=== PATIENT | female | born 1935 | race Caucasian/White ===

== ENCOUNTER 2021-01-15 23:37 | Inpatient (IN) | payer MEDICARE, MEDICAID, SELFPAY ==
--- NOTE | ~2021-01-15 | MR_ITS ---
EXAMINATION: MR ANKLE WITHOUT AND WITH CONTRAST, LEFT CLINICAL INFORMATION: Calcaneal wound. Rule out osteomyelitis. COMPARISON: None TECHNIQUE: MRI of the ankle was performed before and after the intravenous administration of 6 mL Gadavist on a high-field scanner. FINDINGS: ACHILLES TENDON: Normal. OTHER TENDONS: Mild peroneus brevis tendinosis is noted just distal to the lateral malleolus. No tears or tenosynovitis. Extensor and medial flexor tendons are normal. LIGAMENTS: Chronic complete tear of the anterior talofibular ligament. Intact calcaneofibular ligament. Chronic ossific fragments at the anterior margin of the medial malleolus correlate with chronic changes of prior avulsion fractures at the deltoid attachment. No acute deltoid and spring ligament tears. Syndesmotic ligaments are intact. BONE AND ARTICULAR CARTILAGE: No evidence of osteomyelitis. The calcaneal tuberosity is normal in signal intensity. There is mild talocrural osteoarthritis with focal areas of cartilage loss at the medial and lateral margins of the talar dome as well as small marginal osteophytes. Mild osteoarthritis is also present in the subtalar joint. The degenerated articulation between the lateral process of the talus and the anterior process of the calcaneus is associated with subchondral cystic change and raise the possibility of chronic lateral hindfoot impingement. There is mild to moderate multifocal osteoarthritis in the midfoot, most notably at the tarsometatarsal joints. Marked osteoarthritis is present at the 1st MTP joint. There is an old healed distal fibular fracture. No acute fractures. JOINT FLUID AND SOFT TISSUES: No joint effusions. At the posterolateral aspect of the calcaneus, there is a skin wound measuring approximately 2.2 x 3.2 cm in area with underlying hyperenhancing subcutaneous fat. No fluid collections. No underlying osteomyelitis. The musculature is diffusely atrophic and fatty replaced. PLANTAR FASCIA: Thickened without significant surrounding edema signal, consistent with chronic plantar fasciopathy. No tears. SINUS TARSI AND TARSAL TUNNEL: There is replacement of much of the normal fat signal in the sinus tarsi with soft tissue edema and low T1 signal intensity. MR/MR ankle LT wo/w con IMPRESSION: 1. Skin wound at the lateral aspect of the heel near the calcaneal tuberosity. No underlying abscess or osteomyelitis. 2. 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 The pattern of degeneration at the subtalar joint raising the possibility of chronic lateral hindfoot impingement. 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 3. Chronic plantar fasciopathy. Diffuse fatty atrophy of the foot musculature.
[2021-01-15 23:46] VITALS: BP 140/61; PULSE 60; RESP 16; TEMP 36.7; O2SAT 97; BMI 29.1
--- NOTE | 2021-01-15 23:48 | ED_ITS ---
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 Patient does have nonhealing wound on both calcaneum area left more than the right but lately has more pus discharge from the left calcaneum had the x-ray done which showed possible osteomyelitis. Patient denies any fever or chills no erythema or swelling no significant increase in the pain Related Data Home Medications Medication Instructions Recorded Confirmed amiodarone 200 mg tablet 1 tab PO DAILY 01/16/21 01/16/21 apixaban 2.5 mg tablet (Eliquis) 1 tab PO BID 01/16/21 01/16/21 cholecalciferol (vitamin D3) 25 25 mcg PO DAILY 01/16/21 01/16/21 mcg (1,000 unit) capsule gabapentin 100 mg capsule 100 mg PO TID 01/16/21 01/16/21 insulin lispro 100 unit/mL 1 sliding scale dose SUBCUT 01/16/21 01/16/21 subcutaneous solution USEASDIRECTD lidocaine 4 % topical patch 1 patch TOPICAL DAILY 01/16/21 01/16/21 (Lidocaine Pain Relief) pantoprazole 40 mg tablet,delayed 1 tab PO DAILY 01/16/21 01/16/21 release quetiapine 25 mg tablet 1 tab PO BEDTIME 01/16/21 01/16/21 sertraline 100 mg tablet 1 tab PO DAILY 01/16/21 01/16/21 verapamil 180 mg tablet,extended 1 tab PO DAILY 01/16/21 01/16/21 release Allergies Allergy/AdvReac Type Severity Reaction Status Date / Time No Known Allergies Allergy Verified 01/15/21 23:59 Review of Systems Review of Systems: Yes all other systems are reviewed and are negative PMFSH Past Medical History Medical History A-fib Chronic wound of extremity GERD (gastroesophageal reflux disease) Major depressive disorder Type 2 diabetes mellitus Social History Social History Advance Directives: No Advance Directives Information Provided: No Physical Exam Vital Signs: Vital Signs: Last Vital Signs Temp 98.0 F 01/15/21 23:46 Pulse 60 01/15/21 23:46 Resp 16 01/15/21 23:46 BP 140/61 H 01/15/21 23:46 Pulse Ox 97 01/15/21 23:46 Body Mass Index 29.1 Const: General: no acute distress and well developed Orientation/consciousness: patient oriented x3 HENMT: Head: Yes normocephalic and Yes atraumatic Eyes: General: appearance normal, both eyes and all related structures Neck: Neck: Yes normal visual inspection and Yes full ROM Resp: Effort & Inspection: normal respiratory effort and able to speak in complete sentences Auscultation: clear to auscultation bilaterally Cardio: Palpation: normal PMI Rate: regular rate Rhythm: regular rhythm Heart sounds: S1 normal heart sound present and S2 normal heart sound present Peripheral pulses: Peripheral pulses 2+ throughout GI: Inspection: Yes normal to inspection Palpation (GI): Soft to palpation and nontender Auscultation: normal bowel sounds : General: Yes no CVA tenderness Back/Spine/Pelvis: Back: no CVA tenderness Neuro: General: patient oriented x3 and moves all extremities Extrem: Ankle/foot/toe images: 1. 2 x 2 cm ulcer on the lateral aspect of left calcaneum with purulent discharge no surrounding erythema slight tenderness no crepitus 2. 1 x 1 cm superficial ulcer without any significant discharge on right calcaneum MDM - Extremity (Nontraumatic) MDM Narrative Medical decision making narrative: Patient has possible osteomyelitis of left calcaneum with bony erosion in the x-ray elevated sed rate normal lactic acid and normal WBC count will admit patient for IV antibiotics plan for MRI in the morning. Lab Data Attestation: I reviewed the patient's lab results. Result diagrams: 01/16/21 00:23 01/16/21 00:23 Labs: Lab Results 01/16/21 01/16/21 01/16/21 Range/Units 00:13 00:22 00:23 WBC 6.4 (4.8-10.8) X10*3/uL RBC 3.46 L (4.20-5.50) X10*6/uL Hgb 9.6 L (12.0-16.0) g/dl Hct 30.9 L (37-47) % MCV 89.3 (80-98) fL MCH 27.7 (27.0-33.0) pg MCHC 31.1 (31.0-35.0) g/dl RDW 15.9 (11.0-16.0) % Plt Count 138 L (160-400) X10*3/uL MPV 9.5 (9.4-12.3) fL Immature Gran % (Auto) 0.8 H (0.0-0.4) % Neut % (Auto) 68.9 (45-73) % Lymph % (Auto) 21.2 (20-40) % [place] % (Auto) 7.4 (2-11) % Eos % (Auto) 1.4 (0-4) % Baso % (Auto) 0.3 (0-2) % Lymph # (Auto) 1.4 (1.2-4.9) X10*3/uL [place] # (Auto) 0.5 (0.1-1.2) X10*3/uL Eos # (Auto) 0.1 (0.0-0.4) X10*3/uL Baso # (Auto) 0.0 (0.0-0.2) X10*3/uL Abs Immat Gran (auto) 0.05 H (0.00-0.03) X10*3/uL Absolute Neuts (auto) 4.4 (2.0-8.3) X10*3/uL Absolute Nucleated RBC 0.000 (0.0-0.012) X10*3/uL Nucleated RBC % (auto) 0.0 (0.0-0.2) /100WBC ESR (0-20) MM/HR Sodium (135-145) mmol/L Potassium (3.3-5.1) mmol/L Chloride (96-108) mmol/L Carbon Dioxide (22-29) mmol/L Anion Gap (12-20) BUN (9-16) mg/dL Creatinine (0.5-1.4) mg/dL Estim Creat Clear Calc Estimated GFR Random Glucose (60-115) mg/dL Lactic Acid 0.7 (0.5-2.0) mmol/L Calcium (8.4-10.2) mg/dL Total Bilirubin (0.0-1.0) mg/dL Direct Bilirubin (0.0-0.5) mg/dL AST (5-31) U/L ALT (0-31) U/L Alkaline Phosphatase (39-117) U/L C-Reactive Protein (< or = 0.50) mg/dL Total Protein (6.5-8.0) g/dL Albumin (3.5-5.0) g/dL COVID-19 ([facility]) Negative (Negative) COVID-19 Clin Com See Note 01/16/21 01/16/21 Range/Units 00:23 00:23 WBC (4.8-10.8) X10*3/uL RBC (4.20-5.50) X10*6/uL Hgb (12.0-16.0) g/dl Hct (37-47) % MCV (80-98) fL MCH (27.0-33.0) pg MCHC (31.0-35.0) g/dl RDW (11.0-16.0) % Plt Count (160-400) X10*3/uL MPV (9.4-12.3) fL Immature Gran % (Auto) (0.0-0.4) % Neut % (Auto) (45-73) % Lymph % (Auto) (20-40) % [place] % (Auto) (2-11) % Eos % (Auto) (0-4) % Baso % (Auto) (0-2) % Lymph # (Auto) (1.2-4.9) X10*3/uL [place] # (Auto) (0.1-1.2) X10*3/uL Eos # (Auto) (0.0-0.4) X10*3/uL Baso # (Auto) (0.0-0.2) X10*3/uL Abs Immat Gran (auto) (0.00-0.03) X10*3/uL Absolute Neuts (auto) (2.0-8.3) X10*3/uL Absolute Nucleated RBC (0.0-0.012) X10*3/uL Nucleated RBC % (auto) (0.0-0.2) /100WBC ESR 44 H (0-20) MM/HR Sodium 140 (135-145) mmol/L Potassium 4.5 (3.3-5.1) mmol/L Chloride 104 (96-108) mmol/L Carbon Dioxide 28 (22-29) mmol/L Anion Gap 13 (12-20) BUN 40 H (9-16) mg/dL Creatinine 1.97 H (0.5-1.4) mg/dL Estim Creat Clear Calc 19.0 Estimated GFR 24 Random Glucose 118 H (60-115) mg/dL Lactic Acid (0.5-2.0) mmol/L Calcium 9.3 (8.4-10.2) mg/dL Total Bilirubin 0.2 (0.0-1.0) mg/dL Direct Bilirubin < 0.2 (0.0-0.5) mg/dL AST 17 (5-31) U/L ALT 13 (0-31) U/L Alkaline Phosphatase 114 (39-117) U/L C-Reactive Protein 0.35 (< or = 0.50) mg/dL Total Protein 6.1 L (6.5-8.0) g/dL Albumin 3.8 (3.5-5.0) g/dL COVID-19 ([facility]) (Negative) COVID-19 Clin Com Discharge Plan Discharge Clinical Impression: Osteomyelitis of ankle Qualifiers: Osteomyelitis type: subacute Laterality: left Qualified Code(s): M86.272 - Subacute osteomyelitis, left ankle and foot Patient Disposition: Admitted As Inpatient
[2021-01-16] VITALS (7 sets, daily range): BP systolic 116–147; BP diastolic 60–77; PULSE 73–93; RESP 18; TEMP 35.5–37.2; O2SAT 93–99
[2021-01-16 00:28] LABS: MANUAL DIFF FLAG NO
[2021-01-16 00:31] LABS: Basophils Percent Auto 0.3 % (0-2); Eosinophils Absolute Auto 0.1 X10*3/uL (0.0-0.4); Eosinophils Percent Auto 1.4 % (0-4); Hematocrit 30.9 % (37-47); Hemoglobin 9.6 g/dl (12.0-16.0); Imm Gran Abs Auto 0.05 X10*3/uL (0.00-0.03); Imm Gran Pct Auto 0.8 % (0.0-0.4); Lymphocytes Absolute Auto 1.4 X10*3/uL (1.2-4.9); Lymphocytes Percent Auto 21.2 % (20-40); Mean Corpuscular HGB Conc 31.1 g/dl (31.0-35.0); Mean Corpuscular Hemoglobin 27.7 pg (27.0-33.0); Mean Corpuscular Volume 89.3 fL (80-98); Mean Platelet Volume 9.5 fL (9.4-12.3); Monocytes Absolute Auto 0.5 X10*3/uL (0.1-1.2); Monocytes Percent Auto 7.4 % (2-11); Neutrophils Absolute Auto 4.4 X10*3/uL (2.0-8.3); Neutrophils Percent Auto 68.9 % (45-73); Platelet Count 138 X10*3/uL (160-400); Red Blood Count 3.46 X10*6/uL (4.20-5.50); Red Cell Distribution Width 15.9 % (11.0-16.0); White Blood Count 6.4 X10*3/uL (4.8-10.8)
[2021-01-16 00:34] LABS: COVID-19 Test Negative (Negative)
[2021-01-16] MEDS: Piperacillin Sodium/Tazobactam 3.375 GM in 0.9 % Sodium Chloride 50 ML IV (00:37)
[2021-01-16 00:48] LABS: Lactic Acid 0.7 mmol/L (0.5-2.0)
[2021-01-16 00:52] LABS: Alanine Aminotransferase 13 U/L (0-31); Albumin Level 3.8 g/dL (3.5-5.0); Alkaline Phosphatase 114 U/L (39-117); Anion Gap 13 (12-20); Aspartate Amino Transferase 17 U/L (5-31); Bilirubin Direct < 0.2 mg/dL (0.0-0.5); Bilirubin Total 0.2 mg/dL (0.0-1.0); Blood Urea Nitrogen 40 mg/dL (9-16); Calcium 9.3 mg/dL (8.4-10.2); Carbon Dioxide 28 mmol/L (22-29); Chloride 104 mmol/L (96-108); Estimated Glomerular Filt Rate 24; Glucose Random 118 mg/dL (60-115); Potassium 4.5 mmol/L (3.3-5.1); Sodium 140 mmol/L (135-145); Total Protein 6.1 g/dL (6.5-8.0)
[2021-01-16 00:57] LABS: C Reactive Protein 0.35 mg/dL (< or = 0.50)
[2021-01-16 01:05] LABS: Erythrocyte Sedimentation Rate 44 MM/HR (0-20)
[2021-01-16] MEDS: vancomycin HCL 1,000 MG in 0.9 % Sodium Chloride 250 ML 270 MG IV (01:22)
--- NOTE | 2021-01-16 06:19 | P.HPHOSP_ITS ---
History of Present Illness Date of Service: 01/16/21 Chief Complaint: non-healing ulcer This is an 85-year-old female with past medical history of AFib, chronic wound of lower extremity, GERD, depression, type 2 diabetes who [facility] the [facility] for nonhealing wound. Patient reports that she has chronic wounds of her bilateralal feet that have been there for the past 6 months. Patient reports that her right foot ulcer wound is healing very well but the left has not been healing and therefore an x-ray was done at the halfway which showed possible osteomyelitis and therefore she was sent to the hospital. Patient reports worsening pain for the past 1 week, pain is about a 7/10, radiating up her leg, constant, no alleviating or exacerbating factors, not associated with any fever or chills. Patient denies any chest pain, shortness of breath, no cough, no abdominal pain nausea or vomiting, no diarrhea constipation, no urinary symptoms. Patient denies any numbness tingling. She reports history of diabetes but reports that she has never been on any medications prior to recently. Who vitals reviewed show a temp of 98.0?, heart rate of 60, respiratory rate of 16, satting 97% on room air. Lab significant for WBC count of 6.4, hemoglobin of 9.6, ESR of 44, CRP of 0.35, COVID-19 negative. Patient will be admitted further evaluation Review of Systems Review of Systems: Yes all other systems are reviewed and are negative [facility], [facility] Medical History A-fib Chronic wound of extremity GERD (gastroesophageal reflux disease) Major depressive disorder Type 2 diabetes mellitus Social History (Updated 01/16/21 @ 06:27 by Dylan Gastelum MD) Alcohol intake: never Patient Tobacco Use Status: Never used Tobacco Use of substances other than those prescribed or required for medical reasons: No Advance Directives: No Advance Directives Information Provided: No Meds Allergies Allergy/AdvReac Type Severity Reaction Status Date / Time No Known Allergies Allergy Verified 01/15/21 23:59 Active Medications: Current Medications Generic Name Dose Route Start Last Admin Trade Name Freq PRN Reason Stop Dose Admin Acetaminophen 650 mg 01/16/21 02:32 Acetaminophen 325 Mg Tablet PO Q6H PRN Pain, Mild (Pain Scale 1-3) Docusate Sodium 100 mg 01/16/21 02:32 Docusate Sodium 100 Mg Capsule PO DAILY PRN Constipation Heparin Sodium (Porcine) 5,000 unit 01/16/21 06:00 Heparin Sodium,Porcine 5,000 Unit/Ml Vial SUBCUT Q12H JANA Vancomycin HCl 1,250 mg/ 250 mls @ 166.667 mls/hr 01/16/21 02:32 Sodium Chloride IV Q12H JANA Piperacillin Sod/Tazobactam 50 mls @ 100 mls/hr 01/16/21 08:00 Sod 2.25 gm/ Sodium Chloride IV Q8H JANA Ondansetron HCl 4 mg 01/16/21 02:32 Ondansetron Hcl 4 Mg/2 Ml Vial IVPUSH Q8H PRN Nausea and Vomiting Oxycodone HCl 5 mg 01/16/21 02:32 Oxycodone Hcl Immed Release 5 Mg Tablet PO Q6H PRN Pain, Severe (Pain Scale 7-10) Pharmacy Consult 1 each 01/16/21 00:01 Consult Rx Vancomycin Dosing MISCELLANE DAILY PRN Consult order Sodium Chloride 3 ml 01/16/21 08:00 0.9 % Sodium Chloride Flush 3 Ml Syringe [facility] Home Medications Medication Instructions Recorded Confirmed Last Taken Type amiodarone 200 mg tablet 1 tab PO DAILY 01/16/21 01/16/21 Unknown History apixaban 2.5 mg tablet (Eliquis) 1 tab PO BID 01/16/21 01/16/21 Unknown History cholecalciferol (vitamin D3) 25 25 mcg PO DAILY 01/16/21 01/16/21 Unknown History mcg (1,000 unit) capsule gabapentin 100 mg capsule 100 mg PO TID 01/16/21 01/16/21 Unknown History insulin lispro 100 unit/mL 1 sliding scale dose SUBCUT 01/16/21 01/16/21 Unknown History subcutaneous solution USEASDIRECTD lidocaine 4 % topical patch 1 patch TOPICAL DAILY 01/16/21 01/16/21 Unknown History (Lidocaine Pain Relief) pantoprazole 40 mg tablet,delayed 1 tab PO DAILY 01/16/21 01/16/21 Unknown History release quetiapine 25 mg tablet 1 tab PO BEDTIME 01/16/21 01/16/21 Unknown History sertraline 100 mg tablet 1 tab PO DAILY 01/16/21 01/16/21 Unknown History verapamil 180 mg tablet,extended 1 tab PO DAILY 01/16/21 01/16/21 Unknown H istory release Physical Exam Vital Signs and Narrative: Vital Signs: Last Vital Signs Temp 98.0 F 01/15/21 23:46 Pulse 60 01/15/21 23:46 Resp 16 01/15/21 23:46 BP 140/61 H 01/15/21 23:46 Pulse Ox 97 01/15/21 23:46 Body Mass Index 29.1 Const: General: cooperative and no acute distress Orientation/consciousness: patient oriented x3 Eyes: General: appearance normal, both eyes and all related structures Pupils: Equal, round and reactive pupils present Resp: Effort & Inspection: normal respiratory effort and able to speak in complete sentences Auscultation: clear to auscultation bilaterally Cardio: Rate: regular rate Rhythm: regular rhythm GI: Palpation (GI): Soft to palpation Auscultation: normal bowel sounds Skin: General skin exam: no rashes or lesions noted Neuro: General: patient oriented x3 Cranial nerves: Yes Equal, round and reactive pupils present Cognition (Neuro): normal cognition Extrem: Other: Left calcaneus ulcer, producing purulent discharge, tender, no erythema no warmth. General: Yes no pedal edema Results Labs CBC and Chem 7: 01/16/21 00:23 01/16/21 00:23 Labs: Laboratory Results - last 24 hr 01/16/21 01/16/21 01/16/21 00:13 00:22 00:23 MCV 89.3 MCH 27.7 MCHC 31.1 RDW 15.9 Plt Count 138 L MPV 9.5 Immature Gran % (Auto) 0.8 H Neut % (Auto) 68.9 Lymph % (Auto) 21.2 [place] % (Auto) 7.4 Eos % (Auto) 1.4 Baso % (Auto) 0.3 Lymph # (Auto) 1.4 [place] # (Auto) 0.5 Eos # (Auto) 0.1 Baso # (Auto) 0.0 Abs Immat Gran (auto) 0.05 H Absolute Neuts (auto) 4.4 Absolute Nucleated RBC 0.000 Nucleated RBC % (auto) 0.0 ESR Anion Gap Estim Creat Clear Calc Estimated GFR Random Glucose Lactic Acid 0.7 Calcium Total Bilirubin Direct Bilirubin AST ALT Alkaline Phosphatase C-Reactive Protein Total Protein Albumin COVID-19 ([facility]) Negative COVID-19 Clin Com See Note 01/16/21 01/16/21 00:23 00:23 MCV MCH MCHC RDW Plt Count MPV Immature Gran % (Auto) Neut % (Auto) Lymph % (Auto) [place] % (Auto) Eos % (Auto) Baso % (Auto) Lymph # (Auto) [place] # (Auto) Eos # (Auto) Baso # (Auto) Abs Immat Gran (auto) Absolute Neuts (auto) Absolute Nucleated RBC Nucleated RBC % (auto) ESR 44 H Anion Gap 13 Estim Creat Clear Calc 19.0 Estimated GFR 24 Random Glucose 118 H Lactic Acid Calcium 9.3 Total Bilirubin 0.2 Direct Bilirubin < 0.2 AST 17 ALT 13 Alkaline Phosphatase 114 C-Reactive Protein 0.35 Total Protein 6.1 L Albumin 3.8 COVID-19 ([facility]) COVID-19 Clin Com Assessment and Plan (1) Acute osteomyelitis of left calcaneus: Status: Acute This is an 85-year-old female with past medical history of AFib, depression who presents to the hospital for nonhealing ulcer concerning for osteomyelitis # osteomyelitis of left calcaneus - x-ray done outpatient shows possible osteomyelitis - patient has elevated ESR with CRP normal - afebrile, no leukocytosis - will start prophylactic broad-spectrum antibiotics in the setting of diabetes - MRI of the foot - infectious disease consult # AFib - continue amiodarone and Eliquis # diabetes - low-dose sliding scale insulin - diabetic diet # depression - continue home medications DVT prophylaxis: ELIQUIS Quality Stroke Does the patient have a stroke diagnosis?: No VTE Prior VTE?: No VTE Risk Level:: Medical - moderate - high VTE Device Contraindication: Treatment Not Indicated VTE Drug Contraindication: N/A - Med Ordered
--- NOTE | 2021-01-16 07:23 | P.CDIC_ITS ---
CDI Concurrent Query Service Date: 01/16/21 Documentation Clarification: Please clarify if you are treating a proba ble/suspected/likely or confirmed: Clarify which of the following accurately represents the patient's renal status: - Acute renal failure - see criteria - Acute renal failure with suspected ATN - Acute renal failure with other pathology (medullary, papillary, or cortical necrosis) - Acute renal failure (with type, appropriate) on Chronic Kidney Disease (CKD) - see criteria - Acute kidney injury (non-traumatic) - see criteria - CKD, please provide stage - see criteria - ESRD - CKD V now requiring permanent dialysis and/or transplant - Other (please specify): - Unable to determine Criteria for SARAH* 1)Increase in serum creatinine by > 0.3 mg/dL within 48 hours, or 2)Increase in serum creatinine to > 1.5 times baseline, which is known or presumed to have occurred within 7 days, or 3)Urine volume < 0.5 mL/kg/hour for six hours CKD Staging: - Stage G1 - Normal or High - 90 - Stage G2 - Mildly Decreased - 60-89 - Stage G3a - Mildly to Moderately Decreased - 45-59 - Stage G3b - Mildly to Severely Decreased - 30-44 - Stage G4 - Severely Decreased - 15-29 - Stage G5 - Kidney Failure - < 15 Kidney Disease: Improving Global Outcomes (KDIGO) 2012 Use of terms such as suspected, likely, concern for, or probable (associated with a specific diagnosis that is being evaluated, monitored, or treated as if it exists) are acceptable and can be coded in the inpatient setting, when documented at the time of discharge. PLEASE DO NOT DELETE/MODIFY EXISTING CONTENT Additional information is needed in order to code to the highest accuracy and appropriate Severity of Illness (SOI). Please clarify the information noted below in your progress notes and discharge summary. Risk Factors/Clinical Indicators/Treatments BUN 40 Creatinine 1.97 No baseline in EMR CDS: Mary Carmen Shukla RN Contact Number: [phone] Please Review the information above and exercise your independent professional judgment in responding to the query. If you concur, pleas document in the PROGRESS NOTES and DISCHARGE SUMMARY. If you do not agree with the query, please document in the query above. THIS QUERY IS PART OF THE PERMANENT MEDICAL RECORD
--- NOTE | 2021-01-16 07:27 | P.CDIC_ITS ---
CDI Concurrent Query Service Date: 01/16/21 Documentation Clarification: Please clarify if you are treating a proba ble/suspected/likely or confirmed: -Please specify -Type (etiology) of ulcer/wound: -Diabetic ulcer -Venous stasis ulcer -Arterial (ischemic) ulcer -Pressure (decubitus) ulcer -Traumatic wound -Non-healing surgical wound -Other -Unable to determine -For a non-pressure ulcer, please indicate the depth/severity: -Limited to the breakdown of skin -With fat layer exposed -With necrosis of muscle -With necrosis of bone -Other -Unable to determine -If a pressure ulcer, please also include the stage* of the ulcer: -Stage 1 - Skin intact, non-blanchable redness -Stage 2 - Partial thickness loss of dermis, includes intact or open blister -Stage 3 - Full thickness tissue not including bone, tendon, or muscle -Stage 4 - Full thickness tissue loss, including exposed bones, tendon, or muscle -Unstageable - Full thickness tissue loss in which the base of the ulcer is covered by slough (yellow, mendoza, saunders, green or brown) and/or eschar (mendoza, brown, or black) in the wound bed. -Suspected deep tissue injury - Purple or maroon localized area of discolored intact skin or blood-filled blister due to damage of underlying soft tissues from pressure and/or shear. The area may be preceded by tissue that is painful, firm, mushy, boggy, warmer, or cooler as compare to adjacent tissue. -Unable to determine *Source: National Pressure Ulcer Advisory Panel (NPUAP) Use of terms such as suspected, likely, concern for, or probable (associated with a specific diagnosis that is being evaluated, monitored, or treated as if it exists) are acceptable and can be coded in the inpatient setting, when documented at the time of discharge. PLEASE DO NOT DELETE/MODIFY EXISTING CONTENT Additional information is needed in order to code to the highest accuracy and appropriate Severity of Illness (SOI). Please clarify the information noted below in your progress notes and discharge summary. Risk Factors/Clinical Indicators/Treatments Non-healing ulcer both calcaneous X-ray left foot: possible osteomyeltis Treated with IV antibiotic PMH: Diabetes Mellitus CDS: Mary Carmen Shukla RN Contact Number: [phone] Please Review the information above and exercise your independent professional judgment in responding to the query. If you concur, pleas document in the PROGRESS NOTES and DISCHARGE SUMMARY. If you do not agree with the query, please document in the query above. THIS QUERY IS PART OF THE PERMANENT MEDICAL RECORD
[2021-01-16 07:33] LABS: Glucose, Whole Blood 115 mg/dL (60-115)
[2021-01-16] MEDS: Piperacillin Sodium/Tazobactam 2.25 GM in 0.9 % Sodium Chloride 50 ML IV ×2 (08:07→15:42)
[2021-01-16] MEDS: Cholecalciferol (Vitamin D3) 25 MCG TABLET PO (08:07)
[2021-01-16] MEDS: Amiodarone HCL 200 MG TABLET PO (08:07)
[2021-01-16] MEDS: Gabapentin 100 MG CAPSULE PO (08:08)
[2021-01-16] MEDS: Sertraline HCL 100 MG TABLET PO (08:08)
[2021-01-16] MEDS: 0.9 % Sodium Chloride Flush 3 ML SYRINGE IVFLUSH ×2 (08:08→15:44)
[2021-01-16] MEDS: Omeprazole 20 MG CAPSULE.DR PO (08:08)
[2021-01-16] MEDS: Apixaban 2.5 MG TABLET PO ×2 (08:08→20:39)
[2021-01-16] MEDS: Lidocaine 4 % Patch ADH..PATCH 1 PATCH TRANSDERMA (08:09)
[2021-01-16] MEDS: VerapamiL HCL SR 180 MG TABLET.ER PO (08:25)
[2021-01-16] MEDS: lisinopriL 10 MG TABLET PO (08:25)
[2021-01-16] MEDS: Sennosides/Docusate Sodium TABLET 1 TAB PO (08:38)
[2021-01-16 10:06] LABS: Estimated Average Glucose 123 mg/dL; Hemoglobin A1c % 5.9 %
--- NOTE | 2021-01-16 10:10 | MHC.CM.PN ---
MET WITH PT WHO IS A RESIDENT OF [facility] WHERE SHE PLANS ON RETURNI NG WHEN SHE IS READY FOR DC
[2021-01-16 11:18] LABS: Glucose, Whole Blood 108 mg/dL (60-115)
--- NOTE | 2021-01-16 12:04 | HO.PM.IMPN ---
Subjective Subjective Date of Service: 01/16/21 Interval History: L heel pain no fever no chest pain no dyspnea Review of Systems Review of Systems: Yes all other systems are reviewed and are negative Physical Exam Vital Signs: Vital Signs: Last Vital Signs Temp 96 F L 01/16/21 11:05 Pulse 85 01/16/21 11:05 Resp 18 01/16/21 11:05 BP 116/76 01/16/21 11:05 Pulse Ox 96 01/16/21 11:05 Body Mass Index 29.1 Gen: in no acute distress HEENT: sclera anicteric, moist mucus membranes Neck: supple Lungs: clear to auscultation bilaterally Heart: irregular, no murmurs Abd: soft, non-tender, non-distended Ext: no edema Skin: 2 cm ulcer L calcaneus with purulent discharge Neuro: alert and oriented x3, chronic L-sided weakness Psych: appropriate affect Objective Data Current Medications Generic Name Dose Route Start Last Admin Trade Name Freq PRN Reason Stop Dose Admin Acetaminophen 650 mg 01/16/21 02:32 Acetaminophen 325 Mg Tablet PO Q6H PRN Pain, Mild (Pain Scale 1-3) Amiodarone HCl 200 mg 01/16/21 09:00 01/16/21 08:07 Amiodarone Hcl 200 Mg Tablet PO 200 mg DAILY JANA Administration Apixaban 2.5 mg 01/16/21 09:00 01/16/21 08:08 Apixaban 2.5 Mg Tablet PO 2.5 mg BID JANA Administration Dextrose 25 gm 01/16/21 06:31 Dextrose 50 % 25 Gm/50 Ml Vial IVPUSH Q15M PRN per Hypoglycemia Standing Ord. Protocol Docusate Sodium 100 mg 01/16/21 02:32 Docusate Sodium 100 Mg Capsule PO DAILY PRN Constipation Gabapentin 100 mg 01/17/21 12:00 Gabapentin 100 Mg Capsule PO DAILY@1200 JANA Gabapentin 200 mg 01/16/21 21:00 Gabapentin 100 Mg Capsule PO BEDTIME JANA Glucose 15 gm 01/16/21 06:31 Glucose Gel 15 Gm Gel..Gram. PO Q15M PRN per Hypoglycemia Standing Ord. Protocol Piperacillin Sod/Tazobactam 50 mls @ 100 mls/hr 01/16/21 08:00 01/16/21 08:40 Sod 2.25 gm/ Sodium Chloride IV Infused Q8H JANA Infusion Vancomycin HCl 500 mg/ Sodium 110 mls @ 110 mls/hr 01/16/21 18:00 Chloride IV Q18H JANA Insulin Human Lispro 0 unit 01/16/21 07:30 01/16/21 11:43 Insulin Lispro 100 Unit/Ml 3 Ml Vial SUBCUT Not Given QIDACHS [facility] Protocol Lidocaine 1 patch 01/16/21 09:00 01/16/21 08:09 Lidocaine 4 % Patch Adh..Patch TRANSDERMA 1 patch DAILY JANA Administration Protocol Lisinopril 10 mg 01/16/21 09:00 01/16/21 08:25 Lisinopril 10 Mg Tablet PO 10 mg DAILY JANA Administration Protocol Multivitamins/Minerals 1 tab 01/16/21 09:00 01/16/21 08:25 Multivitamin With Minerals Tablet PO 1 tab DAILY JANA Administration Omeprazole 20 mg 01/16/21 07:00 01/16/21 08:08 Omeprazole 20 Mg Capsule.Dr PO 20 mg DAILY@0630 JANA Administration Ondansetron HCl 4 mg 01/16/21 02:32 Ondansetron Hcl 4 Mg/2 Ml Vial IVPUSH Q8H PRN Nausea and Vomiting Oxycodone HCl 5 mg 01/16/21 02:32 Oxycodone Hcl Immed Release 5 Mg Tablet PO Q6H PRN Pain, Severe (Pain Scale 7-10) Pharmacy Consult 1 each 01/16/21 00:01 Consult Rx Vancomycin Dosing MISCELLANE DAILY PRN Consult order Quetiapine Fumarate 25 mg 01/16/21 21:00 Quetiapine Fumarate 25 Mg Tablet PO BEDTIME JANA Senna/Docusate Sodium 1 tab 01/16/21 09:00 01/16/21 08:38 Sennosides/Docusate Sodium Tablet PO 1 tab DAILY JANA Administration Sertraline HCl 100 mg 01/16/21 09:00 01/16/21 08:08 Sertraline Hcl 100 Mg Tablet PO 100 mg DAILY JANA Administration Sodium Chloride 3 ml 01/16/21 08:00 01/16/21 08:08 0.9 % Sodium Chloride Flush 3 Ml Syringe IVFLUSH 3 ml QSHIFT JANA Administration Tramadol HCl 50 mg 01/16/21 08:12 Tramadol Hcl 50 Mg Tablet PO Q12H PRN Pain Verapamil HCl 180 mg 01/16/21 09:00 01/16/21 08:25 Verapamil Hcl Sr 180 Mg Tablet.Er PO 180 mg DAILY JANA Administration Protocol Vitamin D 25 mcg 01/16/21 09:00 01/16/21 08:07 Cholecalciferol (Vitamin D3) 25 Mcg Tablet PO 25 mcg DAILY JANA Administration Labs CBC & Chem 7: 01/16/21 00:23 01/16/21 00:23 Labs: Laboratory Results - last 24 hr 01/16/21 01/16/21 01/16/21 00:13 00:22 00:23 MCV 89.3 MCH 27.7 MCHC 31.1 RDW 15.9 Plt Count 138 L MPV 9.5 Immature Gran % (Auto) 0.8 H Neut % (Auto) 68.9 Lymph % (Auto) 21.2 Chaves % (Auto) 7.4 Eos % (Auto) 1.4 Baso % (Auto) 0.3 Lymph # (Auto) 1.4 Chaves # (Auto) 0.5 Eos # (Auto) 0.1 Baso # (Auto) 0.0 Abs Immat Gran (auto) 0.05 H Absolute Neuts (auto) 4.4 Absolute Nucleated RBC 0.000 Nucleated RBC % (auto) 0.0 ESR Anion Gap Estim Creat Clear Calc Estimated GFR POC Glucose Random Glucose Estimat Average Glucose Hemoglobin A1c % Lactic Acid 0.7 Calcium Total Bilirubin Direct Bilirubin AST ALT Alkaline Phosphatase C-Reactive Protein Total Protein Albumin COVID-19 ([facility]) Negative COVID-19 Clin Com See Note 01/16/21 01/16/21 01/16/21 00:23 00:23 00:23 MCV MCH MCHC RDW Plt Count MPV Immature Gran % (Auto) Neut % (Auto) Lymph % (Auto) Chaves % (Auto) Eos % (Auto) Baso % (Auto) Lymph # (Auto) Chaves # (Auto) Eos # (Auto) Baso # (Auto) Abs Immat Gran (auto) Absolute Neuts (auto) Absolute Nucleated RBC Nucleated RBC % (auto) ESR 44 H Anion Gap 13 Estim Creat Clear Calc 19.0 Estimated GFR 24 POC Glucose Random Glucose 118 H Estimat Average Glucose 123 Hemoglobin A1c % 5.9 Lactic Acid Calcium 9.3 Total Bilirubin 0.2 Direct Bilirubin < 0.2 AST 17 ALT 13 Alkaline Phosphatase 114 C-Reactive Protein 0.35 Total Protein 6.1 L Albumin 3.8 COVID-19 ([facility]) COVID-19 Clin Com 01/16/21 01/16/21 07:29 10:55 MCV MCH MCHC RDW Plt Count MPV Immature Gran % (Auto) Neut % (Auto) Lymph % (Auto) Chaves % (Auto) Eos % (Auto) Baso % (Auto) Lymph # (Auto) Chaves # (Auto) Eos # (Auto) Baso # (Auto) Abs Immat Gran (auto) Absolute Neuts (auto) Absolute Nucleated RBC Nucleated RBC % (auto) ESR Anion Gap Estim Creat Clear Calc Estimated GFR POC Glucose 115 108 Random Glucose Estimat Average Glucose Hemoglobin A1c % Lactic Acid Calcium Total Bilirubin Direct Bilirubin AST ALT Alkaline Phosphatase C-Reactive Protein Total Protein Albumin COVID-19 ([facility]) COVID-19 Clin Com Assessment and Plan (1) Acute osteomyelitis of left calcaneus: Status: Acute Assessment and Plan: hospital d#1 85-year-old female with AF, chronic heel wounds, DM2, hx CVA with L-sided weakness [facility] nonhealing wound of L heel with concern of osteomyelitis on outpt X-ray # osteomyelitis of L associated with DM foot ulcer - MRI today, ID consult, vanc + pip/fina d#1, follow BCx # renal insufficiency - unknown chronicity- ?baseline Cr- will try to get records # normocytic anemia - also unknown chronicity. check iron studies, B12, FA, LDH, FOBT # AF - continue amiodarone, verapamil, apixaban # HTN - continue lisinopril, verapamil # DM2 - well-controlled, A1c only 5.9. correction-dose lispro # depression - continue quetiapine + sertraline # VTE ppx - apixaban Quality Stroke Does the patient have a stroke diagnosis?: No VTE Prior VTE?: No VTE Risk Level:: Medical - moderate - high VTE Device Contraindication: Treatment Not Indicated VTE Drug Contraindication: N/A - Med Ordered
[2021-01-16 15:31] LABS: Glucose, Whole Blood 129 mg/dL (60-115)
--- NOTE | 2021-01-16 16:17 | W.PM.IDCN ---
History of Present Illness Data of Consult Service Date: 01/16/21 Requesting physician: Denilson Day Primary Care Provider: Unknown Physician HPI Reason for consult: left heel ulcer She presents to hospital after [facility] found evidence of yellow drainage from left chronic heel ulcer (she has on both feet) which was present for six months XRay apparently showed osteomyelitis and she was transferred to hospital Review of Systems Review of Systems: Yes all other systems are reviewed and are negative PMFSH Past Medical History Medical History A-fib Chronic wound of extremity GERD (gastroesophageal reflux disease) Major depressive disorder Type 2 diabetes mellitus Social History Social History Household Members: Other Housing: [facility] Alcohol intake: never Patient Tobacco Use Status: Never used Tobacco service: No Meds Allergies Allergy/AdvReac Type Severity Reaction Status Date / Time No Known Allergies Allergy Verified 01/15/21 23:59 Active Medications: Current Medications Generic Name Dose Route Start Last Admin Trade Name Freq PRN Reason Stop Dose Admin Acetaminophen 650 mg 01/16/21 02:32 Acetaminophen 325 Mg Tablet PO Q6H PRN Pain, Mild (Pain Scale 1-3) Amiodarone HCl 200 mg 01/16/21 09:00 01/16/21 08:07 Amiodarone Hcl 200 Mg Tablet PO 200 mg DAILY JANA Administration Apixaban 2.5 mg 01/16/21 09:00 01/16/21 08:08 Apixaban 2.5 Mg Tablet PO 2.5 mg BID JANA Administration Dextrose 25 gm 01/16/21 06:31 Dextrose 50 % 25 Gm/50 Ml Vial IVPUSH Q15M PRN per Hypoglycemia Standing Ord. Protocol Docusate Sodium 100 mg 01/16/21 02:32 Docusate Sodium 100 Mg Capsule PO DAILY PRN Constipation Gabapentin 100 mg 01/17/21 12:00 Gabapentin 100 Mg Capsule PO DAILY@1200 JANA Gabapentin 200 mg 01/16/21 21:00 Gabapentin 100 Mg Capsule PO BEDTIME JANA Glucose 15 gm 01/16/21 06:31 Glucose Gel 15 Gm Gel..Gram. PO Q15M PRN per Hypoglycemia Standing Ord. Protocol Piperacillin Sod/Tazobactam 50 mls @ 100 mls/hr 01/16/21 08:00 01/16/21 15:42 Sod 2.25 gm/ Sodium Chloride IV 100 mls/hr Q8H JANA Administration Vancomycin HCl 500 mg/ Sodium 110 mls @ 110 mls/hr 01/16/21 18:00 Chloride IV Q18H JANA Insulin Human Lispro 0 unit 01/16/21 07:30 01/16/21 15:44 Insulin Lispro 100 Unit/Ml 3 Ml Vial SUBCUT Not Given QIDACHS [facility] Protocol Lidocaine 1 patch 01/16/21 09:00 01/16/21 08:09 Lidocaine 4 % Patch Adh..Patch TRANSDERMA 1 patch DAILY JANA Administration Protocol Lisinopril 10 mg 01/16/21 09:00 01/16/21 08:25 Lisinopril 10 Mg Tablet PO 10 mg DAILY JANA Administration Protocol Multivitamins/Minerals 1 tab 01/16/21 09:00 01/16/21 08:25 Multivitamin With Minerals Tablet PO 1 tab DAILY JANA Administration Omeprazole 20 mg 01/16/21 07:00 01/16/21 08:08 Omeprazole 20 Mg Capsule.Dr PO 20 mg DAILY@0630 JANA Administration Ondansetron HCl 4 mg 01/16/21 02:32 Ondansetron Hcl 4 Mg/2 Ml Vial IVPUSH Q8H PRN Nausea and Vomiting Oxycodone HCl 5 mg 01/16/21 02:32 Oxycodone Hcl Immed Release 5 Mg Tablet PO Q6H PRN Pain, Severe (Pain Scale 7-10) Pharmacy Consult 1 each 01/16/21 00:01 Consult Rx Vancomycin Dosing MISCELLANE DAILY PRN Consult order Quetiapine Fumarate 25 mg 01/16/21 21:00 Quetiapine Fumarate 25 Mg Tablet PO BEDTIME JANA Senna/Docusate Sodium 1 tab 01/16/21 09:00 01/16/21 08:38 Sennosides/Docusate Sodium Tablet PO 1 tab DAILY JANA Administration Sertraline HCl 100 mg 01/16/21 09:00 01/16/21 08:08 Sertraline Hcl 100 Mg Tablet PO 100 mg DAILY JANA Administration Sodium Chloride 3 ml 01/16/21 08:00 01/16/21 15:44 0.9 % Sodium Chloride Flush 3 Ml Syringe IVFLUSH 3 ml QSHIFT JANA Administration Tramadol HCl 50 mg 01/16/21 08:12 Tramadol Hcl 50 Mg Tablet PO Q12H PRN Pain Verapamil HCl 180 mg 01/16/21 09:00 01/16/21 08:25 Verapamil Hcl Sr 180 Mg Tablet.Er PO 180 mg DAILY [facility] Administration Protocol Vitamin D 25 mcg 01/16/21 09:00 01/16/21 08:07 Cholecalciferol (Vitamin D3) 25 Mcg Tablet PO 25 mcg DAILY JANA Administration Home Medications Medication Instructions Recorded Confirmed Last Taken Type amiodarone 200 mg tablet 1 tab PO DAILY 01/16/21 01/16/21 Unknown History apixaban 2.5 mg tablet (Eliquis) 1 tab PO BID 01/16/21 01/16/21 Unknown History cholecalciferol (vitamin D3) 25 25 mcg PO DAILY 01/16/21 01/16/21 Unknown History mcg (1,000 unit) capsule gabapentin 100 mg capsule 100 cap PO DAILY@1200 01/16/21 01/16/21 Unknown History gabapentin 100 mg capsule 200 cap PO BEDTIME 01/16/21 01/16/21 Unknown History insulin lispro 100 unit/mL 1 sliding scale dose SUBCUT 01/16/21 01/16/21 Unknown History subcutaneous solution USEASDIRECTD lidocaine 4 % topical patch 1 patch TOPICAL DAILY 01/16/21 01/16/21 Unknown History (Lidocaine Pain Relief) lisinopril 10 mg tablet 1 tab PO DAILY 01/16/21 01/16/21 Unknown History multivitamin with minerals 1 tab PO DAILY 01/16/21 01/16/21 Unknown History pantoprazole 40 mg tablet,delayed 1 tab PO DAILY 01/16/21 01/16/21 Unknown History release quetiapine 25 mg tablet 1 tab PO BEDTIME 01/16/21 01/16/21 Unknown History sennosides 8.6 mg-docusate sodium 1 tab-cap PO DAILY 01/16/21 01/16/21 Unknown History 50 mg tablet (Senna-S) sertraline 100 mg tablet 1 tab PO DAILY 01/16/21 01/16/21 Unknown History tramadol 50 mg tablet 50 mg PO Q12H PRN 01/16/21 01/16/21 Unknown History verapamil 180 mg tablet,extended 1 tab PO DAILY 01/16/21 01/16/21 Unknown History release Physical Exam Vital Signs: Vital Signs: Last Vital Signs Temp 98.5 F 01/16/21 15:14 Pulse 91 01/16/21 15:14 Resp 18 01/16/21 15:14 BP 125/74 01/16/21 15:14 Pulse Ox 99 01/16/21 15:14 Body Mass Index 29.1 Const: General: cooperative HENMT: Head: Yes normal to inspection Mouth: Normal oral and palatal mucosa present Resp: Effort & Inspection: normal respiratory effort Cardio: Rate: regular rate Rhythm: regular rhythm GI: Palpation (GI): Soft to palpation and nontender Extrem: Other: less than one cm open area, serous yellow drainage Results Labs CBC & Chem 7: 01/18/21 05:03 01/18/21 05:03 Labs: Short CBC 01/16/21 Range/Units 00:23 WBC 6.4 (4.8-10.8) X10*3/uL Hgb 9.6 L (12.0-16.0) g/dl Hct 30.9 L (37-47) % Plt Count 138 L (160-400) X10*3/uL BMP 01/16/21 00:23 Sodium 140 Potassium 4.5 Chloride 104 Carbon Dioxide 28 BUN 40 H Creatinine 1.97 H Calcium 9.3 Liver Function 01/16/21 Range/Units 00:23 Total Bilirubin 0.2 (0.0-1.0) mg/dL Direct Bilirubin < 0.2 (0.0-0.5) mg/dL AST 17 (5-31) U/L ALT 13 (0-31) U/L Alkaline Phosphatase 114 (39-117) U/L Albumin 3.8 (3.5-5.0) g/dL Assessment and Plan (1) Acute osteomyelitis of left calcaneus: Status: Acute She has possible osteomyelitis left heel Scan is pending Continue Vancomycin and Zosyn pending above scan May need six weeks
[2021-01-16] MEDS: vancomycin HCL 500 MG in 0.9 % Sodium Chloride 100 ML 110 MG IV (17:38)
--- NOTE | 2021-01-16 17:40 | HO.WOUNDCONS ---
History of Present Illness Data of Consult Service Date: 01/16/21 Requesting physician: Denilson Day Primary Care Provider: Unknown Physician HPI Reason for consult: Left heel ulcer This is an 85-year-old female with a history of type 2 diabetes mellitus, atrial fibrillation, and bilateral pressure ulcers of the heels who was brought to the emergency room from her rehab facility for evaluation and treatment of possible osteomyelitis of the left heel. She reports that over the past week or so, she has experienced increasing pain radiating from the left heel area up toward her knee. The record indicates that increased yellowish drainage was noted. An x-ray of the left heel was obtained at the rehab center and demonstrated subtle heterogeneity of the dorsal calcaneus. Findings were suspicious for osteomyelitis and further evaluation with MRI was recommended. She has a history of a fall resulting in a hip fracture. She underwent surgical repair and was ambulating at home with a walker. She had a 2nd fall resulting in an injury to the coccyx and then and admission for sepsis. She developed a sacral ulcer, according to information provided by her , that healed completely with local care. She had been seeing a copy center specialist for treatment of the heel ulcers, but has not been back to see that specialist since her recent hospitalization for sepsis and transfer to the rehab facility. An MRI of the ankle has been obtained. Results are pending. ESR is elevated at 44. CRP is normal at 0.35. Review of Systems Constitutional: Constitutional: Denies chills and Denies fever(s) Cardiovascular: Cardiovascular: Denies chest pain, Reports irregular heart rhythm and Denies dyspnea Respiratory: Respiratory: Denies cough and Denies dyspnea [facility] Medical History A-fib Chronic wound of extremity GERD (gastroesophageal reflux disease) Major depressive disorder Type 2 diabetes mellitus Social History Household Members: Other Housing: [facility] Alcohol intake: never Patient Tobacco Use Status: Never used Tobacco Use of substances other than those prescribed or required for medical reasons: No Currently Displaying Signs/Symptoms of Drug Intoxication Withdrawal: No Have you been hit, kicked, punched, or otherwise hurt by someone within the past year? If so, by whom?: No Do you feel safe in your current relationship?: Yes Is there a partner from a previous relationship who is making you feel unsafe now?: No Are you made to feel afraid or neglected: No Advance Directives: No Advance Directives Information Provided: No Do you have thoughts of harming others: None Do you have a plan to hurt others: No Plan Recently lost weight without trying: No Eating poorly because of decreased appetite: No Nutrition Risks: No Nutritional Risk Patient : No : No Poor oral hygiene: No service: No Meds Allergies Allergy/AdvReac Type Severity Reaction Status Date / Time No Known Allergies Allergy Verified 01/15/21 23:59 Active Medications: Current Medications Generic Name Dose Route Start Last Admin Trade Name Freq PRN Reason Stop Dose Admin Acetaminophen 650 mg 01/16/21 02:32 Acetaminophen 325 Mg Tablet PO Q6H PRN Pain, Mild (Pain Scale 1-3) Amiodarone HCl 200 mg 01/16/21 09:00 01/16/21 08:07 Amiodarone Hcl 200 Mg Tablet PO 200 mg DAILY JANA Administration Apixaban 2.5 mg 01/16/21 09:00 01/16/21 08:08 Apixaban 2.5 Mg Tablet PO 2.5 mg BID JANA Administration Dextrose 25 gm 01/16/21 06:31 Dextrose 50 % 25 Gm/50 Ml Vial IVPUSH Q15M PRN per Hypoglycemia Standing Ord. Protocol Docusate Sodium 100 mg 01/16/21 02:32 Docusate Sodium 100 Mg Capsule PO DAILY PRN Constipation Gabapentin 100 mg 01/17/21 12:00 Gabapentin 100 Mg Capsule PO DAILY@1200 JANA Gabapentin 200 mg 01/16/21 21:00 Gabapentin 100 Mg Capsule PO BEDTIME JANA Glucose 15 gm 01/16/21 06:31 Glucose Gel 15 Gm Gel..Gram. PO Q15M PRN per Hypoglycemia Standing Ord. Protocol Piperacillin Sod/Tazobactam 50 mls @ 100 mls/hr 01/16/21 08:00 01/16/21 16:20 Sod 2.25 gm/ Sodium Chloride IV Infused Q8H JANA Infusion Vancomycin HCl 500 mg/ Sodium 110 mls @ 110 mls/hr 01/16/21 18:00 Chloride IV Q18H JANA Insulin Human Lispro 0 unit 01/16/21 07:30 01/16/21 15:44 Insulin Lispro 100 Unit/Ml 3 Ml Vial SUBCUT Not Given QIDACHS [facility] [place] Protocol Lidocaine 1 patch 01/16/21 09:00 01/16/21 08:09 Lidocaine 4 % Patch Adh..Patch TRANSDERMA 1 patch DAILY [facility] Administration Protocol Lisinopril 10 mg 01/16/21 09:00 01/16/21 08:25 Lisinopril 10 Mg Tablet PO 10 mg DAILY JANA Administration Protocol Multivitamins/Minerals 1 tab 01/16/21 09:00 01/16/21 08:25 Multivitamin With Minerals Tablet PO 1 tab DAILY JANA Administration Omeprazole 20 mg 01/16/21 07:00 01/16/21 08:08 Omeprazole 20 Mg Capsule.Dr PO 20 mg DAILY@0630 [facility] Administration Ondansetron HCl 4 mg 01/16/21 02:32 Ondansetron Hcl 4 Mg/2 Ml Vial IVPUSH Q8H PRN Nausea and Vomiting Oxycodone HCl 5 mg 01/16/21 02:32 Oxycodone Hcl Immed Release 5 Mg Tablet PO Q6H PRN Pain, Severe (Pain Scale 7-10) Pharmacy Consult 1 each 01/16/21 00:01 Consult Rx Vancomycin Dosing MISCELLANE DAILY PRN Consult order Quetiapine Fumarate 25 mg 01/16/21 21:00 Quetiapine Fumarate 25 Mg Tablet PO BEDTIME JANA Senna/Docusate Sodium 1 tab 01/16/21 09:00 01/16/21 08:38 Sennosides/Docusate Sodium Tablet PO 1 tab DAILY JANA Administration Sertraline HCl 100 mg 01/16/21 09:00 01/16/21 08:08 Sertraline Hcl 100 Mg Tablet PO 100 mg DAILY JANA Administration Sodium Chloride 3 ml 01/16/21 08:00 01/16/21 15:44 0.9 % Sodium Chloride Flush 3 Ml Syringe IVFLUSH 3 ml QSHIFT [facility] Administration Tramadol HCl 50 mg 01/16/21 08:12 Tramadol Hcl 50 Mg Tablet PO Q12H PRN Pain Verapamil HCl 180 mg 01/16/21 09:00 01/16/21 08:25 Verapamil Hcl Sr 180 Mg Tablet.Er PO 180 mg DAILY [facility] Administration Protocol Vitamin D 25 mcg 01/16/21 09:00 01/16/21 08:07 Cholecalciferol (Vitamin D3) 25 Mcg Tablet PO 25 mcg DAILY [facility] Administration Home Medications Medication Instructions Recorded Confirmed Last Taken Type amiodarone 200 mg tablet 1 tab PO DAILY 01/16/21 01/16/21 Unknown History apixaban 2.5 mg tablet (Eliquis) 1 tab PO BID 01/16/21 01/16/21 Unknown History cholecalciferol (vitamin D3) 25 25 mcg PO DAILY 01/16/21 01/16/21 Unknown History mcg (1,000 unit) capsule gabapentin 100 mg capsule 100 cap PO DAILY@1200 01/16/21 01/16/21 Unknown History gabapentin 100 mg capsule 200 cap PO BEDTIME 01/16/21 01/16/21 Unknown History insulin lispro 100 unit/mL 1 sliding scale dose SUBCUT 01/16/21 01/16/21 Unknown History subcutaneous solution USEASDIRECTD lidocaine 4 % topical patch 1 patch TOPICAL DAILY 01/16/21 01/16/21 Unknown History (Lidocaine Pain Relief) lisinopril 10 mg tablet 1 tab PO DAILY 01/16/21 01/16/21 Unknown History multivitamin with minerals 1 tab PO DAILY 01/16/21 01/16/21 Unknown History pantoprazole 40 mg tablet,delayed 1 tab PO DAILY 01/16/21 01/16/21 Unknown History release quetiapine 25 mg tablet 1 tab PO BEDTIME 01/16/21 01/16/21 Unknown History sennosides 8.6 mg-docusate sodium 1 tab-cap PO DAILY 01/16/21 01/16/21 Unknown History 50 mg tablet (Senna-S) sertraline 100 mg tablet 1 tab PO DAILY 01/16/21 01/16/21 Unknown History tramadol 50 mg tablet 50 mg PO Q12H PRN 01/16/21 01/16/21 Unknown History verapamil 180 mg tablet,extended 1 tab PO DAILY 01/16/21 01/16/21 Unknown History release Physical Exam Vital Signs and Narrative: Vital Signs: Last Vital Signs Temp 98.5 F 01/16/21 15:14 Pulse 91 01/16/21 15:14 Resp 18 01/16/21 15:14 BP 125/74 01/16/21 15:14 Pulse Ox 99 01/16/21 15:14 Body Mass Index 29.1 Const: General: cooperative, no acute distress and alert Cardio: Peripheral pulses: posterior tibial pulses not present and dorsalis pedis present bilateral 2+ Skin: Other: There is an approximately 2 x 2.5 cm ulcer present left posterior calcaneal area with surface slough and some thickening and overhanging of skin edges. No surrounding erythema, no significant drainage or discharge noted though dressing recently changed by RN. No open wounds present right heel Results Labs CBC and Chem 7: 01/16/21 00:23 01/16/21 00:23 Labs: Laboratory Results - last 24 hr 01/16/21 01/16/21 01/16/21 00:13 00:22 00:23 MCV 89.3 MCH 27.7 MCHC 31.1 RDW 15.9 Plt Count 138 L MPV 9.5 Immature Gran % (Auto) 0.8 H Neut % (Auto) 68.9 Lymph % (Auto) 21.2 Eagle % (Auto) 7.4 Eos % (Auto) 1.4 Baso % (Auto) 0.3 Lymph # (Auto) 1.4 Eagle # (Auto) 0.5 Eos # (Auto) 0.1 Baso # (Auto) 0.0 Abs Immat Gran (auto) 0.05 H Absolute Neuts (auto) 4.4 Absolute Nucleated RBC 0.000 Nucleated RBC % (auto) 0.0 ESR Anion Gap Estim Creat Clear Calc Estimated GFR POC Glucose Random Glucose Estimat Average Glucose Hemoglobin A1c % Lactic Acid 0.7 Calcium Total Bilirubin Direct Bilirubin AST ALT Alkaline Phosphatase C-Reactive Protein Total Protein Albumin COVID-19 ([facility]ANCE) Negative COVID-19 Clin Com See Note 01/16/21 01/16/21 01/16/21 00:23 00:23 00:23 MCV MCH MCHC RDW Plt Count MPV Immature Gran % (Auto) Neut % (Auto) Lymph % (Auto) Eagle % (Auto) Eos % (Auto) Baso % (Auto) Lymph # (Auto) Eagle # (Auto) Eos # (Auto) Baso # (Auto) Abs Immat Gran (auto) Absolute Neuts (auto) Absolute Nucleated RBC Nucleated RBC % (auto) ESR 44 H Anion Gap 13 Estim Creat Clear Calc 19.0 Estimated GFR 24 POC Glucose Random Glucose 118 H Estimat Average Glucose 123 Hemoglobin A1c % 5.9 Lactic Acid Calcium 9.3 Total Bilirubin 0.2 Direct Bilirubin < 0.2 AST 17 ALT 13 Alkaline Phosphatase 114 C-Reactive Protein 0.35 Total Protein 6.1 L Albumin 3.8 COVID-19 ([facility]) COVID-19 Clin Com 01/16/21 01/16/21 01/16/21 00:23 07:29 10:55 MCV MCH MCHC RDW Plt Count MPV Immature Gran % (Auto) Neut % (Auto) Lymph % (Auto) Eagle % (Auto) Eos % (Auto) Baso % (Auto) Lymph # (Auto) Eagle # (Auto) Eos # (Auto) Baso # (Auto) Abs Immat Gran (auto) Absolute Neuts (auto) Absolute Nucleated RBC Nucleated RBC % (auto) ESR Anion Gap Estim Creat Clear Calc Estimated GFR POC Glucose 115 108 Random Glucose Estimat Average Glucose Hemoglobin A1c % Lactic Acid Calcium Total Bilirubin Direct Bilirubin AST ALT Alkaline Phosphatase C-Reactive Protein Cancelled Total Protein Albumin COVID-19 ([facility]ANCE) COVID-19 Clin Com 01/16/21 15:27 MCV MCH MCHC RDW Plt Count MPV Immature Gran % (Auto) Neut % (Auto) Lymph % (Auto) Eagle % (Auto) Eos % (Auto) Baso % (Auto) Lymph # (Auto) Eagle # (Auto) Eos # (Auto) Baso # (Auto) Abs Immat Gran (auto) Absolute Neuts (auto) Absolute Nucleated RBC Nucleated RBC % (auto) ESR Anion Gap Estim Creat Clear Calc Estimated GFR POC Glucose 129 H Random Glucose Estimat Average Glucose Hemoglobin A1c % Lactic Acid Calcium Total Bilirubin Direct Bilirubin AST ALT Alkaline Phosphatase C-Reactive Protein Total Protein Albumin COVID-19 ([facility]ANCE) COVID-19 Clin Com Assessment and Plan (1) Pressure ulcer of left heel, stage 3: Status: Acute (2) Acute osteomyelitis of left calcaneus: Status: Acute 85-year-old female with a known pressure ulcer, stage III, left heel, and possible osteomyelitis of left calcaneus based upon left heel x-rays. MRI has been done. Results are pending. Recommend silver alginate dressings to left heel wound every other day. Would benefit from routine debridement, but not needed acutely. If discharge is anticipated within the next few days, follow-up with her established wound care provider would be appropriate. If desired, outpatient follow-up can be arranged through the [facility].
[2021-01-16 20:27] LABS: Glucose, Whole Blood 117 mg/dL (60-115)
[2021-01-16] MEDS: Gabapentin 100 MG CAPSULE 200 MG PO (20:39)
[2021-01-16] MEDS: QUEtiapine Fumarate 25 MG TABLET PO (20:39)
[2021-01-16] MEDS: traMADoL HCL 50 MG TABLET PO (20:46)
[2021-01-17] VITALS (7 sets, daily range): BP systolic 101–126; BP diastolic 56–67; PULSE 68–96; RESP 14–20; TEMP 36.1–36.8; O2SAT 95–98
[2021-01-17] MEDS: Piperacillin Sodium/Tazobactam 2.25 GM in 0.9 % Sodium Chloride 50 ML IV ×4 (00:10→23:46)
[2021-01-17] MEDS: 0.9 % Sodium Chloride Flush 3 ML SYRINGE IVFLUSH ×2 (00:11→09:01)
[2021-01-17] MEDS: Omeprazole 20 MG CAPSULE.DR PO (05:44)
[2021-01-17 06:23] LABS: Immature Retic Fraction 8.1 % (3.0-15.9); Retic HGB Equivalent 33.6 pg (30.0-35.0); Reticulocyte Percent 1.4 % (0.5-1.8)
[2021-01-17 06:50] LABS: Iron 40 mcg/dL (30-160); Lactate Dehydrogenase 140 U/L (122-220); Percent Iron Saturation 16 % (15-50); Total Iron Binding Capacity 247 mcg/dL (228-428); Unsaturated Iron Binding 207 ug/dL
[2021-01-17 06:59] LABS: Erythrocyte Sedimentation Rate 37 MM/HR (0-20)
[2021-01-17 07:39] LABS: Glucose, Whole Blood 119 mg/dL (60-115)
[2021-01-17 08:19] LABS: Folate 14.9 ng/mL (> or = 4.0); Vitamin B12 295 pg/mL (200-900)
[2021-01-17] MEDS: Sertraline HCL 100 MG TABLET PO (09:02)
[2021-01-17] MEDS: Sennosides/Docusate Sodium TABLET 1 TAB PO (09:02)
[2021-01-17] MEDS: Lidocaine 4 % Patch ADH..PATCH 1 PATCH TRANSDERMA (09:02)
[2021-01-17] MEDS: Amiodarone HCL 200 MG TABLET PO (09:02)
[2021-01-17] MEDS: Apixaban 2.5 MG TABLET PO ×2 (09:02→21:48)
[2021-01-17] MEDS: VerapamiL HCL SR 180 MG TABLET.ER PO (09:02)
[2021-01-17] MEDS: Cholecalciferol (Vitamin D3) 25 MCG TABLET PO (09:02)
[2021-01-17] MEDS: lisinopriL 10 MG TABLET PO (09:02)
--- NOTE | 2021-01-17 11:34 | P.PNIM_ITS ---
Subjective Subjective Date of Service: 01/17/21 Interval History: No new complaints No fever 1/2 BCx + for GPCs Review of Systems Review of Systems: Yes all other systems are reviewed and are negative Physical Exam Vital Signs: Vital Signs: Last Vital Signs Temp 97.2 F 01/17/21 11:04 Pulse 75 01/17/21 11:04 Resp 18 01/17/21 11:04 BP 104/56 L 01/17/21 11:04 Pulse Ox 96 01/17/21 11:04 Body Mass Index 29.1 Gen: in no acute distress HEENT: sclera anicteric, moist mucus membranes Neck: supple Lungs: clear to auscultation bilaterally Heart: irregular, no murmurs Abd: soft, non-tender, non-distended Ext: no edema Skin: 2 cm ulcer L calcaneus with purulent discharge Neuro: alert and oriented x3, chronic L-sided weakness Psych: appropriate affect Objective Data Current Medications Generic Name Dose Route Start Last Admin Trade Name Freq PRN Reason Stop Dose Admin Acetaminophen 650 mg 01/16/21 02:32 Acetaminophen 325 Mg Tablet PO Q6H PRN Pain, Mild (Pain Scale 1-3) Amiodarone HCl 200 mg 01/16/21 09:00 01/17/21 09:02 Amiodarone Hcl 200 Mg Tablet PO 200 mg DAILY JANA Administration Apixaban 2.5 mg 01/16/21 09:00 01/17/21 09:02 Apixaban 2.5 Mg Tablet PO 2.5 mg BID JANA Administration Dextrose 25 gm 01/16/21 06:31 Dextrose 50 % 25 Gm/50 Ml Vial IVPUSH Q15M PRN per Hypoglycemia Standing Ord. Protocol Docusate Sodium 100 mg 01/16/21 02:32 Docusate Sodium 100 Mg Capsule PO DAILY PRN Constipation Gabapentin 100 mg 01/17/21 12:00 Gabapentin 100 Mg Capsule PO DAILY@1200 JANA Gabapentin 200 mg 01/16/21 21:00 01/16/21 20:39 Gabapentin 100 Mg Capsule PO 200 mg BEDTIME JANA Administration Glucose 15 gm 01/16/21 06:31 Glucose Gel 15 Gm Gel..Gram. PO Q15M PRN per Hypoglycemia Standing Ord. Protocol Piperacillin Sod/Tazobactam 50 mls @ 100 mls/hr 01/16/21 08:00 01/17/21 10:18 Sod 2.25 gm/ Sodium Chloride IV Infused Q8H JANA Infusion Vancomycin HCl 500 mg/ Sodium 110 mls @ 110 mls/hr 01/16/21 18:00 01/16/21 19:12 Chloride IV Infused Q18H JANA Infusion Insulin Human Lispro 0 unit 01/16/21 07:30 01/17/21 11:22 Insulin Lispro 100 Unit/Ml 3 Ml Vial SUBCUT Not Given QIDACHS [facility] Protocol Lidocaine 1 patch 01/16/21 09:00 01/17/21 09:02 Lidocaine 4 % Patch Adh..Patch TRANSDERMA 1 patch DAILY JANA Administration Protocol Lisinopril 10 mg 01/16/21 09:00 01/17/21 09:02 Lisinopril 10 Mg Tablet PO 10 mg DAILY JANA Administration Protocol Multivitamins/Minerals 1 tab 01/16/21 09:00 01/17/21 09:02 Multivitamin With Minerals Tablet PO 1 tab DAILY JANA Administration Omeprazole 20 mg 01/16/21 07:00 01/17/21 05:44 Omeprazole 20 Mg Capsule.Dr PO 20 mg DAILY@0630 JANA Administration Ondansetron HCl 4 mg 01/16/21 02:32 Ondansetron Hcl 4 Mg/2 Ml Vial IVPUSH Q8H PRN Nausea and Vomiting Oxycodone HCl 5 mg 01/16/21 02:32 Oxycodone Hcl Immed Release 5 Mg Tablet PO Q6H PRN Pain, Severe (Pain Scale 7-10) Pharmacy Consult 1 each 01/16/21 00:01 Consult Rx Vancomycin Dosing MISCELLANE DAILY PRN Consult order Quetiapine Fumarate 25 mg 01/16/21 21:00 01/16/21 20:39 Quetiapine Fumarate 25 Mg Tablet PO 25 mg BEDTIME JANA Administration Senna/Docusate Sodium 1 tab 01/16/21 09:00 01/17/21 09:02 Sennosides/Docusate Sodium Tablet PO 1 tab DAILY JANA Administration Sertraline HCl 100 mg 01/16/21 09:00 01/17/21 09:02 Sertraline Hcl 100 Mg Tablet PO 100 mg DAILY JANA Administration Sodium Chloride 3 ml 01/16/21 08:00 01/17/21 09:01 0.9 % Sodium Chloride Flush 3 Ml Syringe IVFLUSH 3 ml QSHIFT JANA Administration Tramadol HCl 50 mg 01/16/21 08:12 01/16/21 20:46 Tramadol Hcl 50 Mg Tablet PO 50 mg Q12H PRN Administration Pain Verapamil HCl 180 mg 01/16/21 09:00 01/17/21 09:02 Verapamil Hcl Sr 180 Mg Tablet.Er PO 180 mg DAILY JANA Administration Protocol Vitamin D 25 mcg 01/16/21 09:00 01/17/21 09:02 Cholecalciferol (Vitamin D3) 25 Mcg Tablet PO 25 mcg DAILY JANA Administration Labs CBC & Chem 7: 01/16/21 00:23 01/16/21 00:23 Labs: Laboratory Results - last 24 hr 01/16/21 01/16/21 01/16/21 00:23 15:27 20:12 ESR Absolute Retic Percent Retic Immature Retic Fraction Retic Hgb Equivalent POC Glucose 129 H 117 H Iron TIBC % Saturation Unsat Iron Binding Lactate Dehydrogenase C-Reactive Protein Cancelled Vitamin B12 Folate 01/17/21 01/17/21 01/17/21 05:19 05:19 05:19 ESR 37 H Absolute Retic 0.050 Percent Retic 1.4 Immature Retic Fraction 8.1 Retic Hgb Equivalent 33.6 POC Glucose Iron 40 TIBC 247 % Saturation 16 Unsat Iron Binding 207 Lactate Dehydrogenase 140 C-Reactive Protein Vitamin B12 Folate 01/17/21 01/17/21 05:19 07:26 ESR Absolute Retic Percent Retic Immature Retic Fraction Retic Hgb Equivalent POC Glucose 119 H Iron TIBC % Saturation Unsat Iron Binding Lactate Dehydrogenase C-Reactive Protein Vitamin B12 295 Folate 14.9 Microbiology Microbiology Results: Microbiology 01/16/21 00:22 Blood Culture - Preliminary Blood - Venous Prelim: GPC Gram Stain only 01/16/21 00:28 Blood Culture - Preliminary Blood - Venous No growth after 24 hours. Assessment and Plan (1) Acute osteomyelitis of left calcaneus: Status: Acute Assessment and Plan: hospital d#2 85-year-old female with AF, CKD3 (SCr 1.43 01/10/21), chronic heel wounds, DM2, hx CVA with L-sided weakness, hx colon CA s/p resection, recent hospitalization at [facility] for ESBL bacteremia in November sent in from [facility] for nonhealing wound of L heel with concern of osteomyelitis on outpt X-ray # osteomyelitis of L associated with DM foot ulcer, possible bacteremia - MRI reading pending, ID consulted, vanc + pip/fina d#2, follow BCx; if truly bacteremic, will need surveillance Cx, PICC, TTE # SARAH/CKD3 - give IV fluids, recheck SCr, avoid nephrotoxins # anemia of chronic disease - monitor Hb # AF - continue amiodarone, verapamil, apixaban # HTN - continue lisinopril, verapamil # DM2 - well-controlled, A1c only 5.9. correction-dose lispro # depression - continue quetiapine + sertraline # VTE ppx - apixaban Quality Stroke Does the patient have a stroke diagnosis?: No VTE Prior VTE?: No VTE Risk Level:: Medical - moderate - high VTE Device Contraindication: Treatment Not Indicated VTE Drug Contraindication: N/A - Med Ordered
[2021-01-17 11:40] LABS: Glucose, Whole Blood 161 mg/dL (60-115)
[2021-01-17 12:10] LABS: Hematocrit 33.5 % (37-47); Hemoglobin 10.5 g/dl (12.0-16.0); Mean Corpuscular HGB Conc 31.3 g/dl (31.0-35.0); Mean Corpuscular Hemoglobin 27.9 pg (27.0-33.0); Mean Corpuscular Volume 88.9 fL (80-98); Mean Platelet Volume 9.7 fL (9.4-12.3); Platelet Count 165 X10*3/uL (160-400); Red Blood Count 3.77 X10*6/uL (4.20-5.50); Red Cell Distribution Width 15.8 % (11.0-16.0); White Blood Count 6.8 X10*3/uL (4.8-10.8)
[2021-01-17] MEDS: Gabapentin 100 MG CAPSULE PO (12:22)
[2021-01-17] MEDS: vancomycin HCL 500 MG in 0.9 % Sodium Chloride 100 ML 110 MG IV (12:22)
[2021-01-17] MEDS: 0.9 % Sodium Chloride 1,000 ML 50 ML IVCONT (12:22)
[2021-01-17 12:36] LABS: Anion Gap 13 (12-20); Blood Urea Nitrogen 29 mg/dL (9-16); Calcium 9.3 mg/dL (8.4-10.2); Carbon Dioxide 29 mmol/L (22-29); Chloride 103 mmol/L (96-108); Creatinine Clr Calc Pharmacy 19.8; Estimated Glomerular Filt Rate 25; Glucose Random 178 mg/dL (60-115); Potassium 4.6 mmol/L (3.3-5.1); Sodium 140 mmol/L (135-145)
[2021-01-17 16:28] LABS: Glucose, Whole Blood 124 mg/dL (60-115)
[2021-01-17 20:24] LABS: Glucose, Whole Blood 127 mg/dL (60-115)
[2021-01-17] MEDS: QUEtiapine Fumarate 25 MG TABLET PO (21:48)
[2021-01-17] MEDS: Gabapentin 100 MG CAPSULE 200 MG PO (21:48)
[2021-01-18 03:18] VITALS: BP 115/57; PULSE 63; RESP 14; TEMP 36.6; O2SAT 95
[2021-01-18 05:13] LABS: Hematocrit 29.2 % (37-47); Hemoglobin 9.1 g/dl (12.0-16.0); Mean Corpuscular HGB Conc 31.2 g/dl (31.0-35.0); Mean Corpuscular Hemoglobin 27.8 pg (27.0-33.0); Mean Corpuscular Volume 89.3 fL (80-98); Mean Platelet Volume 9.3 fL (9.4-12.3); Platelet Count 132 X10*3/uL (160-400); Red Blood Count 3.27 X10*6/uL (4.20-5.50); Red Cell Distribution Width 15.7 % (11.0-16.0); White Blood Count 5.8 X10*3/uL (4.8-10.8)
[2021-01-18 05:30] LABS: Anion Gap 12 (12-20); Blood Urea Nitrogen 30 mg/dL (9-16); Calcium 8.9 mg/dL (8.4-10.2); Carbon Dioxide 27 mmol/L (22-29); Chloride 107 mmol/L (96-108); Creatinine Clr Calc Pharmacy 20.3; Estimated Glomerular Filt Rate 26; Glucose Random 126 mg/dL (60-115); Potassium 4.3 mmol/L (3.3-5.1); Sodium 142 mmol/L (135-145)
[2021-01-18 05:37] LABS: Vancomycin Trough 13.1 mcg/mL (10.0-20.0)
[2021-01-18] MEDS: vancomycin HCL 500 MG in 0.9 % Sodium Chloride 100 ML 110 MG IV ×2 (06:19→09:10)
[2021-01-18] MEDS: Omeprazole 20 MG CAPSULE.DR PO (06:19)
[2021-01-18 07:48] LABS: Glucose, Whole Blood 111 mg/dL (60-115)
[2021-01-18 08:00] VITALS: BP 129/62; PULSE 60; RESP 19; TEMP 36.4; O2SAT 97
[2021-01-18] MEDS: Piperacillin Sodium/Tazobactam 2.25 GM in 0.9 % Sodium Chloride 50 ML IV (08:15)
[2021-01-18] MEDS: Lidocaine 4 % Patch ADH..PATCH 1 PATCH TRANSDERMA (08:16)
[2021-01-18 08:20] VITALS: BP 129/62; PULSE 63
[2021-01-18] MEDS: lisinopriL 10 MG TABLET PO (08:20)
[2021-01-18] MEDS: Apixaban 2.5 MG TABLET PO (08:21)
[2021-01-18] MEDS: Sennosides/Docusate Sodium TABLET 1 TAB PO (08:21)
[2021-01-18 08:22] VITALS: BP 126/62; BP 129/62; PULSE 63
[2021-01-18] MEDS: Sertraline HCL 100 MG TABLET PO (08:22)
[2021-01-18] MEDS: Amiodarone HCL 200 MG TABLET PO (08:22)
[2021-01-18] MEDS: Cholecalciferol (Vitamin D3) 25 MCG TABLET PO (08:22)
[2021-01-18] MEDS: VerapamiL HCL SR 180 MG TABLET.ER PO (08:22)
[2021-01-18 11:27] VITALS: BP 111/54; PULSE 51; RESP 20; TEMP 36.2; O2SAT 94
[2021-01-18 11:32] LABS: Glucose, Whole Blood 171 mg/dL (60-115)
[2021-01-18] MEDS: Insulin Lispro 100 UNIT/ML 3 ML VIAL SUBCUT (11:42)
[2021-01-18] MEDS: Gabapentin 100 MG CAPSULE PO (11:42)
--- NOTE | 2021-01-18 12:45 | MHC.CM.PN ---
IMM 01/16/21 Female 85 DX Osteomyelitis. She will discharge today to [facility]. She was living @ the facility prior to this admission. Information has been sent to the facility. She will transport via BLS. Transportation is booked, 4pm pickup from [facility] [place].
--- NOTE | 2021-01-18 14:16 | P.DS_ITS ---
DS: Providers Provider Date of Service: 01/18/21 Date of admission: 01/16/21 00:58 Date of discharge: 01/18/21 Consults: 01/16/21 06:30 Consult to Infectious Diseases Routine Consulting Provider: Britni Humphreys Reason for consultation: Nonhealing foot ulcer concerning for osteomyelitis Has provider been notified: No 01/16/21 08:17 Consult to Wound Care Routine Consulting Provider: [facility] Wound Care Management Reason for consultation: calcaneus ulcer Attending physician on discharge: Denilson Day Discharging clinician: Denilson Day DS: Diagnosis Discharge Diagnosis (1) Pressure ulcer of left heel, stage 3: Status: Acute (2) Diabetic foot ulcer: Status: Acute (3) Infected ulcer of skin: Status: Acute (4) Acute on chronic kidney failure: Status: Acute DS: Medications Discharge Medications Home Medications: Home Medications Medication Instructions Recorded Confirmed amiodarone 200 mg tablet 1 tab PO DAILY 01/16/21 01/16/21 apixaban 2.5 mg tablet (Eliquis) 1 tab PO BID 01/16/21 01/16/21 cholecalciferol (vitamin D3) 25 25 mcg PO DAILY 01/16/21 01/16/21 mcg (1,000 unit) capsule gabapentin 100 mg capsule 100 cap PO DAILY@1200 01/16/21 01/16/21 gabapentin 100 mg capsule 200 cap PO BEDTIME 01/16/21 01/16/21 insulin lispro 100 unit/mL 1 sliding scale dose SUBCUT 01/16/21 01/16/21 subcutaneous solution USEASDIRECTD lidocaine 4 % topical patch 1 patch TOPICAL DAILY 01/16/21 01/16/21 (Lidocaine Pain Relief) lisinopril 10 mg tablet 1 tab PO DAILY 01/16/21 01/16/21 multivitamin with minerals 1 tab PO DAILY 01/16/21 01/16/21 pantoprazole 40 mg tablet,delayed 1 tab PO DAILY 01/16/21 01/16/21 release quetiapine 25 mg tablet 1 tab PO BEDTIME 01/16/21 01/16/21 sennosides 8.6 mg-docusate sodium 1 tab-cap PO DAILY 01/16/21 01/16/21 50 mg tablet (Senna-S) sertraline 100 mg tablet 1 tab PO DAILY 01/16/21 01/16/21 tramadol 50 mg tablet 50 mg PO Q12H PRN 01/16/21 01/16/21 verapamil 180 mg tablet,extended 1 tab PO DAILY 01/16/21 01/16/21 release Previous Rx's Medication Instructions Recorded acetaminophen 325 mg tablet 650 mg PO Q6H PRN #30 tab 01/18/21 amoxicillin 250 mg-potassium 1 tab PO BID #10 tab 01/18/21 clavulanate 125 mg tablet doxycycline monohydrate 100 mg 100 mg PO BID #10 tab 01/18/21 tablet DS: Summary Hospital Course Hospital Course: from H+P by admitting hospitalist Dylan Gastelum, 01/16/21: This is an 85-year-old female with past medical history of AFib, chronic wound of lower extremity, GERD, depression, type 2 diabetes who [facility] for nonhealing wound.? Patient reports that she has chronic wounds of her bilateralal feet that have been there for the past 6 months.? Patient reports that her right foot ulcer wound is healing very well but the left has not been healing and therefore an x-ray was done at the prison which showed possible osteomyelitis and therefore she was sent to the hospital.? Patient reports worsening pain for the past 1 week, pain is about a 7/10, radiating up her leg, constant, no alleviating or exacerbating factors, not associated with any fever or chills.? Patient denies any chest pain, shortness of breath, no cough, no abdominal pain nausea or vomiting, no diarrhea constipation, no urinary symptoms. Patient denies any numbness tingling.? She reports history of diabetes but reports that she has never been on any medications prior to recently. Who vitals reviewed show a temp of 98.0?, heart rate of 60, respiratory rate of 16, satting 97% on room air. Lab significant for WBC count of 6.4, hemoglobin of 9.6, ESR of 44, CRP of 0.35, COVID-19 negative. Patient will be admitted further evaluation This 85-year-old female with AF, CKD3 (SCr 1.43 01/10/21), chronic heel wounds, DM2, hx CVA with L-sided weakness, hx colon CA s/p resection, and recent hospitalization at [facility] for ESBL bacteremia in November was sent in from prison for nonhealing stage 3 wound of L heel with concern of osteomyelitis on outpatient X-ray. She was started on broad-spectrum IV antibiotics with vancomycin and piperacillin/tazobactam. Blood cultures were negative [1 grew coagulase-negative Stapylococcus, a contaminant]. MRI was negative for osteomyelitis. She was seen by wound care and silver alginate dressings every other day were recomeended. Creatinine improved from 1.97 to 1.84 with fluid repletion. She was discharged back to [facility] on 5 days of amoxicillin/clavulanate [renally dosed] and doxycycline. Repeat BMP in 1 week should be drawn. She should be seen in the [facility] Wound Care Center in 1 week. Time Spent with Patient Time attestation: Total time spent providing and/or coordinating discharge services: Discharge coordination time: Greater than 30 minutes Quality: Stroke Does the patient have a stroke diagnosis?: No Physical Exam Vital Signs: Vital Signs: Last Vital Signs Temp 97.1 F 01/18/21 11:27 Pulse 51 01/18/21 11:27 Resp 20 01/18/21 11:27 BP 111/54 L 01/18/21 11:27 Pulse Ox 94 01/18/21 11:27 Body Mass Index 29.1 Gen: in no acute distress HEENT: sclera anicteric, moist mucus membranes Neck: supple Lungs: clear to auscultation bilaterally Heart: irregular, no murmurs Abd: soft, non-tender, non-distended Ext: no edema Skin: 2 cm ulcer L calcaneus Neuro: alert and oriented x3, chronic L-sided weakness Psych: appropriate affect DS: Data Data Completed and Pending Completed studies during hospitalization [Text1]: Laboratory Results WBC 5.8 X10*3/uL (4.8-10.8) 01/18/21 05:03 RBC 3.27 X10*6/uL (4.20-5.50) L 01/18/21 05:03 Hgb 9.1 g/dl (12.0-16.0) L 01/18/21 05:03 Hct 29.2 % (37-47) L 01/18/21 05:03 MCV 89.3 fL (80-98) 01/18/21 05:03 MCH 27.8 pg (27.0-33.0) 01/18/21 05:03 MCHC 31.2 g/dl (31.0-35.0) 01/18/21 05:03 RDW 15.7 % (11.0-16.0) 01/18/21 05:03 Plt Count 132 X10*3/uL (160-400) L 01/18/21 05:03 MPV 9.3 fL (9.4-12.3) L 01/18/21 05:03 Immature Gran % (Auto) Cancelled 01/17/21 05:19 Neut % (Auto) Cancelled 01/17/21 05:19 Lymph % (Auto) Cancelled 01/17/21 05:19 Todd % (Auto) Cancelled 01/17/21 05:19 Eos % (Auto) Cancelled 01/17/21 05:19 Baso % (Auto) Cancelled 01/17/21 05:19 Lymph # (Auto) Cancelled 01/17/21 05:19 Todd # (Auto) Cancelled 01/17/21 05:19 Eos # (Auto) Cancelled 01/17/21 05:19 Baso # (Auto) Cancelled 01/17/21 05:19 Abs Immat Gran (auto) Cancelled 01/17/21 05:19 Absolute Neuts (auto) Cancelled 01/17/21 05:19 Absolute Nucleated RBC 0.000 X10*3/uL (0.0-0.012) 01/18/21 05:03 Nucleated RBC % (auto) 0.0 /100WBC (0.0-0.2) 01/18/21 05:03 ESR 37 MM/HR (0-20) H 01/17/21 05:19 Absolute Retic 0.050 X10*6/uL (0.026-0.095) 01/17/21 05:19 Percent Retic 1.4 % (0.5-1.8) 01/17/21 05:19 Immature Retic Fraction 8.1 % (3.0-15.9) 01/17/21 05:19 Retic Hgb Equivalent 33.6 pg (30.0-35.0) 01/17/21 05:19 Sodium 142 mmol/L (135-145) 01/18/21 05:03 Potassium 4.3 mmol/L (3.3-5.1) 01/18/21 05:03 Chloride 107 mmol/L (96-108) 01/18/21 05:03 Carbon Dioxide 27 mmol/L (22-29) 01/18/21 05:03 Anion Gap 12 (12-20) 01/18/21 05:03 BUN 30 mg/dL (9-16) H 01/18/21 05:03 Creatinine 1.84 mg/dL (0.5-1.4) H 01/18/21 05:03 Estim Creat Clear Calc 20.3 01/18/21 05:03 Estimated GFR 01/18/21 05:03 POC Glucose 171 mg/dL (60-115) H 01/18/21 11:29 Random Glucose 126 mg/dL (60-115) H 01/18/21 05:03 Estimat Average Glucose 123 mg/dL 01/16/21 00:23 Hemoglobin A1c % 5.9 % 01/16/21 00:23 Lactic Acid 0.7 mmol/L (0.5-2.0) 01/16/21 00:22 Calcium 8.9 mg/dL (8.4-10.2) 01/18/21 05:03 Iron 40 mcg/dL (30-160) 01/17/21 05:19 TIBC 247 mcg/dL (228-428) 01/17/21 05:19 % Saturation 16 % (15-50) 01/17/21 05:19 Unsat Iron Binding 207 ug/dL 01/17/21 05:19 Total Bilirubin 0.2 mg/dL (0.0-1.0) 01/16/21 00:23 Direct Bilirubin < 0.2 mg/dL (0.0-0.5) 01/16/21 00:23 AST 17 U/L (5-31) 01/16/21 00:23 ALT 13 U/L (0-31) 01/16/21 00:23 Alkaline Phosphatase 114 U/L (39-117) 01/16/21 00:23 Lactate Dehydrogenase 140 U/L (122-220) 01/17/21 05:19 C-Reactive Protein 0.35 mg/dL (< or = 0.50) 01/16/21 00:23 C-Reactive Protein Cancelled 01/16/21 00:23 Total Protein 6.1 g/dL (6.5-8.0) L 01/16/21 00:23 Albumin 3.8 g/dL (3.5-5.0) 01/16/21 00:23 Vitamin B12 295 pg/mL (200-900) 01/17/21 05:19 Folate 14.9 ng/mL (> or = 4.0) 01/17/21 05:19 Vancomycin Trough 13.1 mcg/mL (10.0-20.0) 01/18/21 05:03 COVID-19 (LANCE) Negative (Negative) 01/16/21 00:13 COVID-19 Clin Com See Note 01/16/21 00:13 Impressions Ankle MRI 01/16/21 12:53 IMPRESSION: 1. Skin wound at the lateral aspect of the heel near the calcaneal tuberosity. No underlying abscess or osteomyelitis. 2. 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 The pattern of degeneration at the subtalar joint raising the possibility of chronic lateral hindfoot impingement. 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 3. Chronic plantar fasciopathy. Diffuse fatty atrophy of the foot musculature. Labs on day of discharge: Laboratory Results - last 24 hr 01/17/21 01/17/21 01/18/21 16:22 20:20 05:03 WBC RBC Hgb Hct MCV MCH MCHC RDW Plt Count MPV Absolute Nucleated RBC Nucleated RBC % (auto) Sodium Potassium Chloride Carbon Dioxide Anion Gap BUN Creatinine Estim Creat Clear Calc Estimated GFR POC Glucose 124 H 127 H Random Glucose Calcium Vancomycin Trough 13.1 01/18/21 01/18/21 01/18/21 05:03 05:03 07:07 WBC 5.8 RBC 3.27 L Hgb 9.1 L Hct 29.2 L MCV 89.3 MCH 27.8 MCHC 31.2 RDW 15.7 Plt Count 132 L MPV 9.3 L Absolute Nucleated RBC 0.000 Nucleated RBC % (auto) 0.0 Sodium 142 Potassium 4.3 Chloride 107 Carbon Dioxide 27 Anion Gap 12 BUN 30 H Creatinine 1.84 H Estim Creat Clear Calc 20.3 Estimated GFR 26 POC Glucose 111 Random Glucose 126 H Calcium 8.9 Vancomycin Trough 01/18/21 11:29 WBC RBC Hgb Hct MCV MCH MCHC RDW Plt Count MPV Absolute Nucleated RBC Nucleated RBC % (auto) Sodium Potassium Chloride Carbon Dioxide Anion Gap BUN Creatinine Estim Creat Clear Calc Estimated GFR POC Glucose 171 H Random Glucose Calcium Vancomycin Trough Preliminary micro results at discharge 01/16/21 00:28 Blood Culture - Preliminary Blood - Venous No growth after 48 hours. Discharge Plan Discharge Patient Disposition: [facility] Discharge Diagnosis: stage 3 pressure ulcer of left heel with infection Referrals: [facility] [Other] - 1 Week [facility] Wound Care Management [Provider Group] - 1 Week Donaldo Mandujano MD [Physician] - 1 Week Physician,Unknown [Primary Care Provider] - 1 Week Discharge Medications: New acetaminophen 325 mg Tablet 650 mg PO Q6H PRN (Reason: Pain, Mild (Pain Scale 1-3)) Qty: 30 RF: 0 doxycycline monohydrate 100 mg tablet 100 mg PO BID Qty: 10 RF: 0 amoxicillin-pot clavulanate 250-125 mg tablet 1 tab PO BID Qty: 10 RF: 0 Continued quetiapine 25 mg tablet 1 tab PO BEDTIME RF: 0 lidocaine [Lidocaine Pain Relief] 4 % adhesive patch,medicated 1 patch topical DAILY RF: 0 amiodarone 200 mg tablet 1 tab PO DAILY RF: 0 sertraline 100 mg tablet 1 tab PO DAILY RF: 0 verapamil 180 mg tablet extended release 1 tab PO DAILY RF: 0 pantoprazole 40 mg tablet,delayed release (DR/EC) 1 tab PO DAILY RF: 0 Eliquis 2.5 mg tablet 1 tab PO BID RF: 0 insulin lispro 100 unit/mL Solution 1 sliding scale dose SUBCUT USEASDIRECTD RF: 0 cholecalciferol (vitamin D3) 25 mcg (1,000 unit) Capsule 25 mcg PO DAILY RF: 0 sennosides-docusate sodium [Senna-S] 8.6-50 mg Tablet 1 tab-cap PO DAILY RF: 0 tramadol 50 mg Tablet 50 mg PO Q12H PRN (Reason: Pain) RF: 0 lisinopril 10 mg tablet 1 tab PO DAILY RF: 0 gabapentin 100 mg capsule 100 cap PO DAILY@1200 RF: 0 gabapentin 100 mg capsule 200 cap PO BEDTIME RF: 0 multivitamin with minerals Tablet 1 tab PO DAILY RF: 0 Discharge Orders: Discharge Order (Routine); Ordered 01/18/21 Ordered By: Denilson Day Diet: advance to usual diet and diabetic diet Activity on Discharge: As tolerated Stand Alone Forms: Patient Portal Discharge page Other Ambulatory Orders: Basic Metabolic Panel (Routine) Timeframe: 1 Week Facility: [facility] - Location: Laboratory Ordered By: Denilson Day Care Plan Goals: healing of ulcer recovery of renal function Health Concerns: infected pressure/diabetic heel ulcer, stage 3 acute/chronic kidney injury, stage 3 Plan of Treatment: silver alginate dressings to left heel wound every other day antibiotics for 5 days: doxycycline 100 mg twice daily amoxicillin/clavulanate 250 mg twice daily follow up with [facility] Wound Care center in 1 week check basic metabolic panel [non-fasting] in 1 week Assessment: as above Patient Instructions: How to Turn a Person in Bed (DC), How to Prevent Pressure Injuries (DC), Pressure Injury (DC)
[2021-01-18 15:06] VITALS: BP 110/56; PULSE 50; RESP 18; TEMP 37.2; O2SAT 98
== END 2021-01-18 16:42 | disposition skilled nursing facility (03) | DRG 593 ==
LOC: HO.ED 01-16 00:42 → HO.EDOVER 01-16 01:06 → HO.IMC 01-16 05:57
PROVIDERS: Admitting Provider Internal Medicine; Emergency Provider Internal Medicine; Visit Provider Family Medicine
DX: L89.623 Pressure ulcer of left heel, stage 3 (principal); N17.9 Acute kidney failure, unspecified; E11.628 Type 2 diabetes mellitus with other skin complications; K21.9 Gastro-esophageal reflux disease without esophagitis; N18.32 Chronic kidney disease, stage 3b; E11.22 Type 2 diabetes mellitus with diabetic chronic kidney disease; F32.9 Major depressive disorder, single episode, unspecified; E11.621 Type 2 diabetes mellitus with foot ulcer; I48.0 Paroxysmal atrial fibrillation; D63.1 Anemia in chronic kidney disease; L89.619 Pressure ulcer of right heel, unspecified stage; I69.944 Monoplegia of lower limb following unspecified cerebrovascular disease affecting left non-dominant side; I48.91 Unspecified atrial fibrillation; Z20.822 Contact with and (suspected) exposure to COVID-19; Z79.4 Long term (current) use of insulin; Z79.01 Long term (current) use of anticoagulants; Z79.899 Other long term (current) drug therapy
CPT/HCPCS: 36415; 73720; 73723; 80048; 80076; 80202; 82607; 82746; 82947; 83036; 83540; 83605; 83615; 85025; 85027; 85045; 85652; 86140; 87040; 87147; 87205; 87635; 96365; 96367; 99285; A9585; J2543; J3370

== ENCOUNTER 2021-09-27 11:13 | Inpatient (IN) | payer MEDICARE, MEDICAID, SELFPAY ==
--- NOTE | ~2021-09-27 | CT_ITS ---
EXAMINATION: CT HEAD WITHOUT CONTRAST CLINICAL INFORMATION: Acute mental status change COMPARISON: Previous head CT scan June 2017 TECHNIQUE: Contiguous axial imaging was performed from the skull base to vertex without intravenous administration of contrast. This CT examination was performed using dose optimization techniques as appropriate, variously including the following: *Automated exposure control *Adjustment of mA and/or kV according to patient size (this includes techniques or standardized protocols for targeted exams where dose is matched to indication/reason for exam; i.e. extremities or head) *Use of iterative reconstruction technique Exam is limited due to motion. DLP: 552 mGy-cm FINDINGS: There is no evidence of an extra-axial collection. There is no evidence of intra-axial or extra-axial hemorrhage. The ventricles and extra-axial CSF spaces are prominent suggestive of generalized atrophy. There is an old infarct or encephalomalacia the right basal ganglia. No mass, mass effect or acute infarct is seen. Review of bone windows is normal. No skull fracture is seen. Visualized paranasal sinuses, mastoid air cells and middle ears are clear. CT/CT head/brain wo con IMPRESSION: Limited exam. No acute findings. Old right basal ganglia infarct. Generalized atrophy and nonspecific periventricular white matter disease.
--- NOTE | ~2021-09-27 | XR_ITS ---
EXAMINATION: XR CHEST CLINICAL INFORMATION: Chest pain. COMPARISON: None TECHNIQUE: Frontal view of the chest was obtained. FINDINGS: Low lung volumes limit evaluation. Mild linear markings are seen at the left lung base. The right lung is clear. The heart and mediastinal structures are unremarkable. XR/XR chest 1V IMPRESSION: Mild left basilar linear atelectasis versus scarring without overt acute cardiopulmonary process.
[2021-09-27 11:27] VITALS: BP 124/76; BP 132/50; PULSE 58; PULSE 71; RESP 18; TEMP 37; O2SAT 90; O2SAT 93; BMI 26.6
--- NOTE | 2021-09-27 12:41 | ED_ITS ---
HPI - General Adult General Chief complaint: General Medical Stated complaint: abnormal labs Time Seen by Provider: 09/27/21 12:25 History of Present Illness HPI narrative: Patient is an 86-year-old female with a history of acute on chronic kidney disease history of diabetes presents today with having generalized malaise change in mental status. Patient from alf. Unable to give detailed history. Related Data Home Medications Medication Instructions Recorded Confirmed amiodarone 200 mg tablet 1 tab PO DAILY 01/16/21 09/27/21 apixaban 2.5 mg tablet (Eliquis) 1 tab PO BID 01/16/21 09/27/21 cholecalciferol (vitamin D3) 25 25 mcg PO DAILY 01/16/21 09/27/21 mcg (1,000 unit) capsule gabapentin 100 mg capsule 100 cap PO DAILY@1200 01/16/21 09/27/21 gabapentin 100 mg capsule 200 cap PO BEDTIME 01/16/21 09/27/21 lidocaine 4 % topical patch 1 patch TOPICAL DAILY 01/16/21 09/27/21 (Lidocaine Pain Relief) multivitamin with minerals 1 tab PO DAILY 01/16/21 09/27/21 pantoprazole 40 mg tablet,delayed 1 tab PO DAILY 01/16/21 09/27/21 release quetiapine 25 mg tablet 12.5 mg PO BID 01/16/21 09/27/21 sennosides 8.6 mg-docusate sodium 1 tab-cap PO DAILY 01/16/21 09/27/21 50 mg tablet (Senna-S) sertraline 100 mg tablet 1 tab PO DAILY 01/16/21 09/27/21 tramadol 50 mg tablet 50 mg PO Q12H PRN 01/16/21 09/27/21 acetaminophen 325 mg tablet 650 mg PO DAILY@2100 09/27/21 09/27/21 (Tylenol) verapamil 120 mg tablet,extended 1 tab PO DAILY 09/27/21 09/27/21 release Previous Rx's Medication Instructions Recorded acetaminophen 325 mg tablet 650 mg PO Q6H PRN #30 tab 01/18/21 Allergies Allergy/AdvReac Type Severity Reaction Status Date / Time No Known Allergies Allergy Verified 01/15/21 23:59 Review of Systems Review of Systems: Unable to obtain review systems secondary patient's mental status PMFSH Past Medical History Attestation statement: The following information was validated with the patient. Medical History A-fib Chronic wound of extremity GERD (gastroesophageal reflux disease) Major depressive disorder Type 2 diabetes mellitus Social History Social History Household Members: Other Housing: [facility] Alcohol intake: never Patient Tobacco Use Status: Never used Tobacco Advance Directives: Yes Advance Directives on File: No service: No Physical Exam ED Vital Signs: Vital Signs - 24 hr 09/27/21 11:27 09/27/21 13:12 09/27/21 14:27 Temperature 98.6 F 98.9 F Pulse Rate 58 52 50 Respiratory Rate 18 14 12 Blood Pressure 132/50 L 134/66 124/44 L Pulse Oximetry 90 L 98 100 BMI result Body Mass Index 26.6 Appearance: Arousable Oriented x0. No acute distress. Eyes: Pupils equal, round and reactive to light. ENT: Pharynx normal. Neck: Normal inspection. Neck supple. No lymph nodes noted. No crepitus CVS: Normal heart rate and rhythm. Pulses normal. Normal S1 and S2 Respiratory: No respiratory distress. Breath sounds normal. No Wheezing. No rales Abdomen: Soft and nontender. No rigidity. No distention. good BS x4 Skin: Skin warm and dry. Normal skin color. Normal skin turgor. Extremities: No lower extremity edema. Neurovascular intact to all extremities. No Lacerations. No Rash Neuro: Oriented X 0. No motor deficit. No sensory deficit. Moving all extermities. Lethargic Medical Decision Making MDM Narrative Medical decision making narrative: Patient has change in mental status. Urine grossly infected. Will start patient on antibiotics. BUN creatinine elevated consistent with dehydration. No evidence for sepsis. Patient's lactate was less than 2. Blood pressure was okay. Did not meet SIRS criteria. Cultures obtain any way. Case discussed with hospitalist team. Patient is to be admitted. Lab Data Result diagrams: 09/27/21 14:01 09/27/21 14:01 Labs: Lab Results 09/27/21 09/27/21 09/27/21 Range/Units 14:01 14:01 14:01 WBC 10.8 (4.8-10.8) X10*3/uL RBC 3.27 L (4.20-5.50) X10*6/uL Hgb 9.5 L (12.0-16.0) g/dl Hct 31.1 L (37.0-47.0) % MCV 95.1 (80.0-98.0) fL MCH 29.1 (27.0-33.0) pg MCHC 30.5 L (31.0-35.0) g/dl RDW 14.9 (11.0-16.0) % Plt Count 132 L (160-400) X10*3/uL MPV 10.2 (9.4-12.3) fL Immature Gran % (Auto) 0.4 (0.0-0.4) % Neut % (Auto) 90.0 H (45-73) % Lymph % (Auto) 5.3 L (20-40) % [place] % (Auto) 3.9 (2-11) % Eos % (Auto) 0.2 (0-4) % Baso % (Auto) 0.2 (0-2) % Lymph # (Auto) 0.6 L (1.2-4.9) X10*3/uL [place] # (Auto) 0.4 (0.1-1.2) X10*3/uL Eos # (Auto) 0.0 (0.0-0.4) X10*3/uL Baso # (Auto) 0.0 (0.0-0.2) X10*3/uL Abs Immat Gran (auto) 0.04 H (0.00-0.03) X10*3/uL Absolute Neuts (auto) 9.7 H (2.0-8.3) x10*3/uL Absolute Nucleated RBC 0.000 (0.0-0.012) X10*3/uL Nucleated RBC % (auto) 0.0 (0.0-0.2) /100WBC Sodium 138 (135-145) mmol/L Potassium 5.4 H D (3.3-5.1) mmol/L Chloride 106 (96-108) mmol/L Carbon Dioxide 22 (22-29) mmol/L Anion Gap 15 (12-20) BUN 55 H (9-16) mg/dL Creatinine 3.27 H (0.5-1.4) mg/dL Estim Creat Clear Calc 13.4 Estimated GFR 13 POC Glucose (60-115) mg/dL Random Glucose 153 H (60-115) mg/dL Lactic Acid 1.7 (0.5-2.0) mmol/L Calcium 8.9 (8.4-10.2) mg/dL Total Bilirubin 0.5 (0.0-1.0) mg/dL Direct Bilirubin 0.2 (0.0-0.5) mg/dL AST 15 (5-31) U/L ALT 10 (0-31) U/L Alkaline Phosphatase 89 D (39-117) U/L Troponin I High Sens (<3.5-17.0) ng/L Total Protein 6.3 L (6.5-8.0) g/dL Albumin 3.7 (3.5-5.0) g/dL Urine Color Urine Appearance Urine pH (5.0-8.0) Ur Specific [place] (1.005-1.025) Urine Protein (NEG-TRACE) MG/DL Urine Glucose (UA) (NEG) MG/DL Urine Ketones (NEG) MG/DL Urine Blood (NEG) Urine Nitrite (NEG) Ur Leukocyte Esterase (NEG) Urine RBC (0) /HPF Urine WBC (0-4) /HPF Urine WBC Clumps Ur Squamous Epith Cells /LPF Urine Bacteria /LPF Urine Opiates Screen (Not Detect) Urine Fentanyl Screen (Not Detect) Ur Barbiturates Screen (Not Detect) Ur Phencyclidine Scrn (Not Detect) Ur Amphetamines Screen (Not Detect) U Benzodiazepines Scrn (Not Detect) Urine Cocaine Screen (Not Detect) U Marijuana (THC) Screen (Not Detect) Influenza Type A (PCR) (Negative) Influenza Type B (PCR) (Negative) RSV RNA Qual (PCR) (Negative) SARS-CoV-2 RNA (RT-PCR) (Negative) 09/27/21 09/27/21 09/27/21 Range/Units 14:01 14:02 14:22 WBC (4.8-10.8) X10*3/uL RBC (4.20-5.50) X10*6/uL Hgb (12.0-16.0) g/dl Hct (37.0-47.0) % MCV (80.0-98.0) fL MCH (27.0-33.0) pg MCHC (31.0-35.0) g/dl RDW (11.0-16.0) % Plt Count (160-400) X10*3/uL MPV (9.4-12.3) fL Immature Gran % (Auto) (0.0-0.4) % Neut % (Auto) (45-73) % Lymph % (Auto) (20-40) % [place] % (Auto) (2-11) % Eos % (Auto) (0-4) % Baso % (Auto) (0-2) % Lymph # (Auto) (1.2-4.9) X10*3/uL [place] # (Auto) (0.1-1.2) X10*3/uL Eos # (Auto) (0.0-0.4) X10*3/uL Baso # (Auto) (0.0-0.2) X10*3/uL Abs Immat Gran (auto) (0.00-0.03) X10*3/uL Absolute Neuts (auto) (2.0-8.3) x10*3/uL Absolute Nucleated RBC (0.0-0.012) X10*3/uL Nucleated RBC % (auto) (0.0-0.2) /100WBC Sodium (135-145) mmol/L Potassium (3.3-5.1) mmol/L Chloride (96-108) mmol/L Carbon Dioxide (22-29) mmol/L Anion Gap (12-20) BUN (9-16) mg/dL Creatinine (0.5-1.4) mg/dL Estim Creat Clear Calc Estimated GFR POC Glucose (60-115) mg/dL Random Glucose (60-115) mg/dL Lactic Acid (0.5-2.0) mmol/L Calcium (8.4-10.2) mg/dL Total Bilirubin (0.0-1.0) mg/dL Direct Bilirubin (0.0-0.5) mg/dL AST (5-31) U/L ALT (0-31) U/L Alkaline Phosphatase (39-117) U/L Troponin I High Sens 16.6 (<3.5-17.0) ng/L Total Protein (6.5-8.0) g/dL Albumin (3.5-5.0) g/dL Urine Color Urine Appearance Urine pH (5.0-8.0) Ur Specific [place] (1.005-1.025) Urine Protein (NEG-TRACE) MG/DL Urine Glucose (UA) (NEG) MG/DL Urine Ketones (NEG) MG/DL Urine Blood (NEG) Urine Nitrite (NEG) Ur Leukocyte Esterase (NEG) Urine RBC (0) /HPF Urine WBC (0-4) /HPF Urine WBC Clumps Ur Squamous Epith Cells /LPF Urine Bacteria /LPF Urine Opiates Screen Not Detected (Not Detect) Urine Fentanyl Screen Not Detected (Not Detect) Ur Barbiturates Screen Not Detected (Not Detect) Ur Phencyclidine Scrn Not Detected (Not Detect) Ur Amphetamines Screen Not Detected (Not Detect) U Benzodiazepines Scrn Not Detected (Not Detect) Urine Cocaine Screen Not Detected (Not Detect) U Marijuana (THC) Screen Not Detected (Not Detect) Influenza Type A (PCR) NEGATIVE (Negative) Influenza Type B (PCR) NEGATIVE (Negative) RSV RNA Qual (PCR) NEGATIVE (Negative) SARS-CoV-2 RNA (RT-PCR) NEGATIVE (Negative) 09/27/21 09/27/21 Range/Units 14:22 14:31 WBC (4.8-10.8) X10*3/uL RBC (4.20-5.50) X10*6/uL Hgb (12.0-16.0) g/dl Hct (37.0-47.0) % MCV (80.0-98.0) fL MCH (27.0-33.0) pg MCHC (31.0-35.0) g/dl RDW (11.0-16.0) % Plt Count (160-400) X10*3/uL MPV (9.4-12.3) fL Immature Gran % (Auto) (0.0-0.4) % Neut % (Auto) (45-73) % Lymph % (Auto) (20-40) % [place] % (Auto) (2-11) % Eos % (Auto) (0-4) % Baso % (Auto) (0-2) % Lymph # (Auto) (1.2-4.9) X10*3/uL [place] # (Auto) (0.1-1.2) X10*3/uL Eos # (Auto) (0.0-0.4) X10*3/uL Baso # (Auto) (0.0-0.2) X10*3/uL Abs Immat Gran (auto) (0.00-0.03) X10*3/uL Absolute Neuts (auto) (2.0-8.3) x10*3/uL Absolute Nucleated RBC (0.0-0.012) X10*3/uL Nucleated RBC % (auto) (0.0-0.2) /100WBC Sodium (135-145) mmol/L Potassium (3.3-5.1) mmol/L Chloride (96-108) mmol/L Carbon Dioxide (22-29) mmol/L Anion Gap (12-20) BUN (9-16) mg/dL Creatinine (0.5-1.4) mg/dL Estim Creat Clear Calc Estimated GFR POC Glucose 128 H (60-115) mg/dL Random Glucose (60-115) mg/dL Lactic Acid (0.5-2.0) mmol/L Calcium (8.4-10.2) mg/dL Total Bilirubin (0.0-1.0) mg/dL Direct Bilirubin (0.0-0.5) mg/dL AST (5-31) U/L ALT (0-31) U/L Alkaline Phosphatase (39-117) U/L Troponin I High Sens (<3.5-17.0) ng/L Total Protein (6.5-8.0) g/dL Albumin (3.5-5.0) g/dL Urine Color YELLOW Urine Appearance CLOUDY Urine pH 5.5 (5.0-8.0) Ur Specific [place] 1.020 (1.005-1.025) Urine Protein TRACE (NEG-TRACE) MG/DL Urine Glucose (UA) NEG (NEG) MG/DL Urine Ketones NEG (NEG) MG/DL Urine Blood 2+ H (NEG) Urine Nitrite POS H (NEG) Ur Leukocyte Esterase 3+ H (NEG) Urine RBC 1-4 (0) /HPF Urine WBC TNTC H (0-4) /HPF Urine WBC Clumps NOTED Ur Squamous Epith Cells 1+ /LPF Urine Bacteria 2+ /LPF Urine Opiates Screen (Not Detect) Urine Fentanyl Screen (Not Detect) Ur Barbiturates Screen (Not Detect) Ur Phencyclidine Scrn (Not Detect) Ur Amphetamines Screen (Not Detect) U Benzodiazepines Scrn (Not Detect) Urine Cocaine Screen (Not Detect) U Marijuana (THC) Screen (Not Detect) Influenza Type A (PCR) (Negative) Influenza Type B (PCR) (Negative) RSV RNA Qual (PCR) (Negative) SARS-CoV-2 RNA (RT-PCR) (Negative) Discharge Plan Discharge Clinical Impression: Acute UTI, Acute dehydration Patient Disposition: Admitted As Inpatient Prescriptions: No Action quetiapine 25 mg tablet 12.5 mg PO BID 0RF lidocaine [Lidocaine Pain Relief] 4 % adhesive patch,medicated 1 patch topical DAILY 0RF amiodarone 200 mg tablet 1 tab PO DAILY 0RF sertraline 100 mg tablet 1 tab PO DAILY 0RF pantoprazole 40 mg tablet,delayed release (DR/EC) 1 tab PO DAILY 0RF Eliquis 2.5 mg tablet 1 tab PO BID 0RF cholecalciferol (vitamin D3) 25 mcg (1,000 unit) Capsule 25 mcg PO DAILY 0RF sennosides-docusate sodium [Senna-S] 8.6-50 mg Tablet 1 tab-cap PO DAILY 0RF tramadol 50 mg Tablet 50 mg PO Q12H PRN (Reason: Pain (Scale Score 1-3)) 0RF gabapentin 100 mg capsule 100 cap PO DAILY@1200 0RF gabapentin 100 mg capsule 200 cap PO BEDTIME 0RF multivitamin with minerals Tablet 1 tab PO DAILY 0RF acetaminophen 325 mg Tablet 650 mg PO Q6H PRN (Reason: Pain, Mild (Pain Scale 1-3)) Qty: 30 0RF verapamil 120 mg tablet extended release 1 tab PO DAILY 0RF acetaminophen [Tylenol] 325 mg Tablet 650 mg PO DAILY@2100 0RF
[2021-09-27 13:12] VITALS: BP 134/66; PULSE 52; RESP 14; O2SAT 98
[2021-09-27] MEDS: 0.9 % Sodium Chloride 1,000 ML 999 ML IV (13:17)
--- NOTE | 2021-09-27 13:25 | PHA.MEDREC ---
Pharmacy Consult ? Medication Reconciliation Pharmacy has completed the medication reconciliation.
[2021-09-27 14:08] LABS: MANUAL DIFF FLAG NO
[2021-09-27 14:19] LABS: Basophils Percent Auto 0.2 % (0-2); Eosinophils Percent Auto 0.2 % (0-4); Hematocrit 31.1 % (37.0-47.0); Hemoglobin 9.5 g/dl (12.0-16.0); Imm Gran Abs Auto 0.04 X10*3/uL (0.00-0.03); Imm Gran Pct Auto 0.4 % (0.0-0.4); Lymphocytes Absolute Auto 0.6 X10*3/uL (1.2-4.9); Lymphocytes Percent Auto 5.3 % (20-40); Mean Corpuscular HGB Conc 30.5 g/dl (31.0-35.0); Mean Corpuscular Hemoglobin 29.1 pg (27.0-33.0); Mean Corpuscular Volume 95.1 fL (80.0-98.0); Mean Platelet Volume 10.2 fL (9.4-12.3); Monocytes Absolute Auto 0.4 X10*3/uL (0.1-1.2); Monocytes Percent Auto 3.9 % (2-11); Neutrophils Absolute Auto 9.7 x10*3/uL (2.0-8.3); Platelet Count 132 X10*3/uL (160-400); Red Blood Count 3.27 X10*6/uL (4.20-5.50); Red Cell Distribution Width 14.9 % (11.0-16.0); White Blood Count 10.8 X10*3/uL (4.8-10.8)
[2021-09-27 14:24] LABS: Lactic Acid 1.7 mmol/L (0.5-2.0)
[2021-09-27 14:27] VITALS: BP 124/44; PULSE 50; RESP 12; TEMP 37.2; O2SAT 100
[2021-09-27 14:31] LABS: Alanine Aminotransferase 10 U/L (0-31); Albumin Level 3.7 g/dL (3.5-5.0); Alkaline Phosphatase 89 U/L (39-117); Anion Gap 15 (12-20); Aspartate Amino Transferase 15 U/L (5-31); Bilirubin Direct 0.2 mg/dL (0.0-0.5); Bilirubin Total 0.5 mg/dL (0.0-1.0); Blood Urea Nitrogen 55 mg/dL (9-16); Calcium 8.9 mg/dL (8.4-10.2); Carbon Dioxide 22 mmol/L (22-29); Chloride 106 mmol/L (96-108); Creatinine Clr Calc Pharmacy 13.4; Estimated Glomerular Filt Rate 13; Glucose Random 153 mg/dL (60-115); Potassium 5.4 mmol/L (3.3-5.1); Sodium 138 mmol/L (135-145); Total Protein 6.3 g/dL (6.5-8.0)
[2021-09-27 14:35] LABS: Glucose, Whole Blood 128 mg/dL (60-115)
[2021-09-27 14:36] LABS: Troponin-I High Sensitivity 16.6 ng/L (<3.5-17.0)
[2021-09-27 14:36] LABS: Appearance Urine CLOUDY; Color Urine YELLOW; Glucose Urine UA NEG (NEG); Leukocyte Esterase Urine 3+ (NEG); Nitrite Urine POS (NEG); PH 5.5 (5.0-8.0); UACC Culture Trigger YES; Urine Blood 2+ (NEG); Urine Ketones NEG (NEG); Urine Protein TRACE MG/DL (NEG-TRACE)
[2021-09-27 14:49] LABS: Amphetamine Screen Urine Not Detected (Not Detect); Barbiturates, Urine Not Detected (Not Detect); Benzodiazepines Screen Urine Not Detected (Not Detect); Cannabinoid Screen Urine Not Detected (Not Detect); Cocaine Screen Urine Not Detected (Not Detect); Fentanyl, urine Not Detected (Not Detect); Opiate Screen Urine Not Detected (Not Detect); Phencyclidine Screen Urine Not Detected (Not Detect)
[2021-09-27 14:53] LABS: Influenza A PCR NEGATIVE (Negative); Influenza B PCR NEGATIVE (Negative); Resp Syncy Virus RNA Qual PCR NEGATIVE (Negative); SARS COV2 PCR INHOUSE NEGATIVE (Negative)
[2021-09-27 14:59] LABS: Bacteria Urine 2+ /LPF; Squamous Epithelial Cell Urine 1+ /LPF
[2021-09-27 15:00] LABS: UACC CULT YES; WBC Clumps Urine NOTED; WBC Urine TNTC /HPF (0-4)
[2021-09-27] MEDS: Sodium Zirconium Cyclosilicate 5 GM POWD.PACK PO (15:42)
[2021-09-27] MEDS: cefTRIAXone sodium 1 GM in 0.9 % Sodium Chloride 50 ML IV (15:44)
[2021-09-27 15:45] VITALS: BP 118/45; PULSE 49; RESP 18; O2SAT 100
--- NOTE | 2021-09-27 16:27 | P.HPHOSP_ITS ---
History of Present Illness Date of Service: 09/27/21 Attending physician on admission: Jay Orantes Chief Complaint: ams , uti 85-year-old female with past medical history of AFib, chronic wound of lower extremity, GERD, depression, type 2 diabetes,ckd,anemia of chronic disease: Patient came to the hospital because of increasing lethargy and mental status changes from for at least started Thursday or Thursday. Spoke to patient's daughter-who told that patient was having increasing lethargy and poor oral intake for few days and also question of hallucination earlier. Currently patient knows her name and in-hospital but could not remember which hospital she is. Also says some suprapubic pain. Unable to tell more than that. Daughter also says-patient had subjective fever. As per daughter chest x-ray was done in the rehab but unclear what happened afterwards. Started denies any history of nausea vomiting or diarrhea or cough or phlegm or any weakness numbness except generalized lethargy. Patient's most form says DNR DNI and do not transfer to hospital but patient daughter sent her to the hospital and want her to be treated. But patient is still DNR DNI. Review of Systems Review of Systems: as above. Patient is unable to give further history. [facility] Medical History A-fib Chronic wound of extremity GERD (gastroesophageal reflux disease) Major depressive disorder Type 2 diabetes mellitus Pertinent family history: Patient unable to give any history. Social History Household Members: Other Housing: [facility] Alcohol intake: never Patient Tobacco Use Status: Never used Tobacco Advance Directives: Yes Advance Directives on File: No service: No Meds Allergies Allergy/AdvReac Type Severity Reaction Status Date / Time No Known Allergies Allergy Verified 01/15/21 23:59 Active Medications: Current Medications Acetaminophen (Acetaminophen Supp 650 Mg Supp.Rect) 650 mg MA Q6H PRN PRN Reason: Fever Amiodarone HCl (Amiodarone Hcl 200 Mg Tablet) 200 mg PO DAILY JANA Apixaban (Apixaban 2.5 Mg Tablet) 2.5 mg PO BID JANA Gabapentin (Gabapentin 400 Mg Capsule) 10,000 mg PO DAILY@1200 JANA Gabapentin (Gabapentin 400 Mg Capsule) 20,000 mg PO BEDTIME [facility] Lactated Ringer's (Lr) 1,000 mls @ 100 mls/hr IVCONT .Q10H [facility] Lidocaine (Lidocaine 4 % Patch Adh..Patch) 1 patch TRANSDERMA DAILY [facility]; Protocol Multivitamins/Vitamin C (Multivitamin Tablet) 1 tab PO DAILY [facility] Non-Formulary Medication (Pantoprazole) 1 tab PO DAILY [facility] Pharmacy Consult (Consult Rx Perform Med Rec) 1 each MISCELLANE ONCE PRN PRN Reason: Consult order Pharmacy Consult (Consult Rx Perform Med Rec) 1 each MISCELLANE ONCE PRN PRN Reason: Consult order Senna/Docusate Sodium (Sennosides/Docusate Sodium Tablet) 1 tab PO DAILY [facility] Sertraline HCl (Sertraline Hcl 100 Mg Tablet) 100 mg PO DAILY [facility] Sodium Chloride (0.9 % Sodium Chloride Flush 3 Ml Syringe) 3 ml IVFLUSH QSHIFT [facility] Verapamil HCl (Verapamil Hcl Sr 120 Mg Tablet.Er) 120 mg PO DAILY [facility]; Protocol Vitamin D (Cholecalciferol (Vitamin D3) 25 Mcg Tablet) 25 mcg PO DAILY [facility] Home Medications Medication Instructions Recorded Confirmed Last Taken Type amiodarone 200 mg tablet 1 tab PO DAILY 01/16/21 09/27/21 09/27/21 History apixaban 2.5 mg tablet (Eliquis) 1 tab PO BID 01/16/21 09/27/21 09/27/21 History cholecalciferol (vitamin D3) 25 25 mcg PO DAILY 01/16/21 09/27/21 09/27/21 History mcg (1,000 unit) capsule gabapentin 100 mg capsule 100 mg PO DAILY@1200 01/16/21 09/27/21 09/26/21 History gabapentin 100 mg capsule 200 mg PO BEDTIME 01/16/21 09/27/21 09/26/21 History lidocaine 4 % topical patch 1 patch TOPICAL DAILY 01/16/21 09/27/21 09/27/21 H istory (Lidocaine Pain Relief) multivitamin with minerals 1 tab PO DAILY 01/16/21 09/27/21 09/27/21 History pantoprazole 40 mg tablet,delayed 1 tab PO DAILY 01/16/21 09/27/21 09/27/21 History release quetiapine 25 mg tablet 12.5 mg PO BID 01/16/21 09/27/21 09/27/21 History sennosides 8.6 mg-docusate sodium 1 tab-cap PO DAILY 01/16/21 09/27/21 09/27/21 History 50 mg tablet (Senna-S) sertraline 100 mg tablet 1 tab PO DAILY 01/16/21 09/27/21 09/27/21 History tramadol 50 mg tablet 50 mg PO Q12H PRN 01/16/21 09/27/21 Unknown History acetaminophen 325 mg tablet 650 mg PO DAILY@2100 09/27/21 09/27/21 09/26/21 History (Tylenol) verapamil 120 mg tablet,extended 1 tab PO DAILY 09/27/21 09/27/21 09/27/21 History release Physical Exam Vital Signs and Narrative: Vital Signs: Last Vital Signs Temp 98.9 F 09/27/21 14:27 Pulse 49 L 09/27/21 15:45 Resp 18 09/27/21 15:45 BP 118/45 L 09/27/21 15:45 Pulse Ox 100 09/27/21 15:45 BMI result Body Mass Index 26.6 Appearance: awake.? Oriented X1-2.? Eyes: Pupils equal, round and reactive to light.? Sclera nonicteric.? ENT: Pharynx normal.? Moist mucous membranes. cvs: rrr, [id number] , no murmur res: clear to auscultation ,no rhonchii or wheezing abd: no rebound or guarding ,nt, bs present. ext pulses present , no cyanosis. neuro:moves ext Results Labs CBC and Chem 7: 09/27/21 14:01 09/27/21 14:01 Labs: Laboratory Results - last 24 hr 09/27/21 09/27/21 09/27/21 14:01 14:01 14:01 MCV 95.1 MCH 29.1 MCHC 30.5 L RDW 14.9 Plt Count 132 L MPV 10.2 Immature Gran % (Auto) 0.4 Neut % (Auto) 90.0 H Lymph % (Auto) 5.3 L [place] % (Auto) 3.9 Eos % (Auto) 0.2 Baso % (Auto) 0.2 Lymph # (Auto) 0.6 L [place] # (Auto) 0.4 Eos # (Auto) 0.0 Baso # (Auto) 0.0 Abs Immat Gran (auto) 0.04 H Absolute Neuts (auto) 9.7 H Absolute Nucleated RBC 0.000 Nucleated RBC % (auto) 0.0 Anion Gap 15 Estim Creat Clear Calc 13.4 Estimated GFR 13 POC Glucose Random Glucose 153 H Lactic Acid 1.7 Calcium 8.9 Total Bilirubin 0.5 Direct Bilirubin 0.2 AST 15 ALT 10 Alkaline Phosphatase 89 D Troponin I High Sens Total Protein 6.3 L Albumin 3.7 Urine Color Urine Appearance Urine pH Ur Specific [place] Urine Protein Urine Glucose (UA) Urine Ketones Urine Blood Urine Nitrite Ur Leukocyte Esterase Urine RBC Urine WBC Urine WBC Clumps Ur Squamous Epith Cells Urine Bacteria Urine Opiates Screen Urine Fentanyl Screen Ur Barbiturates Screen Ur Phencyclidine Scrn Ur Amphetamines Screen U Benzodiazepines Scrn Urine Cocaine Screen U Marijuana (THC) Screen Influenza Type A (PCR) Influenza Type B (PCR) RSV RNA Qual (PCR) SARS-CoV-2 RNA (RT-PCR) 09/27/21 09/27/21 09/27/21 14:01 14:02 14:22 MCV MCH MCHC RDW Plt Count MPV Immature Gran % (Auto) Neut % (Auto) Lymph % (Auto) [place] % (Auto) Eos % (Auto) Baso % (Auto) Lymph # (Auto) [place] # (Auto) Eos # (Auto) Baso # (Auto) Abs Immat Gran (auto) Absolute Neuts (auto) Absolute Nucleated RBC Nucleated RBC % (auto) Anion Gap Estim Creat Clear Calc Estimated GFR POC Glucose Random Glucose Lactic Acid Calcium Total Bilirubin Direct Bilirubin AST ALT Alkaline Phosphatase Troponin I High Sens 16.6 Total Protein Albumin Urine Color Urine Appearance Urine pH Ur Specific [place] Urine Protein Urine Glucose (UA) Urine Ketones Urine Blood Urine Nitrite Ur Leukocyte Esterase Urine RBC Urine WBC Urine WBC Clumps Ur Squamous Epith Cells Urine Bacteria Urine Opiates Screen Not Detected Urine Fentanyl Screen Not Detected Ur Barbiturates Screen Not Detected Ur Phencyclidine Scrn Not Detected Ur Amphetamines Screen Not Detected U Benzodiazepines Scrn Not Detected Urine Cocaine Screen Not Detected U Marijuana (THC) Screen Not Detected Influenza Type A (PCR) NEGATIVE Influenza Type B (PCR) NEGATIVE RSV RNA Qual (PCR) NEGATIVE SARS-CoV-2 RNA (RT-PCR) NEGATIVE 09/27/21 09/27/21 14:22 14:31 MCV MCH MCHC RDW Plt Count MPV Immature Gran % (Auto) Neut % (Auto) Lymph % (Auto) [place] % (Auto) Eos % (Auto) Baso % (Auto) Lymph # (Auto) [place] # (Auto) Eos # (Auto) Baso # (Auto) Abs Immat Gran (auto) Absolute Neuts (auto) Absolute Nucleated RBC Nucleated RBC % (auto) Anion Gap Estim Creat Clear Calc Estimated GFR POC Glucose 128 H Random Glucose Lactic Acid Calcium Total Bilirubin Direct Bilirubin AST ALT Alkaline Phosphatase Troponin I High Sens Total Protein Albumin Urine Color YELLOW Urine Appearance CLOUDY Urine pH 5.5 Ur Specific [place] 1.020 Urine Protein TRACE Urine Glucose (UA) NEG Urine Ketones NEG Urine Blood 2+ H Urine Nitrite POS H Ur Leukocyte Esterase 3+ H Urine RBC 1-4 Urine WBC TNTC H Urine WBC Clumps NOTED Ur Squamous Epith Cells 1+ Urine Bacteria 2+ Urine Opiates Screen Urine Fentanyl Screen Ur Barbiturates Screen Ur Phencyclidine Scrn Ur Amphetamines Screen U Benzodiazepines Scrn Urine Cocaine Screen U Marijuana (THC) Screen Influenza Type A (PCR) Influenza Type B (PCR) RSV RNA Qual (PCR) SARS-CoV-2 RNA (RT-PCR) Imaging Radiologist's Impressions: Impressions Chest X-Ray 09/27/21 12:54 IMPRESSION: Mild left basilar linear atelectasis versus scarring without overt acute cardiopulmonary process. Head CT 09/27/21 12:58 IMPRESSION: Limited exam. No acute findings. Old right basal ganglia infarct. Generalized atrophy and nonspecific periventricular white matter disease. Assessment and Plan (1) Acute UTI: Status: Acute (2) Toxic metabolic encephalopathy: Status: Acute Plan 85-year-old female with AF, CKD3 (SCr 1.43 01/10/21), chronic heel wounds, DM2, hx CVA with L-sided weakness, hx colon CA s/p resection, recent [place] [facility] [place] bacte[place] [facility] of L heel with concern of osteomyelitis on outpt X-ray Toxic metabolic encephalopathy-multifactorial SARAH/CKD3, UTI - give IV fluids, recheck SCr, avoid nephrotoxins Added IV antibiotic, blood culture, urine culture Lactic acid normal. ?richie anemia of chronic disease - monitor Hb AF - continue amiodarone, verapamil, apixaban HTN: bp stable hold lisinopril DM2 - well-controlled, last A1c only 5.9.? diabetic diet , moniter fs depression No hallucination currently -holdcontinue quetiapine VTE ppx - apixaban Above management discussed with discussed with patient family miss Miller in detail length-she understand and in agreement with the above plan, including the use of IV fluid, antibiotic, time spent 70 minute, patient DNR DNI, considering toxic metabolic encephalopathy and poor oral intake as well as SARAH patient may benefit from to midnight stays. Quality Stroke Does the patient have a stroke diagnosis?: No VTE Prior VTE?: No VTE Risk Level:: Medical - moderate - high VTE Device Contraindication: N/A - Device Ordered VTE Drug Contraindication: N/A - Med Ordered
[2021-09-27] MEDS: Lactated Ringers 1,000 ML 100 ML IVCONT (16:36)
[2021-09-27 20:00] VITALS: PULSE 51; RESP 18; TEMP 36.6; O2SAT 97
[2021-09-27 20:21] LABS: Glucose, Whole Blood 130 mg/dL (60-115)
[2021-09-27] MEDS: Gabapentin 100 MG CAPSULE 200 MG PO (20:30)
[2021-09-27] MEDS: Apixaban 2.5 MG TABLET PO (20:30)
[2021-09-27] MEDS: Piperacillin Sodium/Tazobactam 2.25 GM in 0.9 % Sodium Chloride 50 ML IV (20:30)
[2021-09-27] MEDS: 0.9 % Sodium Chloride Flush 3 ML SYRINGE IVFLUSH (20:31)
[2021-09-27 23:45] VITALS: BP 121/57; PULSE 50; RESP 18; TEMP 36.8; O2SAT 97
[2021-09-28] MEDS: Piperacillin Sodium/Tazobactam 2.25 GM in 0.9 % Sodium Chloride 50 ML IV ×4 (03:08→19:37)
[2021-09-28] MEDS: Lactated Ringers 1,000 ML 100 ML IVCONT ×2 (03:09→23:23)
[2021-09-28 03:50] VITALS: BP 141/68; PULSE 64; RESP 19; TEMP 36.6; O2SAT 96
[2021-09-28 06:06] LABS: MANUAL DIFF FLAG NO
[2021-09-28 06:09] LABS: Basophils Percent Auto 0.2 % (0-2); Eosinophils Absolute Auto 0.1 X10*3/uL (0.0-0.4); Eosinophils Percent Auto 1.1 % (0-4); Hematocrit 28.9 % (37.0-47.0); Hemoglobin 8.7 g/dl (12.0-16.0); Imm Gran Abs Auto 0.03 X10*3/uL (0.00-0.03); Imm Gran Pct Auto 0.4 % (0.0-0.4); Lymphocytes Absolute Auto 0.8 X10*3/uL (1.2-4.9); Lymphocytes Percent Auto 9.6 % (20-40); Mean Corpuscular HGB Conc 30.1 g/dl (31.0-35.0); Mean Corpuscular Hemoglobin 28.7 pg (27.0-33.0); Mean Corpuscular Volume 95.4 fL (80.0-98.0); Monocytes Absolute Auto 0.4 X10*3/uL (0.1-1.2); Neutrophils Absolute Auto 7.1 x10*3/uL (2.0-8.3); Neutrophils Percent Auto 83.7 % (45-73); Platelet Count 130 X10*3/uL (160-400); Red Blood Count 3.03 X10*6/uL (4.20-5.50); White Blood Count 8.5 X10*3/uL (4.8-10.8)
[2021-09-28] MEDS: Omeprazole 20 MG CAPSULE.DR PO (06:10)
[2021-09-28 06:24] LABS: Anion Gap 16 (12-20); Blood Urea Nitrogen 50 mg/dL (9-16); Carbon Dioxide 22 mmol/L (22-29); Chloride 107 mmol/L (96-108); Creatinine Clr Calc Pharmacy 15.4; Estimated Glomerular Filt Rate 16; Glucose Random 121 mg/dL (60-115); Potassium 4.7 mmol/L (3.3-5.1); Sodium 140 mmol/L (135-145)
[2021-09-28 07:37] VITALS: BP 171/76; PULSE 66; RESP 20; TEMP 36.6; O2SAT 99
[2021-09-28] MEDS: 0.9 % Sodium Chloride Flush 3 ML SYRINGE IVFLUSH ×2 (08:29→19:38)
[2021-09-28] MEDS: Lidocaine 4 % Patch ADH..PATCH 1 PATCH TRANSDERMA (08:32)
[2021-09-28] MEDS: Cholecalciferol (Vitamin D3) 25 MCG TABLET PO (08:33)
[2021-09-28] MEDS: Sertraline HCL 100 MG TABLET PO (08:33)
[2021-09-28] MEDS: Sennosides/Docusate Sodium TABLET 1 TAB PO (08:33)
[2021-09-28] MEDS: VerapamiL HCL SR 120 MG TABLET.ER PO (08:33)
[2021-09-28] MEDS: Amiodarone HCL 200 MG TABLET PO (08:33)
[2021-09-28] MEDS: Multivitamin TABLET 1 TAB PO (08:33)
[2021-09-28] MEDS: Apixaban 2.5 MG TABLET PO ×2 (08:33→19:37)
--- NOTE | 2021-09-28 08:50 | P.PNIM_ITS ---
Subjective Subjective Date of Service: 09/28/21 Interval History: Toxic metabolic encephalopathy 2nd possibly secondary to UTI. Review of Systems Patient is in the confused, no overnight fever Denies any chest pain or abdominal pain or nausea or vomiting. Physical Exam Vital Signs: Vital Signs: Last Vital Signs Temp 97.8 F 09/28/21 07:37 Pulse 66 09/28/21 07:37 Resp 20 09/28/21 07:37 BP 171/76 H 09/28/21 07:37 Pulse Ox 99 09/28/21 07:37 BMI result Body Mass Index 26.6 Appearance: awake.? Oriented X2.? Eyes: Pupils equal, round and reactive to light.? Sclera nonicteric.? ENT: Pharynx normal.? Moist mucous membranes. cvs: rrr, [id number] . res: clear to auscultation ,no rhonchii or wheezing abd: no rebound or guarding ,nt, bs present. ext pulses present , no cyanosis. neuro:aox2,moves ext Objective Data Active Medications Acetaminophen (Acetaminophen Supp 650 Mg Supp.Rect) [address] Q6H PRN PRN Reason: Fever Amiodarone HCl (Amiodarone Hcl 200 Mg Tablet) 200 mg PO DAILY [facility] Last Admin: 09/28/21 08:33 Dose: 200 mg Documented by: SHAZIA Apixaban (Apixaban 2.5 Mg Tablet) 2.5 mg PO BID [facility] Last Admin: 09/28/21 08:33 Dose: 2.5 mg Documented by: SHAZIA Gabapentin (Gabapentin 100 Mg Capsule) 100 mg PO DAILY@1200 JANA Gabapentin (Gabapentin 100 Mg Capsule) 200 mg PO BEDTIME [facility] Last Admin: 09/27/21 20:30 Dose: 200 mg Documented by: JOSE EDUARDO Lactated Ringer's (Lr) 1,000 mls @ 100 mls/hr IVCONT .Q10H [facility] Last Admin: 09/28/21 03:09 Dose: 100 mls/hr Documented by: JOSE EDUARDO Piperacillin Sod/Tazobactam (Sod 2.25 gm/ Sodium Chloride) 50 mls @ 100 mls/hr IV Q6H [facility] Last Admin: 09/28/21 08:27 Dose: 100 mls/hr Documented by: SHAZIA Lidocaine (Lidocaine 4 % Patch Adh..Patch) 1 patch TRANSDERMA DAILY [facility]; Protocol Last Admin: 09/28/21 08:32 Dose: 1 patch Documented by: SHAZIA Multivitamins/Vitamin C (Multivitamin Tablet) 1 tab PO DAILY [facility] Last Admin: 09/28/21 08:33 Dose: 1 tab Documented by: SHAZIA Omeprazole (Omeprazole 20 Mg Capsule.Dr) 20 mg PO DAILY@0630 [facility] Last Admin: 09/28/21 06:10 Dose: 20 mg Documented by: ANTOIC Pharmacy Consult (Consult Rx Perform Med Rec) 1 each MISCELLANE ONCE PRN PRN Reason: Consult order Pharmacy Consult (Consult Rx Perform Med Rec) 1 each MISCELLANE ONCE PRN PRN Reason: Consult order Senna/Docusate Sodium (Sennosides/Docusate Sodium Tablet) 1 tab PO DAILY [facility] Last Admin: 09/28/21 08:33 Dose: 1 tab Documented by: SHAZIA Sertraline HCl (Sertraline Hcl 100 Mg Tablet) 100 mg PO DAILY [facility] Last Admin: 09/28/21 08:33 Dose: 100 mg Documented by: SHAZIA Sodium Chloride (0.9 % Sodium Chloride Flush 3 Ml Syringe) [facility] Last Admin: 09/28/21 08:29 Dose: 3 ml Documented by: SHAZIA Verapamil HCl (Verapamil Hcl Sr 120 Mg Tablet.Er) 120 mg PO DAILY [facility]; Protocol Last Admin: 09/28/21 08:33 Dose: 120 mg Documented by: SHAZIA Vitamin D (Cholecalciferol (Vitamin D3) 25 Mcg Tablet) 25 mcg PO DAILY [facility] Last Admin: 09/28/21 08:33 Dose: 25 mcg Documented by: SHAZIA Labs CBC & Chem 7: 09/28/21 05:49 09/28/21 05:49 Labs: Laboratory Results - last 24 hr 09/27/21 09/27/21 09/27/21 14:01 14:01 14:01 MCV 95.1 MCH 29.1 MCHC 30.5 L RDW 14.9 Plt Count 132 L MPV 10.2 Immature Gran % (Auto) 0.4 Neut % (Auto) 90.0 H Lymph % (Auto) 5.3 L Arthur % (Auto) 3.9 Eos % (Auto) 0.2 Baso % (Auto) 0.2 Lymph # (Auto) 0.6 L Arthur # (Auto) 0.4 Eos # (Auto) 0.0 Baso # (Auto) 0.0 Abs Immat Gran (auto) 0.04 H Absolute Neuts (auto) 9.7 H Absolute Nucleated RBC 0.000 Nucleated RBC % (auto) 0.0 Anion Gap 15 Estim Creat Clear Calc 13.4 Estimated GFR 13 POC Glucose Random Glucose 153 H Lactic Acid 1.7 Calcium 8.9 Total Bilirubin 0.5 Direct Bilirubin 0.2 AST 15 ALT 10 Alkaline Phosphatase 89 D Troponin I High Sens Total Protein 6.3 L Albumin 3.7 Urine Color Urine Appearance Urine pH Ur Specific [place] Urine Protein Urine Glucose (UA) Urine Ketones Urine Blood Urine Nitrite Ur Leukocyte Esterase Urine RBC Urine WBC Urine WBC Clumps Ur Squamous Epith Cells Urine Bacteria Urine Opiates Screen Urine Fentanyl Screen Ur Barbiturates Screen Ur Phencyclidine Scrn Ur Amphetamines Screen U Benzodiazepines Scrn Urine Cocaine Screen U Marijuana (THC) Screen Influenza Type A (PCR) Influenza Type B (PCR) RSV RNA Qual (PCR) SARS-CoV-2 RNA (RT-PCR) 09/27/21 09/27/21 09/27/21 14:01 14:02 14:22 MCV MCH MCHC RDW Plt Count MPV Immature Gran % (Auto) Neut % (Auto) Lymph % (Auto) Arthur % (Auto) Eos % (Auto) Baso % (Auto) Lymph # (Auto) Arthur # (Auto) Eos # (Auto) Baso # (Auto) Abs Immat Gran (auto) Absolute Neuts (auto) Absolute Nucleated RBC Nucleated RBC % (auto) Anion Gap Estim Creat Clear Calc Estimated GFR POC Glucose Random Glucose Lactic Acid Calcium Total Bilirubin Direct Bilirubin AST ALT Alkaline Phosphatase Troponin I High Sens 16.6 Total Protein Albumin Urine Color Urine Appearance Urine pH Ur Specific [place] Urine Protein Urine Glucose (UA) Urine Ketones Urine Blood Urine Nitrite Ur Leukocyte Esterase Urine RBC Urine WBC Urine WBC Clumps Ur Squamous Epith Cells Urine Bacteria Urine Opiates Screen Not Detected Urine Fentanyl Screen Not Detected Ur Barbiturates Screen Not Detected Ur Phencyclidine Scrn Not Detected Ur Amphetamines Screen Not Detected U Benzodiazepines Scrn Not Detected Urine Cocaine Screen Not Detected U Marijuana (THC) Screen Not Detected Influenza Type A (PCR) NEGATIVE Influenza Type B (PCR) NEGATIVE RSV RNA Qual (PCR) NEGATIVE SARS-CoV-2 RNA (RT-PCR) NEGATIVE 09/27/21 09/27/21 09/27/21 14:22 14:31 20:17 MCV MCH MCHC RDW Plt Count MPV Immature Gran % (Auto) Neut % (Auto) Lymph % (Auto) Arthur % (Auto) Eos % (Auto) Baso % (Auto) Lymph # (Auto) Arthur # (Auto) Eos # (Auto) Baso # (Auto) Abs Immat Gran (auto) Absolute Neuts (auto) Absolute Nucleated RBC Nucleated RBC % (auto) Anion Gap Estim Creat Clear Calc Estimated GFR POC Glucose 128 H 130 H Random Glucose Lactic Acid Calcium Total Bilirubin Direct Bilirubin AST ALT Alkaline Phosphatase Troponin I High Sens Total Protein Albumin Urine Color YELLOW Urine Appearance CLOUDY Urine pH 5.5 Ur Specific [place] 1.020 Urine Protein TRACE Urine Glucose (UA) NEG Urine Ketones NEG Urine Blood 2+ H Urine Nitrite POS H Ur Leukocyte Esterase 3+ H Urine RBC 1-4 Urine WBC TNTC H Urine WBC Clumps NOTED Ur Squamous Epith Cells 1+ Urine Bacteria 2+ Urine Opiates Screen Urine Fentanyl Screen Ur Barbiturates Screen Ur Phencyclidine Scrn Ur Amphetamines Screen U Benzodiazepines Scrn Urine Cocaine Screen U Marijuana (THC) Screen Influenza Type A (PCR) Influenza Type B (PCR) RSV RNA Qual (PCR) SARS-CoV-2 RNA (RT-PCR) 09/28/21 09/28/21 05:49 05:49 MCV 95.4 MCH 28.7 MCHC 30.1 L RDW 15.0 Plt Count 130 L MPV 10.0 Immature Gran % (Auto) 0.4 Neut % (Auto) 83.7 H Lymph % (Auto) 9.6 L Arthur % (Auto) 5.0 Eos % (Auto) 1.1 Baso % (Auto) 0.2 Lymph # (Auto) 0.8 L Arthur # (Auto) 0.4 Eos # (Auto) 0.1 Baso # (Auto) 0.0 Abs Immat Gran (auto) 0.03 Absolute Neuts (auto) 7.1 Absolute Nucleated RBC 0.000 Nucleated RBC % (auto) 0.0 Anion Gap 16 Estim Creat Clear Calc 15.4 Estimated GFR 16 POC Glucose Random Glucose 121 H Lactic Acid Calcium 9.0 Total Bilirubin Direct Bilirubin AST ALT Alkaline Phosphatase Troponin I High Sens Total Protein Albumin Urine Color Urine Appearance Urine pH Ur Specific [place] Urine Protein Urine Glucose (UA) Urine Ketones Urine Blood Urine Nitrite Ur Leukocyte Esterase Urine RBC Urine WBC Urine WBC Clumps Ur Squamous Epith Cells Urine Bacteria Urine Opiates Screen Urine Fentanyl Screen Ur Barbiturates Screen Ur Phencyclidine Scrn Ur Amphetamines Screen U Benzodiazepines Scrn Urine Cocaine Screen U Marijuana (THC) Screen Influenza Type A (PCR) Influenza Type B (PCR) RSV RNA Qual (PCR) SARS-CoV-2 RNA (RT-PCR) Assessment and Plan (1) Toxic metabolic encephalopathy: Status: Acute (2) Acute UTI: Status: Acute (3) SARAH (acute kidney injury): Status: Acute Plan 85-year-old female with AF, CKD3 (SCr 1.43 01/10/21), chronic heel wounds, DM2, hx CVA with L-sided weakness, hx colon CA s/p resection, recent hospitalization at [facility] for ESBL bacteremia in November sent in from correction for nonhealing wound of L heel with concern of osteomyelitis on outpt X-ray Toxic metabolic encephalopathy-multifactorial SARAH/CKD3, UTI - give IV fluids, recheck SCr, avoid nephrotoxins Added IV antibiotic, blood culture, urine culture Lactic acid normal. ?quiroz ?anemia of chronic disease - monitor Hb chronic ?AF: hr in 50's - continue amiodarone, verapamil, apixaban ?HTN: bp stable hold? lisinopril ?DM2 - well-controlled, last A1c only 5.9.? diabetic diet , moniter fs ?depression No hallucination currently -holdcontinue quetiapine ?VTE ppx - apixaban inpatient need:?toxic metabolic encephalopathy and poor oral intake as well as SARAH,uti Quality Stroke Does the patient have a stroke diagnosis?: No VTE Prior VTE?: No VTE Risk Level:: Medical - moderate - high VTE Device Contraindication: N/A - Device Ordered VTE Drug Contraindication: N/A - Med Ordered
[2021-09-28 10:54] VITALS: BP 131/63; PULSE 49; RESP 20; TEMP 35.7; O2SAT 97
[2021-09-28] MEDS: Gabapentin 100 MG CAPSULE PO (13:08)
--- NOTE | 2021-09-28 13:46 | PM.PNNEP ---
Subjective Subjective Date of Service: 09/28/21 Interval history: seen and examined Physical Exam Vital Signs: Vital Signs: Last Vital Signs Temp 96.2 F L 09/28/21 10:54 Pulse 49 L 09/28/21 10:54 Resp 20 09/28/21 10:54 BP 131/63 09/28/21 10:54 Pulse Ox 97 09/28/21 10:54 BMI result Body Mass Index 26.6 Objective Data Labs CBC & Chem 7: 09/28/21 05:49 09/28/21 05:49 Labs: Laboratory Results - last 24 hr 09/27/21 09/27/21 09/27/21 14:01 14:01 14:01 WBC 10.8 RBC 3.27 L Hgb 9.5 L Hct 31.1 L MCV 95.1 MCH 29.1 MCHC 30.5 L RDW 14.9 Plt Count 132 L MPV 10.2 Immature Gran % (Auto) 0.4 Neut % (Auto) 90.0 H Lymph % (Auto) 5.3 L Cook % (Auto) 3.9 Eos % (Auto) 0.2 Baso % (Auto) 0.2 Lymph # (Auto) 0.6 L Cook # (Auto) 0.4 Eos # (Auto) 0.0 Baso # (Auto) 0.0 Abs Immat Gran (auto) 0.04 H Absolute Neuts (auto) 9.7 H Absolute Nucleated RBC 0.000 Nucleated RBC % (auto) 0.0 Sodium 138 Potassium 5.4 H D Chloride 106 Carbon Dioxide 22 Anion Gap 15 BUN 55 H Creatinine 3.27 H Estim Creat Clear Calc 13.4 Estimated GFR 13 POC Glucose Random Glucose 153 H Lactic Acid 1.7 Calcium 8.9 Total Bilirubin 0.5 Direct Bilirubin 0.2 AST 15 ALT 10 Alkaline Phosphatase 89 D Troponin I High Sens Total Protein 6.3 L Albumin 3.7 Urine Color Urine Appearance Urine pH Ur Specific [place] Urine Protein Urine Glucose (UA) Urine Ketones Urine Blood Urine Nitrite Ur Leukocyte Esterase Urine RBC Urine WBC Urine WBC Clumps Ur Squamous Epith Cells Urine Bacteria Urine Opiates Screen Urine Fentanyl Screen Ur Barbiturates Screen Ur Phencyclidine Scrn Ur Amphetamines Screen U Benzodiazepines Scrn Urine Cocaine Screen U Marijuana (THC) Screen Influenza Type A (PCR) Influenza Type B (PCR) RSV RNA Qual (PCR) SARS-CoV-2 RNA (RT-PCR) 09/27/21 09/27/21 09/27/21 14:01 14:02 14:22 WBC RBC Hgb Hct MCV MCH MCHC RDW Plt Count MPV Immature Gran % (Auto) Neut % (Auto) Lymph % (Auto) Cook % (Auto) Eos % (Auto) Baso % (Auto) Lymph # (Auto) Cook # (Auto) Eos # (Auto) Baso # (Auto) Abs Immat Gran (auto) Absolute Neuts (auto) Absolute Nucleated RBC Nucleated RBC % (auto) Sodium Potassium Chloride Carbon Dioxide Anion Gap BUN Creatinine Estim Creat Clear Calc Estimated GFR POC Glucose Random Glucose Lactic Acid Calcium Total Bilirubin Direct Bilirubin AST ALT Alkaline Phosphatase Troponin I High Sens 16.6 Total Protein Albumin Urine Color Urine Appearance Urine pH Ur Specific [place] Urine Protein Urine Glucose (UA) Urine Ketones Urine Blood Urine Nitrite Ur Leukocyte Esterase Urine RBC Urine WBC Urine WBC Clumps Ur Squamous Epith Cells Urine Bacteria Urine Opiates Screen Not Detected Urine Fentanyl Screen Not Detected Ur Barbiturates Screen Not Detected Ur Phencyclidine Scrn Not Detected Ur Amphetamines Screen Not Detected U Benzodiazepines Scrn Not Detected Urine Cocaine Screen Not Detected U Marijuana (THC) Screen Not Detected Influenza Type A (PCR) NEGATIVE Influenza Type B (PCR) NEGATIVE RSV RNA Qual (PCR) NEGATIVE SARS-CoV-2 RNA (RT-PCR) NEGATIVE 09/27/21 09/27/21 09/27/21 14:22 14:31 20:17 WBC RBC Hgb Hct MCV MCH MCHC RDW Plt Count MPV Immature Gran % (Auto) Neut % (Auto) Lymph % (Auto) Cook % (Auto) Eos % (Auto) Baso % (Auto) Lymph # (Auto) Cook # (Auto) Eos # (Auto) Baso # (Auto) Abs Immat Gran (auto) Absolute Neuts (auto) Absolute Nucleated RBC Nucleated RBC % (auto) Sodium Potassium Chloride Carbon Dioxide Anion Gap BUN Creatinine Estim Creat Clear Calc Estimated GFR POC Glucose 128 H 130 H Random Glucose Lactic Acid Calcium Total Bilirubin Direct Bilirubin AST ALT Alkaline Phosphatase Troponin I High Sens Total Protein Albumin Urine Color YELLOW Urine Appearance CLOUDY Urine pH 5.5 Ur Specific [place] 1.020 Urine Protein TRACE Urine Glucose (UA) NEG Urine Ketones NEG Urine Blood 2+ H Urine Nitrite POS H Ur Leukocyte Esterase 3+ H Urine RBC 1-4 Urine WBC TNTC H Urine WBC Clumps NOTED Ur Squamous Epith Cells 1+ Urine Bacteria 2+ Urine Opiates Screen Urine Fentanyl Screen Ur Barbiturates Screen Ur Phencyclidine Scrn Ur Amphetamines Screen U Benzodiazepines Scrn Urine Cocaine Screen U Marijuana (THC) Screen Influenza Type A (PCR) Influenza Type B (PCR) RSV RNA Qual (PCR) SARS-CoV-2 RNA (RT-PCR) 09/28/21 09/28/21 05:49 05:49 WBC 8.5 RBC 3.03 L Hgb 8.7 L Hct 28.9 L MCV 95.4 MCH 28.7 MCHC 30.1 L RDW 15.0 Plt Count 130 L MPV 10.0 Immature Gran % (Auto) 0.4 Neut % (Auto) 83.7 H Lymph % (Auto) 9.6 L Cook % (Auto) 5.0 Eos % (Auto) 1.1 Baso % (Auto) 0.2 Lymph # (Auto) 0.8 L Cook # (Auto) 0.4 Eos # (Auto) 0.1 Baso # (Auto) 0.0 Abs Immat Gran (auto) 0.03 Absolute Neuts (auto) 7.1 Absolute Nucleated RBC 0.000 Nucleated RBC % (auto) 0.0 Sodium 140 Potassium 4.7 Chloride 107 Carbon Dioxide 22 Anion Gap 16 BUN 50 H Creatinine 2.85 H Estim Creat Clear Calc 15.4 Estimated GFR 16 POC Glucose Random Glucose 121 H Lactic Acid Calcium 9.0 Total Bilirubin Direct Bilirubin AST ALT Alkaline Phosphatase Troponin I High Sens Total Protein Albumin Urine Color Urine Appearance Urine pH Ur Specific [place] Urine Protein Urine Glucose (UA) Urine Ketones Urine Blood Urine Nitrite Ur Leukocyte Esterase Urine RBC Urine WBC Urine WBC Clumps Ur Squamous Epith Cells Urine Bacteria Urine Opiates Screen Urine Fentanyl Screen Ur Barbiturates Screen Ur Phencyclidine Scrn Ur Amphetamines Screen U Benzodiazepines Scrn Urine Cocaine Screen U Marijuana (THC) Screen Influenza Type A (PCR) Influenza Type B (PCR) RSV RNA Qual (PCR) SARS-CoV-2 RNA (RT-PCR) Microbiology Microbiology Results: Microbiology 09/27/21 Unknown Urine Catheterized - Henry Catheter Urine Culture - Preliminary Gram negative carrie Procedures Date of Service Date of Service: 09/28/21 Assessment & Plan Assessment and plan (1) SARAH (acute kidney injury): Status: Acute (2) CKD (chronic kidney disease) stage 3, GFR 30-59 ml/min: Status: Acute Plan SARAH due to compromised kidney perfusion and tubular stress doubt jeanne infectious nephritis known CKD baseline Scr ~ 1.8 mg/dl REC urine sodium IVF bladder scan follow kidney function and electrolytes Time Spent With Patient Time: Total time spent is greater than 50% in coordination of care (as documented) at patient's floor/unit and/or counseling patient: Progress Note: Quality Stroke Does the patient have a stroke diagnosis?: No
[2021-09-28 16:00] VITALS: BP 133/63; PULSE 62; RESP 18; TEMP 36.3; O2SAT 98
[2021-09-28] MEDS: Gabapentin 100 MG CAPSULE 200 MG PO (19:38)
[2021-09-28] MEDS: Acetaminophen Supp 650 MG SUPP.RECT PR (19:48)
[2021-09-28 20:00] VITALS: BP 127/71; PULSE 65; RESP 18; TEMP 36.6; O2SAT 98
[2021-09-29] VITALS (7 sets, daily range): BP systolic 115–158; BP diastolic 64–79; PULSE 54–73; RESP 18–23; TEMP 36.3–37; O2SAT 96–100
[2021-09-29] MEDS: Piperacillin Sodium/Tazobactam 2.25 GM in 0.9 % Sodium Chloride 50 ML IV ×4 (01:24→19:36)
[2021-09-29] MEDS: Omeprazole 20 MG CAPSULE.DR PO (05:37)
[2021-09-29 07:12] LABS: Anion Gap 18 (12-20); Blood Urea Nitrogen 42 mg/dL (9-16); Calcium 9.1 mg/dL (8.4-10.2); Carbon Dioxide 19 mmol/L (22-29); Chloride 108 mmol/L (96-108); Creatinine Clr Calc Pharmacy 18.1; Estimated Glomerular Filt Rate 19; Glucose Random 129 mg/dL (60-115); Potassium 4.5 mmol/L (3.3-5.1); Sodium 140 mmol/L (135-145)
[2021-09-29] MEDS: VerapamiL HCL SR 120 MG TABLET.ER PO (08:47)
[2021-09-29] MEDS: Lidocaine 4 % Patch ADH..PATCH 1 PATCH TRANSDERMA (08:47)
[2021-09-29] MEDS: Multivitamin TABLET 1 TAB PO (08:48)
[2021-09-29] MEDS: Amiodarone HCL 200 MG TABLET PO (08:48)
[2021-09-29] MEDS: Cholecalciferol (Vitamin D3) 25 MCG TABLET PO (08:48)
[2021-09-29] MEDS: Sertraline HCL 100 MG TABLET PO (08:48)
[2021-09-29] MEDS: Sennosides/Docusate Sodium TABLET 1 TAB PO (08:48)
[2021-09-29] MEDS: Apixaban 2.5 MG TABLET PO ×2 (08:48→20:18)
[2021-09-29 08:53] LABS: Adenovirus PCR Not Detected (Not Detect.); Bordetella parapertussis PCR Not Detected (Not Detect.); Bordetella pertussis PCR Not Detected (Not Detect.); Chlamydia pneumoniae PCR Not Detected (Not Detect.); Coronavirus 229E PCR Not Detected (Not Detect.); Coronavirus HKU1 PCR Not Detected (Not Detect.); Coronavirus NL63 PCR Not Detected (Not Detect.); Coronavirus OC43 PCR Not Detected (Not Detect.); Human metapneumovirus PCR Not Detected (Not Detect.); Influenza A PCR Not Detected (Not Detect.); Influenza B PCR Not Detected (Not Detect.); Mycoplasma pneumoniae PCR Not Detected (Not Detect.); Parainfluenza 1 PCR Not Detected (Not Detect.); Parainfluenza 2 PCR Not Detected (Not Detect.); Parainfluenza 3 PCR Not Detected (Not Detect.); Parainfluenza 4 PCR Not Detected (Not Detect.); RSV PCR Not Detected (Not Detect.); Rhino/Enterovirus PCR Not Detected (Not Detect.); SARS-CoV-2 PCR Not Detected (Not Detect.)
[2021-09-29] MEDS: Gabapentin 100 MG CAPSULE PO (11:30)
--- NOTE | 2021-09-29 12:05 | HO.PM.IMPN ---
Subjective Subjective Date of Service: 09/29/21 Interval History: , diarrahe Physical Exam Vital Signs: Vital Signs: Last Vital Signs Temp 97.9 F 09/29/21 11:47 Pulse 69 09/29/21 11:47 Resp 23 H 09/29/21 07:19 BP 131/64 09/29/21 11:47 Pulse Ox 98 09/29/21 11:47 BMI result Body Mass Index 26.6 Objective Data Active Medications Acetaminophen (Acetaminophen Supp 650 Mg Supp.Rect) 650 mg [place] Q6H PRN PRN Reason: Fever Last Admin: 09/28/21 19:48 Dose: 650 mg Documented by: HIMA Amiodarone HCl (Amiodarone Hcl 200 Mg Tablet) 200 mg PO DAILY [facility] Last Admin: 09/29/21 08:48 Dose: 200 mg Documented by: JINNY Apixaban (Apixaban 2.5 Mg Tablet) 2.5 mg PO BID [facility] Last Admin: 09/29/21 08:48 Dose: 2.5 mg Documented by: JINNY Gabapentin (Gabapentin 100 Mg Capsule) 100 mg PO DAILY@1200 [facility] Last Admin: 09/29/21 11:30 Dose: 100 mg Documented by: JINNY Gabapentin (Gabapentin 100 Mg Capsule) 200 mg PO BEDTIME [facility] Last Admin: 09/28/21 19:38 Dose: 200 mg Documented by: HIMA Piperacillin Sod/Tazobactam (Sod 2.25 gm/ Sodium Chloride) 50 mls @ 100 mls/hr IV Q6H [facility] Last Infusion: 09/29/21 09:35 Dose: 0 mls/hr Documented by: JINNY Lidocaine (Lidocaine 4 % Patch Adh..Patch) 1 patch TRANSDERMA DAILY [facility]; Protocol Last Admin: 09/29/21 08:47 Dose: 1 patch Documented by: JINNY Multivitamins/Vitamin C (Multivitamin Tablet) 1 tab PO DAILY [facility] Last Admin: 09/29/21 08:48 Dose: 1 tab Documented by: JINNY Omeprazole (Omeprazole 20 Mg Capsule.) 20 mg PO DAILY@0630 [facility] Last Admin: 09/29/21 05:37 Dose: 20 mg Documented by: HIMA Pharmacy Consult (Consult Rx Perform Med Rec) 1 each MISCELLANE ONCE PRN PRN Reason: Consult order Pharmacy Consult (Consult Rx Perform Med Rec) 1 each MISCELLANE ONCE PRN PRN Reason: Consult order Senna/Docusate Sodium (Sennosides/Docusate Sodium Tablet) 1 tab PO DAILY [facility] Last Admin: 09/29/21 08:48 Dose: 1 tab Documented by: JINNY Sertraline HCl (Sertraline Hcl 100 Mg Tablet) 100 mg PO DAILY [facility] Last Admin: 09/29/21 08:48 Dose: 100 mg Documented by: JINNY Sodium Chloride (0.9 % Sodium Chloride Flush 3 Ml Syringe) 3 ml IVFLUSH QSHIFT [facility] Last Admin: 09/29/21 07:18 Dose: Not Given Documented by: JINNY Non-Admin Reason: IV Running Verapamil HCl (Verapamil Hcl Sr 120 Mg Tablet.Er) 120 mg PO DAILY [facility]; Protocol Last Admin: 09/29/21 08:47 Dose: 120 mg Documented by: JINNY Vitamin D (Cholecalciferol (Vitamin D3) 25 Mcg Tablet) 25 mcg PO DAILY [facility] Last Admin: 09/29/21 08:48 Dose: 25 mcg Documented by: JINNY Labs CBC & Chem 7: 09/28/21 05:49 09/29/21 05:49 Labs: Laboratory Results - last 24 hr 09/28/21 09/28/21 09/29/21 21:51 22:00 05:49 Anion Gap 18 Estim Creat Clear Calc 18.1 Estimated GFR 19 Random Glucose 129 H Calcium 9.1 Ur Random Sodium 50.0 Respiratory Panel Alan See Note Adenovirus (Rapid PCR) Not Detected B.pert (TEM-PCR) Not Detected B.parapertussis DNA PCR Not Detected C. pneumoniae DNA (PCR) Not Detected Coronavirus OC43 (PCR) Not Detected Coronavirus HKU1 (PCR) Not Detected Coronavirus 229E (PCR) Not Detected Coronavirus NL63 (PCR) Not Detected Human Metapneumovir PCR Not Detected Influenza A (RT-PCR) Not Detected Influenza B (RT-PCR) Not Detected M. pneumoniae (PCR) Not Detected Parainfluenza 1 (PCR) Not Detected Parainfluenza 2 (PCR) Not Detected Parainfluenza 3 (PCR) Not Detected Parainfluenza 4 (PCR) Not Detected RSV (PCR) Not Detected Entero/Rhino (PCR) Not Detected SARS-CoV-2 RNA (RT-PCR) Not Detected Microbiology Microbiology Results: Microbiology 09/27/21 Unknown Urine Culture - Final Urine Catheterized - Quiroz Catheter Escherichia coli 09/27/21 14:22 Blood Culture - Preliminary Blood - Venous No growth after 24 hours. 09/27/21 14:01 Blood Culture - Preliminary Blood - Venous No growth after 24 hours. Assessment and Plan (1) CKD (chronic kidney disease) stage 3, GFR 30-59 ml/min: Status: Acute (2) SARAH (acute kidney injury): Status: Acute (3) Acute UTI: Status: Acute (4) Toxic metabolic encephalopathy: Status: Acute Plan 85-year-old female with AF, CKD3 (SCr 1.43 01/10/21), chronic heel wounds, DM2, hx CVA with L-sided weakness, hx colon CA s/p resection, recent hospitalization at [facility] for ESBL bacteremia in November sent in from intermediate-this time came to the hospital secondary to toxic metabolic encephalopathy/UTI. ? Toxic metabolic encephalopathy-multifactorial SARAH/CKD3, UTI - give IV fluids, recheck SCr, avoid nephrotoxins Added IV antibiotic day3, blood culture neg at 24 hrs, urine culture ecoli-sensitive to ceftriaxone, antibiotics switched to ceftriaxone. Lactic acid normal. ?quiroz ?anemia of chronic disease - monitor Hb chronic ?AF - continue amiodarone, verapamil, apixaban ?HTN: bp stable hold? lisinopril ?DM2 - well-controlled, last A1c only 5.9.? diabetic diet , moniter fs ?depression -holdcontinue quetiapine dirrhae: probable antibiotics related check cdiff,stoolfor wbc ,stool culture. if cdiff neg ,willl addloperamide sarah: improving with hydration continue gentle hydration ?VTE ppx - apixaban Need for inpatient: Toxic metabolic encephalopathy, UTI,sarah Quality Stroke Does the patient have a stroke diagnosis?: No VTE Prior VTE?: No VTE Risk Level:: Medical - moderate - high VTE Device Contraindication: N/A - Device Ordered VTE Drug Contraindication: N/A - Med Ordered
--- NOTE | 2021-09-29 12:44 | PM.PNNEP ---
Subjective Subjective Date of Service: 09/29/21 Interval history: seen and examined complains of diarrhea Physical Exam Vital Signs: Vital Signs: Last Vital Signs Temp 97.9 F 09/29/21 11:47 Pulse 69 09/29/21 11:47 Resp 23 H 09/29/21 07:19 BP 131/64 09/29/21 11:47 Pulse Ox 98 09/29/21 11:47 BMI result Body Mass Index 26.6 Const: General: no acute distress HEENT: Head: Yes normocephalic and Yes atraumatic Neck: Neck: Yes supple Resp: Auscultation: diminished lung sounds Cardio: Heart sounds: S1 normal heart sound present and S2 normal heart sound present GI: Palpation (GI): Soft to palpation and nontender Extrem: General: Yes no pedal edema Objective Data Labs CBC & Chem 7: 09/28/21 05:49 09/29/21 05:49 Labs: Laboratory Results - last 24 hr 09/28/21 09/28/21 09/29/21 21:51 22:00 05:49 Sodium 140 Potassium 4.5 Chloride 108 Carbon Dioxide 19 L Anion Gap 18 BUN 42 H Creatinine 2.43 H Estim Creat Clear Calc 18.1 Estimated GFR 19 Random Glucose 129 H Calcium 9.1 Ur Random Sodium 50.0 Respiratory Panel Alan See Note Adenovirus (Rapid PCR) Not Detected B.pert (TEM-PCR) Not Detected B.parapertussis DNA PCR Not Detected C. pneumoniae DNA (PCR) Not Detected Coronavirus OC43 (PCR) Not Detected Coronavirus HKU1 (PCR) Not Detected Coronavirus 229E (PCR) Not Detected Coronavirus NL63 (PCR) Not Detected Human Metapneumovir PCR Not Detected Influenza A (RT-PCR) Not Detected Influenza B (RT-PCR) Not Detected M. pneumoniae (PCR) Not Detected Parainfluenza 1 (PCR) Not Detected Parainfluenza 2 (PCR) Not Detected Parainfluenza 3 (PCR) Not Detected Parainfluenza 4 (PCR) Not Detected RSV (PCR) Not Detected Entero/Rhino (PCR) Not Detected SARS-CoV-2 RNA (RT-PCR) Not Detected Microbiology Microbiology Results: Microbiology 09/27/21 Unknown Urine Catheterized - Henry Catheter Urine Culture - Final Escherichia coli 09/27/21 14:22 Blood - Venous Blood Culture - Preliminary No growth after 24 hours. 09/27/21 14:01 Blood - Venous Blood Culture - Preliminary No growth after 24 hours. Procedures Date of Service Date of Service: 09/29/21 Assessment & Plan Assessment and plan (1) SARAH (acute kidney injury): Status: Acute (2) CKD (chronic kidney disease) stage 3, GFR 30-59 ml/min: Status: Acute Plan Scr better SARAH due to compromised kidney perfusion and tubular stress known CKD baseline Scr ~ 1.8 mg/dl REC IVF follow kidney function and electrolytes Time Spent With Patient Time: Total time spent is greater than 50% in coordination of care (as documented) at patient's floor/unit and/or counseling patient: Progress Note: Quality Stroke Does the patient have a stroke diagnosis?: No
[2021-09-29] MEDS: Loperamide HCl 2 MG CAPSULE PO (13:43)
[2021-09-29] MEDS: 0.9 % Sodium Chloride Flush 3 ML SYRINGE IVFLUSH ×2 (16:15→20:18)
[2021-09-29] MEDS: Gabapentin 100 MG CAPSULE 200 MG PO (20:18)
[2021-09-29] MEDS: Tamsulosin HCL 0.4 MG CAPSULE PO (20:18)
[2021-09-30] MEDS: Piperacillin Sodium/Tazobactam 2.25 GM in 0.9 % Sodium Chloride 50 ML IV (01:26)
[2021-09-30] MEDS: Acetaminophen Supp 650 MG SUPP.RECT PR (02:04)
[2021-09-30 03:09] VITALS: BP 153/65; PULSE 69; RESP 19; TEMP 36.5; O2SAT 99
[2021-09-30] MEDS: Omeprazole 20 MG CAPSULE.DR PO (05:34)
[2021-09-30 06:31] LABS: Anion Gap 12 (12-20); Blood Urea Nitrogen 32 mg/dL (9-16); Calcium 8.8 mg/dL (8.4-10.2); Carbon Dioxide 23 mmol/L (22-29); Chloride 109 mmol/L (96-108); Creatinine Clr Calc Pharmacy 22.4; Estimated Glomerular Filt Rate 24; Glucose Random 134 mg/dL (60-115); Potassium 4.1 mmol/L (3.3-5.1); Sodium 140 mmol/L (135-145)
[2021-09-30 07:20] VITALS: BP 130/61; PULSE 67; RESP 20; TEMP 36.8; O2SAT 97
[2021-09-30] MEDS: Cholecalciferol (Vitamin D3) 25 MCG TABLET PO (09:38)
[2021-09-30] MEDS: VerapamiL HCL SR 120 MG TABLET.ER PO (09:38)
[2021-09-30] MEDS: Multivitamin TABLET 1 TAB PO (09:38)
[2021-09-30] MEDS: Sertraline HCL 100 MG TABLET PO (09:38)
[2021-09-30] MEDS: Sennosides/Docusate Sodium TABLET 1 TAB PO (09:38)
[2021-09-30] MEDS: Amiodarone HCL 200 MG TABLET PO (09:38)
[2021-09-30] MEDS: Apixaban 2.5 MG TABLET PO ×2 (09:38→20:32)
[2021-09-30] MEDS: Lidocaine 4 % Patch ADH..PATCH 1 PATCH TRANSDERMA (09:39)
[2021-09-30] MEDS: 0.9 % Sodium Chloride Flush 3 ML SYRINGE IVFLUSH ×3 (09:39→20:33)
[2021-09-30 11:57] VITALS: BP 125/60; PULSE 64; RESP 19; TEMP 36.4; O2SAT 99
--- NOTE | 2021-09-30 12:01 | MHC.CM.PN ---
LATE ENTRY NOTE FOR 09/28/21 1430, IMM 09/28/21, PT ADMITTED W/UTI/AMS, PT IS A LTC RESIDENT AT [facility], CM ATTEMPTED TO CONTACT PT'S DTR DEVAN [phone], NO ANSWER MESSAGE LEFT AND IMM TO BE MAILED. PCP MAGDALENA SORIANO, HCP ON FILE FROM PREVIOUS VISIT. D/C PLAN: RETURN TO [facility] W/BLS TRANSPORT
--- NOTE | 2021-09-30 12:07 | MHC.CM.PN ---
Addendum entered by Cristin Torres RN 09/30/21 14:17: PER HOSPITALIST PT WILL REMAIN INPT FOR 1-2 DAYS FOR DIARHEA AND PAIN, DBV NOTIFIED AND DTR DEVAN AWARE. Original Note: PER HOSPITALIST ANTIC PT WILL RETURN TO [facility] LATER TODAY VIA [facility] FOR BLS TRANSPORT, CM CONTACTED PT'S DTR DEVAN AT 11:55AM [phone], DEVAN IS AGREEABLE TO PLAN AND WILL BRING MAYI IN FOR PT SHE DOESN'T WANT TO RETURN IN A KHUSHI. PER DISCUSSION CM WILL CONTACT DTR IF FOR ANY REASON D/C IS POSTPONED.
--- NOTE | 2021-09-30 12:49 | CONS_ITS ---
DATE OF SERVICE: 09/28/2021 HISTORY OF PRESENT ILLNESS: This is an -[id number]-akc patient with history of chronic kidney disease with baseline serum creatinine ratio 1.8 mg/dL who presented to the hospital with altered mental status and was noted to have worsening kidney function. In summary, the patient was sent from her facility due to increasing lethargy and mental status change. Her family at the bedside tells me that she has had increasing lethargy with decreased oral intake, but there is no report of nausea, vomiting, or diarrhea. There is no report of chest pain. No shortness of breath. PAST MEDICAL HISTORY: Remarkable for chronic kidney disease, history of diabetes mellitus, hypertension, depression, GERD, chronic wound of the extremity, atrial fibrillation. MEDICATIONS: Inpatient included verapamil, tramadol, sertraline, pantoprazole, gabapentin, apixaban, amiodarone. ALLERGIES: SHE IS NOT ALLERGIC TO MEDICATIONS. SOCIAL HISTORY: Does not smoke. FAMILY HISTORY: Negative for kidney disease. REVIEW OF SYSTEMS: 10-point review of systems negative except for pertinent in History of Present Illness. PHYSICAL EXAMINATION: VITAL SIGNS: Blood pressure is 131/63, heart rate 49, respiratory rate is 20, temperature 96.2. CONSTITUTIONAL: Looks stated age. No acute distress. NEUROLOGIC: Alert, awake. Atraumatic and normocephalic. NECK: Supple. LUNGS: Good air entry bilaterally. CARDIOVASCULAR: S1, S2. No rub. ABDOMEN: Soft, nontender. EXTREMITIES: No peripheral edema. LABORATORY DATA: Showed a white count 8.5, hemoglobin 8.7, platelet count is 130. Sodium 140, potassium 4.7, chloride 107, CO2 22, BUN 50, creatinine 2.85. Labs yesterday showed a potassium 5.4, BUN 55, creatinine 3.7. Urinalysis 3+ leukocyte esterase, too numerous to count white blood cells. IMPRESSION: 1. Acute kidney injury. 2. Hyperkalemia. 3. Chronic kidney disease stage 3. The patient's acute kidney injury is due to compromised kidney perfusion and due to stress. I doubt that this is due to infectious nephritis. There is elevated serum potassium due to reduced distal flow. She is known to have chronic kidney disease with baseline serum creatinine ratio 1.8 mg/dL. I will check her urine sodium and continue with IV fluids. Check her bladder scan and follow closely the kidney function . Thank you for allowing me to participate in the care of the patient. MD FALGUNI Ramirez/KP / [id number]
[2021-09-30] MEDS: Gabapentin 100 MG CAPSULE PO (13:12)
[2021-09-30 14:36] VITALS: BMI 26.6
--- NOTE | 2021-09-30 14:45 | MHC.CLN ---
NUTRITION CONSULT FOR SKIN ISSUES. PATIENT WITH STAGE II TO LEFT HEEL. DIET=CARDIAC. ADDING ENSURE BID TO PROVIDE ADDITIONAL 700 KCALS, 40 G PROTEIN. PATIENT REPORTS THAT SHE DOES NOT EAT MUCH. HAS SOUP AND CRACKERS AT LUNCH. FOLLOW FOR INTAKE AND WOUND HEALING.
--- NOTE | 2021-09-30 14:47 | HO.PM.IMPN ---
Subjective Subjective Date of Service: 09/30/21 Interval History: Diarrhea, generally weak Review of Systems Patient and few bouts of liquidy diarrhea last night. Afterwards feeling weak Denies any chest pain or shortness or cough or phlegm. Physical Exam Vital Signs: Vital Signs: Last Vital Signs Temp 97.5 F 09/30/21 11:57 Pulse 64 09/30/21 11:57 Resp 19 09/30/21 11:57 BP 125/60 09/30/21 11:57 Pulse Ox 99 09/30/21 11:57 BMI result Body Mass Index 26.6 Appearance: awake.? Oriented X2.? Eyes: Pupils equal, round and reactive to light.? Sclera nonicteric.? ENT: Pharynx normal.? Moist mucous membranes. cvs: rrr, [id number] . res: clear to auscultation ,no rhonchii or wheezing abd: no rebound or guarding ,nt, bs present. ext pulses present , no cyanosis. neuro:aox2,moves ext Objective Data Active Medications Acetaminophen (Acetaminophen Supp 650 Mg Supp.Rect) 650 mg MN Q6H PRN PRN Reason: Fever Last Admin: 09/30/21 02:04 Dose: 650 mg Documented by: RONNIE Amiodarone HCl (Amiodarone Hcl 200 Mg Tablet) 200 mg PO DAILY [facility] Last Admin: 09/30/21 09:38 Dose: 200 mg Documented by: NANI Apixaban (Apixaban 2.5 Mg Tablet) 2.5 mg PO BID [facility] Last Admin: 09/30/21 09:38 Dose: 2.5 mg Documented by: NANI Cefuroxime Axetil (Cefuroxime Axetil 250 Mg Tablet) 250 mg PO Q12H [facility] Last Admin: 09/30/21 09:38 Dose: 250 mg Documented by: NANI Gabapentin (Gabapentin 100 Mg Capsule) 100 mg PO DAILY@1200 [facility] Last Admin: 09/30/21 13:12 Dose: 100 mg Documented by: NANI Gabapentin (Gabapentin 100 Mg Capsule) 200 mg PO BEDTIME [facility] Last Admin: 09/29/21 20:18 Dose: 200 mg Documented by: RONNIE Lidocaine (Lidocaine 4 % Patch Adh..Patch) 1 patch TRANSDERMA DAILY [facility]; Protocol Last Admin: 09/30/21 09:39 Dose: 1 patch Documented by: NANI Multivitamins/Vitamin C (Multivitamin Tablet) 1 tab PO DAILY [facility] Last Admin: 09/30/21 09:38 Dose: 1 tab Documented by: NANI Omeprazole (Omeprazole 20 Mg Capsule.Dr) 20 mg PO DAILY@0630 [facility] Last Admin: 09/30/21 05:34 Dose: 20 mg Documented by: RONNIE Pharmacy Consult (Consult Rx Perform Med Rec) 1 each MISCELLANE ONCE PRN PRN Reason: Consult order Pharmacy Consult (Consult Rx Perform Med Rec) 1 each MISCELLANE ONCE PRN PRN Reason: Consult order Senna/Docusate Sodium (Sennosides/Docusate Sodium Tablet) 1 tab PO DAILY [facility] Last Admin: 09/30/21 09:38 Dose: 1 tab Documented by: NANI Sertraline HCl (Sertraline Hcl 100 Mg Tablet) 100 mg PO DAILY [facility] Last Admin: 09/30/21 09:38 Dose: 100 mg Documented by: NANI Sodium Chloride (0.9 % Sodium Chloride Flush 3 Ml Syringe) 3 ml IVFLUSH QSHIFT [facility] Last Admin: 09/30/21 14:23 Dose: 3 ml Documented by: NANI Tamsulosin HCl (Tamsulosin Hcl 0.4 Mg Capsule) 0.4 mg PO BEDTIME [facility] Last Admin: 09/29/21 20:18 Dose: 0.4 mg Documented by: RONNIE Verapamil HCl (Verapamil Hcl Sr 120 Mg Tablet.Er) 120 mg PO DAILY [facility]; Protocol Last Admin: 09/30/21 09:38 Dose: 120 mg Documented by: NANI Vitamin D (Cholecalciferol (Vitamin D3) 25 Mcg Tablet) 25 mcg PO DAILY [facility] Last Admin: 09/30/21 09:38 Dose: 25 mcg Documented by: NANI Labs CBC & Chem 7: 09/28/21 05:49 09/30/21 05:31 Labs: Laboratory Results - last 24 hr 09/30/21 05:31 Anion Gap 12 Estim Creat Clear Calc 22.4 Estimated GFR 24 Random Glucose 134 H Calcium 8.8 Microbiology Microbiology Results: Microbiology 09/27/21 14:22 Blood Culture - Preliminary Blood - Venous No growth after 48 hours. 09/27/21 14:01 Blood Culture - Preliminary Blood - Venous No growth after 48 hours. Assessment and Plan (1) Acute UTI: Status: Acute (2) Diarrhea: Status: Acute Plan 85-year-old female with AF, CKD3 (SCr 1.43 01/10/21), chronic heel wounds, DM2, hx CVA with L-sided weakness, hx colon CA s/p resection, recent hospitalization at [facility] for ESBL bacteremia in November sent in from [facility] for nonhealing wound of L heel with concern of osteomyelitis on outpt X-ray Toxic metabolic encephalopathy-multifactorial MICHAEL/CKD3, UTI seems improved -near her baseline as per her daughter bedside. Off IV fluids, avoid nephrotoxins UTI: Blood culture negative at 48 hour, urine culture E coli sensitive to ceftriaxone. ?anemia of chronic disease - monitor Hb chronic ?AF: - continue amiodarone, verapamil, apixaban ?HTN: bp stable hold? lisinopril ?DM2 - well-controlled, last A1c only 5.9.? diabetic diet , moniter fs ?depression No hallucination currently -holdcontinue quetiapine michael: improved with hydration , renal function at baseline diarrahae: c diff , stool studies added ?VTE ppx - apixaban inpatient need:?diarrahe. Quality Stroke Does the patient have a stroke diagnosis?: No VTE Prior VTE?: No VTE Risk Level:: Medical - moderate - high VTE Device Contraindication: N/A - Device Ordered VTE Drug Contraindication: N/A - Med Ordered
[2021-09-30 14:53] LABS: COVID-19 Test Negative (Negative)
[2021-09-30 15:10] VITALS: BP 106/56; PULSE 51; RESP 15; TEMP 36.6; O2SAT 97
[2021-09-30 19:00] VITALS: BP 132/60; PULSE 79; RESP 14; TEMP 36.6; O2SAT 94
[2021-09-30] MEDS: Tamsulosin HCL 0.4 MG CAPSULE PO (20:32)
[2021-09-30] MEDS: Gabapentin 100 MG CAPSULE 200 MG PO (20:33)
[2021-09-30 20:46] LABS: Leukocytes Stool Qualitative NEGATIVE (NEGATIVE)
[2021-09-30 21:12] LABS: CDiff Gene PCR NEGATIVE (Negative)
--- NOTE | 2021-09-30 21:19 | PM.PNNEP ---
Subjective Subjective Date of Service: 09/30/21 Interval history: Diarrhea, generally weak Physical Exam Vital Signs: Vital Signs: Last Vital Signs Temp 97.8 F 09/30/21 19:00 Pulse 79 09/30/21 19:00 Resp 14 09/30/21 19:00 BP 132/60 09/30/21 19:00 Pulse Ox 94 09/30/21 19:00 BMI result Body Mass Index 26.6 Const: General: cooperative and no acute distress HEENT: Head: Yes normocephalic and Yes atraumatic Neck: Neck: Yes no JVD Resp: Effort & Inspection: able to speak in complete sentences Auscultation: clear to auscultation bilaterally Cardio: Jugular venous distension: no JVD Rate: regular rate Rhythm: regular rhythm Heart sounds: S1 normal heart sound present and S2 normal heart sound present GI: Auscultation: normal bowel sounds Neuro: General: no focal motor deficits Extrem: General: Yes no clubbing, cyanosis or edema Objective Data Labs CBC & Chem 7: 09/28/21 05:49 09/30/21 05:31 Labs: Laboratory Results - last 24 hr 09/30/21 09/30/21 09/30/21 05:31 14:24 20:10 Sodium 140 Potassium 4.1 Chloride 109 H Carbon Dioxide 23 Anion Gap 12 BUN 32 H Creatinine 1.96 H Estim Creat Clear Calc 22.4 Estimated GFR 24 Random Glucose 134 H Calcium 8.8 Stool Leukocytes, Qual NEGATIVE C. difficile Tox B Gene COVID-19 ([facility]) Negative COVID-19 Clin Com See Note 09/30/21 20:10 Sodium Potassium Chloride Carbon Dioxide Anion Gap BUN Creatinine Estim Creat Clear Calc Estimated GFR Random Glucose Calcium Stool Leukocytes, Qual C. difficile Tox B Gene NEGATIVE COVID-19 ([facility]) COVID-19 Clin Com Microbiology Microbiology Results: Microbiology 09/27/21 14:22 Blood - Venous Blood Culture - Preliminary No growth after 48 hours. 09/27/21 14:01 Blood - Venous Blood Culture - Preliminary No growth after 48 hours. 09/27/21 Unknown Urine Catheterized - Henry Catheter Urine Culture - Final Escherichia coli Procedures Date of Service Date of Service: 09/30/21 Assessment & Plan Assessment and plan (1) SARAH (acute kidney injury): Status: Acute (2) CKD (chronic kidney disease) stage 3, GFR 30-59 ml/min: Status: Acute (3) Diarrhea: Status: Acute Plan Scr better SARAH due to compromised kidney perfusion and tubular stress known CKD baseline Scr ~ 1.8 mg/dl REC S-Cr improved. hold on additional IVF's hold acei for now. monitor stool output volume losses. uTI tx per primary team. follow kidney function and electrolytes Time Spent With Patient Time: Total time spent is greater than 50% in coordination of care (as documented) at patient's floor/unit and/or counseling patient: Progress Note: Quality Stroke Does the patient have a stroke diagnosis?: No
[2021-10-01] VITALS (7 sets, daily range): BP systolic 108–149; BP diastolic 60–72; PULSE 55–73; RESP 14–18; TEMP 36.3–37.1; O2SAT 93–98
[2021-10-01] MEDS: Omeprazole 20 MG CAPSULE.DR PO (05:33)
[2021-10-01 06:37] LABS: Hemoglobin 7.6 g/dl (12.0-16.0); Mean Corpuscular HGB Conc 30.4 g/dl (31.0-35.0); Mean Corpuscular Hemoglobin 28.7 pg (27.0-33.0); Mean Corpuscular Volume 94.3 fL (80.0-98.0); Mean Platelet Volume 10.1 fL (9.4-12.3); Platelet Count 124 X10*3/uL (160-400); Red Blood Count 2.65 X10*6/uL (4.20-5.50); Red Cell Distribution Width 14.6 % (11.0-16.0); White Blood Count 6.2 X10*3/uL (4.8-10.8)
[2021-10-01 06:57] LABS: Anion Gap 14 (12-20); Blood Urea Nitrogen 29 mg/dL (9-16); Calcium 8.9 mg/dL (8.4-10.2); Carbon Dioxide 22 mmol/L (22-29); Chloride 109 mmol/L (96-108); Creatinine Clr Calc Pharmacy 25.4; Estimated Glomerular Filt Rate 28; Glucose Random 155 mg/dL (60-115); Potassium 4.1 mmol/L (3.3-5.1); Sodium 141 mmol/L (135-145)
[2021-10-01] MEDS: VerapamiL HCL SR 120 MG TABLET.ER PO (09:24)
[2021-10-01] MEDS: Apixaban 2.5 MG TABLET PO ×2 (09:24→20:55)
[2021-10-01] MEDS: Amiodarone HCL 200 MG TABLET PO (09:24)
[2021-10-01] MEDS: Cholecalciferol (Vitamin D3) 25 MCG TABLET PO (09:24)
[2021-10-01] MEDS: Sertraline HCL 100 MG TABLET PO (09:24)
[2021-10-01] MEDS: Multivitamin TABLET 1 TAB PO (09:24)
[2021-10-01] MEDS: 0.9 % Sodium Chloride Flush 3 ML SYRINGE IVFLUSH (09:25)
--- NOTE | 2021-10-01 09:33 | P.PNIM_ITS ---
Subjective Subjective Date of Service: 10/01/21 Interval History: f/u on SARAH, diarrhea, encephalpathy interval history: no specific complaint, diarrhea is getting better, renal function is improving Review of Systems no confusion, +diarrhea Physical Exam Vital Signs: Vital Signs: Last Vital Signs Temp 97.9 F 10/01/21 07:58 Pulse 72 10/01/21 07:58 Resp 18 10/01/21 07:58 BP 125/62 10/01/21 07:58 Pulse Ox 93 10/01/21 07:58 BMI result Body Mass Index 26.6 Const: Other: General: AO X 2, no acute distress Resp: CTA bilateral CVS: S1,S2,RRR GI: +BS, NT, no distention Skin: No rash Neuro: motor grossly intact Psych: appropriate affect Objective Data Active Medications Acetaminophen (Acetaminophen Supp 650 Mg Supp.Rect) 650 mg VA Q6H PRN PRN Reason: Fever Last Admin: 09/30/21 02:04 Dose: 650 mg Documented by: RONNIE Amiodarone HCl (Amiodarone Hcl 200 Mg Tablet) 200 mg PO DAILY [facility] Last Admin: 10/01/21 09:24 Dose: 200 mg Documented by: NANI Apixaban (Apixaban 2.5 Mg Tablet) 2.5 mg PO BID [facility] Last Admin: 10/01/21 09:24 Dose: 2.5 mg Documented by: NANI Cefuroxime Axetil (Cefuroxime Axetil 250 Mg Tablet) 250 mg PO Q12H [facility] Last Admin: 10/01/21 09:24 Dose: 250 mg Documented by: NANI Gabapentin (Gabapentin 100 Mg Capsule) 100 mg PO DAILY@1200 [facility] Last Admin: 09/30/21 13:12 Dose: 100 mg Documented by: NANI Gabapentin (Gabapentin 100 Mg Capsule) 200 mg PO BEDTIME [facility] Last Admin: 09/30/21 20:33 Dose: 200 mg Documented by: RONNIE Lidocaine (Lidocaine 4 % Patch Adh..Patch) 1 patch TRANSDERMA DAILY [facility]; Protocol Last Admin: 10/01/21 09:25 Dose: Not Given Documented by: NANI Non-Admin Reason: Patient Refused Multivitamins/Vitamin C (Multivitamin Tablet) 1 tab PO DAILY [facility] Last Admin: 10/01/21 09:24 Dose: 1 tab Documented by: NANI Omeprazole (Omeprazole 20 Mg Capsule.Dr) 20 mg PO DAILY@0630 [facility] Last Admin: 10/01/21 05:33 Dose: 20 mg Documented by: RONNIE Pharmacy Consult (Consult Rx Perform Med Rec) 1 each MISCELLANE ONCE PRN PRN Reason: Consult order Pharmacy Consult (Consult Rx Perform Med Rec) 1 each MISCELLANE ONCE PRN PRN Reason: Consult order Senna/Docusate Sodium (Sennosides/Docusate Sodium Tablet) 1 tab PO DAILY [facility] Last Admin: 10/01/21 09:25 Dose: Not Given Documented by: NANI Non-Admin Reason: loose stool Sertraline HCl (Sertraline Hcl 100 Mg Tablet) 100 mg PO DAILY [facility] Last Admin: 10/01/21 09:24 Dose: 100 mg Documented by: NANI Sodium Chloride (0.9 % Sodium Chloride Flush 3 Ml Syringe) 3 ml IVFLUSH QSHIFT [facility] Last Admin: 10/01/21 09:25 Dose: 3 ml Documented by: NANI Tamsulosin HCl (Tamsulosin Hcl 0.4 Mg Capsule) 0.4 mg PO BEDTIME [facility] Last Admin: 09/30/21 20:32 Dose: 0.4 mg Documented by: RONNIE Verapamil HCl (Verapamil Hcl Sr 120 Mg Tablet.Er) 120 mg PO DAILY [facility]; Protocol Last Admin: 10/01/21 09:24 Dose: 120 mg Documented by: NANI Vitamin D (Cholecalciferol (Vitamin D3) 25 Mcg Tablet) 25 mcg PO DAILY [facility] Last Admin: 10/01/21 09:24 Dose: 25 mcg Documented by: NANI Labs CBC & Chem 7: 10/01/21 06:01 10/01/21 06:01 Labs: Laboratory Results - last 24 hr 09/30/21 09/30/21 09/30/21 14:24 20:10 20:10 MCV MCH MCHC RDW Plt Count MPV Absolute Nucleated RBC Nucleated RBC % (auto) Anion Gap Estim Creat Clear Calc Estimated GFR Random Glucose Calcium Stool Leukocytes, Qual NEGATIVE C. difficile Tox B Gene NEGATIVE COVID-19 ([facility]) Negative COVID-19 Clin Com See Note 10/01/21 10/01/21 06:01 06:01 MCV 94.3 MCH 28.7 MCHC 30.4 L RDW 14.6 Plt Count 124 L MPV 10.1 Absolute Nucleated RBC 0.000 Nucleated RBC % (auto) 0.0 Anion Gap 14 Estim Creat Clear Calc 25.4 Estimated GFR 28 Random Glucose 155 H Calcium 8.9 Stool Leukocytes, Qual C. difficile Tox B Gene COVID-19 ([facility]) COVID-19 Clin Com Assessment and Plan (1) Acute UTI: Status: Acute (2) Diarrhea: Status: Acute Plan 85-year-old female with AF, CKD3 (SCr 1.43 01/10/21), chronic heel wounds, DM2, hx CVA with L-sided weakness, hx colon CA s/p resection, recent hospitalization at [facility] for ESBL bacteremia in November sent in from shelter for nonhealing wound of L heel with concern of osteomyelitis on outpt X-ray #Toxic metabolic encephalopathy-multifactorial SARAH/CKD3, UTI, improved and at baseline Off IV fluids, avoid nephrotoxins #E.coli UTI: Ceftriaxone to oral Ceftin at discharge for total of 5 days #?Anemia of chronic disease--with mild acute drop in H/H, continue monitoring, hold tranfusion unless hgb < 7 #SARAH on CKD3, Creatine is within baselinea about 2 #Chronic ?AF: reate controlled. - continue amiodarone, verapamil, apixaban #?HTN: BP normal this morning, hold Lisinopril d/t SARAH #?DM2 - well-controlled, last A1c only 5.9.? diabetic diet , moniter fs ?#pression- Stable, continue seroquel #Diarrahae: Negative C dif, immodium PRN ?VTE ppx - apixaban Inpatient need: for management for SARAH in setting of diarrhea not yet controlled and need close monitoring of fluid status, electromytes Quality Stroke Does the patient have a stroke diagnosis?: No VTE Prior VTE?: No VTE Risk Level:: Medical - moderate - high VTE Device Contraindication: N/A - Device Ordered VTE Drug Contraindication: N/A - Med Ordered
--- NOTE | 2021-10-01 11:16 | P.CDIC_ITS ---
CDI Concurrent Query Documentation Clarification: PHYSICIAN'S DOCUMENTATION REQUEST Date of Query: 10/01/21 1116 Patient Name: Angela Nagy Admit Date: 09/27/21 Dear Doctor, A review of the medical record indicates additional documentation may be indicated. Please review below and update the documentation accordingly. Clinical Indicators: Risk Factors/Clinical Indicators/Treatments Wound care notes 10/01 - Pressure injury Stage II left heel. Foam dressing. Based on the above, could you please provide, in the Progress Notes, further information regarding the ulcer/wound: * If a pressure ulcer/injury, please also include the stage* of the ulcer: * Stage 1 - Skin intact, non-blanchable redness * Stage 2 - Partial thickness loss of dermis, includes intact or open blister * Stage 3 - Full thickness tissue not including bone, tendon, or muscle Other etiology of nonhealing heel * Unable to determine *Source: National Pressure Ulcer Advisory Panel (NPUAP) Use of terms such as suspected, likely, concern for, or probable (associated with a specific diagnosis that is being evaluated, monitored, or treated as if it exists) are acceptable and can be coded in the inpatient setting, when documented at the time of discharge. Thank you, Cate Salguero [facility], CDIS Extension: [phone] Please use your independent medical judgment in providing your response. THIS QUERY IS PART OF THE PERMANENT MEDICAL RECORD Provider Response: Other Other Diagnosis: See collin osullivan
[2021-10-01] MEDS: Loperamide HCl 2 MG CAPSULE PO (11:56)
[2021-10-01] MEDS: Gabapentin 100 MG CAPSULE PO (11:56)
--- NOTE | 2021-10-01 13:14 | P.DS_ITS ---
DS: Providers Provider Date of Service: 10/01/21 Date of admission: 09/27/21 16:19 Primary care physician: Donaldo Mandujano MD Consults: 09/28/21 08:45 Consult to Nephrology Routine Consulting Provider: Gian Mullen Reason for consultation: sarah on ckd Has provider been notified: No DS: Diagnosis Discharge Diagnosis (1) Acute UTI: Status: Acute (2) Diarrhea: Status: Acute DS: Summary Hospital Course Hospital Course: Chief Complaint: ams , uti 85-year-old female with past medical history of AFib, chronic wound of lower extremity, GERD, depression, type 2 diabetes,ckd,anemia of chronic disease: Patient came to the hospital because of increasing lethargy and mental status changes from for at least started Thursday or Thursday. Spoke to patient's daughter-who told that patient was having increasing lethargy and poor oral intake for few days and also question of hallucination earlier. Currently patient knows her name and in-hospital but could not remember which hospital she is. Also says some suprapubic pain.? Unable to tell more than that. Daughter also says-patient had subjective fever. As per daughter chest x-ray was done in the rehab but unclear what happened afterwards. Started denies any history of nausea vomiting or diarrhea or cough or phlegm or any weakness numbness except generalized lethargy. Patient's most form says DNR DNI and do not transfer to hospital but patient daughter sent her to the hospital and want her to be treated.? But patient is still DNR DNI. Hospital course: #Toxic metabolic encephalopathy-multifactorial SARAH/CKD3, UTI. This has resolved following treatment for the underlying issues mentioned. #E.coli UTI: Treated in hospital with Ceftriaxone? which is been changed to oral Ceftin at discharge #?Anemia of chronic disease--with mild acute drop in H/H, continue monitoring, hold tranfusion unless hgb < 7, hemoglobin can be met monitored on outpatient basis. #SARAH on CKD3, Creatine is within baseline about 2, Presently creatinine is 1.73 #Chronic ?AFIB: reate controlled. - continue amiodarone, verapamil, apixaban #?HTN: BP normal this morning, hold Lisinopril d/t SARAH #?DM2 - well-controlled, last A1c only 5.9.? diabetic diet , moniter fs ?#pression- Stable, continue seroquel #Diarrahae: Negative C dif, immodium PRN for diarrhea # Pressure injury Stage II left heel, Offload to minimize pressure Time Spent with Patient Time attestation: Total time spent providing and/or coordinating discharge services: Discharge coordination time: Greater than 30 minutes Quality: Safe Use of Opioids Does Pt have an Active Cancer Diagnosis on the Problem List?: No Quality: Stroke Does the patient have a stroke diagnosis?: No Physical Exam Vital Signs: Vital Signs: Last Vital Signs Temp 98.8 F 10/01/21 11:33 Pulse 73 10/01/21 11:33 Resp 18 10/01/21 11:33 BP 149/72 H 10/01/21 11:33 Pulse Ox 98 10/01/21 11:33 BMI result Body Mass Index 26.6 DS: Data Data Completed and Pending Labs on day of discharge: Laboratory Results - last 24 hr 09/30/21 09/30/21 09/30/21 14:24 20:10 20:10 WBC RBC Hgb Hct MCV MCH MCHC RDW Plt Count MPV Absolute Nucleated RBC Nucleated RBC % (auto) Sodium Potassium Chloride Carbon Dioxide Anion Gap BUN Creatinine Estim Creat Clear Calc Estimated GFR Random Glucose Calcium Stool Leukocytes, Qual NEGATIVE C. difficile Tox B Gene NEGATIVE COVID-19 ([facility]) Negative COVID-19 Clin Com See Note 10/01/21 10/01/21 06:01 06:01 WBC 6.2 RBC 2.65 L Hgb 7.6 L Hct 25.0 L MCV 94.3 MCH 28.7 MCHC 30.4 L RDW 14.6 Plt Count 124 L MPV 10.1 Absolute Nucleated RBC 0.000 Nucleated RBC % (auto) 0.0 Sodium 141 Potassium 4.1 Chloride 109 H Carbon Dioxide 22 Anion Gap 14 BUN 29 H Creatinine 1.73 H Estim Creat Clear Calc 25.4 Estimated GFR 28 Random Glucose 155 H Calcium 8.9 Stool Leukocytes, Qual C. difficile Tox B Gene COVID-19 ([facility]) COVID-19 Clin Com Preliminary micro results at discharge 09/30/21 20:10 Stool Culture - Preliminary Stool Culture in progress. 09/27/21 14:22 Blood Culture - Preliminary Blood - Venous No growth after 48 hours. 09/27/21 14:01 Blood Culture - Preliminary Blood - Venous No growth after 48 hours. Discharge Plan Discharge Anticipated Discharge Date/Time: 10/01/21 13:12 Patient Disposition: Xfer SNF Discharge Diagnosis: UTI, SARAH. Referrals: [facility] [Outside] - 1 Week Donaldo Mandujano MD [Primary Care Provider] - 1 Week Discharge Medications: New cefuroxime axetil 250 mg Tablet 250 mg PO Q12H Qty: 10 0RF Continued quetiapine 25 mg tablet 12.5 mg PO BID 0RF lidocaine [Lidocaine Pain Relief] 4 % adhesive patch,medicated 1 patch topical DAILY 0RF amiodarone 200 mg tablet 1 tab PO DAILY 0RF sertraline 100 mg tablet 1 tab PO DAILY 0RF pantoprazole 40 mg tablet,delayed release (DR/EC) 1 tab PO DAILY 0RF Eliquis 2.5 mg tablet 1 tab PO BID 0RF cholecalciferol (vitamin D3) 25 mcg (1,000 unit) Capsule 25 mcg PO DAILY 0RF sennosides-docusate sodium [Senna-S] 8.6-50 mg Tablet 1 tab-cap PO DAILY 0RF tramadol 50 mg Tablet 50 mg PO Q12H PRN (Reason: Pain (Scale Score 1-3)) 0RF gabapentin 100 mg capsule 100 mg PO DAILY@1200 0RF gabapentin 100 mg capsule 200 mg PO BEDTIME 0RF multivitamin with minerals Tablet 1 tab PO DAILY 0RF acetaminophen 325 mg Tablet 650 mg PO Q6H PRN (Reason: Pain, Mild (Pain Scale 1-3)) Qty: 30 0RF verapamil 120 mg tablet extended release 1 tab PO DAILY 0RF acetaminophen [Tylenol] 325 mg Tablet 650 mg PO DAILY@2100 0RF Discharge Orders: Discharge Order (Routine); Ordered 10/01/21 Ordered By: Ilan Norton Diet: advance to usual diet Activity on Discharge: As tolerated Stand Alone Forms: Patient Portal Discharge page Care Plan Goals: full recovery from UTI and renal failure and encephalopathy. Health Concerns: UTI, renal failure encephalopathy which has resolved. Anemia of chronic disease Plan of Treatment: to complete treatment with UTI with Ceftin, monitor hemoglobin and hematocrit CBC should be check within a week--on this coming Thursday Assessment: as above.
--- NOTE | 2021-10-01 14:16 | MHC.CM.PN ---
Per MD, Patient will be medically cleared for dc to SNF today. Patient will return to [facility] today at 4 PM, via [facility].HOLLY spoke with Daughter/HCP/Kelli @ [phone] and she is aware of and in agreement with the dc plan. Kelli requests that another IMM NOT be sent to her.
[2021-10-01] MEDS: Tamsulosin HCL 0.4 MG CAPSULE PO (20:55)
[2021-10-01] MEDS: Gabapentin 100 MG CAPSULE 200 MG PO (20:56)
--- NOTE | 2021-10-01 21:27 | PM.PNNEP ---
Subjective Subjective Date of Service: 10/01/21 Interval history: f/u on SARAH, diarrhea, encephalpathy interval history: no specific complaint, diarrhea is getting better, renal function is improving Physical Exam Vital Signs: Vital Signs: Last Vital Signs Temp 98.6 F 10/01/21 19:38 Pulse 67 10/01/21 19:38 Resp 14 10/01/21 19:38 BP 142/72 H 10/01/21 19:38 Pulse Ox 98 10/01/21 19:38 BMI result Body Mass Index 26.6 Const: General: cooperative and no acute distress HEENT: Head: Yes normocephalic Neck: Neck: Yes no JVD Resp: Auscultation: clear to auscultation bilaterally Cardio: Jugular venous distension: no JVD Rate: regular rate Rhythm: regular rhythm Heart sounds: S1 normal heart sound present and S2 normal heart sound present GI: Auscultation: normal bowel sounds Neuro: General: no focal motor deficits Extrem: General: Yes no clubbing, cyanosis or edema Objective Data Labs CBC & Chem 7: 10/01/21 06:01 10/01/21 06:01 Labs: Laboratory Results - last 24 hr 10/01/21 10/01/21 06:01 06:01 WBC 6.2 RBC 2.65 L Hgb 7.6 L Hct 25.0 L MCV 94.3 MCH 28.7 MCHC 30.4 L RDW 14.6 Plt Count 124 L MPV 10.1 Absolute Nucleated RBC 0.000 Nucleated RBC % (auto) 0.0 Sodium 141 Potassium 4.1 Chloride 109 H Carbon Dioxide 22 Anion Gap 14 BUN 29 H Creatinine 1.73 H Estim Creat Clear Calc 25.4 Estimated GFR 28 Random Glucose 155 H Calcium 8.9 Microbiology Microbiology Results: Microbiology 09/30/21 20:10 Stool Stool Culture - Preliminary Culture in progress. 09/27/21 14:22 Blood - Venous Blood Culture - Preliminary No growth after 48 hours. 09/27/21 14:01 Blood - Venous Blood Culture - Preliminary No growth after 48 hours. 09/27/21 Unknown Urine Catheterized - Henry Catheter Urine Culture - Final Escherichia coli Procedures Date of Service Date of Service: 10/01/21 Assessment & Plan Assessment and plan (1) SARAH (acute kidney injury): Status: Acute (2) CKD (chronic kidney disease) stage 3, GFR 30-59 ml/min: Status: Acute Plan Scr better SARAH due to compromised kidney perfusion and tubular stress known CKD baseline Scr ~ 1.8 mg/dl REC S-Cr improved. NOw at prior BL hold on additional IVF's hold acei for now. monitor stool output volume losses. uTI tx per primary team. follow kidney function and electrolytes iron panel added for worsening anemia. BC's neg may benefit from IV iron Time Spent With Patient Time: Total time spent is greater than 50% in coordination of care (as documented) at patient's floor/unit and/or counseling patient: Progress Note: Quality Stroke Does the patient have a stroke diagnosis?: No
== END 2021-10-02 01:23 | disposition skilled nursing facility (03) | DRG 689 ==
LOC: HO.ED 15:31 → HO.EDOVER 16:25 → HO.S3 17:57
PROVIDERS: Internal Medicine Nephrology; Admitting Provider Internal Medicine; Emergency Provider Emergency Medicine Emergency Medical Services; PCP Family Medicine; Visit Provider Internal Medicine
DX: N39.0 Urinary tract infection, site not specified (principal); G92.8 Other toxic encephalopathy; N17.9 Acute kidney failure, unspecified; I69.854 Hemiplegia and hemiparesis following other cerebrovascular disease affecting left non-dominant side; I48.20 Chronic atrial fibrillation, unspecified; I12.9 Hypertensive chronic kidney disease with stage 1 through stage 4 chronic kidney disease, or unspecified chronic kidney disease; F32.9 Major depressive disorder, single episode, unspecified; E87.5 Hyperkalemia; Z66 Do not resuscitate; E86.0 Dehydration; B96.20 Unspecified Escherichia coli [E. coli] as the cause of diseases classified elsewhere; R19.7 Diarrhea, unspecified; L89.622 Pressure ulcer of left heel, stage 2; N18.30 Chronic kidney disease, stage 3 unspecified; E11.22 Type 2 diabetes mellitus with diabetic chronic kidney disease; K21.9 Gastro-esophageal reflux disease without esophagitis; D63.1 Anemia in chronic kidney disease; Z20.822 Contact with and (suspected) exposure to COVID-19; Z79.01 Long term (current) use of anticoagulants; Z79.899 Other long term (current) drug therapy
CPT/HCPCS: 0241U; 36415; 70450; 71045; 80048; 80076; 80307; 81001; 82947; 83605; 84300; 84484; 85025; 85027; 87040; 87045; 87046; 87086; 87088; 87186; 87493; 87633; 87635; 89055; 96361; 96365; 96367; 97162; 99285; J0696; J2543

== ENCOUNTER 2022-04-30 12:11 | Emergency (ER) | payer MEDICARE, OTHER, MEDICAID, SELFPAY ==
--- NOTE | ~2022-04-30 | CT_ITS ---
EXAMINATION: CT HEAD WITHOUT CONTRAST CLINICAL INFORMATION: Head pain status post fall. COMPARISON: Head CT scan dated 09/27/2021. TECHNIQUE: Contiguous axial imaging was performed from the skull base to vertex without intravenous administration of contrast. Coronal and sagittal reformatted images were obtained. This CT examination was performed using dose optimization techniques as appropriate, variously including the following: *Automated exposure control *Adjustment of mA and/or kV according to patient size (this includes techniques or standardized protocols for targeted exams where dose is matched to indication/reason for exam; i.e. extremities or head) *Use of iterative reconstruction technique DLP: 872 mGy-cm FINDINGS: There is mild to moderate widening of the cortical sulci and associated ventriculomegaly. Mild asymmetric dilatation of the right lateral ventricle most pronounced in the right frontal horn is again seen without significant change. Adjacent encephalomalacia laterally in the frontal lobe is unchanged. The third and fourth ventricles are in their normal midline position. The basilar and prepontine cisterns are unremarkable. There is no acute intra or extracerebral abnormality. There is no mass effect or midline shift. Sections through the bony calvarium are unremarkable. The orbits are intact. The paranasal sinuses are clear. The mastoid air cells are clear. Anterior nasal septal deviation, apex to the right. CT/CT head/brain wo IV con IMPRESSION: No acute intracranial pathology.
--- NOTE | ~2022-04-30 | CT_ITS ---
EXAMINATION: CT CERVICAL SPINE WITHOUT CONTRAST CLINICAL INFORMATION: Fall. Head strike. COMPARISON: CT head 09/27/2021. TECHNIQUE: Division Superintendent images were obtained. CT imaging of the cervical spine was performed without contrast. Data was reformatted into multiplanar images at the acquisition workstation. This CT examination was performed using dose optimization techniques as appropriate, variously including the following: *Automated exposure control *Adjustment of mA and/or kV according to patient size (this includes techniques or standardized protocols for targeted exams where dose is matched to indication/reason for exam; i.e. extremities or head) *Use of iterative reconstruction technique DLP: 872 mGy-cm FINDINGS: There is 3 mm anterolisthesis of C2 on C3 and 3 mm anterolisthesis of C7 on T1 that appears to be related to facet degenerative changes at these levels. Alignment is otherwise normal. Vertebral heights are preserved. No acute fracture. No abnormal prevertebral soft tissue swelling. There is loss of intervertebral disc height with associated sclerotic degenerative endplate changes and hypertrophic disc osteophyte spurring at multiple levels. Canal patency is not well assessed on this examination due to inherent limitations of CT without intrathecal contrast. Grossly no evidence of canal compromise. Uncovertebral joint spurring and conjunction with facet degenerative change causes mild to moderate neuroforaminal encroachment at multiple levels. Visualized soft tissues of the neck are normal. Grossly no pathologically enlarged cervical lymph nodes. Minimal pleural-parenchymal scarring is visualized at the apices of both lungs. Heavily calcified atheromatous plaque involves both carotid bifurcations. CT/CT cervical spine wo IV con IMPRESSION: Multilevel degenerative spondylosis of the cervical spine. No acute fracture and no posttraumatic spinal subluxation. There is advanced multilevel degenerative spondylosis of the cervical spine with 3 mm anterolisthesis of C2 on C3 and C7 on T1 that appears to be related to advanced facet degenerative changes at these levels. Fleischner guidelines were followed.
--- NOTE | ~2022-04-30 | XR_ITS ---
EXAMINATION: XR HIP, LEFT CLINICAL INFORMATION: Hip pain status post fall. COMPARISON: None TECHNIQUE: Two views of the left hip. FINDINGS: There is generalized osteopenia. Minimal bilateral hip degenerative joint changes are seen. The patient is status post left hip ORIF with [address] Old healed left inferior pubic ramus fracture. No overt acute fracture. The soft tissues are unremarkable. XR/XR hip LT w PEL1V IMPRESSION: 1. Generalized osteopenia. No overt acute fracture. No hardware abnormality. 2. Minimal bilateral hip osteoarthritis. 3. Old healed left inferior pubic ramus fracture.
[2022-04-30 12:28] VITALS: BP 133/63; PULSE 57; O2SAT 95
[2022-04-30 12:31] VITALS: BP 141/61; PULSE 54; RESP 18; TEMP 36.7; O2SAT 95; BMI 27.1
--- NOTE | 2022-04-30 12:55 | ED_ITS ---
HPI - General Adult General Chief complaint: Fall Stated complaint: Lower back/hip pain per EMS Time Seen by Provider: 04/30/22 12:55 Source: patient and EMS Mode of arrival: EMS Limitations: no limitations History of Present Illness HPI narrative: Patient is a 86 year old assigned female at with a history of diabetes presenting to the emergency department today with left sided back and hip pain. Patient states that she slid out of bed and now her left back and hip hurts. Patient denies hitting her head with the incident. Patient denies any loss of consciousness from the incident. Patient denies any dizziness, lightheadedness, abdominal pain, nausea, vomiting, fever, chills, blurry vision, double vision, loss of vision, chest pain, difficulty breathing, shortness of breath, back pain, night sweats, pain with urination, increased urinary frequency, increased urinary urgency, blood in his urine or stool, syncope or a near syncopal episode, bowel incontinence, bladder incontinence, bowel retention, bladder retention, or any other complaints at this time. Patient states that she does take anti-coagulation medication. Onset (ago): hour(s) Location: left (low back and hip) Radiation: non-radiation Severity: mild Severity scale (1-10): 3 Quality: dull Pain Consistency: constant Relieving factors: none Exacerbating factors: none Associated symptoms: denies other symptoms Treatments prior to arrival: none Related Data Home Medications Medication Instructions Recorded Confirmed amiodarone 200 mg tablet 1 tab PO DAILY 01/16/21 09/27/21 apixaban 2.5 mg tablet (Eliquis) 1 tab PO BID 01/16/21 09/27/21 cholecalciferol (vitamin D3) 25 25 mcg PO DAILY 01/16/21 09/27/21 mcg (1,000 unit) capsule gabapentin 100 mg capsule 100 mg PO DAILY@1200 01/16/21 09/27/21 gabapentin 100 mg capsule 200 mg PO BEDTIME 01/16/21 09/27/21 lidocaine 4 % topical patch 1 patch topical DAILY 01/16/21 09/27/21 (Lidocaine Pain Relief) multivitamin with minerals 1 tab PO DAILY 01/16/21 09/27/21 pantoprazole 40 mg tablet,delayed 1 tab PO DAILY 01/16/21 09/27/21 release quetiapine 25 mg tablet 12.5 mg PO BID 01/16/21 09/27/21 sennosides 8.6 mg-docusate sodium 1 tab-cap PO DAILY 01/16/21 09/27/21 50 mg tablet (Senna-S) sertraline 100 mg tablet 1 tab PO DAILY 01/16/21 09/27/21 tramadol 50 mg tablet 50 mg PO Q12H PRN Pain (Scale 01/16/21 09/27/21 Score 1-3) acetaminophen 325 mg tablet 650 mg PO DAILY@2100 09/27/21 09/27/21 (Tylenol) verapamil 120 mg tablet,extended 1 tab PO DAILY 09/27/21 09/27/21 release Previous Rx's Medication Instructions Recorded acetaminophen 325 mg tablet 650 mg PO Q6H PRN Pain, Mild (Pain 01/18/21 Scale 1-3) #30 tabs cefuroxime axetil 250 mg tablet 250 mg PO Q12H #10 tabs 09/30/21 Allergies Allergy/AdvReac Type Severity Reaction Status Date / Time No Known Allergies Allergy Verified 04/30/22 12:28 Review of Systems Constitutional: Constitutional: Reports no additional constitutional complaints, Denies chills, Denies fever(s) and Denies night sweats Eyes: Eyes: Reports no additional eye complaints, Denies blurry vision, Denies change in vision, Denies diplopia, Denies eye discharge, Denies loss of vision and Denies eye pain ENT: Denies dizziness Cardiovascular: Cardiovascular: Reports no additional cardiovascular complaints, Denies chest pain, Denies lightheadedness, Denies Loss of Consciousness and Denies dyspnea Respiratory: Respiratory: Reports no additional respiratory complaints and Denies dyspnea Gastrointestinal: Gastrointestinal: Reports no additional gastrointestinal complaints, Denies abdominal pain, Denies melena, Denies hematochezia, Denies change in bowel habits and Denies change in stool character Genitourinary: Genitourinary: Denies hematuria, Denies urinary frequency, Denies dysuria, Denies urinary incontinence, Denies urinary hesitancy and Denies urinary urgency Musculoskeletal: Musculoskeletal: Reports no additional musculoskeletal complaints, Denies numbness and Denies tingling Comments: left hip pain and left low back pain Neurologic: Denies dizziness, Denies loss of vision, Denies numbness and Denies tingling Psychiatric: Psychiatric: Reports no additional psychiatric complaints Endocrine: Endocrine: Reports no additional endocrine complaints Hematologic/Lymphatic: Hematologic/Lymphatic: Reports no additional hematologic/lymphatic complaints Allergic/Immunologic: Allergic/Immunologic: Reports no additional a llergic/immunologic complaints PMFSH Past Medical History Attestation statement: The following information was validated with the patient. Source: old records reviewed, nursing notes reviewed and other (reviewed paper work from [facility]) Medical History A-fib Chronic wound of extremity CKD (chronic kidney disease) stage 3, GFR 30-59 ml/min GERD (gastroesophageal reflux disease) Major depressive disorder Type 2 diabetes mellitus Social History Social History Household Members: Other Housing: Assisted Living Facility Housing Other:: [facility] Do you presently have visiting nurse or other home services: No Alcohol intake: never Patient Tobacco Use Status: Never used Tobacco Advance Directives: Yes Advance Directives on File: Yes Advance Directives Date on File: 09/27/21 service: No Current occupational status: retired Physical Exam ED Vital Signs: Vital Signs - 24 hr 04/30/22 12:31 04/30/22 13:34 04/30/22 17:07 Temperature 98.0 F 97.7 F Pulse Rate 54 50 52 Respiratory Rate 18 16 18 Blood Pressure 141/61 H 153/55 H 157/67 H Pulse Oximetry 95 97 96 Oxygen Delivery Method Room Air Room Air Room Air BMI result Body Mass Index 27.1 Const General: cooperative, no acute distress, alert and awake Nutritional Appearance: well nourished Orientation/consciousness: patient oriented x3 Limitations: no limitations [facility] Head: Yes normal to inspection and Yes atraumatic Ears: hearing grossly normal bilaterally and external ears normal General nose exam: Normal external nose present, no nasal discharge noted and no epistaxis Face and sinus: Yes normal facial exam, No abrasion and No laceration Mouth: Normal oral and palatal mucosa present, no drooling and no muffled voice Eyes General: appearance normal, both eyes and all related structures Periorbital: periorbital findings normal Eyelids: Yes eyelids normal Conjunctivae: conjunctivae normal Pupils: Equal, round and reactive pupils present EOM: EOMs intact bilaterally Neck Neck: Yes normal visual inspection, Yes full ROM and Yes no lymphadenopathy Chest Chest palpation & inspection: normal inspection of the chest Resp Effort & Inspection: normal respiratory effort and able to speak in complete sentences Auscultation: clear to auscultation bilaterally Cardio Rate: regular rate Rhythm: regular rhythm GI Inspection: Yes normal to inspection Palpation (GI): Soft to palpation, not firm, nontender, no guarding and not rigid General: Yes no CVA tenderness Back/Spine/Pelvis Back: no CVA tenderness Cervical Spine: normal cervical lordosis and cervical ROM normal Thoracic/Lumbar Spine: thoracic and lumbar spine normal to inspection and thoraco-lumbar ROM normal Pelvis: no pain with anterior-posterior compression Neuro General: patient oriented x3 and moves all extremities Cranial nerves: Yes Equal, round and reactive pupils present Cognition (Neuro): normal cognition Motor exam (neuro): 5/5 motor strength present throughout Sensory Exam: Normal double simultaneous stimulation for sensation Coordination: [id number] test normal Extrem General: Yes normal to inspection, Yes full ROM and Yes capillary refill normal Psych Appearance: grossly normal Mental Status: mental status grossly normal Affect: normal affect Attitude: cooperative Thought process: Normal thought process present Thought content: Normal thought content present Insight: Good insight present (Psych) Medical Decision Making Medical Decision Making MDM Narrative: Patient is an 86 year old assigned female at with a history of diabetes presenting to the emergency department today with left sided back pain and hip p ain. Patient's physical exam was unremarkable. Patient's left hip and pelvis x- ray showed no acute process. Patient's head and c-spine CT showed no acute process. I explained my physical exam findings as well as all test results to the patient. I answered all questions asked by the patient. I stressed the importance of the patient taking her medication as prescribed. I stressed the importance of the patient following up with her primary care provider. I stressed the importance of the patient returning to the emergency department immediately if her symptoms were to worsen or if she were to develop any dizziness, shortness of breath, difficulty breathing, chest pain, blurry vision, loss of vision, nausea, vomiting, abdominal pain, fever, chills, back pain, or any other complaints. Patient verbalized agreement and understanding with this treatment plan and discharge. Differential Diagnoses: Differential diagnosis (low back pain, left hip pain, fall) Independent interpretation of EKG, rhythm strip, radiology study: Independent interp EKG,rhythm strip, radiology study I performed an independent interpretation of the: Plain X-Ray (left hip and pelvis) and CT Scan (head and c-spine) These studies were interpreted by a radiologist and this is the radiologists interpretation per their written report. EXAMINATION: XR HIP, LEFT CLINICAL INFORMATION: Hip pain status post fall. COMPARISON: None TECHNIQUE: Two views of the left hip. FINDINGS: There is generalized osteopenia. Minimal bilateral hip degenerative joint changes are seen. The patient is status post left hip ORIF with [address] Old healed left inferior pubic ramus fracture. No overt acute fracture. The soft tissues are unremarkable. XR/XR hip LT w PEL1V IMPRESSION: 1.? Generalized osteopenia. No overt acute fracture. No hardware abnormality. 2.? Minimal bilateral hip osteoarthritis. 3.? Old healed left inferior pubic ramus fracture. Dictated By: Nicholas Guardado MD Signed By: Electronically signed by Nicholas Guardado MD 04/30/22 [id number] EXAMINATION: CT HEAD WITHOUT CONTRAST CLINICAL INFORMATION: Head pain status post fall.? COMPARISON: Head CT scan dated 09/27/2021. TECHNIQUE: Contiguous axial imaging was performed from the skull base to vertex without intravenous administration of contrast. Coronal and sagittal reformatted images were obtained. This CT examination was performed using dose optimization techniques as appropriate, variously including the following: *Automated exposure control *Adjustment of mA and/or kV according to patient size (this includes techniques or standardized protocols for targeted exams where dose is matched to indication/reason for exam; i.e. extremities or head) *Use of iterative reconstruction technique DLP: 872 mGy-cm FINDINGS: There is mild to moderate widening of the cortical sulci and associated ventriculomegaly. Mild asymmetric dilatation of the right lateral ventricle most pronounced in the right frontal horn is again seen without significant change. Adjacent encephalomalacia laterally in the frontal lobe is unchanged. The third and fourth ventricles are in their normal midline position. The basilar and prepontine cisterns are unremarkable. There is no acute intra or extracerebral abnormality. There is no mass effect or midline shift. Sections through the bony calvarium are unremarkable. The orbits are intact. The paranasal sinuses are clear. The mastoid air cells are clear. Anterior nasal septal deviation, apex to the right. ? CT/CT head/brain wo IV con IMPRESSION: No acute intracranial pathology. Dictated By: Nicholas Guardado MD Signed By: Electronically signed by Nicholas Guardado MD 04/30/22 1505 EXAMINATION: CT CERVICAL SPINE WITHOUT CONTRAST CLINICAL INFORMATION: Fall. Head strike.? COMPARISON: CT head 09/27/2021.? TECHNIQUE: Aircraft Maintenance Engineer images were obtained. CT imaging of the cervical spine was performed without contrast. Data was reformatted into multiplanar images at the acquisition workstation.? This CT examination was performed using dose optimization techniques as appropriate, variously including the following: *Automated exposure control *Adjustment of mA and/or kV according to patient size (this includes techniques or standardized protocols for targeted exams where dose is matched to indication/reason for exam; i.e. extremities or head) *Use of iterative reconstruction technique DLP: 872 mGy-cm FINDINGS: There is 3 mm anterolisthesis of C2 on C3 and 3 mm anterolisthesis of C7 on T1 that appears to be related to facet degenerative changes at these levels. Alignment is otherwise normal. Vertebral heights are preserved. No acute fracture. No abnormal prevertebral soft tissue swelling. There is loss of intervertebral disc height with associated sclerotic degenerative endplate changes and hypertrophic disc osteophyte spurring at multiple levels. Canal patency is not well assessed on this examination due to inherent limitations of CT without intrathecal contrast. Grossly no evidence of canal compromise. Uncovertebral joint spurring and conjunction with facet degenerative change causes mild to moderate neuroforaminal encroachment at multiple levels. Visualized soft tissues of the neck are normal. Grossly no pathologically enlarged cervical lymph nodes. Minimal pleural-parenchymal scarring is visualized at the apices of both lungs. Heavily calcified atheromatous plaque involves both carotid bifurcations.? CT/CT cervical spine wo IV con IMPRESSION: Multilevel degenerative spondylosis of the cervical spine. No acute fracture and no posttraumatic spinal subluxation. There is advanced multilevel degenerative spondylosis of the cervical spine with 3 mm anterolisthesis of C2 on C3 and C7 on T1 that appears to be related to advanced facet degenerative changes at these levels.? ? Fleischner guidelines were followed. Dictated By: Garry Hale MD Signed By: Electronically signed by Garry Hale MD 04/30/22 [id number] Independent historian (e.g., spouse, EMS, friend): Independent historian (e.g., spouse, EMS, friend) Clinical information obtained from an independent historian. History obtained from or confirmed by: EMS Non-ED record review: Review of External (Non-ED) Record External record reviewed:: Other ([facility] documentation reviewed) Discharge Plan Discharge Clinical Impression: Fall Patient Disposition: Xfer SNF Transfer Details: back to [facility] Instructions: Fall Prevention (ED) Additional Instructions: Follow up with your primary care provider. Return to the emergency department immediately if your symptoms worsen or if you develop any dizziness, shortness of breath, difficulty breathing, chest pain, blurry vision, loss of vision, nausea, vomiting, abdominal pain, fever, chills, back pain, or any other complaints. Prescriptions: No Action quetiapine 25 mg tablet 12.5 mg PO BID lidocaine [Lidocaine Pain Relief] 4 % adhesive patch,medicated 1 patch topical DAILY amiodarone 200 mg tablet 1 tab PO DAILY sertraline 100 mg tablet 1 tab PO DAILY pantoprazole 40 mg tablet,delayed release (DR/EC) 1 tab PO DAILY Eliquis 2.5 mg tablet 1 tab PO BID cholecalciferol (vitamin D3) 25 mcg (1,000 unit) Capsule 25 mcg PO DAILY sennosides-docusate sodium [Senna-S] 8.6-50 mg Tablet 1 tab-cap PO DAILY tramadol 50 mg Tablet 50 mg PO Q12H PRN (Reason: Pain (Scale Score 1-3)) gabapentin 100 mg capsule 100 mg PO DAILY@1200 gabapentin 100 mg capsule 200 mg PO BEDTIME multivitamin with minerals Tablet 1 tab PO DAILY acetaminophen 325 mg Tablet 650 mg PO Q6H PRN (Reason: Pain, Mild (Pain Scale 1-3)) Qty: 30 0RF verapamil 120 mg tablet extended release 1 tab PO DAILY acetaminophen [Tylenol] 325 mg Tablet 650 mg PO DAILY@2100 cefuroxime axetil 250 mg Tablet 250 mg PO Q12H Qty: 10 0RF Referrals: GAURI MIRANDA [Primary Care Provider] - Print Language: Malay
[2022-04-30 13:34] VITALS: BP 153/55; PULSE 50; RESP 16; O2SAT 97
[2022-04-30 17:07] VITALS: BP 157/67; PULSE 52; RESP 18; TEMP 36.5; O2SAT 96
== END 2022-04-30 17:52 | disposition skilled nursing facility (03) ==
PROVIDERS: Emergency Provider Emergency Medicine Emergency Medical Services; PCP Emergency Medicine
DX: M54.50 Low back pain, unspecified (principal); R51.9 Headache, unspecified; M54.2 Cervicalgia; Z79.899 Other long term (current) drug therapy
CPT/HCPCS: 70450; 72125; 73502; 99283; 99284

== ENCOUNTER 2023-07-26 07:54 | Emergency (ER) | payer MEDICARE, OTHER, SELFPAY ==
--- NOTE | ~2023-07-26 | CT_ITS ---
EXAMINATION: CT HEAD WITHOUT CONTRAST CT CERVICAL SPINE WITHOUT CONTRAST CLINICAL INFORMATION: Fall, on anticoagulation. Pain. COMPARISON: Most recent CT head and cervical spine dated 04/30/2022. TECHNIQUE: Contiguous axial imaging was performed from the skull base to vertex without intravenous administration of contrast. Contiguous axial CT images of the cervical spine were obtained without contrast. Sagittal and coronal reformats were provided and reviewed. This CT examination was performed using dose optimization techniques as appropriate, variously including the following: *Automated exposure control *Adjustment of mA and/or kV according to patient size (this includes techniques or standardized protocols for targeted exams where dose is matched to indication/reason for exam; i.e. extremities or head) *Use of iterative reconstruction technique DLP: 910 mGy-cm FINDINGS: HEAD: There is no evidence of acute intracranial hemorrhage or territorial infarction. No abnormal mass effect or midline shift is seen. Knutson to white matter differentiation is well preserved. No extra-axial fluid collections are identified. Mild prominence of the ventricles and sulci, consistent with diffuse atrophy. Hypoattenuation of the periventricular white matter consistent with mild chronic microvascular ischemic disease. The osseous structures and soft tissues are normal. The mastoid air cells and visualized portions of the paranasal sinuses are well aerated. CERVICAL SPINE: Chronic anterolisthesis of C2 on C3 measuring 0.3 cm in AP dimension, unchanged when compared to the prior examination. No change in vertebral body alignment. The cervical lordosis is maintained. No acute fracture or subluxation. No loss of vertebral body height. Prominent multilevel loss of intervertebral disc height with degenerative endplate osteophytes, similar when compared to the prior examination. Prominent bilateral facet arthropathy is unchanged. No lytic or blastic osseous lesion. Unremarkable prevertebral soft tissues. No abnormal soft tissue mass or fluid collection. Thyroid within normal limits. Visualized lung apices are clear. Multilevel bilateral neural foraminal stenosis, unchanged. CT/CT cervical spine wo IV con IMPRESSION: HEAD: No acute intracranial hemorrhage or mass effect. Mild diffuse atrophy and chronic microvascular ischemic disease. CERVICAL SPINE: No acute fracture or subluxation. Multilevel degenerative disc disease and bilateral facet arthropathy with multilevel bilateral neural foraminal stenosis, unchanged.
--- NOTE | ~2023-07-26 | XR_ITS ---
EXAMINATION: XR HIP, LEFT CLINICAL INFORMATION: Pain after fall COMPARISON: None available. TECHNIQUE: A frontal radiograph of the pelvis and frontal and crosstable lateral radiographs of the left hip. FINDINGS: 3 cannulated screws transfix a subcapital fracture of the left femoral neck. No acute fracture is detected. The left femoral head is located in the acetabulum intact. The remainder of the bony pelvis is also intact, noting generalized demineralization. The sacrum and sacroiliac joints are unremarkable. Extensive iliac and femoral arterial calcifications are noted. XR/XR hip LT w PEL1V IMPRESSION: 1. Prior surgical transfixation of the left proximal femur with 3 cannulated screws. 2. No acute fracture is detected.
[2023-07-26 08:07] VITALS: BP 138/92; BP 146/84; PULSE 89; PULSE 93; RESP 18; TEMP 36.9; O2SAT 95; BMI 25.9
--- NOTE | 2023-07-26 08:13 | ECG_ITS ---
Test Reason : CVA HX Blood Pressure : / mmHG Vent. Rate : 088 BPM Atrial Rate : 000 BPM P-R Int : 000 ms QRS Dur : 074 ms QT Int : 396 ms P-R-T Axes : 000 018 019 degrees QTc Int : 479 ms possible Accelerated Junctional rhythm vs sinus. Low voltage QRS Nonspecific T wave abnormality Abnormal ECG No previous ECGs available Referred By: Randee Mckinnon Electronically Signed By:CARLY FLANAGAN
[2023-07-26 08:58] LABS: MANUAL DIFF FLAG NO
[2023-07-26 09:02] LABS: Basophils Percent Auto 0.4 % (0-2); Eosinophils Absolute Auto 0.1 X10*3/uL (0.0-0.4); Eosinophils Percent Auto 3.1 % (0-4); Hematocrit 34.9 % (37.0-47.0); Imm Gran Abs Auto 0.02 X10*3/uL (0.00-0.03); Imm Gran Pct Auto 0.4 % (0.0-0.4); Lymphocytes Absolute Auto 0.8 X10*3/uL (1.2-4.9); Lymphocytes Percent Auto 17.1 % (20-40); Mean Corpuscular HGB Conc 31.5 g/dl (31.0-35.0); Mean Corpuscular Hemoglobin 29.7 pg (27.0-33.0); Mean Corpuscular Volume 94.3 fL (80.0-98.0); Mean Platelet Volume 9.4 fL (9.4-12.3); Monocytes Absolute Auto 0.3 X10*3/uL (0.1-1.2); Monocytes Percent Auto 7.2 % (2-11); Neutrophils Absolute Auto 3.3 x10*3/uL (2.0-8.3); Neutrophils Percent Auto 71.8 % (45-73); Platelet Count 120 X10*3/uL (160-400); Red Cell Distribution Width 13.7 % (11.0-16.0); White Blood Count 4.6 X10*3/uL (4.8-10.8)
[2023-07-26 09:11] LABS: Alanine Aminotransferase 7 U/L (0-31); Albumin Level 3.8 g/dL (3.5-5.0); Alkaline Phosphatase 83 U/L (39-117); Anion Gap 12 (12-20); Aspartate Amino Transferase 18 U/L (5-31); Bilirubin Total 0.3 mg/dL (0.0-1.0); Blood Urea Nitrogen 29 mg/dL (9-16); Calcium 9.3 mg/dL (8.4-10.2); Carbon Dioxide 28 mmol/L (22-29); Chloride 108 mmol/L (96-108); Creatinine Clr Calc Pharmacy 24.1; Estimated Glomerular Filt Rate 31; Glucose Random 107 mg/dL (60-115); Sodium 143 mmol/L (135-145); Total Protein 6.5 g/dL (6.5-8.0)
--- NOTE | 2023-07-26 09:19 | ED_ITS ---
HPI - Fall General Chief Complaint: Fall Stated Complaint: FALL FROM WHEELCHAIR NECK AND HIP PAIN Time Seen by Provider: 07/26/23 08:14 Source: patient Mode of arrival: EMS History of Present Illness HPI Narrative: 87-year-old female who arrives via EMS after she was found on the floor, unwitnessed fall, on chronic anticoagulation but patient states that she slid out of the wheelchair and has complaints of left hip pain as well as head pain. Unknown loss of consciousness. 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 Related Data Home Medications Medication Instructions Recorded Confirmed amiodarone 200 mg tablet 1 tab PO DAILY 01/16/21 09/27/21 apixaban 2.5 mg tablet (Eliquis) 1 tab PO BID 01/16/21 09/27/21 cholecalciferol (vitamin D3) 25 25 mcg PO DAILY 01/16/21 09/27/21 mcg (1,000 unit) capsule gabapentin 100 mg capsule 100 mg PO DAILY@1200 01/16/21 09/27/21 gabapentin 100 mg capsule 200 mg PO BEDTIME 01/16/21 09/27/21 lidocaine 4 % topical patch 1 patch topical DAILY 01/16/21 09/27/21 (Lidocaine Pain Relief) multivitamin with minerals 1 tab PO DAILY 01/16/21 09/27/21 pantoprazole 40 mg tablet,delayed 1 tab PO DAILY 01/16/21 09/27/21 release quetiapine 25 mg tablet 12.5 mg PO BID 01/16/21 09/27/21 sennosides 8.6 mg-docusate sodium 1 tab-cap PO DAILY 01/16/21 09/27/21 50 mg tablet (Senna-S) sertraline 100 mg tablet 1 tab PO DAILY 01/16/21 09/27/21 tramadol 50 mg tablet 50 mg PO Q12H PRN Pain (Scale 01/16/21 09/27/21 Score 1-3) acetaminophen 325 mg tablet 650 mg PO DAILY@2100 09/27/21 09/27/21 (Tylenol) verapamil 120 mg tablet,extended 1 tab PO DAILY 09/27/21 09/27/21 release Previous Rx's Medication Instructions Recorded acetaminophen 325 mg tablet 650 mg (2 x 325 mg) PO Q6H PRN 01/18/21 Pain, Mild (Pain Scale 1-3) #30 tabs cefuroxime axetil 250 mg tablet 250 mg PO Q12H #10 tabs 09/30/21 cefdinir 300 mg capsule 300 mg PO BID 5 days #10 caps 07/26/23 Allergies Allergy/AdvReac Type Severity Reaction Status Date / Time No Known Allergies Allergy Verified 04/30/22 12:28 Review of Systems 2 Review of Systems: Pertinent positives and negatives as stated in [facility] Past Medical History Source: nursing notes reviewed Medical History CKD (chronic kidney disease) stage 3, GFR 30-59 ml/min Chronic wound of extremity GERD (gastroesophageal reflux disease) Major depressive disorder Type 2 diabetes mellitus A-fib Social History Social History Household Members: Other Housing: Assisted Living Facility Housing Other:: [facility] Do you presently have visiting nurse or other home services: No Alcohol intake: never Patient Tobacco Use Status: Never used Tobacco Smoked in Last 30 Days: No Use of substances other than those prescribed or required for medical reasons: No Advance Directives: Yes Advance Directives on File: Yes Advance Directives Date on File: 09/27/21 service: No Current occupational status: retired Physical Exam 2 Vital Signs: Vital Signs: Last Vital Signs Temp 98.5 F 07/26/23 08:07 Pulse 89 07/26/23 08:07 Resp 18 07/26/23 08:07 BP 146/84 H 07/26/23 08:07 Pulse Ox 95 07/26/23 08:07 O2 Del Method Room Air 07/26/23 08:07 BMI result Body Mass Index 25.9 VITAL SIGNS: Reviewed. GENERAL: Well developed, well nourished, in no acute distress. HEAD: Normocephalic/atraumatic EYES: PERRLA, EOMI EARS: Ext canals without abnormality NOSE: Nares patent bilateral OROPHARYNX: no oral lesions noted, posterior pharynx clear NECK: Supple, no adenopathy LUNGS: Normal breath sounds. No adventitious sounds or accessory muscle use. SpO2<95> CARDIOVASCULAR: Regular rate and rhythm without noted murmurs ABDOMEN: Soft, non-tender, non-distended with bowel sounds. PELVIS: stable, ttp at left hip but no deformity noted MUSCULOSKELETAL: No tenderness, deformities, or effusions noted on gross inspection. EXTREMITIES: No cyanosis, clubbing or edema. SKIN: Inspection of the skin reveals no rashes NEUROLOGIC: Alert and oriented x 3. Strength and sensation to light touch were grossly intact x 4. Medical Decision Making Medical Decision Making [facility] Narrative: 87-year-old female with history and clinical presentation, DDX: Unsteady fall, will evaluate for evidence of infection/electrolyte/anemia/arrhythmia. I reviewed all investigations and hematologic indices are negative for leukocytosis/left shift and patient has chronic normocytic anemia as well as thrombocytopenia. Chemistry indices demonstrate chronically stable CKD and otherwise no electrolyte or liver enzyme derangements. Head CT negative for intracranial hemorrhage or mass effect and cervical spine imaging negative for fracture or subluxation. X-ray of left hip and pelvis negative for evidence to suggest acute fracture or dislocation. Patient has a noted urinary tract infection, received initial antibiotics here in the emergency room is otherwise discharged back to the facility with remaining course of antibiotics. Patient states that when she gets assistance in using the bathroom that the staff is not wiping her correctly. Differential Diagnosis Differential Diagnoses: The differential diagnosis associated with the presentation includes Please see the discussion above Admission/Observation Consideration of admission/observation: Escalation of care including admission/observation considered Please see the discussion above Lab Data [facility] Lab Attestation statement: I reviewed the patient's lab results. Please see the discussion above 07/26/23 08:54 07/26/23 08:54 Labs: Lab Results 07/26/23 07/26/23 Range/Units 08:54 09:48 WBC 4.6 L (4.8-10.8) X10*3/uL RBC 3.70 L D (4.20-5.50) X10*6/uL Hgb 11.0 L D (12.0-16.0) g/dl Hct 34.9 L D (37.0-47.0) % MCV 94.3 (80.0-98.0) fL MCH 29.7 (27.0-33.0) pg MCHC 31.5 (31.0-35.0) g/dl RDW 13.7 (11.0-16.0) % Plt Count 120 L (160-400) X10*3/uL MPV 9.4 (9.4-12.3) fL Immature Gran % (Auto) 0.4 (0.0-0.4) % Neut % (Auto) 71.8 (45-73) % Lymph % (Auto) 17.1 L (20-40) % Mayes % (Auto) 7.2 (2-11) % Eos % (Auto) 3.1 (0-4) % Baso % (Auto) 0.4 (0-2) % Lymph # (Auto) 0.8 L (1.2-4.9) X10*3/uL Mayes # (Auto) 0.3 (0.1-1.2) X10*3/uL Eos # (Auto) 0.1 (0.0-0.4) X10*3/uL Baso # (Auto) 0.0 (0.0-0.2) X10*3/uL Abs Immat Gran (auto) 0.02 (0.00-0.03) X10*3/uL Absolute Neuts (auto) 3.3 (2.0-8.3) x10*3/uL Absolute Nucleated RBC 0.000 (0.0-0.012) X10*3/uL Nucleated RBC % (auto) 0.0 (0.0-0.2) /100WBC Sodium 143 (135-145) mmol/L Potassium 5.0 (3.3-5.1) mmol/L Chloride 108 (96-108) mmol/L Carbon Dioxide 28 (22-29) mmol/L Anion Gap 12 (12-20) BUN 29 H (9-16) mg/dL Creatinine 1.59 H (0.5-1.4) mg/dL Estim Creat Clear Calc 24.1 Estimated GFR 31 Random Glucose 107 (60-115) mg/dL Calcium 9.3 (8.4-10.2) mg/dL Total Bilirubin 0.3 (0.0-1.0) mg/dL AST 18 (5-31) U/L ALT 7 (0-31) U/L Alkaline Phosphatase 83 (39-117) U/L Total Protein 6.5 (6.5-8.0) g/dL Albumin 3.8 (3.5-5.0) g/dL Urine Color Yellow Urine Appearance Clear Urine pH 5.5 (5.0-9.0) Ur Specific [place] 1.015 (1.005-1.025) Urine Protein Negative (Neg-Trace) mg/dL Urine Glucose (UA) Negative (Negative) mg/dL Urine Ketones Negative (Negative) mg/dL Urine Blood Negative (Negative) Urine Nitrite Positive H (Negative) Ur Leukocyte Esterase Small (1+) H (Negative) Independent Interpretation I performed an independent interpretation of an: EKG Interpretation: Atrial fibrillation, HR-88, no STEMI, QRS/QTC within normal limits. There are no EKGs for comparison. Radiology Impression Discussion of test interpretation with radiology: I have reviewed the radiologist's reading. Radiologist Impression: Please see the discussion above External Record Review External record reviewed: Outpatient record and Prior outpatient labs Chronic Conditions Patient?s care impacted by: Diabetes History CVA, chronic anticoagulation Critical Care Time Critical Care Time Critical Care Time: Yes Total Critical Care Time: 45 Attestation: I personally attest to this time spent taking care of the patient. Discharge Plan Discharge Clinical Impression: Fall, Urinary tract infection Patient Disposition: Home, Self-Care Instructions: Urinary Tract Infection in Women (ED), Fall Prevention for Older Adults (ED), Urinary Tract Infection in Older Adults (ED) Additional Instructions: 1. Resume all home medications as prescribed. 2. Complete the entire course of antibiotics as prescribed. It is exceedingly important that when assisting this patient with bathroom activities that she is wiped correctly so that she stops getting recurrent urinary tract infections. Please follow-up with the facility supervising primary care doctor. Prescriptions: New cefdinir 300 mg capsule 300 mg PO BID 5 Days Qty: 10 0RF No Action quetiapine 25 mg tablet 12.5 mg PO BID lidocaine [Lidocaine Pain Relief] 4 % adhesive patch,medicated 1 patch topical DAILY amiodarone 200 mg tablet 1 tab PO DAILY sertraline 100 mg tablet 1 tab PO DAILY pantoprazole 40 mg tablet,delayed release (DR/EC) 1 tab PO DAILY Eliquis 2.5 mg tablet 1 tab PO BID cholecalciferol (vitamin D3) 25 mcg (1,000 unit) Capsule 25 mcg PO DAILY sennosides-docusate sodium [Senna-S] 8.6-50 mg Tablet 1 tab-cap PO DAILY tramadol 50 mg Tablet 50 mg PO Q12H PRN (Reason: Pain (Scale Score 1-3)) gabapentin 100 mg capsule 100 mg PO DAILY@1200 gabapentin 100 mg capsule 200 mg PO BEDTIME multivitamin with minerals Tablet 1 tab PO DAILY acetaminophen 325 mg Tablet 650 mg PO Q6H PRN (Reason: Pain, Mild (Pain Scale 1-3)) Qty: 30 0RF verapamil 120 mg tablet extended release 1 tab PO DAILY acetaminophen [Tylenol] 325 mg Tablet 650 mg PO DAILY@2100 cefuroxime axetil 250 mg Tablet 250 mg PO Q12H Qty: 10 0RF Referrals: GAURI MIRANDA [Primary Care Provider] -
--- NOTE | 2023-07-26 09:28 | PC.NURSE ---
ok to remove c-collar per MD Mckinnon
[2023-07-26 09:58] LABS: Appearance Urine Clear; Color Urine Yellow; Glucose Urine UA Negative (Negative); Leukocyte Esterase Urine Small (1+) (Negative); Nitrite Urine Positive (Negative); PH 5.5 (5.0-9.0); Specific Gravity - Urine 1.015 (1.005-1.025); UMIC TRIGGER UACC YES; Urine Blood Negative (Negative); Urine Ketones Negative (Negative); Urine Protein Negative (Neg-Trace)
--- NOTE | 2023-07-26 10:01 | MHC.EDTECH ---
Pt undressed from the waist down and assisted on and off bedpan. Pt cleaned up and repositioned. Urine sample sent to lab. Call maher within reach.
[2023-07-26 10:03] LABS: Bacteria Urine 4+ (None Seen); Hyaline Casts Urine 0-2 /LPF (0-2); RBC Urine 0-2 /HPF (0-2); UACC Culture Trigger YES
[2023-07-26] MEDS: cefuroxime axetiL 500 MG TABLET PO (10:34)
[2023-07-26 11:24] VITALS: PULSE 88; RESP 16; O2SAT 97
== END 2023-07-26 11:27 | disposition home or self-care (01) ==
PROVIDERS: Emergency Provider Student in an Organized Health Care Education/Training Program; PCP Emergency Medicine
DX: S39.92XA Unspecified injury of lower back, initial encounter (principal); S19.9XXA Unspecified injury of neck, initial encounter; R51.9 Headache, unspecified; M54.2 Cervicalgia; R94.31 Abnormal electrocardiogram [ECG] [EKG]; M25.552 Pain in left hip; W05.0XXA Fall from non-moving wheelchair, initial encounter; Y93.9 Activity, unspecified; Y92.9 Unspecified place or not applicable; Y99.8 Other external cause status; Z79.899 Other long term (current) drug therapy
CPT/HCPCS: 36415; 70450; 72125; 73502; 80053; 81001; 85025; 87086; 87088; 87186; 93005; 99284

== ENCOUNTER → 2023-07-26 08:13 | Outpatient (BNV) | payer MEDICARE, OTHER, SELFPAY | PROVIDERS: Emergency Provider Student in an Organized Health Care Education/Training Program; PCP Emergency Medicine; Visit Provider Internal Medicine | DX: R94.31 Abnormal electrocardiogram [ECG] [EKG] (principal) | CPT/HCPCS: 93010 ==

== ENCOUNTER 2024-03-30 13:16 | Outpatient (AMB) | payer MEDICARE, OTHER, SELFPAY ==
[2024-03-30 13:23] VITALS: BP 119/71; PULSE 69; BMI 25.1
--- NOTE | 2024-03-30 13:23 | MHC.OFFVIS ---
Vital Signs 03/30/24 13:23 Height 5 ft 4 in Weight 146 lb BMI 25.1 BP 119/71 Blood Pressure Location Lt brachial Position Sitting Pulse 69 Comment Wt from last week stated per patient Intake Visit Reasons: Dysphagia Intake Note: New patient in office today for evaluation and management of dysphagia. CC: Patients c/o trouble swallowing and having food get stuck in her throat. Onset 7 years ago. She also reports indigestion, constipation, and diarrhea when she takes her stool softeners, and puking sometimes. She also reports that sometimes she can only eat so much and her stomach gets big, she hears noises from her stomach and she knows that she has to go to the bathrooms with diarrhea. Mortgage Coordinator Required: No Accompanied by: nurse Allergies morphine Allergy (Unknown, Verified 03/30/24 13:43) Unknown HPI HPI Dysphagia: Details: 88-year-old female here for initial evaluation of dysphagia. She is referred by a day [facility] PMX AFib Diabetes Diabetic foot ulcer High cholesterol History of CVA History of colon cancer GERD History of acute pancreatitis Chronic kidney disease Repeated falls Dementia with depression and delusional disorder * SURGICAL HISTORY Partial bowel resection Colonoscopy * ALLERGIES Morphine * [facility] LABS: Laboratory Tests 07/26/23 08:54 WBC 4.6 L Hgb 11.0 L D Hct 34.9 L D MCV 94.3 MCH 29.7 Plt Count 120 L Estimated GFR 31 Total Bilirubin 0.3 AST 18 ALT 7 Alkaline Phosphatase 83 TODAY'S VISIT She is here today with a staff member who is also not sure about the presenting complaint. She also can not contribute to the history. The patient is not terribly helpful given her dementia and delusional disorder although she is pleasant. We have conflicting information about whether her CC is dysphagia or wt loss and need or ? colonoscopy r/t phx CRC. I ask the staff member with the patient to call the facility. The staff called back and the patient says she has been having abd pain and discomfort. ONset 6-8 mos ago and is intermittent. Not relieved with BM. It would be difficult to localized but mid to low abdomen. TO TRY TO FIND A SOURCE OF THE PAIN since the patient can not give a good report order a CT enterography and this would also be our best shot at detecting any possible colon cancer. I think given her comorbidities and her age a colonoscopy would be unwise. An upper endoscopy could be attempted as it would involve less preparation. Return office visit after the CT enterography [facility] Medical History CKD (chronic kidney disease) stage 3, GFR 30-59 ml/min Chronic wound of extremity GERD (gastroesophageal reflux disease) Major depressive disorder Type 2 diabetes mellitus A-fib Surgical History History of esophagogastroduodenoscopy (EGD) H/O colonoscopy H/O partial resection of colon Social History Household Members: Other Housing: Assisted Living Facility Housing Other:: [facility] Do you presently have visiting nurse or other home services: No Alcohol intake: never Patient Tobacco Use Status: Never used Tobacco Advance Directives Date on File: 09/27/21 service: No Current occupational status: retired Review of Systems Const Denies fatigue, Denies fever(s), Reports frequent falls, Denies night sweats, Reports poor appetite and Denies weight loss ENT Reports Normal hearing present, Denies dental pain, Denies dysphagia, Denies hearing loss, Denies mouth pain, Denies odynophagia, Denies throat swelling, Denies tongue swelling and Reports other (Dentition adequate) Card Reports no additional complaints Resp Reports no additional complaints GI Details: Reports abdominal pain, Denies melena, Denies bloating, Denies hematochezia, Denies constipation, Denies GI cramping, Denies dysphagia, Denies excessive flatus, Denies early satiety, Denies heartburn, Denies diarrhea, Denies nausea, Denies odynophagia, Denies vomiting and Denies hematemesis Musc Reports abnormal gait Skin/Breast Denies pruritus, Denies lesions, Denies rash and Denies jaundice Neuro Reports Normal hearing present, Denies Abnormal speech present, Reports abnormal gait, Reports confusion, Reports frequent falls and Reports memory loss Psych Reports confusion, Reports memory loss and Reports hallucinations Endo Denies fatigue Aller/Immun Denies throat swelling and Denies tongue swelling Physical Exam Vital Signs: Last Vital Signs Pulse 69 03/30/24 13:23 BP 119/71 03/30/24 13:23 BMI result Body Mass Index 25.1 Const General: cooperative, no acute distress, well developed, confusion and well groomed Nutritional Appearance: well nourished and overweight Orientation/consciousness: oriented to person, oriented to place, oriented to time and confusion Limitations: altered mental status, No language barrier, wheelchair and other limitations HEENT Head: Yes normocephalic and Yes atraumatic Eyes General: appearance normal, both eyes and all related structures Pupils: Equal, round and reactive pupils present Neck Neck: Yes normal visual inspection and Yes no lymphadenopathy Thyroid: Thyroid normal Resp Effort & Inspection: normal respiratory effort and able to speak in complete sentences Auscultation: clear to auscultation bilaterally Cardio Rate: regular rate Rhythm: abnormal rhythm irregularly irregular Heart sounds: Normal, physiologic split S2 sound present Peripheral pulses: radial pulses present and posterior tibial pulses present GI Inspection: No distended, No Abdominal panniculus present, Yes obesity, Yes scar (? RLQ difficult to assess r/t pt posture and in w/c) and Yes striae Palpation (GI): Soft to palpation, nontender, no guarding, not rigid and No hepatosplenomegaly present Percussion: Yes normal to percussion Auscultation: normal bowel sounds Rectal Exam - Female: deferred Skin General skin exam: no rashes or lesions noted, turgor normal, skin not dry, no jaundice, No spider nevi and no striae Rashes: no rashes Nails: normal Neuro General: oriented to person, oriented to place, oriented to time and confusion Cranial nerves: Yes Equal, round and reactive pupils present and Yes Normal hearing present Speech: No Abnormal speech present Extrem General: Yes normal to inspection, No clubbing, No cyanosis and No edema Psych Appearance: grossly normal and well kempt Mental Status: other Speech and movement: Mute speech present Affect: normal affect Attitude: cooperative Thought process: not confabulating, Impoverished thought process present and Other thought process findings present Thought content: other Insight: Poor insight present (Psych) Judgement: Poor judgement present (Psych) Results Reviewed Results Reviewed: Laboratory Tests 07/26/23 08:54 WBC 4.6 L Hgb 11.0 L D Hct 34.9 L D MCV 94.3 MCH 29.7 Plt Count 120 L Estimated GFR 31 Total Bilirubin 0.3 AST 18 ALT 7 Alkaline Phosphatase 83 Assessment & Plan Assessment & Plan (1) Periumbilical abdominal pain: Code(s): R10.33 - Periumbilical pain Category: Medical (2) Dementia, presenile with delusions: Code(s): F03.92 - Unspecified dementia, unspecified severity, with psychotic disturbance Category: Medical (3) History of acute pancreatitis: Code(s): Z87.19 - Personal history of other diseases of the digestive system Category: Medical Plan She is here today with a staff member who is also not sure about the presenting complaint. She also can not contribute to the history. The patient is not terribly helpful given her dementia and delusional disorder although she is pleasant. We have conflicting information about whether her CC is dysphagia or wt loss and need or ? colonoscopy r/t phx CRC. I ask the staff member with the patient to call the facility. The staff called back and the patient says she has been having abd pain and discomfort. ONset 6-8 mos ago and is intermittent. Not relieved with BM. It would be difficult to localized but mid to low abdomen. TO TRY TO FIND A SOURCE OF THE PAIN since the patient can not give a good report order a CT enterography and this would also be our best shot at detecting any possible colon cancer. I think given her comorbidities and her age a colonoscopy would be unwise. An upper endoscopy could be attempted as it would involve less preparation. For an amylase lipase since she has a history of acute pancreatitis but given the fact that there are no known triggers this seems less likely. She also isn't presenting with upper abdominal pain. Return office visit after the CT enterography Orders: Orders CT enterography 03/30/24 R10.9 - Unspecified abdominal pain Coding Level of Care Code New Pt Level 3 (37454) Diagnoses Periumbilical abdominal pain R10.33 Dementia, presenile with delusions F03.92 History of acute pancreatitis Z87.19
== END 2024-03-30 14:14 | disposition home or self-care (01) ==
LOC: HO.HGI 13:17
PROVIDERS: PCP Emergency Medicine; Visit Provider Nurse Practitioner
DX: R10.33 Periumbilical pain (principal); F03.92 Unspecified dementia, unspecified severity, with psychotic disturbance; Z87.19 Personal history of other diseases of the digestive system
CPT/HCPCS: 99203

== ENCOUNTER → 2024-03-30 13:16 | Outpatient (BNVA) | payer MEDICARE, OTHER, SELFPAY | PROVIDERS: PCP Emergency Medicine; Visit Provider Nurse Practitioner | DX: K59.00 Constipation, unspecified (principal); R19.7 Diarrhea, unspecified; R13.10 Dysphagia, unspecified; R10.33 Periumbilical pain; F03.92 Unspecified dementia, unspecified severity, with psychotic disturbance; Z87.19 Personal history of other diseases of the digestive system | CPT/HCPCS: 99202 ==

== ENCOUNTER 2024-05-04 09:26 | Outpatient (REF) | payer MEDICARE, OTHER, SELFPAY | END 2024-05-04 09:27 | disposition home or self-care (01) | LOC: HO.XRAY 09:26 | PROVIDERS: PCP Emergency Medicine; Visit Provider Internal Medicine | DX: Z13.89 Encounter for screening for other disorder (principal) ==

== ENCOUNTER 2024-05-31 09:08 | Outpatient (REF) | payer MEDICARE, OTHER, SELFPAY ==
--- NOTE | ~2024-05-31 | CT_ITS ---
CLINICAL HISTORY: R10.9 - Unspecified abdominal pain CT abdomen pelvis with IV contrast-CT enterography- Comparison: None Findings: Adequate distention of the stomach. Hyperdensity in the posterior gastric cardia appears to be ingested material. Wall thickening of the antro pyloric region with submucosal edema concerning for potential peptic ulcer disease. Correlation for upper abdominal pain. No appreciable penetrating ulcer. Mild wall thickening of the proximal duodenal may relate to incomplete distention. Adequate distention of the small bowel. Right inguinal hernia containing omentum and loop of small bowel without apparent obstruction. Luminal narrowing and accentuated mucosa within mid small bowel loops central abdomen reference axial images 468 through 495 series 8. May reflect peristalsis. No infiltration of the adjacent fat or apparent wall thickening to further support active inflammation. Equivocal mild mucosal hyperenhancement of small bowel loop right lower quadrant reference image 456 series 8. Prior right hemicolectomy with ileotransverse anastomosis. Luminal narrowing of the distal ileal segment without appreciable wall thickening or mucosal hyperenhancement. Colon nondilated. No appreciable regions of abnormal mucosal enhancement. Extensive diverticulosis without features of acute diverticulitis. Low-lying rectum suggesting prolapse. Diffuse ground-glass attenuation changes throughout both lower lungs which may reflect edema or pneumonia. Nonspecific wall thickening distal esophagus. Mild cardiomegaly. No pleural or pericardial effusion. Small cyst lateral segment left hepatic lobe. Distended gallbladder without opaque stones, wall thickening or edema. No biliary dilatation. 9 mm indeterminate hypodensity in the anterior inferior spleen possibly small splenic hemangioma. Mildly atrophic although otherwise intact pancreas. Physiologic appearing fullness of the adrenal glands [id number]. Minimal bilateral renal cysts. No stones or hydronephrosis. Moderately calcified tortuous nonaneurysmal aorta. Patent hepatic veins, IVC and portal vein allowing for timing. No pathologic adenopathy. Moderately decompressed urinary bladder with wall thickening. Hysterectomy. Open reduction internal fixation changes left femur. Severe L1 compression fracture with vertebral plana and moderate thoracolumbar kyphosis.. Large hemangioma of L3 greater than L2. Impression: Wall thickening and submucosal edema of the antro pyloric region including duodenal bulb concerning for potential peptic ulcer disease. If indicated follow-up endoscopy suggested. No definite features of active Crohn's enteritis. Luminal narrowing within a small bowel loop in the central low abdomen and equivocal mucosal hyperenhancement within a small bowel loop in the right lower quadrant as detailed. Right inguinal hernia containing small bowel loop without apparent obstruction. Prior right hemicolectomy with ileo colonic anastomosis. Nonspecific luminal narrowing of the distal ileal segment. Diverticulosis without diverticulitis. Low-lying rectum suggesting prolapse. Other findings as noted. This document has been electronically signed by: Antoine Grigsby MD on 06/01/2024 14:33:51
[2024-05-31] MEDS: iohexoL 350 MG/ML 100 ML INFUS..BTL IV (11:26)
[2024-05-31] MEDS: Sorbitol/Mannit/Xanth Imaging 500 ML LIQUID 1500 ML PO (11:27)
[2024-05-31 16:18] LABS: Creatinine POC 1.1 mg/dL (0.5-1.4); GFR POC > 60
== END 2024-05-31 09:09 | disposition home or self-care (01) ==
LOC: HO.CT 09:08
PROVIDERS: PCP Emergency Medicine; Visit Provider Nurse Practitioner
DX: R10.9 Unspecified abdominal pain (principal)
CPT/HCPCS: 74177; 82565; Q9967

== ENCOUNTER → 2024-05-31 09:13 | Outpatient (BNV) | payer MEDICARE, OTHER, SELFPAY | PROVIDERS: PCP Emergency Medicine; Visit Provider Radiology Diagnostic Radiology | DX: R10.9 Unspecified abdominal pain (principal) | CPT/HCPCS: 74177 ==

== ENCOUNTER 2024-06-09 08:01 | Outpatient (REF) | payer MEDICARE, OTHER, SELFPAY ==
--- NOTE | ~2024-06-09 | FL_ITS ---
EXAMINATION: XR FLUOROSCOPY UPPER GI WITH AIR CLINICAL INFORMATION: Dysphagia. COMPARISON: None TECHNIQUE: Fluoroscopic air contrast upper GI examination was performed utilizing standard techniques with thin and thick barium and effervescent granules. Numerous spot images were obtained. FINDINGS: Lateral cine images of the oropharynx and hypopharynx demonstrate normal swallow mechanism with normal epiglottic inversion and soft palate elevation. Trace laryngeal penetration was initially seen on the initial lateral swallows. On the third swallow there was subglottic/tracheal aspiration. No nasopharyngeal reflux present. Hypopharyngeal structures appear normal without evidence of mass or diverticulum. 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 Limited dual contrast images of the esophagus demonstrate normal caliber and contour. There is felinization of the mid and distal esophageal mucosa. Esophageal peristalsis appears moderately disorganized. FLUOROSCOPY TIME: 1 minute 46 seconds Number of Spot Images: 1 Number of Cine: 3 DOSE AREA PRODUCT: 854.3 uGy-m2 (microgray-meter squared) FL/FL barium swallow with air IMPRESSION: 1. Laryngeal penetration that progressed to subglottic/tracheal aspiration. 2. Felinization of the mid and distal esophageal mucosa. This is a benign finding associated with chronic gastric esophageal reflux. 3. Moderately disordered esophageal peristalsis. 4. Limited examination due to patient's mobility and an aspiration of the barium. This procedure was performed by Monico Anthony PA-C, and supervised by Dr. Eisenberg Electronically signed by: Bigg Eisenberg MD 06/09/2024 10:31 AM [facility] [place]
== END 2024-06-09 08:02 | disposition home or self-care (01) ==
LOC: HO.XRAY 08:01
PROVIDERS: PCP Emergency Medicine; Visit Provider Family Medicine Geriatric Medicine
DX: R13.10 Dysphagia, unspecified (principal)
CPT/HCPCS: 74221

== ENCOUNTER → 2024-06-09 08:04 | Outpatient (BNV) | payer MEDICARE, OTHER, SELFPAY | PROVIDERS: PCP Emergency Medicine; Visit Provider Physician Assistant Surgical | DX: R13.10 Dysphagia, unspecified (principal) | CPT/HCPCS: 74221 ==

== ENCOUNTER 2024-06-13 08:24 | Emergency (ER) | payer MEDICARE, OTHER, SELFPAY ==
[2024-06-13] VITALS (10 sets, daily range): BP systolic 110–134; BP diastolic 53–74; PULSE 77–101; RESP 16–18; TEMP 37–38.6; O2SAT 89–100; BMI 28.5
--- NOTE | ~2024-06-13 | CT_ITS ---
EXAMINATION: CT ABDOMEN AND PELVIS WITHOUT CONTRAST CLINICAL INFORMATION: Colon cancer with resection. Now presents with abdominal pain and fever COMPARISON: CT enterography 05/31/2024 TECHNIQUE: Multidetector volumetric imaging was performed from the superior aspect of the liver through the pubic symphysis. Sagittal and coronal reformatted images were obtained on the technologist's workstation. This CT examination was performed using dose optimization techniques as appropriate, variously including the following: *Automated exposure control *Adjustment of mA and/or kV according to patient size (this includes techniques or standardized protocols for targeted exams where dose is matched to indication/reason for exam; i.e. extremities or head) *Use of iterative reconstruction technique. DLP: 1122 mGy/cm. FINDINGS: LUNG BASES: There is bilateral posterior pleural thickening with scarring/atelectasis. Heart size normal. There is mild coronary artery calcifications. No pericardial or pleural effusion seen. LIVER, GALLBLADDER, AND BILIARY TREE: The liver is normal in size, shape, and attenuation. No focal hepatic lesion or biliary ductal dilatation is present. The gallbladder is distended. PANCREAS: Unremarkable. SPLEEN: Unremarkable. ADRENAL GLANDS: Unremarkable. KIDNEYS AND URETERS: The kidneys are normal in size, shape, and attenuation. No hydronephrosis, hydroureter, or calculi seen. No perinephric stranding. BLADDER: Unremarkable. GASTROINTESTINAL TRACT: There is a right hemicolectomy with ileocolic anastomosis. The small bowel is a normal caliber. There is scattered stool, gas and oral contrast in colon without distention. No colonic distention or inflammatory process seen in the abdomen. ABDOMINAL WALL: There is a right inguinal hernia containing a loop of small bowel. Similar findings were seen on previous exam on 12/11/2024. LYMPH NODES: Normal. VASCULAR: Unremarkable. PELVIC VISCERA: The uterus is atrophied or surgically removed. No adnexal mass or free fluid seen. There is oral contrast visualized in the sigmoid region likely from previous CT imaging. There is a low-lying rectum likely prolapse, unchanged. OSSEOUS STRUCTURES: There are 3 hip nails for an old healed left femoral neck fracture. There is diffuse osteopenia. There is a severe compression L1 fracture with vertebral planta similar to previous exam 05/31/2024. No new fractures seen. No lytic process. CT/CT abdomen pelvis wo IV con IMPRESSION: Right inguinal hernia containing a loop of small bowel. No proximal small bowel obstruction seen. No acute intra-abdominal process seen. Evidence of previous right hemicolectomy with ileocolic anastomosis appearing normal. Diffuse colonic diverticulosis most prominent in the sigmoid region. No diverticulitis seen. Bilateral posterior pleural thickening with bibasilar compressive atelectasis or scarring. Fleischner guidelines were followed. Electronically signed by: Seth Ying MD 06/13/2024 12:19 PM EST
--- NOTE | ~2024-06-13 | XR_ITS ---
EXAMINATION: XR CHEST 1 VIEW HISTORY: History of pneumonia, mental status change COMPARISON: Comparison is made with the prior examination dated 09/27/2021. FINDINGS: A single AP portable view of the chest performed at 10:10 AM is submitted. There are low lung volumes. Linear opacity at the left lung bases consistent with scarring. No new focal airspace opacity is seen. There is no pleural effusion, pneumothorax, or pulmonary vascular congestion. Right paratracheal soft tissue density is consistent with tortuous vasculature, and is unchanged. The heart is normal in size. There is degenerative disc disease of the spine. XR/XR chest 1V IMPRESSION: Low lung volumes. Left basilar scarring. No new focal airspace opacity is seen. Electronically signed by: Garry Long MD 06/13/2024 11:07 AM [facility]
--- NOTE | ~2024-06-13 | CT_ITS ---
EXAMINATION: CT HEAD WITHOUT IV CONTRAST HISTORY: Mental status change. TECHNIQUE: Unenhanced helical CT of the head was performed per standard departmental protocol. Coronal and sagittal reformats of the head were also evaluated. One or more of the following techniques was used for dose reduction: Automated exposure control, adjustment of the mA and/or kV according to patient size, use of iterative reconstruction technique. DLP: 1122 mGy-cm COMPARISON: Comparison is made with the prior examination dated 07/26/2023. FINDINGS: BRAIN: There is diffuse prominence of the ventricular system and cortical sulci, consistent with atrophy. Periventricular and subcortical white matter hypodensities are noted which are nonspecific, but often seen in the setting of small vessel ischemic disease. Dense seen is encephalomalacia in the right basal ganglia consistent with an old infarct. There is no mass effect or midline shift. No intra- or extra-axial fluid collections are identified. SINUSES: The visualized paranasal sinuses are clear. The mastoid air cells and middle ear cavities are well pneumatized. ORBITS: The visualized orbits are unremarkable. BONES/SOFT TISSUES: The extracranial soft tissues are unremarkable. The calvarium is intact. No suspicious lytic or sclerotic lesions. CT/CT head/brain wo IV con IMPRESSION: No acute intracranial abnormality. Electronically signed by: Garry Long MD 06/13/2024 12:15 PM [facility]
--- NOTE | 2024-06-13 09:17 | ECG_ITS ---
Test Reason : WEAKNESS Blood Pressure : */* mmHG Vent. Rate : 95 BPM Atrial Rate : * BPM P-R Int : * ms QRS Dur : 76 ms QT Int : 314 ms P-R-T Axes : * 31 -50 degrees QTcB Int : 394 ms Atrial fibrillation Low voltage QRS Nonspecific ST and T wave abnormality Abnormal ECG When compared with ECG of 26-Jul-2023 08:42, Atrial fibrillation has replaced Junctional rhythm Inverted T waves have replaced nonspecific T wave abnormality in Anterior leads QT has shortened Referred By: Baldemar Thompson Electronically Signed By: BRANDON SEXTON MD
--- NOTE | 2024-06-13 09:27 | PC.NURSE ---
Pt moved to ED 18, undressed, and rectal temp obtained and 101.4, Dr Thompson aware. Pt does reports mid abd pain for months with h/o colon cancer per pt. Denies n/v/d. SKin flushed, hot and dry. Speaking full sentences.
--- NOTE | 2024-06-13 09:41 | ED_ITS ---
HPI - General Adult General Chief complaint: Altered Mental Status Stated complaint: RECENT PNA, FEVER,LOW 02SAT,FROM SNF Time Seen by Provider: 06/13/24 09:17 Source: patient, family (Daughter) and EMS Mode of arrival: EMS Limitations: no limitations History of Present Illness ED Provider: DR. Thompson HPI narrative: 88-year-old female with pertinent history of AFib, GERD, depression, MD 2, CKD, anemia of chronic disease, colon cancer with resection and as per patient complete remission for many years patient came in from custodial by EMS for evaluation of fever, mental status change, acute on chronic abdominal pain patient living for years with abdominal pain but today patient feels that pain has changed and became more severe and now is radiating to her back, patient also complaining of stinging and burning sensation with urination, presence of productive cough with clear sputum for some days, right-sided head pain. As per daughter patient was diagnosed with COVID last week patient was generally weak yesterday and day before today as per daughter patient has feels and looks better. was sent to the ED because fever persists. Patient documents indicate that the patient is DNR/DNI/do not transfer to the hospital. Related Data Home Medications ?Medication ?Instructions ?Recorded ?Confirmed amiodarone 200 mg tablet 1 tab PO DAILY 01/16/21 09/27/21 apixaban 2.5 mg tablet (Eliquis) 1 tab PO BID 01/16/21 09/27/21 cholecalciferol (vitamin D3) 25 25 mcg PO DAILY 01/16/21 09/27/21 mcg (1,000 unit) capsule gabapentin 100 mg capsule 100 mg PO DAILY@1200 01/16/21 09/27/21 gabapentin 100 mg capsule 200 mg PO BEDTIME 01/16/21 09/27/21 lidocaine 4 % topical patch 1 patch topical DAILY 01/16/21 09/27/21 (Lidocaine Pain Relief) multivitamin with minerals 1 tab PO DAILY 01/16/21 09/27/21 pantoprazole 40 mg tablet,delayed 1 tab PO DAILY 01/16/21 09/27/21 release quetiapine 25 mg tablet 12.5 mg PO BID 01/16/21 09/27/21 sennosides 8.6 mg-docusate sodium 1 tab-cap PO DAILY 01/16/21 09/27/21 50 mg tablet (Senna-S) sertraline 100 mg tablet 1 tab PO DAILY 01/16/21 09/27/21 verapamil 120 mg tablet,extended 1 tab PO DAILY 09/27/21 09/27/21 release acetaminophen 500 mg capsule 500 mg PO Q6H PRN 03/30/24 ascorbate calcium (vitamin C) 500 500 mg PO DAILY 03/30/24 mg tablet bisacodyl 10 mg rectal suppository 10 mg WV DAILY PRN 03/30/24 magnesium hydroxide 400 mg/5 mL 30 ml PO DAILY PRN 03/30/24 oral suspension (Milk of Magnesia) mv-mn-folic 200 mcg-vit K 15 1 cap PO DAILY 03/30/24 mcg-lutein 5 mg-zeaxanthin 1 mg capsule (PreserVision AREDS 2 Plus Multivit) peg [id number] 1 2 drp ophthalmic (eye) BID-QID PRN 03/30/24 %-0.2 %-0.2 % eye drops (Artificial Tears ([id number])) potassium chloride 10 mEq 10 meq PO BID 03/30/24 tablet,extended release sodium phosphates 19 gram-7 118 ml WV DAILY PRN 03/30/24 gram/118 mL enema (Fleet Enema) Previous Rx's ?Medication ?Instructions ?Recorded cefuroxime axetil 250 mg tablet 250 mg PO BID 7 days #14 tabs 06/13/24 Allergies Allergy/AdvReac Type Severity Reaction Status Date / Time morphine Allergy Unknown Unknown Verified 06/13/24 08:59 Review of Systems 2 Review of Systems: All other systems are reviewed and are negative Constitutional: Reports as per HPI and Reports no additional constitutional complaints Eyes: Reports as per HPI and Reports no additional eye complaints Reports system reviewed and no additional complaints, except as documented Cardiovascular: Reports as per HPI and Reports no additional cardiovascular complaints Respiratory: Reports as per HPI and Reports no additional respiratory complaints Gastrointestinal: Reports as per HPI and Reports no additional gastrointestinal complaints Genitourinary: Reports no additional female genitourinary complaints Musculoskeletal: Reports no additional musculoskeletal complaints Skin/Breast: Reports system reviewed and no additional complaints, except as docu Psychiatric: Reports no additional psychiatric complaints Endocrine: Reports no additional endocrine complaints Hematologic/Lymphatic: Reports no additional hematologic/lymphatic complaints Allergic/Immunologic: Reports no additional allergic/immunologic complaints Reports system reviewed and no additional complaints, except as documented and Reports Abnormal speech present [facility] Past Medical History Medical History CKD (chronic kidney disease) stage 3, GFR 30-59 ml/min Chronic wound of extremity GERD (gastroesophageal reflux disease) Major depressive disorder Type 2 diabetes mellitus A-fib Surgical History History of esophagogastroduodenoscopy (EGD) H/O colonoscopy H/O partial resection of colon Social History Social History Household Members: Other Housing: Assisted Living Facility Housing Other:: [facility] Do you presently have visiting nurse or other home services: No Alcohol intake: never Patient Tobacco Use Status: Never used Tobacco Smoked in Last 30 Days: No Use of substances other than those prescribed or required for medical reasons: No Advance Directives: Yes Advance Directives on File: Yes Advance Directives Date on File: 09/27/21 service: No Current occupational status: retired Physical Exam ED Vital Signs: Vital Signs - 24 hr 06/13/24 08:55 06/13/24 09:00 06/13/24 09:27 Temperature 99.4 F 101.4 F H Pulse Rate 91 Respiratory Rate 18 18 Blood Pressure 134/70 Pulse Oximetry 98 97 Oxygen Delivery Method Nasal Cannula Room Air Oxygen Flow Rate 06/13/24 10:44 06/13/24 10:51 06/13/24 11:10 Temperature 99.9 F Pulse Rate 77 78 Respiratory Rate 18 18 Blood Pressure 122/53 L 122/60 Pulse Oximetry 98 98 Oxygen Delivery Method Nasal Cannula Nasal Cannula Oxygen Flow Rate 2 2 06/13/24 11:35 06/13/24 12:49 06/13/24 12:53 Temperature 99.5 F 99.5 F 99.5 F Pulse Rate 81 80 Respiratory Rate 16 18 Blood Pressure 123/55 L 110/56 L Pulse Oximetry 97 100 Oxygen Delivery Method Nasal Cannula Nasal Cannula Oxygen Flow Rate 2 2 BMI result Body Mass Index 28.5 Vital signs have been reviewed and appear to be correct. Blood pressure elevated. Heart rate normal. Respiratory rate normal. Temperature elevated. Oxygen saturation normal. Appearance: Alert. Oriented X3. No acute distress. Head: Normal external exam. Normocephalic. Atraumatic. No Hubbard signs noted. No raccoon eyes noted Eyes: PERRLA. EOMI. Conjunctiva and sclera normal. Eyelids normal. ENT: TM's Normal. Pharynx normal. Uvula midline. Moist mucous membranes. No trismus noted. No drooling noted. No muffled voice noted. Neck: Normal inspection. Neck supple. FROM. No adenopathy. Thyroid Normal. No meningeal signs. No neck mass noted. CVS: Normal heart rate and rhythm. Heart sound normal. No murmurs noted. Pulses normal throughout. Respiratory: No respiratory distress. Painless inspiration. Breath sounds normal. No wheezes/rales/rhonchi noted. Chest nontender. No accessory muscle usage noted or decreased air movement noted. Abdomen: Soft and nontender. Bowel sounds normal in all 4 quadrants. No distention noted. No organomegaly noted. No visible injury noted. Back: No CVA tenderness. Full range of motion noted. Skin: Skin warm and dry. Normal skin color. Normal skin turgor. No rashes/lesions/lacerations noted. Extremities: No lower extremity edema. Extremities exhibit normal range of motion. Extremities nontender. Neuro: Oriented X 3. Cranial nerve exam: II-XII are grossly intact No motor deficit. No sensory deficit. Reflexes normal. Course Reevaluation(s) Reevaluation #1: 88-year-old female came in for nonspecific symptoms found to be febrile, mild UTI in the urine analysis, patient was also complaining of abdominal pain. 1. Abdomen and pelvis CT is showing inguinal hernia quarantine bowel loops, patient was seen and evaluated by Dr. Tafoya. 2. Mild UTI will cover for by [facility] for 7 days. Daughter at the bedside willing to take the patient back to the custodial. Time: 15:40 Medications Administered Discontinued Medications Generic Name Dose Route Start Last Admin Trade Name Freq PRN Reason Stop Dose Admin Acetaminophen 975 mg 06/13/24 09:29 06/13/24 09:43 Acetaminophen 325 Mg Tablet PO 06/13/24 09:30 975 mg ONCE ONE Administration Sodium Chloride 1,000 mls @ 999 mls/hr 06/13/24 10:04 06/13/24 10:50 Ns IV 06/13/24 11:04 Infused .Q1H1M ONE Infusion Medical Decision Making Differential Diagnosis Differential Diagnoses: The differential diagnosis associated with the presentation includes (UTI, SIRS, pneumonia, viral upper respiratory infection, intra-abdominal infection, electrolyte derangement, severe anemia, pyelonephritis.) Admission/Observation Consideration of admission/observation: Escalation of care including admission/observation considered Consult Healthcare Provider Management of the patient was discussed with: Drywall Foreman (Dr. Tafoya) Lab Data MDM Lab Attestation statement: I reviewed the patient's lab results. 06/13/24 10:03 06/13/24 10:03 Labs: Lab Results 06/13/24 06/13/24 06/13/24 Range/Units 10:03 10:09 10:47 WBC 5.2 (4.8-10.8) X10*3/uL RBC 3.30 L (4.20-5.50) X10*6/uL Hgb 9.9 L (12.0-16.0) g/dl Hct 32.3 L (37.0-47.0) % MCV 97.9 (80.0-98.0) fL MCH 30.0 (27.0-33.0) pg MCHC 30.7 L (31.0-35.0) g/dl RDW 13.7 (11.0-16.0) % Plt Count 105 L (160-400) X10*3/uL MPV 9.7 (9.4-12.3) fL Immature Gran % (Auto) 0.4 (0.0-0.4) % Neut % (Auto) 81.0 H (45-73) % Lymph % (Auto) 11.3 L (20-40) % [place] % (Auto) 7.1 (2-11) % Eos % (Auto) 0.0 (0-4) % Baso % (Auto) 0.2 (0-2) % Lymph # (Auto) 0.6 L (1.2-4.9) X10*3/uL [place] # (Auto) 0.4 (0.1-1.2) X10*3/uL Eos # (Auto) 0.0 (0.0-0.4) X10*3/uL Baso # (Auto) 0.0 (0.0-0.2) X10*3/uL Abs Immat Gran (auto) 0.02 (0.00-0.03) X10*3/uL Absolute Neuts (auto) 4.2 (2.0-8.3) x10*3/uL Absolute Nucleated RBC 0.000 (0.0-0.012) X10*3/uL Nucleated RBC % (auto) 0.0 (0.0-0.2) /100WBC Sodium 140 (135-145) mmol/L Potassium 4.6 (3.3-5.1) mmol/L Chloride 110 H (96-108) mmol/L Carbon Dioxide 25 (22-29) mmol/L Anion Gap 10 L (12-20) BUN 31 H (9-16) mg/dL Creatinine 1.62 H (0.5-1.4) mg/dL Estim Creat Clear Calc 20.7 Estimated GFR 30 Random Glucose 106 (60-115) mg/dL Lactic Acid 0.7 (0.5-2.0) mmol/L Calcium 8.0 L D (8.4-10.2) mg/dL Total Bilirubin 0.3 (0.0-1.0) mg/dL Direct Bilirubin 0.1 (0.0-0.5) mg/dL AST 48 H (5-31) U/L ALT 28 (0-31) U/L Alkaline Phosphatase 81 (39-117) U/L Troponin I High Sens 19.7 H (<3.5-17.0) ng/L B-Natriuretic Peptide 571 H (<100) pg/mL Total Protein 6.3 L (6.5-8.0) g/dL Albumin 3.6 (3.5-5.0) g/dL Lipase 40 (8-78) U/L Urine Color Yellow Urine Appearance Cloudy Urine pH 5.0 (5.0-9.0) Ur Specific [place] 1.025 (1.005-1.025) Urine Protein Trace (Neg-Trace) mg/dL Urine Glucose (UA) Negative (Negative) mg/dL Urine Ketones Negative (Negative) mg/dL Urine Blood Negative (Negative) Urine Nitrite Negative (Negative) Ur Leukocyte Esterase Trace H (Negative) Urine RBC 0-2 (0-2) /HPF Urine WBC 6-10 H (0-5) /HPF Ur Squamous Epith Cells 3-5 (0-2) /HPF Urine Bacteria 4+ (None Seen) Hyaline Casts 3-5 (0-2) /LPF Influenza Type A (PCR) NEGATIVE (Negative) Influenza Type B (PCR) NEGATIVE (Negative) RSV RNA Qual (PCR) NEGATIVE (Negative) SARS-CoV-2 RNA (RT-PCR) NEGATIVE (Negative) 06/13/24 Range/Units 13:10 WBC (4.8-10.8) X10*3/uL RBC (4.20-5.50) X10*6/uL Hgb (12.0-16.0) g/dl Hct (37.0-47.0) % MCV (80.0-98.0) fL MCH (27.0-33.0) pg MCHC (31.0-35.0) g/dl RDW (11.0-16.0) % Plt Count (160-400) X10*3/uL MPV (9.4-12.3) fL Immature Gran % (Auto) (0.0-0.4) % Neut % (Auto) (45-73) % Lymph % (Auto) (20-40) % [place] % (Auto) (2-11) % Eos % (Auto) (0-4) % Baso % (Auto) (0-2) % Lymph # (Auto) (1.2-4.9) X10*3/uL [place] # (Auto) (0.1-1.2) X10*3/uL Eos # (Auto) (0.0-0.4) X10*3/uL Baso # (Auto) (0.0-0.2) X10*3/uL Abs Immat Gran (auto) (0.00-0.03) X10*3/uL Absolute Neuts (auto) (2.0-8.3) x10*3/uL Absolute Nucleated RBC (0.0-0.012) X10*3/uL Nucleated RBC % (auto) (0.0-0.2) /100WBC Sodium (135-145) mmol/L Potassium (3.3-5.1) mmol/L Chloride (96-108) mmol/L Carbon Dioxide (22-29) mmol/L Anion Gap (12-20) BUN (9-16) mg/dL Creatinine (0.5-1.4) mg/dL Estim Creat Clear Calc Estimated GFR Random Glucose (60-115) mg/dL Lactic Acid (0.5-2.0) mmol/L Calcium (8.4-10.2) mg/dL Total Bilirubin (0.0-1.0) mg/dL Direct Bilirubin (0.0-0.5) mg/dL AST (5-31) U/L ALT (0-31) U/L Alkaline Phosphatase (39-117) U/L Troponin I High Sens 19.3 H (<3.5-17.0) ng/L B-Natriuretic Peptide (<100) pg/mL Total Protein (6.5-8.0) g/dL Albumin (3.5-5.0) g/dL Lipase (8-78) U/L Urine Color Urine Appearance Urine pH (5.0-9.0) Ur Specific [place] (1.005-1.025) Urine Protein (Neg-Trace) mg/dL Urine Glucose (UA) (Negative) mg/dL Urine Ketones (Negative) mg/dL Urine Blood (Negative) Urine Nitrite (Negative) Ur Leukocyte Esterase (Negative) Urine RBC (0-2) /HPF Urine WBC (0-5) /HPF Ur Squamous Epith Cells (0-2) /HPF Urine Bacteria (None Seen) Hyaline Casts (0-2) /LPF Influenza Type A (PCR) (Negative) Influenza Type B (PCR) (Negative) RSV RNA Qual (PCR) (Negative) SARS-CoV-2 RNA (RT-PCR) (Negative) Independent Interpretation I performed an independent interpretation of an: Plain X-Ray (Chest:Low lung volumes. Left basilar scarring. No new focal airspace opacity is seen. ) and CT Scan (Abdomen and pelvis: Head CT:Right inguinal hernia containing a loop of small bowel. No proximal small bowel obstruction seen. ) Radiology Impression Discussion of test interpretation with radiology: I have reviewed the radiologist's reading. Discharge Plan Discharge Clinical Impression: Abdominal pain, Uncomplicated inguinal hernia, Acute UTI Patient Disposition: Xfer [facility] Instructions: Inguinal Hernia (ED) Prescriptions: New cefuroxime axetil 250 mg tablet 250 mg PO BID 7 Days Qty: 14 0RF No Action quetiapine 25 mg tablet 12.5 mg PO BID lidocaine [Lidocaine Pain Relief] 4 % adhesive patch,medicated 1 patch topical DAILY amiodarone 200 mg tablet 1 tab PO DAILY sertraline 100 mg tablet 1 tab PO DAILY pantoprazole 40 mg tablet,delayed release (DR/EC) 1 tab PO DAILY Eliquis 2.5 mg tablet 1 tab PO BID cholecalciferol (vitamin D3) 25 mcg (1,000 unit) Capsule 25 mcg PO DAILY sennosides-docusate sodium [Senna-S] 8.6-50 mg Tablet 1 tab-cap PO DAILY gabapentin 100 mg capsule 100 mg PO DAILY@1200 gabapentin 100 mg capsule 200 mg PO BEDTIME multivitamin with minerals Tablet 1 tab PO DAILY verapamil 120 mg tablet extended release 1 tab PO DAILY ascorbate calcium (vitamin C) 500 mg tablet 500 mg PO DAILY PreserVision AREDS 2 Plus MV 200 mcg-15 mcg- 5 mg-1 mg capsule 1 cap PO DAILY Artificial Tears(eo-sgoz-mrwx) 1-0.2-0.2 % drops 2 drp ophthalmic (eye) BID-QID PRN potassium chloride 10 mEq tablet extended release 10 meq PO BID magnesium hydroxide [Milk of Magnesia] 400 mg/5 mL suspension 30 ml PO DAILY PRN Rx Instructions: 30 ml daily for no BM in 3 days oral as needed for constipation bisacodyl 10 mg suppository 10 mg WV DAILY PRN Fleet Enema 19-7 gram/118 mL enema 118 ml WV DAILY PRN acetaminophen 500 mg capsule 500 mg PO Q6H PRN Referrals: Du Bustamante MD [Primary Care Provider] - Print Language: Chadian
[2024-06-13] MEDS: Acetaminophen 325 MG TABLET 975 MG PO (09:43)
[2024-06-13 10:12] LABS: MANUAL DIFF FLAG NO
[2024-06-13] MEDS: 0.9 % Sodium Chloride 1,000 ML 999 ML IV (10:12)
[2024-06-13 10:23] LABS: Basophils Percent Auto 0.2 % (0-2); Hematocrit 32.3 % (37.0-47.0); Hemoglobin 9.9 g/dl (12.0-16.0); Imm Gran Abs Auto 0.02 X10*3/uL (0.00-0.03); Imm Gran Pct Auto 0.4 % (0.0-0.4); Lymphocytes Absolute Auto 0.6 X10*3/uL (1.2-4.9); Lymphocytes Percent Auto 11.3 % (20-40); Mean Corpuscular HGB Conc 30.7 g/dl (31.0-35.0); Mean Corpuscular Volume 97.9 fL (80.0-98.0); Mean Platelet Volume 9.7 fL (9.4-12.3); Monocytes Absolute Auto 0.4 X10*3/uL (0.1-1.2); Monocytes Percent Auto 7.1 % (2-11); Neutrophils Absolute Auto 4.2 x10*3/uL (2.0-8.3); Platelet Count 105 X10*3/uL (160-400); Red Cell Distribution Width 13.7 % (11.0-16.0); White Blood Count 5.2 X10*3/uL (4.8-10.8)
[2024-06-13 10:32] LABS: Lactic Acid 0.7 mmol/L (0.5-2.0)
[2024-06-13 10:35] LABS: Alanine Aminotransferase 28 U/L (0-31); Albumin Level 3.6 g/dL (3.5-5.0); Alkaline Phosphatase 81 U/L (39-117); Anion Gap 10 (12-20); Aspartate Amino Transferase 48 U/L (5-31); Bilirubin Direct 0.1 mg/dL (0.0-0.5); Bilirubin Total 0.3 mg/dL (0.0-1.0); Blood Urea Nitrogen 31 mg/dL (9-16); Carbon Dioxide 25 mmol/L (22-29); Chloride 110 mmol/L (96-108); Creatinine Clr Calc Pharmacy 20.7; Estimated Glomerular Filt Rate 30; Glucose Random 106 mg/dL (60-115); Lipase 40 U/L (8-78); Potassium 4.6 mmol/L (3.3-5.1); Sodium 140 mmol/L (135-145); Total Protein 6.3 g/dL (6.5-8.0)
[2024-06-13 10:38] LABS: B Type Natriuretic Peptide 571 pg/mL (<100)
[2024-06-13 10:42] LABS: Troponin-I High Sensitivity 19.7 ng/L (<3.5-17.0)
[2024-06-13 10:52] LABS: Influenza A PCR NEGATIVE (Negative); Influenza B PCR NEGATIVE (Negative); Resp Syncy Virus RNA Qual PCR NEGATIVE (Negative); SARS COV2 PCR INHOUSE NEGATIVE (Negative)
[2024-06-13 11:12] LABS: Appearance Urine Cloudy; Color Urine Yellow; Glucose Urine UA Negative (Negative); Leukocyte Esterase Urine Trace (Negative); Nitrite Urine Negative (Negative); Specific Gravity - Urine 1.025 (1.005-1.025); UMIC TRIGGER UACC YES; Urine Blood Negative (Negative); Urine Ketones Negative (Negative); Urine Protein Trace mg/dL (Neg-Trace)
[2024-06-13 11:25] LABS: Bacteria Urine 4+ (None Seen); RBC Urine 0-2 /HPF (0-2); UACC Culture Trigger YES
--- NOTE | 2024-06-13 12:59 | PC.NURSE ---
Tiffanie- Primary nurse at [facility].
[2024-06-13 13:39] LABS: Troponin-I High Sensitivity 19.3 ng/L (<3.5-17.0)
--- NOTE | 2024-06-13 13:44 | PM.CNGS ---
History of Present Illness Consult details Consult date: 06/13/24 Requesting physician: Baldemar Thompson Narrative: 88-year-old female patient resident of a nursing facility, and recently diagnosed with a pneumonia presenting with complaints of increased abdominal pain. She apparently has chronic abdominal pain but today developed increased pain felt throughout the abdomen. She has a prior history of colon cancer in his previously undergone a right colectomy approximately 5-6 years ago. The pain seemed to increase with movement especially when sitting up in bed. She also reports increased pain when moving onto the CT scanner bed. Her past history is significant for previous atrial fibrillation on anticoagulation, GERD, depression, anemia, CVA, chronic kidney failure, and diabetes. She was recently diagnosed with a left lower lobe pneumonia and started on antibiotics. She reports a recent history of diarrhea as well. Workup in the emergency department revealed a normal WBC of 5.2. Hemoglobin 9.9, and lactic acid of 0.7. A CT abdomen and pelvis revealed a right inguinal hernia containing a loop of small bowel with no proximal obstruction. No acute intra-abdominal process is seen. Patient has had a prior right hemicolectomy with an ileocolonic anastomosis which appears normal. Diffuse colonic diverticulosis is noted especially in the sigmoid colon. Bilateral posterior pleural thickening with bibasilar compressive atelectasis or scarring. Surgical consultation was requested regarding the abdominal pain. Review of Systems Review of Systems: Yes Unobtainable due to mental condition PMFSH Past Medical History Medical History CKD (chronic kidney disease) stage 3, GFR 30-59 ml/min Chronic wound of extremity GERD (gastroesophageal reflux disease) Major depressive disorder Type 2 diabetes mellitus A-fib Surgical History Surgical History History of esophagogastroduodenoscopy (EGD) H/O colonoscopy H/O partial resection of colon Social History Social History Household Members: Other Housing: Assisted Living Facility Housing Other:: [facility] Do you presently have visiting nurse or other home services: No Alcohol intake: never Patient Tobacco Use Status: Never used Tobacco Smoked in Last 30 Days: No Use of substances other than those prescribed or required for medical reasons: No Advance Directives: Yes Advance Directives on File: Yes Advance Directives Date on File: 09/27/21 service: No Current occupational status: retired Meds Allergies Allergy/AdvReac Type Severity Reaction Status Date / Time morphine Allergy Unknown Unknown Verified 06/13/24 08:59 Home Medications ?Medication ?Instructions ?Recorded ?Confirmed ?Last Taken ?Type amiodarone 200 mg tablet 1 tab PO DAILY 01/16/21 09/27/21 09/27/21 History apixaban 2.5 mg tablet (Eliquis) 1 tab PO BID 01/16/21 09/27/21 09/27/21 History cholecalciferol (vitamin D3) 25 25 mcg PO DAILY 01/16/21 09/27/21 09/27/21 History mcg (1,000 unit) capsule gabapentin 100 mg capsule 100 mg PO DAILY@1200 01/16/21 09/27/21 09/26/21 History gabapentin 100 mg capsule 200 mg PO BEDTIME 01/16/21 09/27/21 09/26/21 History lidocaine 4 % topical patch 1 patch topical DAILY 01/16/21 09/27/21 09/27/21 History (Lidocaine Pain Relief) multivitamin with minerals 1 tab PO DAILY 01/16/21 09/27/21 09/27/21 History pantoprazole 40 mg tablet,delayed 1 tab PO DAILY 01/16/21 09/27/21 09/27/21 History release quetiapine 25 mg tablet 12.5 mg PO BID 01/16/21 09/27/21 09/27/21 History sennosides 8.6 mg-docusate sodium 1 tab-cap PO DAILY 01/16/21 09/27/21 09/27/21 History 50 mg tablet (Senna-S) sertraline 100 mg tablet 1 tab PO DAILY 01/16/21 09/27/21 09/27/21 History verapamil 120 mg tablet,extended 1 tab PO DAILY 09/27/21 09/27/21 09/27/21 History release acetaminophen 500 mg capsule 500 mg PO Q6H PRN 03/30/24 Unknown History ascorbate calcium (vitamin C) 500 500 mg PO DAILY 03/30/24 Unknown History mg tablet bisacodyl 10 mg rectal suppository 10 mg FL DAILY PRN 03/30/24 Unknown History magnesium hydroxide 400 mg/5 mL 30 ml PO DAILY PRN 03/30/24 Unknown History oral suspension (Milk of Magnesia) mv-mn-folic 200 mcg-vit K 15 1 cap PO DAILY 03/30/24 Unknown History mcg-lutein 5 mg-zeaxanthin 1 mg capsule (PreserVision AREDS 2 Plus Multivit) peg [id number] 1 2 drp ophthalmic (eye) BID-QID PRN 03/30/24 Unknown History %-0.2 %-0.2 % eye drops (Artificial Tears ([id number])) potassium chloride 10 mEq 10 meq PO BID 03/30/24 Unknown History tablet,extended release sodium phosphates 19 gram-7 118 ml FL DAILY PRN 03/30/24 Unknown History gram/118 mL enema (Fleet Enema) Physical Exam Vital Signs: Vital Signs: Last Vital Signs Temp 99.5 F 06/13/24 12:53 Pulse 80 06/13/24 12:49 Resp 18 06/13/24 12:49 BP 110/56 L 06/13/24 12:49 Pulse Ox 100 06/13/24 12:49 O2 Del Method Nasal Cannula 06/13/24 12:49 O2 Flow Rate 2 06/13/24 12:49 Oxygen Flow Rate 2 06/13/24 08:55 BMI result Body Mass Index 28.5 Const: General: no acute distress and tired appearing Nutritional Appearance: well nourished Orientation/consciousness: patient oriented x3 HEENT: Head: Yes normocephalic and Yes atraumatic Eyes: Sclerae: sclerae normal Resp: Effort & Inspection: normal respiratory effort, no audible wheezes, no cough and no respiratory distress GI: Other: Soft, nondistended, well-healed incision in the right lower quadrant, paramedian. Tenderness to deep palpation in all 4 quadrants. No palpable mass, no rebound, no rigidity, reducible right inguinal hernia without tenderness. Normal bowel sounds. Neuro: General: patient oriented x3 Results Labs 06/13/24 10:03 06/13/24 10:03 Labs: Abnormal lab results 06/13/24 06/13/24 06/13/24 Range/Units 10:03 10:47 13:10 RBC 3.30 L (4.20-5.50) X10*6/uL Hgb 9.9 L (12.0-16.0) g/dl Hct 32.3 L (37.0-47.0) % MCHC 30.7 L (31.0-35.0) g/dl Plt Count 105 L (160-400) X10*3/uL Neut % (Auto) 81.0 H (45-73) % Lymph % (Auto) 11.3 L (20-40) % Lymph # (Auto) 0.6 L (1.2-4.9) X10*3/uL Chloride 110 H (96-108) mmol/L Anion Gap 10 L (12-20) BUN 31 H (9-16) mg/dL Creatinine 1.62 H (0.5-1.4) mg/dL Calcium 8.0 L D (8.4-10.2) mg/dL AST 48 H (5-31) U/L Troponin I High Sens 19.7 H 19.3 H (<3.5-17.0) ng/L B-Natriuretic Peptide 571 H (<100) pg/mL Total Protein 6.3 L (6.5-8.0) g/dL Ur Leukocyte Esterase Trace H (Negative) Urine WBC 6-10 H (0-5) /HPF Short CBC 06/13/24 Range/Units 10:03 WBC 5.2 (4.8-10.8) X10*3/uL Hgb 9.9 L (12.0-16.0) g/dl Hct 32.3 L (37.0-47.0) % Plt Count 105 L (160-400) X10*3/uL BMP 06/13/24 10:03 Sodium 140 Potassium 4.6 Chloride 110 H Carbon Dioxide 25 BUN 31 H Creatinine 1.62 H Calcium 8.0 L D Liver Function 06/13/24 Range/Units 10:03 Total Bilirubin 0.3 (0.0-1.0) mg/dL Direct Bilirubin 0.1 (0.0-0.5) mg/dL AST 48 H (5-31) U/L ALT 28 (0-31) U/L Alkaline Phosphatase 81 (39-117) U/L Albumin 3.6 (3.5-5.0) g/dL Urine 06/13/24 Range/Units 10:47 Urine Color Yellow Urine Appearance Cloudy Urine pH 5.0 (5.0-9.0) Ur Specific [place] 1.025 (1.005-1.025) Urine Protein Trace (Neg-Trace) mg/dL Urine Glucose (UA) Negative (Negative) mg/dL All other labs normal. Assessment and Plan (1) Right inguinal hernia: Status: Acute Patient was found to have a right inguinal hernia by CT. This is easily reducible and on CT shows a nonobstructing loop of small bowel. She does not appear to be symptomatic from this hernia which may have been present for many years. No surgical intervention is recommended. (2) Abdominal pain, diffuse: Status: Acute Etiology of the abdominal pain is difficult to discern. There does not appear to be any evidence of infection by physical examination, laboratory or CT. She did have a fever on presentation with a temp of 101.4 degrees however this could be related to her pulmonary source. Her pain does seem to be out of proportion of the physical findings which may be suggestive of intestinal ischemia. Lactate is normal which is reassuring. I would recommend supportive care, no surgical intervention anticipated. Procedures Date of Service Date of Service: 06/13/24
--- NOTE | 2024-06-13 14:17 | PC.NURSE ---
Patient stated she lost her white fuzzy blanket when she came into the ED. Daughter concerned we may have lost it. I phoned Adam edward, [phone], I spoke to to Beth at the nurses station and she placed me on a hold, she confirmed that the blanket is spread out on her bed at [facility]. I let the patient and her daughter know this.
== END 2024-06-13 16:32 | disposition skilled nursing facility (03) ==
PROVIDERS: Emergency Provider Emergency Medicine; PCP Internal Medicine
DX: K40.90 Unilateral inguinal hernia, without obstruction or gangrene, not specified as recurrent (principal); R41.82 Altered mental status, unspecified; R10.9 Unspecified abdominal pain; R50.9 Fever, unspecified; I48.91 Unspecified atrial fibrillation; K21.9 Gastro-esophageal reflux disease without esophagitis; E11.22 Type 2 diabetes mellitus with diabetic chronic kidney disease; N18.30 Chronic kidney disease, stage 3 unspecified; Z85.038 Personal history of other malignant neoplasm of large intestine; Z79.01 Long term (current) use of anticoagulants; Z79.899 Other long term (current) drug therapy; Z03.818 Encounter for observation for suspected exposure to other biological agents ruled out
CPT/HCPCS: 0241U; 36415; 51701; 70450; 71045; 74176; 80048; 80076; 81001; 81003; 83605; 83690; 83880; 84484; 85025; 87040; 87086; 87088; 87186; 93005; 96360; 99284; 99285

== ENCOUNTER → 2024-06-13 09:17 | Outpatient (BNV) | payer MEDICARE, OTHER, SELFPAY | PROVIDERS: Emergency Provider Emergency Medicine; PCP Internal Medicine; Visit Provider Internal Medicine Cardiovascular Disease | DX: I48.91 Unspecified atrial fibrillation (principal); R94.31 Abnormal electrocardiogram [ECG] [EKG]; R53.1 Weakness | CPT/HCPCS: 93010 ==

== ENCOUNTER → 2024-06-13 09:18 | Outpatient (BNV) | payer MEDICARE, OTHER, SELFPAY | PROVIDERS: Emergency Provider Emergency Medicine; PCP Internal Medicine; Visit Provider Radiology Diagnostic Radiology | DX: K40.90 Unilateral inguinal hernia, without obstruction or gangrene, not specified as recurrent (principal); K57.30 Diverticulosis of large intestine without perforation or abscess without bleeding; R41.82 Altered mental status, unspecified; J98.4 Other disorders of lung; R94.2 Abnormal results of pulmonary function studies | CPT/HCPCS: 74176 ==

== ENCOUNTER → 2024-06-13 10:16 | Outpatient (BNV) | payer MEDICARE, OTHER, SELFPAY | PROVIDERS: Emergency Provider Emergency Medicine; PCP Internal Medicine; Visit Provider Surgery | DX: K40.90 Unilateral inguinal hernia, without obstruction or gangrene, not specified as recurrent (principal); R10.84 Generalized abdominal pain | CPT/HCPCS: 99283 ==

== ENCOUNTER 2024-11-28 10:42 | Inpatient (IN) | payer MEDICARE, OTHER, MEDICAID, SELFPAY ==
[2024-11-28] VITALS (10 sets, daily range): BP systolic 94–134; BP diastolic 18–65; PULSE 40–77; RESP 13–20; TEMP 36–38.2; O2SAT 92–100; BMI 23.5
--- NOTE | ~2024-11-28 | XR_ITS ---
EXAMINATION: XR CHEST 1 VIEW HISTORY: Change mental status COMPARISON: Comparison is made with the prior examination dated 06/13/2024. FINDINGS: A single AP portable view of the chest performed at 12:23 PM is submitted. There are markedly low lung volumes. An opacity at the left lung base may represent atelectasis or pneumonia. There is no pleural effusion, pneumothorax, or pulmonary vascular congestion. The heart is normal in size. There is degenerative change of the right shoulder. XR/XR chest 1V IMPRESSION: Markedly limited examination due to low lung volumes. Left basilar atelectasis versus pneumonia. Electronically signed by: Garry Long MD 11/28/2024 12:43 PM EDT
--- NOTE | ~2024-11-28 | XR_ITS ---
EXAMINATION: XR CHEST CLINICAL INFORMATION: encephalopathy, hypoxia COMPARISON: 11/28/2024 TECHNIQUE: AP view of the chest was obtained. FINDINGS: The cardiac silhouette is partially obscured. There is likely cardiac enlargement. Mediastinal and hilar contours appear normal and unchanged. Aortic mural calcifications. Lungs demonstrate low lung volumes. There is haziness of the interstitium, with subtle Erika B lines in the peripheral lungs, and hazy opacities in the perihilar regions and lower lobe distributions. Findings suggest interstitial pulmonary edema. Suspect small pleural effusions bilaterally. No perceptible pneumothorax. No focal osseous or soft tissue abnormality. There are degenerative changes in both shoulder joints and throughout the spine. XR/XR chest 1V IMPRESSION: 1. Low lung volumes with small pleural effusions and findings suspicious for interstitial and alveolar pulmonary edema. Major differential is atypical pneumonia. This appears minimally progressed from the prior radiograph. 2. Probable cardiac enlargement. Electronically signed by: Bigg Eisenberg MD 12/01/2024 02:22 PM EDT
--- NOTE | 2024-11-28 11:46 | ED.GENADULT ---
HPI - General Adult General Chief complaint: General Medical Stated complaint: UTI, NOT RESP TO ABX PER SNF Time Seen by Provider: 11/28/24 11:35 Source: EMS and RN notes reviewed Mode of arrival: EMS Limitations: altered mental status History of Present Illness ED Provider: DR. Thompson HPI narrative: 89-year-old female history of AFib, chronic lower extremity wounds, GERD, dementia, T2 DM, CKD, anemia of chronic disease brought in by EMS for evaluation of lethargy and increased mental status change. Patient is non historian at this point, reviewing nursing note from [facility] patient is DNR/DNI/DNT patient recently diagnosed with UTI and was placed on antibiotic (Macrobid 100 mix PID since 11/24), patient noted still to be change mental status, found to be hypoxic in the ED 91% on room air patient was placed on 2 L of oxygen O2 sat is ranging from 93-95%. Fever of 100.7 also was noted. Related Data Home Medications ?Medication ?Instructions ?Recorded ?Confirmed amiodarone 200 mg tablet 1 tab PO DAILY 01/16/21 09/27/21 apixaban 2.5 mg tablet (Eliquis) 1 tab PO BID 01/16/21 09/27/21 cholecalciferol (vitamin D3) 25 25 mcg PO DAILY 01/16/21 09/27/21 mcg (1,000 unit) capsule gabapentin 100 mg capsule 100 mg PO DAILY@1200 01/16/21 09/27/21 gabapentin 100 mg capsule 200 mg PO BEDTIME 01/16/21 09/27/21 lidocaine 4 % topical patch 1 patch topical DAILY 01/16/21 09/27/21 (Lidocaine Pain Relief) multivitamin with minerals 1 tab PO DAILY 01/16/21 09/27/21 pantoprazole 40 mg tablet,delayed 1 tab PO DAILY 01/16/21 09/27/21 release quetiapine 25 mg tablet 12.5 mg PO BID 01/16/21 09/27/21 sennosides 8.6 mg-docusate sodium 1 tab-cap PO DAILY 01/16/21 09/27/21 50 mg tablet (Senna-S) sertraline 100 mg tablet 1 tab PO DAILY 01/16/21 09/27/21 verapamil 120 mg tablet,extended 1 tab PO DAILY 09/27/21 09/27/21 release acetaminophen 500 mg capsule 500 mg PO Q6H PRN 03/30/24 ascorbate calcium (vitamin C) 500 500 mg PO DAILY 03/30/24 mg tablet bisacodyl 10 mg rectal suppository 10 mg NM DAILY PRN 03/30/24 magnesium hydroxide 400 mg/5 mL 30 ml PO DAILY PRN 03/30/24 oral suspension (Milk of Magnesia) mv-mn-folic 200 mcg-vit K 15 1 cap PO DAILY 03/30/24 mcg-lutein 5 mg-zeaxanthin 1 mg capsule (PreserVision AREDS 2 Plus Multivit) peg [id number] 1 2 drp ophthalmic (eye) BID-QID PRN 03/30/24 %-0.2 %-0.2 % eye drops (Artificial Tears ([id number])) potassium chloride 10 mEq 10 meq PO BID 03/30/24 tablet,extended release sodium phosphates 19 gram-7 118 ml NM DAILY PRN 03/30/24 gram/118 mL enema (Fleet Enema) Previous Rx's ?Medication ?Instructions ?Recorded cefuroxime axetil 250 mg tablet 250 mg PO BID 7 days #14 tabs 06/13/24 Allergies Allergy/AdvReac Type Severity Reaction Status Date / Time morphine Allergy Unknown Unknown Verified 11/28/24 10:58 Review of Systems Review of Systems: Yes Unobtainable due to mental status PMFSH Past Medical History Medical History CKD (chronic kidney disease) stage 3, GFR 30-59 ml/min Chronic wound of extremity GERD (gastroesophageal reflux disease) Major depressive disorder Type 2 diabetes mellitus A-fib Surgical History History of esophagogastroduodenoscopy (EGD) H/O colonoscopy H/O partial resection of colon Social History Social History Household Members: Other Housing: Assisted Living Facility Housing Other:: [facility] Do you presently have visiting nurse or other home services: No Unable to assess alcohol history related to: Unknown Alcohol intake: never Patient Tobacco Use Status: Never used Tobacco Smoked in Last 30 Days: No Use of substances other than those prescribed or required for medical reasons: No Advance Directives: Yes Advance Directives on File: Yes Advance Directives Date on File: 09/27/21 service: No Current occupational status: retired Physical Exam ED Vital Signs: Vital Signs - 24 hr 11/28/24 10:56 11/28/24 11:02 11/28/24 12:00 Temperature 100.7 F H Pulse Rate 46 L 46 L 77 Respiratory Rate 20 16 18 Blood Pressure 130/48 L 110/47 L 120/49 L Pulse Oximetry 99 93 99 Oxygen Delivery Method Nasal Cannula Room Air Nasal Cannula Oxygen Flow Rate 2 11/28/24 13:53 Temperature Pulse Rate 40 L Respiratory Rate 16 Blood Pressure 98/43 L Pulse Oximetry 100 Oxygen Delivery Method Nasal Cannula Oxygen Flow Rate 2 BMI result Body Mass Index 23.5 Vital signs have been reviewed and appear to be correct. Blood pressure elevated. Bradycardia, Respiratory rate normal. Low-grade fever. Oxygen saturation normal. Appearance: Alert. Oriented X3. No acute distress. Head: Normal external exam. Normocephalic. Atraumatic. No Hubbard signs noted. No raccoon eyes noted Eyes: PERRLA. EOMI. Conjunctiva and sclera normal. Eyelids normal. ENT: TM's Normal. Pharynx normal. Uvula midline. Moist mucous membranes. No trismus noted. No drooling noted. No muffled voice noted. Neck: Normal inspection. Neck supple. FROM. No adenopathy. Thyroid Normal. No meningeal signs. No neck mass noted. CVS: Normal heart rate and rhythm. Heart sound normal. No murmurs noted. Pulses normal throughout. Respiratory: No respiratory distress. Painless inspiration. Breath sounds normal. No wheezes/rales/rhonchi noted. Chest nontender. No accessory muscle usage noted or decreased air movement noted. Abdomen: Soft and nontender. Bowel sounds normal in all 4 quadrants. No distention noted. No organomegaly noted. No visible injury noted. Back: No CVA tenderness. Full range of motion noted. Skin: Skin warm and dry. Normal skin color. Normal skin turgor. No rashes/lesions/lacerations noted. Extremities: No lower extremity edema. Extremities exhibit normal range of motion. Extremities nontender. Neuro: Oriented X 3. Cranial nerve exam: II-XII are grossly intact No motor deficit. No sensory deficit. Reflexes normal. Course Reevaluation(s) Reevaluation #1: Was sent for increased confusion from her baseline, patient just finished course of oral antibiotic for UTI at the [facility], initially O2 sat on room air was 90-92 % patient normally do not use supplemental oxygen, placed on 2 L of nasal cannula in the ED with improvement of O2 sat to 98-100%. MOLST form is DNR/DNR/do not transfer to the hospital. Case discussed with her daughter (HCP) who wish her to be admitted to the hospital for the IV antibiotic. Time: 14:35 Medications Administered Discontinued Medications Generic Name Dose Route Start Last Admin Trade Name Freq PRN Reason Stop Dose Admin Ceftriaxone Sodium 1 gm 11/28/24 12:50 11/28/24 13:15 Ceftriaxone Sodium 1 Gm Vial IVPUSH 11/28/24 12:51 1 gm ONCE ONE Administration Doxycycline Hyclate 100 mg/ 250 mls @ 166.67 mls/hr 11/28/24 12:50 11/28/24 13:15 Sodium Chloride IV 11/28/24 14:19 166.67 mls/hr ONCE ONE Administration Medical Decision Making Differential Diagnosis Differential Diagnoses: The differential diagnosis associated with the presentation includes (Pneumonia, pneumothorax, pleural effusion, electrolyte derangement, severe anemia, CHF, ACS.) Admission/Observation Consideration of admission/observation: Escalation of care including admission/observation considered Consult Healthcare Provider Management of the patient was discussed with: Hospitalist (Marsha Leo) Lab Data MDM Lab Attestation statement: I reviewed the patient's lab results. 11/28/24 11:55 11/28/24 11:55 Labs: Lab Results 11/28/24 Range/Units 11:55 WBC 7.9 (4.8-10.8) X10*3/uL RBC 3.52 L (4.20-5.50) X10*6/uL Hgb 10.6 L (12.0-16.0) g/dl Hct 35.1 L (37.0-47.0) % MCV 99.7 H (80.0-98.0) fL MCH 30.1 (27.0-33.0) pg MCHC 30.2 L (31.0-35.0) g/dl RDW 14.0 (11.0-16.0) % Plt Count 135 L D (160-400) X10*3/uL MPV 10.4 (9.4-12.3) fL Immature Gran % (Auto) 0.3 (0.0-0.4) % Neut % (Auto) 85.6 H (45-73) % Lymph % (Auto) 8.6 L (20-40) % [place] % (Auto) 5.1 (2-11) % Eos % (Auto) 0.0 (0-4) % Baso % (Auto) 0.4 (0-2) % Lymph # (Auto) 0.7 L (1.2-4.9) X10*3/uL [place] # (Auto) 0.4 (0.1-1.2) X10*3/uL Eos # (Auto) 0.0 (0.0-0.4) X10*3/uL Baso # (Auto) 0.0 (0.0-0.2) X10*3/uL Abs Immat Gran (auto) 0.02 (0.00-0.03) X10*3/uL Absolute Neuts (auto) 6.8 (2.0-8.3) x10*3/uL Absolute Nucleated RBC 0.000 (0.0-0.012) X10*3/uL Nucleated RBC % (auto) 0.0 (0.0-0.2) /100WBC Sodium 142 (135-145) mmol/L Potassium 5.7 H D (3.3-5.1) mmol/L Chloride 106 (96-108) mmol/L Carbon Dioxide 27 (22-29) mmol/L Anion Gap 15 (12-20) BUN 45 H (9-16) mg/dL Creatinine 3.29 H (0.5-1.4) mg/dL Estim Creat Clear Calc 10.6 Estimated GFR 13 Random Glucose 127 H (60-115) mg/dL Calcium 9.2 D (8.4-10.2) mg/dL Total Bilirubin 0.3 (0.0-1.0) mg/dL Direct Bilirubin 0.1 (0.0-0.5) mg/dL AST 28 (5-31) U/L ALT 12 (0-31) U/L Alkaline Phosphatase 76 (39-117) U/L Troponin I High Sens 21.0 H (<3.5-17.0) ng/L B-Natriuretic Peptide 673 H (<100) pg/mL Total Protein 6.8 (6.5-8.0) g/dL Albumin 4.3 (3.5-5.0) g/dL Lipase 51 (8-78) U/L Independent Interpretation I performed an independent interpretation of an: Plain X-Ray (Chest:Markedly limited examination due to low lung volumes. Left basilar atelectasis versus pneumonia. ) Radiology Impression Discussion of test interpretation with radiology: I have reviewed the radiologist's reading. Discharge Plan Discharge Clinical Impression: Pneumonia Patient Disposition: Admitted As Inpatient Print Language: Syriac
[2024-11-28 12:01] LABS: MANUAL DIFF FLAG NO
[2024-11-28 12:03] LABS: Hematocrit 35.1 % (37.0-47.0); Hemoglobin 10.6 g/dl (12.0-16.0); Imm Gran Abs Auto 0.02 X10*3/uL (0.00-0.03); Imm Gran Pct Auto 0.3 % (0.0-0.4); Lymphocytes Absolute Auto 0.7 X10*3/uL (1.2-4.9); Mean Corpuscular HGB Conc 30.2 g/dl (31.0-35.0); Mean Corpuscular Hemoglobin 30.1 pg (27.0-33.0); Mean Corpuscular Volume 99.7 fL (80.0-98.0); NRBC Abs Auto 0.000 X10*3/uL (0.0-0.012); NRBC Pct Auto 0.0 /100WBC (0.0-0.2); Platelet Count 135 X10*3/uL (160-400); Red Blood Count 3.52 X10*6/uL (4.20-5.50); White Blood Count 7.9 X10*3/uL (4.8-10.8)
[2024-11-28 12:18] LABS: Alanine Aminotransferase 12 U/L (0-31); Albumin Level 4.3 g/dL (3.5-5.0); Alkaline Phosphatase 76 U/L (39-117); Anion Gap 15 (12-20); Aspartate Amino Transferase 28 U/L (5-31); Blood Urea Nitrogen 45 mg/dL (9-16); Calcium 9.2 mg/dL (8.4-10.2); Carbon Dioxide 27 mmol/L (22-29); Chloride 106 mmol/L (96-108); Creatinine Clr Calc Pharmacy 10.6; Estimated Glomerular Filt Rate 13; Lipase 51 U/L (8-78); Potassium 5.7 mmol/L (3.3-5.1); Sodium 142 mmol/L (135-145); Total Protein 6.8 g/dL (6.5-8.0)
[2024-11-28 12:22] LABS: B Type Natriuretic Peptide 673 pg/mL (<100); Troponin-I High Sensitivity 21.0 ng/L (<3.5-17.0)
--- NOTE | 2024-11-28 12:30 | PC.NURSE ---
Addendum entered by Daya Turner RN 11/28/24 12:32: Patient is a 89-year-old female history of AFib, chronic lower extremity wounds, GERD, dementia, T2 DM, CKD, anemia of chronic disease brought in by EMS for evaluation of lethargy and increased mental status change. Patient is non historian at this point, reviewing nursing note from [facility] patient is DNR/DNI/DNT patient recently diagnosed with UTI and was placed on antibiotic (Macrobid 100 mix PID since 11/24), patient noted still to be change mental status, found to be hypoxic in the ED 91% on room air patient was placed on 2 L of oxygen. Patient alert and confused, speech garbled. Lungs essentially clear but diminshed. Rspirations even and non-labored. Abdomen soft, non-tender with positive bowel sounds. Positive pedal pulses with no edema noted. Original Note: Past Medical History Medical History CKD (chronic kidney disease) stage 3, GFR 30-59 ml/min Chronic wound of extremity GERD (gastroesophageal reflux disease) Major depressive disorder Type 2 diabetes mellitus A-fib
--- OUTSIDE RECORDS SUMMARY | 2024-11-28 12:37 | XMS_ITS | Clinical Summary ---
Author Organization [facility], Address [address] [place] [address] [address] [place] [address] Phone Care Team Providers Care Special Events Manager Name Role Phone Donaldo Mandujano MD Primary Care Provider [phone] Allergies Active Allergy Reactions Criticality Noted Date Comments Morphine 11/30/2020 Medications amiodarone (PACERONE) 100 MG tablet Take 1 tablet by mouth 1 (one) time each day Active apixaban (ELIQUIS) 2.5 MG tablet Take 1 tablet by mouth 2 (two) times a day Active aspirin 81 MG chewable tablet Chew 81 mg daily 07/18/2017 Active verapamil SR (CALAN-SR) 120 MG CR tablet Take 1 tablet by mouth 1 (one) time each day Active sertraline (ZOLOFT) 100 MG tablet Take 1 tablet by mouth 1 (one) time each day Active Active Problems Problem Noted Date Diagnosed Date Other acute kidney failure 07/31/2020 Hypertensive heart and chron ic kidney disease without heart failure, with stage 1 through stage 4 chronic kidney disease, or unspecified chronic kidney disease 04/03/2020 Iron deficiency anemia 04/03/2020 Chronic kidney disease, stage 4 (severe) 020 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 03/06/2020 Anemia 07/04/2019 Renal disorder due to type 2 diabetes mellitus 0 07/04/2019 Resolved Problems Problem Noted Date Diagnosed Date Resolved Date Vitamin D deficiency 07/05/2019 021 Type 2 diabetes mellitus wit h diabetic chronic kidney disease 07/04/2019 11/30/2020 Hyperlipidemia 07/04/2019 11/30/2020 Hypertensive disorder 07/04/20192020 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 07/04/2019 11/30/2020 Type 2 diabetes mellitus 07/04/201901/2021 Atrial fibrillation 07/09/2017 12/01/19 21 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 11/30/2020 Family History Relation Status Comments Father Unknown Mother Unknown Social History Tobacco Use Types Packs/Day Years Used Date Smoking Tobacco: Never Alcohol Use Standard Drinks/Week Comments No 0 (1 standard drink = 0.6 oz pur e alcohol) Comments Unknown Sex and Gender Information Value Date Recorded Sex Assigned at Not on file Legal Sex Female 8:28 AM EDT Gender Identity Not on file Sexual Orientation Not on file Last Filed Vital Signs Vital Sign Reading Time Taken Comments Blood Pressure 122/65 07/05/2019 3:15 PM EST Pulse 74 07/05/2019 3:15 PM EST Temperature - - Respiratory Rate 16 07/05/2019 3:15 PM EST Oxygen Saturation - - Inhaled Oxygen Concentration - - Weight 70.3 kg (155 lb) 07/05/2019 3:15 PM EST Height 154.9 cm (5' 1 ) 07/05/2019 3:15 PM EST Body Mass Index 29.29 07/05/2019 3:15 PM EST Plan of Treatment Health Maintenance Due Date Last Done Comments Pneumococcal Vaccine: 50+ Years (1 of 2 - PCV) 09/10/1954 Diabetes: Hemoglobin A1C 09/30/2021 020, 03/16/2019, 07/09/2017 Diabetes: Ophthalmology Exam 09/30/2021 Diabetes: Pedal Pulse Checked 09/30/2021 Diabetes: Sensory Foot Exam 09/30/2021 Diabetes: Visual Foot Exam 09/30/2021 Influenza Vaccine (#1) 2025 Hepatitis B Vaccine Aged Out No longe r eligible based on patient's age to complete this topic Procedures Procedure Name Priority Date/Time Associated Diagnosis Comments HEMOGLOBIN A1C Routine 04/10/2020 11:24 AM EST Renal disorder due to type 2 diabetes mellitus (HCC) 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 DIAGNOSTIC USE: The [place] Diabetes Association (ADA) and the World Health Organization (WHO) recommend the use of HbA1c to diagnose diabetes using a threshold of 6.5%. Patients who have an HbA1c between 5.7% and 6.4% are considered at increased risk for developing diabetes in the future. CAUTION: Falsely low HbA1c results may be observed in patients with hemolytic anemia, homozygous forms of abnormal hemoglobin (e.g. SS, CC, SC), , recent blood loss or hemoglobin F greater than 7%. Fructosamine may be used as an alternate test in these cases. REFERENCE: ADA: Standards of Medical Care in Diabetes 2020, The Journal of Clinical and Applied Research and Education Volume 43, Supplement 1 Testing performed or reported by [facility], a Service of [facility], [address] [place] [id number] Cheo Ivan MD, Fuel Distribution System Operator Blood specimen (specimen) Venous blood / Unknown 04/10/2020 11:24 AM EST 04/10/2020 11:43 AM EST Barrie Jiménez MD LAB BLOOD ORDERABLES [facility] from Last 3 Months or Most Recently Relevant to Health Maintenance Insurance Medicare Medicaid [place] [facility] Medicare [facility] Care Teams Special Events Manager Relationship Specialty Start Date End Date Donaldo Mandujano MD [facility] [address] [place] [address] PCP - General Family Medicine 09/30/21
--- NOTE | 2024-11-28 14:04 | PC.NURSE ---
Spoke with patients daughter regarding her diagnosis of pneumonia and UTI and she requested that the patient be admitted IV abx therapy.
--- NOTE | 2024-11-28 14:55 | PM.IMHP ---
History of Present Illness Date of Service: 11/28/24 Chief Complaint: Hypoxia, AMS 89-year-old female history of AFib, chronic lower extremity wounds, GERD, dementia, T2 DM, CKD, anemia of chronic disease brought in by EMS for evaluation of lethargy and mental status change. Patient unable to provide any history due to dementia and AMS. Patient recently treated with Macrobid for UTI which started 11/24/2024. Patient was transferred to ED following Mental status changes and decreased responsiveness. Patient noted to be hypoxic and febrile in the ED. chest x-ray in the ED demonstrated left basilar atelectasis versus pneumonia. No pleural effusion, pneumothorax or pulmonary vascular congestion. Heart is normal in size. Mild anemia 10.6/35.1 consistent with baseline, no leukocytosis. Patient noted to have acute kidney injury. Creatinine increased to 3.29, baseline 1.5-1.7. K 5.7. Troponin slightly elevated. appears at baseline for patient. BNP 673, previously 571. Review of Systems Review of Systems: Unable to obtain review of systems due to dementia, and altered mental status. [facility] Medical History CKD (chronic kidney disease) stage 3, GFR 30-59 ml/min Chronic wound of extremity GERD (gastroesophageal reflux disease) Major depressive disorder Type 2 diabetes mellitus A-fib Surgical History History of esophagogastroduodenoscopy (EGD) H/O colonoscopy H/O partial resection of colon Social History Household Members: Other Housing: Assisted Living Facility Housing Other:: [facility] Do you presently have visiting nurse or other home services: No Unable to assess alcohol history related to: Unknown Alcohol intake: never Patient Tobacco Use Status: Never used Tobacco Smoked in Last 30 Days: No Use of substances other than those prescribed or required for medical reasons: No Advance Directives: Yes Advance Directives on File: Yes Advance Directives Date on File: 09/27/21 service: No Current occupational status: retired Meds Allergies Allergy/AdvReac Type Severity Reaction Status Date / Time morphine Allergy Unknown Unknown Verified 11/28/24 10:58 Home Medications ?Medication ?Instructions ?Recorded ?Confirmed ?Last Taken ?Type amiodarone 200 mg tablet 200 mg PO DAILY 01/16/21 11/28/24 09/27/21 History apixaban 2.5 mg tablet (Eliquis) 2.5 mg PO BID 01/16/21 11/28/24 09/27/21 History cholecalciferol (vitamin D3) 25 25 mcg PO DAILY 01/16/21 11/28/24 09/27/21 History mcg (1,000 unit) capsule gabapentin 100 mg capsule 100 mg PO DAILY@1200 01/16/21 11/28/24 09/26/21 History quetiapine 25 mg tablet 12.5 mg PO BID 01/16/21 11/28/24 09/27/21 History sennosides 8.6 mg-docusate sodium 1 tab-cap PO DAILY PRN Constipation 01/16/21 11/28/24 09/27/21 History 50 mg tablet (Senna-S) sertraline 100 mg tablet 100 mg PO DAILY 01/16/21 11/28/24 09/27/21 History verapamil 120 mg tablet,extended 120 mg PO DAILY 09/27/21 11/28/24 09/27/21 History release acetaminophen 500 mg capsule 500 mg PO TID PRN Pain 03/30/24 11/28/24 Unknown History bisacodyl 10 mg rectal suppository 10 mg OR DAILY PRN Constipation 03/30/24 11/28/24 Unknown History magnesium hydroxide 400 mg/5 mL 30 ml PO DAILY PRN Constipation 03/30/24 11/28/24 Unknown History oral suspension (Milk of Magnesia) sodium phosphates 19 gram-7 118 ml OR DAILY PRN Constipation 03/30/24 11/28/24 Unknown History gram/118 mL enema (Fleet Enema) dextran 70-hypromellose eye drops 2 drp ophthalmic (eye) TID PRN Dry 11/28/24 11/28/24 Unknown History (Artificial Tears (dextran Eyes 70-hypromellose) eye drops) dextrose 40 % oral gel (Glucose 15 g PO Q15M PRN low blood sugar 11/28/24 11/28/24 Unknown History Gel) gabapentin 300 mg capsule 300 mg PO DAILY 11/28/24 11/28/24 Unknown History lidocaine 4 % topical patch 1 patch topical DAILY 11/28/24 11/28/24 Unknown History (Aspercreme (lidocaine)) lisinopril 5 mg tablet 5 mg PO DAILY 11/28/24 11/28/24 Unknown History nitrofurantoin 1 cap PO BID 11/28/24 11/28/24 Unknown History monohydrate/macrocrystals 100 mg capsule quetiapine 25 mg tablet 25 mg PO BEDTIME 11/28/24 11/28/24 Unknown History tramadol 50 mg tablet 25 mg PO BID PRN pain 11/28/24 11/28/24 Unknown History vit C 250 mg-vit E 90 mg-zinc 40 1 cap PO DAILY 11/28/24 11/28/24 Unknown History mg-copper 1 [id number] capsule (PreserVision AREDS-2) Physical Exam Vital Signs and Narrative: Vital Signs: Last Vital Signs Temp 100.7 F H 11/28/24 10:56 Pulse 40 L 11/28/24 13:53 Resp 16 11/28/24 13:53 BP 98/43 L 11/28/24 13:53 Pulse Ox 100 11/28/24 13:53 O2 Del Method Nasal Cannula 11/28/24 13:53 O2 Flow Rate 2 11/28/24 13:53 Oxygen Flow Rate 2 11/28/24 10:56 BMI result Body Mass Index 23.5 CONST: Lethargic and confused, in NAD. HEENT: Normocephalic, atraumatic RESP: Lungs clear and diminished, RRR even and regular, poor inspiratory effort. HEART:,RRR, S1, S2. No edema GI:Abdomen Soft NT, ND. + BS times four :Deferred SKIN: Warm dry and intact, no visible lesions or rashes NEURO:Moves all extremities. Unable to participate in exam PSYCH: Lethargic, confused Results Labs 11/28/24 11:55 11/28/24 11:55 Labs: Laboratory Results - last 24 hr 11/28/24 11:55 MCV 99.7 H MCH 30.1 MCHC 30.2 L RDW 14.0 Plt Count 135 L D MPV 10.4 Immature Gran % (Auto) 0.3 Neut % (Auto) 85.6 H Lymph % (Auto) 8.6 L [place] % (Auto) 5.1 Eos % (Auto) 0.0 Baso % (Auto) 0.4 Lymph # (Auto) 0.7 L [place] # (Auto) 0.4 Eos # (Auto) 0.0 Baso # (Auto) 0.0 Abs Immat Gran (auto) 0.02 Absolute Neuts (auto) 6.8 Absolute Nucleated RBC 0.000 Nucleated RBC % (auto) 0.0 Anion Gap 15 Estim Creat Clear Calc 10.6 Estimated GFR 13 Random Glucose 127 H Calcium 9.2 D Total Bilirubin 0.3 Direct Bilirubin 0.1 AST 28 ALT 12 Alkaline Phosphatase 76 B-Natriuretic Peptide 673 H Total Protein 6.8 Albumin 4.3 Lipase 51 Imaging Radiologist's Impressions: Impressions Chest X-Ray 11/28/24 12:25 IMPRESSION: Markedly limited examination due to low lung volumes. Left basilar atelectasis versus pneumonia. Electronically signed by: Garry Long MD 11/28/2024 12:43 PM EDT RP Assessment and Plan (1) Acute on chronic kidney failure: Status: Acute Plan 89-year-old female with a past medical history of AFib, chronic lower extremity wounds, GERD, dementia, type 2 diabetes, chronic kidney disease, anemia of chronic kidney disease brought in by EMS for lethargy andmental status changes. Admitted for treatment of hypoxia, SARAH. Acute hypoxic respiratory failure related to probable pneumonia versus atelectasis Noted to have decreased saturations of 90-92%, placed on supplemental O2 with improvement in oxygen saturation to 98-100% Received dose of doxycycline and ceftriaxone in the ED Chest x-ray with questionable left lower lobe pneumonia versus atelectasis Patient was febrile to 100.7 Acute kidney injury/CKD Stage 3. Patient's baseline creatinine 1.5-1.7 Creatinine noted to be increased to 3.29 Gentle hydration at 50 cc an hour Hold Lisinopril. Follow labs Paroxysmal AFIB/HTN Continue Eliquis 2.5 b.i.d. Continue Amiodarone Hold verapamil Acute metabolic encephalopathy Hold all sedating medications CODE STATUS DNR/DNI VTE prophylaxis: Eliquis. Quality Stroke Does the patient have a stroke diagnosis?: No VTE Prior VTE?: No VTE Risk Level:: Medical - moderate - high VTE Device Contraindication: Treatment Not Indicated VTE Drug Contraindication: N/A - Med Ordered
--- NOTE | 2024-11-28 15:59 | PHA.MEDREC ---
Addendum entered by Erich Grubbs RPh 11/28/24 16:34: MED REC CHECKED BY [facility] Original Note: Pharmacy Consult ? Medication Reconciliation Pharmacy has completed the medication reconciliation. Utilized list from [facility] to confirm med list.
[2024-11-28 16:49] LABS: Resp Syncy Virus RNA Qual PCR NEGATIVE (Negative); SARS COV2 PCR INHOUSE NEGATIVE (Negative)
--- NOTE | 2024-11-28 21:10 | PC.NURSE ---
attempted 2100 med pass with pt. pt arousable to name and alert and oriented to self only. during med pass pt was falling asleep, was able to give eliquis but held docusate as pt had to be coached through taking med. performed bedside swallow assessment with pt but failed as she is not alert and oriented enough to perform assessment. Provider Sabrina aware, no new orders at this time.
--- NOTE | 2024-11-28 21:44 | ED_ITS ---
<Statement entered by AYLA Lopez-ISA - 11/28/24 23:37> I was not directly involved in this patient's care HPI - General Adult General Chief complaint: General Medical Stated complaint: UTI, NOT RESP TO ABX PER SNF Time Seen by Provider: 11/28/24 11:35 Source: EMS and RN notes reviewed Mode of arrival: EMS Limitations: altered mental status Related Data Home Medications ?Medication ?Instructions ?Recorded ?Confirmed amiodarone 200 mg tablet 200 mg PO DAILY 01/16/2112/16 apixaban 2.5 mg tablet (Eliquis) 2.5 mg PO BID 1 11/28/24 cholecalciferol (vitamin D3) 25 25 mcg PO DAILY 11/28/24 mcg (1,000 unit) capsule gabapentin 100 mg capsule 100 mg PO DAILY@1200 1 11/28/24 quetiapine 25 mg tablet 12.5 mg PO BID 01/16/2112/16 sennosides 8.6 mg-docusate sodium 1 tab-cap PO DAILY P RN Constipation 01/16/21 11/28/24 50 mg tablet (Senna-S) sertraline 100 mg tablet 100 mg PO DAILY 01/16/2112/16 verapamil 120 mg tablet,extended 120 mg PO DAILY 09/2711/28/24 release acetaminophen 500 mg capsule 500 mg PO TID PRN Pain 11/28/24 bisacodyl 10 mg rectal suppository 10 mg MT DAILY PRN Constipation 03/30/24 11/28/24 magnesium hydroxide 400 mg/5 mL 30 ml PO DAILY PRN Con stipation 03/30/24 11/28/24 oral suspension (Milk of Magnesia) sodium phosphates 19 gram-7 118 ml MT DAILY PRN Consti pation 03/30/24 11/28/24 gram/118 mL enema (Fleet Enema) dextran 70-hypromellose eye drops 2 drp ophthalmic (ey e) TID PRN Dry 11/28/24 11/28/24 (Artificial Tears (dextran Eyes 70-hypromellose) eye drops) dextrose 40 % oral gel (Glucose 15 g PO Q15M PRN low b lood sugar 11/28/24 11/28/24 Gel) gabapentin 300 mg capsule 300 mg PO DAILY 11/28/2412/16 lidocaine 4 % topical patch 1 patch topical DAILY 12/1611/28/24 (Aspercreme (lidocaine)) lisinopril 5 mg tablet 5 mg PO DAILY 11/28/2411/28 nitrofurantoin 1 cap PO BID 11/28/24 monohydrate/macrocrystals 100 mg capsule quetiapine 25 mg tablet 25 mg PO BEDTIME 11/28/24 tramadol 50 mg tablet 25 mg PO BID PRN pain 11/28/24 vit C 250 mg-vit E 90 mg-zinc 40 1 cap PO DAILY 11/28/24 mg-copper 1 [id number] capsule (PreserVision AREDS-2) Allergies Allergy/AdvReac Type Severity Reaction Status Date / Time morphine Allergy Unknown Unknown Verified 11/28/24 10:58 [facility] Past Medical History Medical History CKD (chronic kidney disease) stage 3, GFR 30-59 ml/min Chronic wound of extremity GERD (gastroesophageal reflux disease) Major depressive disorder Type 2 diabetes mellitus A-fib Surgical History History of esophagogastroduodenoscopy (EGD) H/O colonoscopy H/O partial resection of colon Social History Social History Household Members: Other Housing: Assisted Living Facility Housing Other:: [facility] Do you presently have visiting nurse or other home services: No Unable to assess alcohol history related to: Unknown Alcohol intake: never Patient Tobacco Use Status: Never used Tobacco Smoked in Last 30 Days: No Use of substances other than those prescribed or required for medical reasons: No Advance Directives: Yes Advance Directives on File: Yes Advance Directives Date on File: 09/27/21 service: No Current occupational status: retired Physical Exam ED Vital Signs: Vital Signs - 24 hr 11/28/24 10:56 11/28/24 11:02 11/28/24 12:00 Temperature 100.7 F H Pulse Rate 46 L 46 L 77 Respiratory Rate 20 16 18 Blood Pressure 130/48 L 110/47 L 120/49 L Pulse Oximetry 99 93 99 Oxygen Delivery Method Nasal Cannula Room Air Nasal Cannula Oxygen Flow Rate 2 11/28/24 13:53 Temperature Pulse Rate 40 L Respiratory Rate 16 Blood Pressure 98/43 L Pulse Oximetry 100 Oxygen Delivery Method Nasal Cannula Oxygen Flow Rate 2 BMI result Body Mass Index 23.5 Medications Administered Generic Name Dose Route Start Last Admin Trade Name Frejovanny PRN Reason Stop Dose Admin Apixaban 2.5 mg 11/28/24 21:00 11/28/24 20:57 Apixaban 2.5 Mg Tablet PO 2.5 mg BID JANA Administration Docusate Sodium 100 mg 11/28/24 21:00 11/28/24 21:03 Docusate Sodium 100 Mg Capsule PO Not Given BID JANA Sodium Chloride 1,000 mls @ 50 mls/hr 11/28/24 15:30 11/28/24 16:32 Ns IVCONT 50 mls/hr .Q20H JANA Administration Sodium Chloride 3 ml 11/28/24 16:00 11/28/24 16:32 0.9 % Sodium Chloride Flush 3 Ml Syringe IVFLUSH Not Given QSHIFT JANA Discontinued Medications Generic Name Dose Route Start Last Admin Trade Name Frantz PRN Reason Stop Dose Admin Ceftriaxone Sodium 1 gm 11/28/24 12:50 11/28/24 13:15 Ceftriaxone Sodium 1 Gm Vial IVPUSH 11/28/24 12:51 1 gm ONCE ONE Administration Doxycycline Hyclate 100 mg/ 250 mls @ 166.67 mls/hr 11/28/24 12:50 11/28/24 14:45 Sodium Chloride IV 11/28/24 14:19 Infused ONCE ONE Infusion Medical Decision Making Lab Data 11/28/24 11:55 11/28/24 11:55 Labs: Lab Results 11/28/24 Range/Units 11:55 WBC 7.9 (4.8-10.8) X10*3/uL RBC 3.52 L (4.20-5.50) X10*6/uL Hgb 10.6 L (12.0-16.0) g/dl Hct 35.1 L (37.0-47.0) % MCV 99.7 H (80.0-98.0) fL MCH 30.1 (27.0-33.0) pg MCHC 30.2 L (31.0-35.0) g/dl RDW 14.0 (11.0-16.0) % Plt Count 135 L D (160-400) X10*3/uL MPV 10.4 (9.4-12.3) fL Immature Gran % (Auto) 0.3 (0.0-0.4) % Neut % (Auto) 85.6 H (45-73) % Lymph % (Auto) 8.6 L (20-40) % [place]ahan % (Auto) 5.1 (2-11) % Eos % (Auto) 0.0 (0-4) % Baso % (Auto) 0.4 (0-2) % Lymph # (Auto) 0.7 L (1.2-4.9) X10*3/uL [place] # (Auto) 0.4 (0.1-1.2) X10*3/uL Eos # (Auto) 0.0 (0.0-0.4) X10*3/uL Baso # (Auto) 0.0 (0.0-0.2) X10*3/uL Abs Immat Gran (auto) 0.02 (0.00-0.03) X10*3/uL Absolute Neuts (auto) 6.8 (2.0-8.3) x10*3/uL Absolute Nucleated RBC 0.000 (0.0-0.012) X10*3/uL Nucleated RBC % (auto) 0.0 (0.0-0.2) /100WBC Sodium 142 (135-145) mmol/L Potassium 5.7 H D (3.3-5.1) mmol/L Chloride 106 (96-108) mmol/L Carbon Dioxide 27 (22-29) mmol/L Anion Gap 15 (12-20) BUN 45 H (9-16) mg/dL Creatinine 3.29 H (0.5-1.4) mg/dL Estim Creat Clear Calc 10.6 Estimated GFR 13 Random Glucose 127 H (60-115) mg/dL Calcium 9.2 D (8.4-10.2) mg/dL Total Bilirubin 0.3 (0.0-1.0) mg/dL Direct Bilirubin 0.1 (0.0-0.5) mg/dL AST 28 (5-31) U/L ALT 12 (0-31) U/L Alkaline Phosphatase 76 (39-117) U/L Troponin I High Sens 21.0 H (<3.5-17.0) ng/L B-Natriuretic Peptide 673 H (<100) pg/mL Total Protein 6.8 (6.5-8.0) g/dL Albumin 4.3 (3.5-5.0) g/dL Lipase 51 (8-78) U/L Discharge Plan Discharge Clinical Impression: Pneumonia Patient Disposition: Admitted As Inpatient
[2024-11-28 22:31] LABS: Alanine Aminotransferase 11 U/L (0-31); Albumin Level 4.0 g/dL (3.5-5.0); Alkaline Phosphatase 70 U/L (39-117); Anion Gap 14 (12-20); Aspartate Amino Transferase 23 U/L (5-31); Blood Urea Nitrogen 49 mg/dL (9-16); Calcium 8.8 mg/dL (8.4-10.2); Carbon Dioxide 23 mmol/L (22-29); Chloride 110 mmol/L (96-108); Creatinine Clr Calc Pharmacy 11.1; Estimated Glomerular Filt Rate 14; Magnesium 2.3 mg/dL (1.6-2.6); Potassium 4.9 mmol/L (3.3-5.1); Sodium 142 mmol/L (135-145); Total Protein 6.5 g/dL (6.5-8.0)
[2024-11-29] VITALS (12 sets, daily range): BP systolic 113–171; BP diastolic 47–99; PULSE 54–124; RESP 12–24; TEMP 36.1–37.2; O2SAT 93–99; BMI 25.0
[2024-11-29 06:49] LABS: MANUAL DIFF FLAG NO
[2024-11-29 06:53] LABS: Hematocrit 36.2 % (37.0-47.0); Hemoglobin 10.8 g/dl (12.0-16.0); Imm Gran Abs Auto 0.06 X10*3/uL (0.00-0.03); Imm Gran Pct Auto 0.6 % (0.0-0.4); Lymphocytes Absolute Auto 1.1 X10*3/uL (1.2-4.9); Mean Corpuscular HGB Conc 29.8 g/dl (31.0-35.0); Mean Corpuscular Hemoglobin 30.2 pg (27.0-33.0); Mean Corpuscular Volume 101.1 fL (80.0-98.0); NRBC Abs Auto 0.000 X10*3/uL (0.0-0.012); NRBC Pct Auto 0.0 /100WBC (0.0-0.2); Platelet Count 106 X10*3/uL (160-400); Red Blood Count 3.58 X10*6/uL (4.20-5.50); White Blood Count 9.5 X10*3/uL (4.8-10.8)
[2024-11-29 07:15] LABS: Alanine Aminotransferase 10 U/L (0-31); Albumin Level 4.0 g/dL (3.5-5.0); Alkaline Phosphatase 70 U/L (39-117); Anion Gap 16 (12-20); Aspartate Amino Transferase 27 U/L (5-31); Blood Urea Nitrogen 50 mg/dL (9-16); Calcium 8.9 mg/dL (8.4-10.2); Carbon Dioxide 21 mmol/L (22-29); Chloride 110 mmol/L (96-108); Creatinine Clr Calc Pharmacy 12.1; Estimated Glomerular Filt Rate 15; Potassium 5.0 mmol/L (3.3-5.1); Sodium 142 mmol/L (135-145); Total Protein 6.5 g/dL (6.5-8.0)
--- NOTE | 2024-11-29 09:48 | MHC.CM.PN ---
PATIENT IS IN FROM [facility] WHERE SHE IS A LTC PATIENT. HCP IS INVOKED AND A COPY OF THIS IS ON FILE. PATIENT IS CURRENTLY NOT ABLE TO PARTICIPATE IN MEANINGFUL ASSESSMENT QUESTIONS. ASSESSMENT AND DC PLANNING DISCUSSED WITH HCP/DAUGHTER, DEVAN @ [phone]. 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 PLAN IS FOR RETURN TO [facility] AT DC. IMM 7/8 LEFT BEDSIDE PER CONVERSATION.
--- NOTE | 2024-11-29 10:33 | MHC.SL.SWA ---
Risk of Aspiration Due to: cognitive status dentition Dysphasia Diet Status: UPGRADE Liquid Consistency and Strategies for Safe Swallow: Liquid Intake Recommendation: Thin Solid Food Consistency: Dietary Recommendations: Pureed (NDD1) Oral Medication Intake: Crushed with Puree Please contact the pharmacy regarding appropriate crushable or liquid drug formulations that are available whenever modified delivery is recommended. Compensatory Strategies and Precautions to be Taken for Safe Swallow: sit upright small bites and sips Supervision While Eating and Drinking for Safe Swallow: Total Assistance (1:1) Recommendation for Speech: Inpatient BENZENE STILL UTILITY OPERATOR tx F/u [facility]ZENE STILL UTILITY OPERATOR tx at SNF Comment: Recommend PUREE solids d/t increased confusion, lethargy, and limited trials. Recommend THIN liquids w/ pills CRUSHED in puree. Full assist. Pt requires mug w/ handle to drink per SNF. BENZENE STILL UTILITY OPERATOR to follow and upgrade diet to baseline (chopped) when/if warranted. Bulbs Farmworker Clinican/Clinical Fellow: No Supervisory Statement: I have reviewed and agree with the student/clinical fellow's documentation: N/A Speech Language Pathologist: Chelsy Kerns M.A., CCC-BENZENE STILL UTILITY OPERATOR
[2024-11-29] MEDS: Lidocaine 4 % Patch ADH..PATCH 1 PATCH TRANSDERMA (10:50)
--- NOTE | 2024-11-29 11:13 | P.PNIM_ITS ---
Subjective Subjective Date of Service: 11/29/24 Interval History: weakness Physical Exam 2 Vital Signs: Vital Signs: Last Vital Signs Temp 97.6 F 11/29/24 10:59 Pulse 59 11/29/24 10:59 Resp 18 11/29/24 10:59 BP 152/52 H 11/29/24 10:59 Pulse Ox 99 11/29/24 10:59 O2 Del Method Nasal Cannula 11/29/24 10:59 O2 Flow Rate 2 11/29/24 10:59 Oxygen Flow Rate 2 11/28/24 10:56 BMI result Body Mass Index 23.5 lethargic oriented times 3, ill appearing diminshed abd soft Objective Data Active Medications Acetaminophen (Acetaminophen 325 Mg Tablet) 650 mg PO Q6H PRN PRN Reason: Pain, Mild 1-3,fever,headache Amiodarone HCl (Amiodarone Hcl 200 Mg Tablet) 200 mg PO DAILY [facility] Last Admin: 11/29/24 10:52 Dose: 200 mg Documented By: LIZ Apixaban (Apixaban 2.5 Mg Tablet) 2.5 mg PO BID [facility] Last Admin: 11/29/24 10:52 Dose: 2.5 mg Documented By: LIZ Artificial Tears (Artificial Tears 15 Ml Drops) 2 drop EYE-BOTH TID PRN PRN Reason: Dry Eyes Bisacodyl (Bisacodyl 10 Mg Supp.Rect) 10 mg [place] DAILY PRN PRN Reason: Constipation Calcium Carbonate (Calcium Carbonate 750 Mg Tab.Chew) 750 mg PO Q4H PRN PRN Reason: Heartburn Ceftriaxone Sodium (Ceftriaxone Sodium 1 Gm Vial) 1 gm IV Q24H [facility] Docusate Sodium (Docusate Sodium 100 Mg Capsule) 100 mg PO BID [facility] Last Admin: 11/29/24 10:53 Dose: Not Given Documented By: LIZ Non-Admin Reason: needs meds crushed Doxycycline Hyclate 100 mg/ (Sodium Chloride) 250 mls @ 166.67 mls/hr IV Q12H [facility] Last Infusion: 11/29/24 03:49 Dose: Infused Documented By: PIETER Sodium Chloride (Ns) 1,000 mls @ 50 mls/hr IVCONT .Q20H [facility] Last Admin: 11/29/24 10:53 Dose: 50 mls/hr Documented By: LIZ Lidocaine (Lidocaine 4 % Patch Adh..Patch) 1 patch TRANSDERMA DAILY [facility]; Protocol Last Admin: 11/29/24 10:50 Dose: 1 patch Documented By: LIZ Magnesium Hydroxide (Milk Of Magnesia 30 Ml Oral.Susp) 30 ml PO DAILY PRN PRN Reason: Constipation Magnesium Hydroxide (Milk Of Magnesia 30 Ml Oral.Susp) 30 ml PO DAILY PRN PRN Reason: Constipation Multivitamins/Vitamin C (Multivitamin Tablet) 1 tab PO DAILY [facility] Last Admin: 11/29/24 10:51 Dose: 1 tab Documented By: LIZ Senna/Docusate Sodium (Sennosides/Docusate Sodium Tablet) 1 tab PO DAILY PRN PRN Reason: Constipation Sertraline HCl (Sertraline Hcl 100 Mg Tablet) 100 mg PO DAILY [facility] Last Admin: 11/29/24 10:51 Dose: 100 mg Documented By: LIZ Sodium Biphosphate/Sodium Phosphate (Sodium Phosphate,[place]-Dibasic 133 Ml Enema) 118 ml [place] DAILY PRN PRN Reason: Constipation Sodium Chloride (0.9 % Sodium Chloride Flush 3 Ml Syringe) 3 ml IVFLUSH QSHIFT [facility] Last Admin: 11/29/24 10:53 Dose: Not Given Documented By: LIZ Non-Admin Reason: IV Running Vitamin D (Cholecalciferol (Vitamin D3) 25 Mcg Tablet) 25 mcg PO DAILY [facility] Last Admin: 11/29/24 10:51 Dose: 25 mcg Documented By: LIZ Labs 11/29/24 06:31 11/29/24 06:31 Labs: Laboratory Results - last 24 hr 11/28/24 11/28/24 11/28/24 11:55 16:04 22:02 MCV 99.7 H MCH 30.1 MCHC 30.2 L RDW 14.0 Plt Count 135 L D MPV 10.4 Immature Gran % (Auto) 0.3 Neut % (Auto) 85.6 H Lymph % (Auto) 8.6 L [place] % (Auto) 5.1 Eos % (Auto) 0.0 Baso % (Auto) 0.4 Lymph # (Auto) 0.7 L [place] # (Auto) 0.4 Eos # (Auto) 0.0 Baso # (Auto) 0.0 Abs Immat Gran (auto) 0.02 Absolute Neuts (auto) 6.8 Absolute Nucleated RBC 0.000 Nucleated RBC % (auto) 0.0 Anion Gap 15 14 Estim Creat Clear Calc 10.6 11.1 Estimated GFR 13 14 Random Glucose 127 H 119 H Lactic Acid 1.0 Calcium 9.2 D 8.8 Magnesium 2.3 Total Bilirubin 0.3 0.3 Direct Bilirubin 0.1 AST 28 23 ALT 12 11 Alkaline Phosphatase 76 70 B-Natriuretic Peptide 673 H Total Protein 6.8 6.5 Albumin 4.3 4.0 Lipase 51 TSH 0.77 Influenza Type A (PCR) NEGATIVE Influenza Type B (PCR) NEGATIVE RSV RNA Qual (PCR) NEGATIVE SARS-CoV-2 RNA (RT-PCR) NEGATIVE 11/29/24 06:31 MCV 101.1 H MCH 30.2 MCHC 29.8 L RDW 13.6 Plt Count 106 L MPV 10.5 Immature Gran % (Auto) 0.6 H Neut % (Auto) 76.4 H Lymph % (Auto) 11.7 L [place] % (Auto) 9.9 Eos % (Auto) 0.9 Baso % (Auto) 0.5 Lymph # (Auto) 1.1 L [place] # (Auto) 0.9 Eos # (Auto) 0.1 Baso # (Auto) 0.1 Abs Immat Gran (auto) 0.06 H Absolute Neuts (auto) 7.3 Absolute Nucleated RBC 0.000 Nucleated RBC % (auto) 0.0 Anion Gap 16 Estim Creat Clear Calc 12.1 Estimated GFR 15 Random Glucose 119 H Lactic Acid Calcium 8.9 Magnesium Total Bilirubin 0.3 Direct Bilirubin AST 27 ALT 10 Alkaline Phosphatase 70 B-Natriuretic Peptide Total Protein 6.5 Albumin 4.0 Lipase TSH Influenza Type A (PCR) Influenza Type B (PCR) RSV RNA Qual (PCR) SARS-CoV-2 RNA (RT-PCR) Assessment and Plan (1) Chronic anticoagulation: Status: Acute Plan 89F PMH pafib, unspecified dementia, DM, CKD III, presented with lethargy Acute hypoxic respiratory failure secondary to pneumonia (no sepsis) Continue ceftriaxone and doxycycline Covering for community-acquired pneumonia and possible aspiration Speech recommending pureed solids with thin liquids Acute kidney injury on CKD 3 Continue hydration, monitor, hold lisinopril Paroxysmal AFib Continue Eliquis, amiodarone Holding verapamil for bradycardia Acute metabolic encephalopathy Due to pneumonia and dehydration DNR/DNI DVT prophylaxis on Eliquis reason for continued hospitalization: Hypoxic Quality Stroke Does the patient have a stroke diagnosis?: No VTE Prior VTE?: No VTE Risk Level:: Medical - moderate - high VTE Device Contraindication: Treatment Not Indicated VTE Drug Contraindication: N/A - Med Ordered
--- NOTE | 2024-11-29 13:05 | ECG_ITS ---
Test Reason : AFIB-AVR Blood Pressure : */* mmHG Vent. Rate : 132 BPM Atrial Rate : 132 BPM P-R Int : 144 ms QRS Dur : 98 ms QT Int : 324 ms P-R-T Axes : * -81 108 degrees QTcB Int : 480 ms ?atrial tachycardia Left axis deviation Nonspecific ST and T wave abnormality Abnormal ECG When compared with ECG of 13-Jun-2024 09:38, Atrial tachycardia has replaced Atrial fibrillation Questionable change in QRS duration Referred By: Benigno Bustamante Electronically Signed By: Amando Valdes
--- NOTE | 2024-11-29 13:06 | PC.NURSE ---
Pt hr 130's, looks like afib rvr, Dr. Bustamante made aware, EKG ordered, dr. Bustamante to order IV meds.
--- NOTE | 2024-11-29 14:46 | PC.NURSE ---
Dr. Bustamante made aware pt's HR sustaining 120's after 5mg IV Lopressor, Dr. Bustamante to order PO lopressor QID per tiger message
--- NOTE | 2024-11-29 15:28 | PC.NURSE ---
Patient grossly incontinent of urine. Patient given bed bath and full linen change.
[2024-11-30 03:13] VITALS: BP 176/94; PULSE 95; RESP 22; TEMP 36.2; O2SAT 98
--- NOTE | 2024-11-30 04:05 | PC.NURSE ---
Pt's BP is 176/94, Dr. Ojeda aware. No new orders at this time.
[2024-11-30 06:01] LABS: Hematocrit 34.7 % (37.0-47.0); Hemoglobin 10.8 g/dl (12.0-16.0); Mean Corpuscular HGB Conc 31.1 g/dl (31.0-35.0); Mean Corpuscular Hemoglobin 30.6 pg (27.0-33.0); Mean Corpuscular Volume 98.3 fL (80.0-98.0); NRBC Abs Auto 0.000 X10*3/uL (0.0-0.012); NRBC Pct Auto 0.0 /100WBC (0.0-0.2); Platelet Count 109 X10*3/uL (160-400); Red Blood Count 3.53 X10*6/uL (4.20-5.50); White Blood Count 11.2 X10*3/uL (4.8-10.8)
[2024-11-30 06:14] LABS: Anion Gap 15 (12-20); Blood Urea Nitrogen 37 mg/dL (9-16); Calcium 8.9 mg/dL (8.4-10.2); Carbon Dioxide 24 mmol/L (22-29); Chloride 111 mmol/L (96-108); Creatinine Clr Calc Pharmacy 22.1; Estimated Glomerular Filt Rate 31; Potassium 4.7 mmol/L (3.3-5.1); Sodium 145 mmol/L (135-145)
[2024-11-30 08:00] VITALS: BP 155/82; PULSE 94; RESP 16; TEMP 36.9; O2SAT 94
[2024-11-30] MEDS: Lidocaine 4 % Patch ADH..PATCH 1 PATCH TRANSDERMA (08:25)
--- NOTE | 2024-11-30 09:23 | P.PNIM_ITS ---
Subjective Subjective Date of Service: 11/30/24 Interval History: weakness Physical Exam 2 Vital Signs: Vital Signs: Last Vital Signs Temp 98.4 F 11/30/24 08:00 Pulse 94 11/30/24 08:00 Resp 16 11/30/24 08:00 BP 155/82 H 11/30/24 08:00 Pulse Ox 94 11/30/24 08:00 O2 Del Method Nasal Cannula 11/30/24 08:00 O2 Flow Rate 2.5 11/30/24 08:00 Oxygen Flow Rate 2 11/28/24 10:56 BMI result Body Mass Index 25.0 more alert oriented times 3, ill appearing diminshed abd soft Objective Data Active Medications Acetaminophen (Acetaminophen 325 Mg Tablet) 650 mg PO Q6H PRN PRN Reason: Pain, Mild 1-3,fever,headache Amiodarone HCl (Amiodarone Hcl 200 Mg Tablet) 200 mg PO DAILY [facility] Last Admin: 11/30/24 08:25 Dose: 200 mg Documented By: JAMIE Apixaban (Apixaban 2.5 Mg Tablet) 2.5 mg PO BID [facility] Last Admin: 11/30/24 08:24 Dose: 2.5 mg Documented By: JAMIE Artificial Tears (Artificial Tears 15 Ml Drops) 2 drop EYE-BOTH TID PRN PRN Reason: Dry Eyes Bisacodyl (Bisacodyl 10 Mg Supp.Rect) 10 mg [place] DAILY PRN PRN Reason: Constipation Calcium Carbonate (Calcium Carbonate 750 Mg Tab.Chew) 750 mg PO Q4H PRN PRN Reason: Heartburn Ceftriaxone Sodium (Ceftriaxone Sodium 1 Gm Vial) 1 gm IV Q24H [facility] Last Admin: 11/29/24 12:57 Dose: 1 gm Documented By: KISHORE Docusate Sodium (Docusate Sodium 100 Mg Capsule) 100 mg PO BID [facility] Last Admin: 11/30/24 08:25 Dose: 100 mg Documented By: JAMIE Doxycycline Hyclate 100 mg/ (Sodium Chloride) 250 mls @ 166.67 mls/hr IV Q12H [facility] Last Infusion: 11/30/24 01:39 Dose: Infused Documented By: MOOK Sodium Chloride (Ns) 1,000 mls @ 50 mls/hr IVCONT .Q20H [facility] Last Admin: 11/30/24 08:24 Dose: 50 mls/hr Documented By: JAMIE Lidocaine (Lidocaine 4 % Patch Adh..Patch) 1 patch TRANSDERMA DAILY [facility]; Protocol Last Admin: 11/30/24 08:25 Dose: 1 patch Documented By: JAMIE Magnesium Hydroxide (Milk Of Magnesia 30 Ml Oral.Susp) 30 ml PO DAILY PRN PRN Reason: Constipation Magnesium Hydroxide (Milk Of Magnesia 30 Ml Oral.Susp) 30 ml PO DAILY PRN PRN Reason: Constipation Metoprolol Tartrate (Metoprolol Tartrate 25 Mg Tablet) 25 mg PO QID [facility]; Protocol Last Admin: 11/30/24 08:25 Dose: 25 mg Documented By: JAMIE Multivitamins/Vitamin C (Multivitamin Tablet) 1 tab PO DAILY [facility] Last Admin: 11/30/24 08:24 Dose: 1 tab Documented By: JAMIE Senna/Docusate Sodium (Sennosides/Docusate Sodium Tablet) 1 tab PO DAILY PRN PRN Reason: Constipation Sertraline HCl (Sertraline Hcl 100 Mg Tablet) 100 mg PO DAILY [facility] Last Admin: 11/30/24 08:25 Dose: 100 mg Documented By: JAMIE Sodium Biphosphate/Sodium Phosphate (Sodium Phosphate,[place]-Dibasic 133 Ml Enema) 118 ml [place] DAILY PRN PRN Reason: Constipation Sodium Chloride (0.9 % Sodium Chloride Flush 3 Ml Syringe) 3 ml IVFLUSH QSHIFT [facility] Last Admin: 11/30/24 08:36 Dose: Not Given Documented By: JAMIE Non-Admin Reason: IV Running Vitamin D (Cholecalciferol (Vitamin D3) 25 Mcg Tablet) 25 mcg PO DAILY [facility] Last Admin: 11/30/24 08:25 Dose: 25 mcg Documented By: JAMIE Labs 11/30/24 05:19 11/30/24 05:19 Labs: Laboratory Results - last 24 hr 11/30/24 05:19 MCV 98.3 H MCH 30.6 MCHC 31.1 RDW 13.4 Plt Count 109 L MPV 9.9 Absolute Nucleated RBC 0.000 Nucleated RBC % (auto) 0.0 Anion Gap 15 Estim Creat Clear Calc 22.1 Estimated GFR 31 Random Glucose 115 Calcium 8.9 Assessment and Plan (1) Chronic anticoagulation: Status: Acute Plan 89F PMH pafib, unspecified dementia, DM, CKD III, presented with lethargy Acute hypoxic respiratory failure secondary to pneumonia (no sepsis) Continue ceftriaxone and doxycycline Covering for community-acquired pneumonia and possible aspiration Speech recommending pureed solids with thin liquids - continue to follow weaned to room air Acute kidney injury on CKD 3 likely due to dehydration Continue hydration, monitor, hold lisinopril, creatinine improved from 3.29 to 1.58 which is about baseline Paroxysmal AFib Continue Eliquis, amiodarone, verapamil Acute metabolic encephalopathy Due to pneumonia and dehydration, much improved unspecified dementia quetiapine, gabapentin held for AMS mental status much improved, but currently does not appear to need DNR/DNI DVT prophylaxis on Eliquis reason for continued hospitalization: ongiong iv abx and ivf for pnaumonia and michael Quality Stroke Does the patient have a stroke diagnosis?: No VTE Prior VTE?: No VTE Risk Level:: Medical - moderate - high VTE Device Contraindication: Treatment Not Indicated VTE Drug Contraindication: N/A - Med Ordered
[2024-11-30] MEDS: VerapamiL HCL SR 120 MG TABLET.ER PO (12:35)
[2024-11-30 15:53] VITALS: BP 155/72; PULSE 74; RESP 14; TEMP 37.1; O2SAT 98
[2024-11-30 19:08] VITALS: BP 134/58; PULSE 82; RESP 18; TEMP 37.6; O2SAT 93
[2024-12-01] VITALS (8 sets, daily range): BP systolic 150–181; BP diastolic 74–89; PULSE 90–104; RESP 16–18; TEMP 36.6–37.6; O2SAT 93–98
[2024-12-01 06:46] LABS: Hematocrit 33.3 % (37.0-47.0); Hemoglobin 10.4 g/dl (12.0-16.0); Mean Corpuscular HGB Conc 31.2 g/dl (31.0-35.0); Mean Corpuscular Hemoglobin 30.5 pg (27.0-33.0); Mean Corpuscular Volume 97.7 fL (80.0-98.0); NRBC Abs Auto 0.000 X10*3/uL (0.0-0.012); NRBC Pct Auto 0.0 /100WBC (0.0-0.2); Platelet Count 101 X10*3/uL (160-400); Red Blood Count 3.41 X10*6/uL (4.20-5.50); White Blood Count 7.2 X10*3/uL (4.8-10.8)
[2024-12-01 07:02] LABS: Anion Gap 13 (12-20); Blood Urea Nitrogen 28 mg/dL (9-16); Calcium 8.6 mg/dL (8.4-10.2); Carbon Dioxide 24 mmol/L (22-29); Chloride 109 mmol/L (96-108); Creatinine Clr Calc Pharmacy 30.7; Estimated Glomerular Filt Rate 45; Potassium 4.0 mmol/L (3.3-5.1); Sodium 142 mmol/L (135-145)
--- NOTE | 2024-12-01 07:53 | P.PNIM_ITS ---
Subjective Subjective Date of Service: 12/01/24 Physical Exam 2 Vital Signs: Vital Signs: Last Vital Signs Temp 97.8 F 12/01/24 07:45 Pulse 100 12/01/24 07:45 Resp 17 12/01/24 07:45 BP 169/85 H 12/01/24 07:45 Pulse Ox 97 12/01/24 07:45 O2 Del Method Nasal Cannula 12/01/24 07:45 O2 Flow Rate 1 12/01/24 07:45 Oxygen Flow Rate 2 11/28/24 10:56 BMI result Body Mass Index 25.0 Objective Data Active Medications Acetaminophen (Acetaminophen 325 Mg Tablet) 650 mg PO Q6H PRN PRN Reason: Pain, Mild 1-3,fever,headache Amiodarone HCl (Amiodarone Hcl 200 Mg Tablet) 200 mg PO DAILY [facility] Last Admin: 11/30/24 08:25 Dose: 200 mg Documented By: JAMIE Apixaban (Apixaban 2.5 Mg Tablet) 2.5 mg PO BID [facility] Last Admin: 11/30/24 20:16 Dose: 2.5 mg Documented By: MOOK Artificial Tears (Artificial Tears 15 Ml Drops) 2 drop EYE-BOTH TID PRN PRN Reason: Dry Eyes Bisacodyl (Bisacodyl 10 Mg Supp.Rect) 10 mg [place] DAILY PRN PRN Reason: Constipation Calcium Carbonate (Calcium Carbonate 750 Mg Tab.Chew) 750 mg PO Q4H PRN PRN Reason: Heartburn Ceftriaxone Sodium (Ceftriaxone Sodium 1 Gm Vial) 1 gm IV Q24H [facility] Last Admin: 11/30/24 12:35 Dose: 1 gm Documented By: JAMIE Docusate Sodium (Docusate Sodium 100 Mg Capsule) 100 mg PO BID [facility] Last Admin: 11/30/24 20:16 Dose: Not Given Documented By: MOOK Non-Admin Reason: loose stools Doxycycline Hyclate 100 mg/ (Sodium Chloride) 250 mls @ 166.67 mls/hr IV Q12H [facility] Last Infusion: 12/01/24 01:35 Dose: Infused Documented By: MOOK Sodium Chloride (Ns) 1,000 mls @ 50 mls/hr IVCONT .Q20H [facility] Last Admin: 12/01/24 06:26 Dose: 50 mls/hr Documented By: MOOK Lidocaine (Lidocaine 4 % Patch Adh..Patch) 1 patch TRANSDERMA DAILY [facility]; Protocol Last Admin: 11/30/24 08:25 Dose: 1 patch Documented By: JAMIE Magnesium Hydroxide (Milk Of Magnesia 30 Ml Oral.Susp) 30 ml PO DAILY PRN PRN Reason: Constipation Magnesium Hydroxide (Milk Of Magnesia 30 Ml Oral.Susp) 30 ml PO DAILY PRN PRN Reason: Constipation Multivitamins/Vitamin C (Multivitamin Tablet) 1 tab PO DAILY [facility] Last Admin: 11/30/24 08:24 Dose: 1 tab Documented By: JAMIE Senna/Docusate Sodium (Sennosides/Docusate Sodium Tablet) 1 tab PO DAILY PRN PRN Reason: Constipation Sertraline HCl (Sertraline Hcl 100 Mg Tablet) 100 mg PO DAILY [facility] Last Admin: 11/30/24 08:25 Dose: 100 mg Documented By: JAMIE Sodium Biphosphate/Sodium Phosphate (Sodium Phosphate,[place]-Dibasic 133 Ml Enema) 118 ml [place] DAILY PRN PRN Reason: Constipation Sodium Chloride (0.9 % Sodium Chloride Flush 3 Ml Syringe) 3 ml IVFLUSH QSHIFT [facility] Last Admin: 11/30/24 20:19 Dose: Not Given Documented By: MOOK Non-Admin Reason: IV Running Verapamil HCl (Verapamil Hcl Sr 120 Mg Tablet.Er) 120 mg PO DAILY [facility]; Protocol Last Admin: 11/30/24 12:35 Dose: 120 mg Documented By: JAMIE Vitamin D (Cholecalciferol (Vitamin D3) 25 Mcg Tablet) 25 mcg PO DAILY [facility] Last Admin: 11/30/24 08:25 Dose: 25 mcg Documented By: JAMIE Labs 12/01/24 06:08 12/01/24 06:08 Labs: Laboratory Results - last 24 hr 12/01/24 06:08 MCV 97.7 MCH 30.5 MCHC 31.2 RDW 13.3 Plt Count 101 L MPV 10.5 Absolute Nucleated RBC 0.000 Nucleated RBC % (auto) 0.0 Anion Gap 13 Estim Creat Clear Calc 30.7 Estimated GFR 45 Random Glucose 124 H Calcium 8.6 Assessment and Plan (1) Chronic anticoagulation: Status: Acute Plan 89F PMH pafib, unspecified dementia, DM, CKD III, presented with lethargy Acute hypoxic respiratory failure secondary to pneumonia (no sepsis) Continue ceftriaxone and doxycycline Covering for community-acquired pneumonia and possible aspiration Speech recommending pureed solids with thin liquids - continue to follow weaned to room air Acute kidney injury on CKD 3 likely due to dehydration Continue hydration, monitor, hold lisinopril, creatinine improved from 3.29 to 1.58 which is about baseline Paroxysmal AFib Continue Eliquis, amiodarone, verapamil Acute metabolic encephalopathy Due to pneumonia and dehydration, much improved unspecified dementia quetiapine, gabapentin held for AMS mental status much improved, but currently does not appear to need DNR/DNI DVT prophylaxis on Eliquis reason for continued hospitalization: ongiong iv abx and ivf for pnaumonia and michael Quality Stroke Does the patient have a stroke diagnosis?: No VTE Prior VTE?: No VTE Risk Level:: Medical - moderate - high VTE Device Contraindication: Treatment Not Indicated VTE Drug Contraindication: N/A - Med Ordered
[2024-12-01] MEDS: VerapamiL HCL SR 120 MG TABLET.ER PO (08:48)
[2024-12-01] MEDS: Lidocaine 4 % Patch ADH..PATCH 1 PATCH TRANSDERMA (08:58)
--- NOTE | 2024-12-01 11:44 | PM.DS ---
DS: Providers Provider Date of Service: 12/01/24 Date of admission: 11/28/24 14:40 Date of discharge: 12/01/24 Primary care physician: Shakir Munoz MD Admitting clinician: Keke Busch Attending physician on admission: Benigno Bustamante Attending physician on discharge: Cory Hernandez Discharging clinician: Darya Lyles DS: Diagnosis Discharge Diagnosis (1) Chronic anticoagulation: Status: Acute DS: Summary Hospital Course Hospital Course: HPI on admission by Keke Busch NP on 11/28: Chief Complaint: Hypoxia, AMS 89-year-old female history of AFib, chronic lower extremity wounds, GERD, dementia, T2 DM, CKD, anemia of chronic disease brought in by EMS for evaluation of lethargy and mental status change. Patient unable to provide any history due to dementia and AMS. Patient recently treated with Macrobid for UTI which started 11/24/2024. Patient was transferred to ED following Mental status changes and decreased responsiveness. Patient noted to be hypoxic and febrile in the ED. chest x-ray in the ED demonstrated left basilar atelectasis versus pneumonia. No pleural effusion, pneumothorax or pulmonary vascular congestion. Heart is normal in size. Mild anemia 10.6/35.1 consistent with baseline, no leukocytosis. Patient noted to have acute kidney injury. Creatinine increased to 3.29, baseline 1.5-1.7. K 5.7. Troponin slightly elevated. appears at baseline for patient. BNP 673, previously 571. Hospital course: 81-year-old female admitted to [facility] for management of acute hypoxemic respiratory failure in the setting of pneumonia. No evidence of sepsis. She was treated with IV ceftriaxone and doxycycline to cover for community-acquired pneumonia as well as possible aspiration. On arrival, she had also developed SARAH likely secondary to hypoperfusion from dehydration. She was treated with IV fluids and creatinine returned to baseline. She was seen and evaluated by speech therapy who recommended puree solids with thin liquids which patient tolerated well. No aspiration episodes witnessed. Acute metabolic encephalopathy resolved. She was weaned to 1L supplemental O2 and can be discharged on this. She will be discharged on cefuroxime 500mg BID and doxycycline 100mg BID x 5 days. Continue weaning supplemental O2. Continue with [employer] recommendations. Acute hypoxemic respiratory failure in the setting of pneumonia No sepsis Treated with IV ceftriaxone and doxycycline. Initiate cefuroxime 500 mg twice daily and doxycycline 100 mg twice daily x5 days Continue weaning supplemental O2 maintaining oximetry > 92% Incentive spirometry as needed Acute metabolic encephalopathy In setting of above, resolved Returned to baseline mentation with background unspecified cognitive impairment Resume quetiapine, gabapentin on discharge Continue sertraline Aspiration risk Per [employer], continue pureed solids and thin liquids Sit upright, small bites and sips Pills crushed with puree Acute kidney injury on CKD stage 3 Cr improved from 3.29 to 1.14 with IVF Encourage PO hydration Paroxysmal atrial fibrillation Rate controlled during admission Continue eliquis, amiodarone, verapamil Hypertension Continue lisinopril, verapamil and discharge Chronic normocytic anemia, likely secondary to chronic disease H/H remained baseline Time Attestation Discharge Coordination Time (in mins): 45 Quality: Safe Use of Opioids Does Pt have an Active Cancer Diagnosis on the Problem List?: No Quality: Stroke Does the patient have a stroke diagnosis?: No Physical Exam Vital Signs: Vital Signs: Last Vital Signs Temp 97.8 F 12/01/24 07:45 Pulse 100 12/01/24 07:45 Resp 17 12/01/24 07:45 BP 169/85 H 12/01/24 07:45 Pulse Ox 97 12/01/24 07:45 O2 Del Method Nasal Cannula 12/01/24 07:45 O2 Flow Rate 1 12/01/24 07:45 Oxygen Flow Rate 2 11/28/24 10:56 BMI result Body Mass Index 25.0 Const: General: cooperative, no acute distress and other (weak) Orientation/consciousness: patient oriented x3 Resp: Effort & Inspection: normal respiratory effort, able to speak in complete sentences and no respiratory distress Auscultation: crackles (b/l lower lobes) Cardio: Rate: regular rate Rhythm: regular rhythm Heart sounds: S1 normal heart sound present and S2 normal heart sound present Neuro: General: patient oriented x3 Speech: Abnormal speech present Extrem: General: Yes normal to inspection and Yes no calf tenderness DS: Data Data Completed and Pending Labs on day of discharge: Laboratory Results - last 24 hr 12/01/24 06:08 WBC 7.2 RBC 3.41 L Hgb 10.4 L Hct 33.3 L MCV 97.7 MCH 30.5 MCHC 31.2 RDW 13.3 Plt Count 101 L MPV 10.5 Absolute Nucleated RBC 0.000 Nucleated RBC % (auto) 0.0 Sodium 142 Potassium 4.0 Chloride 109 H Carbon Dioxide 24 Anion Gap 13 BUN 28 H Creatinine 1.14 Estim Creat Clear Calc 30.7 Estimated GFR 45 Random Glucose 124 H Calcium 8.6 Discharge Plan Discharge Anticipated Discharge Date/Time: 12/01/24 12:17 Patient Disposition: Xfer [facility] Discharge Diagnosis: Acute hypoxemic respiratory failure, pneumonia, SARAH, metabolic encephalopathy Referrals: [facility] [Outside] - 1 Week Shakir Munoz MD [Primary Care Provider, Internal Medicine] - 1 Week Discharge Medications: New cefuroxime axetil 500 mg tablet 500 mg PO BID Qty: 10 0RF doxycycline hyclate 100 mg capsule 100 mg PO BID Qty: 10 0RF Continued quetiapine 25 mg tablet 12.5 mg PO BID amiodarone 200 mg tablet 200 mg PO DAILY sertraline 100 mg tablet 100 mg PO DAILY Eliquis 2.5 mg tablet 2.5 mg PO BID cholecalciferol (vitamin D3) 25 mcg (1,000 unit) Capsule 25 mcg PO DAILY sennosides-docusate sodium [Senna-S] 8.6-50 mg Tablet 1 tab-cap PO DAILY PRN (Reason: Constipation) Rx Instructions: Hold for loose stools more then 3 times daily gabapentin 100 mg capsule 100 mg PO DAILY@1200 verapamil 120 mg tablet extended release 120 mg PO DAILY Protocol: Hold for HR <: HOLD for HR < : 60 quetiapine 25 mg tablet 25 mg PO BEDTIME lidocaine [Aspercreme (lidocaine)] 4 % Adhesive Patch,Medicated 1 patch TOPICAL DAILY tramadol 50 mg tablet 25 mg PO BID PRN (Reason: pain) gabapentin 300 mg capsule 300 mg PO DAILY lisinopril 5 mg tablet 5 mg PO DAILY Artificial Tears([id number]) Drops 2 drp OPHTHALMIC (EYE) TID PRN (Reason: Dry Eyes) nitrofurantoin monohyd/m-cryst 100 mg capsule 1 cap PO BID Rx Instructions: End date 11/30/24 PreserVision AREDS-2 250-90-40-1 mg Capsule 1 cap PO DAILY dextrose [Glucose Gel] 40 % Gel 15 g PO Q15M PRN (Reason: low blood sugar) Rx Instructions: until symptoms of low blood sugar are controlled magnesium hydroxide [Milk of Magnesia] 400 mg/5 mL suspension 30 ml PO DAILY PRN (Reason: Constipation) Rx Instructions: 30 ml daily for no BM in 3 days oral as needed for constipation bisacodyl 10 mg suppository 10 mg ND DAILY PRN (Reason: Constipation) Rx Instructions: If M.O.M not effective Fleet Enema 19-7 gram/118 mL enema 118 ml ND DAILY PRN (Reason: Constipation) Rx Instructions: If Bisacodyl supp. not effective. acetaminophen 500 mg capsule 500 mg PO TID PRN (Reason: Pain) Diet: Per [employer] recs as noted Activity on Discharge: As tolerated Stand Alone Forms: Patient Portal Discharge page Print Language: Taiwanese Care Plan Goals: Continue treating pneumonia Wean from supplemental O2 Adequate hydration Transfer back to [facility] Concerns: Pneumonia Hypoxia Acute kidney injury Metabolic encephalopathy Plan of Treatment: Pneumonia: Cefuxoxime 500mg BID and Doxycycline 100mg BID x 5 days Aspiration precautions wtih diet recommendations per [employer]- Pureed solids, thin liquids. Sit upright with small sips and bites Pills crushed in puree Assessment: See above. See discharge summary
--- NOTE | 2024-12-01 12:54 | MHC.CM.PN ---
Addendum entered by Irene Youngblood 12/01/24 13:52: Discharge has been cancelled today. Original Note: IMM 11/29/24 Patient is discharged today. She will return to [facility]. Transportation is booked for 1pm brain picker @ [facility]. All discharge information has been sent to the SNF. She will return for LTC.
[2024-12-01 14:26] LABS: MANUAL DIFF FLAG NO
[2024-12-01 14:30] LABS: Hematocrit 32.2 % (37.0-47.0); Hemoglobin 10.3 g/dl (12.0-16.0); Imm Gran Abs Auto 0.05 X10*3/uL (0.00-0.03); Imm Gran Pct Auto 0.6 % (0.0-0.4); Lymphocytes Absolute Auto 0.7 X10*3/uL (1.2-4.9); Mean Corpuscular HGB Conc 32.0 g/dl (31.0-35.0); Mean Corpuscular Hemoglobin 30.2 pg (27.0-33.0); Mean Corpuscular Volume 94.4 fL (80.0-98.0); NRBC Abs Auto 0.000 X10*3/uL (0.0-0.012); NRBC Pct Auto 0.0 /100WBC (0.0-0.2); Platelet Count 119 X10*3/uL (160-400); Red Blood Count 3.41 X10*6/uL (4.20-5.50); White Blood Count 8.2 X10*3/uL (4.8-10.8)
[2024-12-01 14:32] LABS: VBG HCO3 30 mmol/L (22-26); VBG O2 % Saturation 100.0 %
[2024-12-01 14:32] LABS: Venous Blood Gas Refer to POC result
[2024-12-01 14:37] LABS: Ammonia 25 umol/L (13-55)
[2024-12-01 14:46] LABS: Alanine Aminotransferase 11 U/L (0-31); Albumin Level 3.9 g/dL (3.5-5.0); Alkaline Phosphatase 68 U/L (39-117); Anion Gap 10 (12-20); Aspartate Amino Transferase 27 U/L (5-31); Blood Urea Nitrogen 23 mg/dL (9-16); Calcium 8.7 mg/dL (8.4-10.2); Carbon Dioxide 28 mmol/L (22-29); Chloride 106 mmol/L (96-108); Creatinine Clr Calc Pharmacy 34.9; Estimated Glomerular Filt Rate 52; Potassium 3.5 mmol/L (3.3-5.1); Sodium 140 mmol/L (135-145); Total Protein 6.2 g/dL (6.5-8.0)
[2024-12-01 14:58] LABS: Troponin-I High Sensitivity 51.7 ng/L (<3.5-17.0)
--- NOTE | 2024-12-01 14:58 | ECG_ITS ---
Test Reason : elevated trop Blood Pressure : */* mmHG Vent. Rate : 102 BPM Atrial Rate : * BPM P-R Int : * ms QRS Dur : 70 ms QT Int : 310 ms P-R-T Axes : * 20 -34 degrees QTcB Int : 404 ms Atrial fibrillation with rapid ventricular response Low voltage QRS Nonspecific ST and T wave abnormality Abnormal ECG When compared with ECG of 29-Nov-2024 13:10, Atrial fibrillation has replaced ?Atach Questionable change in QRS duration Referred By: Darya Lyles Electronically Signed By: Amando Valdes
[2024-12-01 15:09] LABS: B Type Natriuretic Peptide 1279 pg/mL (<100)
[2024-12-01] MEDS: 0.9 % Sodium Chloride Flush 3 ML SYRINGE IVFLUSH (15:33)
--- NOTE | 2024-12-01 15:41 | MHC.SL.SWA ---
Speech Pathologist Impression: Risk of Aspiration Due to: Dysphasia Diet Status: Recommend at this time continue on Puree (NDD1) with thin liquids, pills crushed in puree. Liquid Consistency and Strategies for Safe Swallow: Liquid Intake Recommendation: Thin Liquid Intake Strategies: Solid Food Consistency: Dietary Recommendations: Pureed (NDD1) Additional Modifications to Solid Foods: Oral Medication Intake: Crushed with Puree Please contact the pharmacy regarding appropriate crushable or liquid drug formulations that are available whenever modified delivery is recommended. Compensatory Strategies and Precautions to be Taken for Safe Swallow: Sitting Upright (90 deg) Liquids from Cup Liquids from Straw Small Bites and Sips Alternate Liquids/Solids Oral Check Supervision While Eating and Drinking for Safe Swallow: Total Assistance (1:1) Foods to Avoid: Swallowing Recommended Treatments: Compens. Strategy Educat. Recommendation for Speech: Inpatient Speech Therapy Speech Therapy through Rehab Facility Comment: Patient seen at Breakfast this morning, which she initially agreed to attempt. However with offer of food, patient refused. Patient offered sips of liquid, given sip of apple juice on tray by straw which patient managed well, but then complained about apple juice giving her diarrhea and refused more. REMOTE SENSING PROGRAM MANAGER retrieved some orange juice instead, with patient taking single sip and again complaining about the taste this time. Patient accepted single bite of egg from breakfast tray, grimaced at the taste, asked can I spit it out? but was encouraged to swallow, and given a sip of liquid to clear any residual. Patient with ample complaint about the food, making association between the food and drink and toileting, which she seemed to want to avoid. Patient is currently on pureed diet with thin liquids, previous REMOTE SENSING PROGRAM MANAGER notes indicate diet recommended as other textures not trialed. Patient at baseline on Chopped/Advanced and thin at [facility]. REMOTE SENSING PROGRAM MANAGER attempted to return to assess patient for upgrade later in the day, patient was unavailable and chart indicated likely pending d/c. Unclear at this writing if patient is returning to [facility] or remaining at [facility]. If the latter, recommend REMOTE SENSING PROGRAM MANAGER continue to follow, re-assess for upgrade of solids and toleration of diet. Recommend at this time continue on Puree (NDD1) with thin liquids, pills crushed in puree. Frequency/Duration: Date Range for Service Req: Timeline to reassess: Train Dispatcher Clinican/Clinical Fellow: No Supervisory Statement: I have reviewed and agree with the student/clinical fellow's documentation: N/A Speech Language Pathologist: Cristin Soto M.A., CCC-REMOTE SENSING PROGRAM MANAGER
--- NOTE | 2024-12-01 15:42 | PC.NURSE ---
Pt orientation waxes and waines through day. A&O x1-2. Poor po intake. BP 160's-170-s systolic. O2 Sats 97-98% on 1L, but 82-83% on room air. Provider Darya HEBERT notified. Medicated with extra dose of amlodopine. Plan to DC back to [facility] but son came in questioning discharge, reports being told pt would be discharge possibly Thursday. Darya in to assess pt. Orders for U/A, CXR, IV labetolol, Troponin. Troponin elvevated @51.7. EKG ordered, Telemonitor applied and IV labetolol given. BNP ordered and IV fluids DC'd. Denies Chest pain. Pt with 800cc urine output for 7a-3p. Order to transfer to [facility]. Report given to
[2024-12-01 15:59] LABS: Appearance Urine Clear; Glucose Urine UA Negative (Negative); PH 5.5 (5.0-9.0); Specific Gravity - Urine 1.015 (1.005-1.025); UMIC TRIGGER UACC YES
[2024-12-01] MEDS: Furosemide 40 MG/4 ML VIAL IVPUSH (16:21)
--- NOTE | 2024-12-01 16:22 | P.PNIM_ITS ---
Subjective Subjective Date of Service: 12/01/24 Interval History: Seen and examined Interval history: This morning A&Ox3, comfortable no complaints except cough wanting to go back to [facility]. Plan for discharge. However, patient noted to be decreased responsiveness, open eyes but not answering questions except for occasional nonsensical utterances but able to follow commands did report nausea. Temp 99.7, hypertensive. Again on reexam, mental status back to baseline with no complaints, stating that of course I get confused sometimes, I have dementia . Did deny headache, vision changes, shortness of breath, lightheadedness, palpitations, chest pain, abd pain, nausea, vomiting. Endorses urinary frequency but no dysuria Review of Systems Review of Systems: Yes all other systems are reviewed and are negative Physical Exam 2 Vital Signs: Vital Signs: Last Vital Signs Temp 99.0 F 12/01/24 16:00 Pulse 91 12/01/24 16:00 Resp 16 12/01/24 16:00 BP 168/79 H 12/01/24 16:00 Pulse Ox 96 12/01/24 16:00 O2 Del Method Room Air 12/01/24 16:00 O2 Flow Rate 1 12/01/24 13:41 Oxygen Flow Rate 2 11/28/24 10:56 BMI result Body Mass Index 25.0 Constitutional - Awake and Alert, No apparent distress Eyes - PERRLA, EOMI Cardiovascular - S1S2, RRR, No edema Respiratory - Normal lung expansion, Normal respiratory effort, No respiratory distress, crackles bilateral lower lobes Gastrointestinal - NT / ND; +BS; No rebound or guarding Extremities - no calf tenderness bilaterally, no swelling Skin - Warm/Dry Neurological - Alert & oriented x3 on reexam though not entirely clear on why she is here, CN II-XII in tact, 5/5 strength BUE and BLE Psychological - Appropriate affect Objective Data Active Medications Acetaminophen (Acetaminophen 325 Mg Tablet) 650 mg PO Q6H PRN PRN Reason: Pain, Mild 1-3,fever,headache Amiodarone HCl (Amiodarone Hcl 200 Mg Tablet) 200 mg PO DAILY [facility] Last Admin: 12/01/24 08:48 Dose: 200 mg Documented By: CARLI Apixaban (Apixaban 2.5 Mg Tablet) 2.5 mg PO BID [facility] Last Admin: 12/01/24 08:48 Dose: 2.5 mg Documented By: CARLI Artificial Tears (Artificial Tears 15 Ml Drops) 2 drop EYE-BOTH TID PRN PRN Reason: Dry Eyes Bisacodyl (Bisacodyl 10 Mg Supp.Rect) 10 mg MT DAILY PRN PRN Reason: Constipation Calcium Carbonate (Calcium Carbonate 750 Mg Tab.Chew) 750 mg PO Q4H PRN PRN Reason: Heartburn Ceftriaxone Sodium (Ceftriaxone Sodium 1 Gm Vial) 1 gm IV Q24H [facility] Last Admin: 12/01/24 12:51 Dose: 1 gm Documented By: CARLI Docusate Sodium (Docusate Sodium 100 Mg Capsule) 100 mg PO BID [facility] Last Admin: 12/01/24 08:51 Dose: Not Given Documented By: CARLI Non-Admin Reason: pt has diarrhea Furosemide (Furosemide 40 Mg/4 Ml Vial) 40 mg IVPUSH DAILY [facility]; Protocol Doxycycline Hyclate 100 mg/ (Sodium Chloride) 250 mls @ 166.67 mls/hr IV Q12H [facility] Lidocaine (Lidocaine 4 % Patch Adh..Patch) 1 patch TRANSDERMA DAILY [facility]; Protocol Last Admin: 12/01/24 08:58 Dose: 1 patch Documented By: CARLI Magnesium Hydroxide (Milk Of Magnesia 30 Ml Oral.Susp) 30 ml PO DAILY PRN PRN Reason: Constipation Magnesium Hydroxide (Milk Of Magnesia 30 Ml Oral.Susp) 30 ml PO DAILY PRN PRN Reason: Constipation Multivitamins/Vitamin C (Multivitamin Tablet) 1 tab PO DAILY [facility] Last Admin: 12/01/24 08:48 Dose: 1 tab Documented By: CARLI Ondansetron HCl (Ondansetron Odt 4 Mg Tab.Rapdis) 4 mg TRANSLINGU Q6H PRN PRN Reason: Nausea and Vomiting Last Admin: 12/01/24 12:15 Dose: 4 mg Documented By: RONEY Senna/Docusate Sodium (Sennosides/Docusate Sodium Tablet) 1 tab PO DAILY PRN PRN Reason: Constipation Sertraline HCl (Sertraline Hcl 100 Mg Tablet) 100 mg PO DAILY [facility] Last Admin: 12/01/24 08:48 Dose: 100 mg Documented By: CARLI Sodium Biphosphate/Sodium Phosphate (Sodium Phosphate,Kemper-Dibasic 133 Ml Enema) 118 ml MT DAILY PRN PRN Reason: Constipation Sodium Chloride (0.9 % Sodium Chloride Flush 3 Ml Syringe) 3 ml IVFLUSH QSHIFT [facility] Last Admin: 12/01/24 15:33 Dose: 3 ml Documented By: PETEY Verapamil HCl (Verapamil Hcl Sr 120 Mg Tablet.Er) 120 mg PO DAILY [facility]; Protocol Last Admin: 12/01/24 08:48 Dose: 120 mg Documented By: CARLI Vitamin D (Cholecalciferol (Vitamin D3) 25 Mcg Tablet) 25 mcg PO DAILY [facility] Last Admin: 12/01/24 08:48 Dose: 25 mcg Documented By: CARLI Labs 12/01/24 14:22 12/01/24 14:22 Labs: Laboratory Results - last 24 hr 12/01/24 12/01/24 12/01/24 06:08 14:22 14:23 MCV 97.7 94.4 MCH 30.5 30.2 MCHC 31.2 32.0 RDW 13.3 13.2 Plt Count 101 L 119 L MPV 10.5 9.9 Immature Gran % (Auto) 0.6 H Neut % (Auto) 83.6 H Lymph % (Auto) 8.5 L Kemper % (Auto) 6.3 Eos % (Auto) 0.6 Baso % (Auto) 0.4 Lymph # (Auto) 0.7 L Kemper # (Auto) 0.5 Eos # (Auto) 0.1 Baso # (Auto) 0.0 Abs Immat Gran (auto) 0.05 H Absolute Neuts (auto) 6.9 Absolute Nucleated RBC 0.000 0.000 Nucleated RBC % (auto) 0.0 0.0 VBG pH VBG pCO2 VBG pO2 VBG HCO3 VBG O2 Saturation VBG Base Excess Anion Gap 13 10 L Estim Creat Clear Calc 30.7 34.9 Estimated GFR 45 52 Random Glucose 124 H 130 H Calcium 8.6 8.7 Total Bilirubin 0.4 Direct Bilirubin 0.2 AST 27 ALT 11 Alkaline Phosphatase 68 Ammonia 25 B-Natriuretic Peptide 1279 H Total Protein 6.2 L Albumin 3.9 Urine Color Urine Appearance Urine pH Ur Specific [place] Urine Protein Urine Glucose (UA) Urine Ketones Urine Blood Urine Nitrite Ur Leukocyte Esterase 12/01/24 12/01/24 14:29 15:30 MCV MCH MCHC RDW Plt Count MPV Immature Gran % (Auto) Neut % (Auto) Lymph % (Auto) Kemper % (Auto) Eos % (Auto) Baso % (Auto) Lymph # (Auto) Kemper # (Auto) Eos # (Auto) Baso # (Auto) Abs Immat Gran (auto) Absolute Neuts (auto) Absolute Nucleated RBC Nucleated RBC % (auto) VBG pH 7.39 VBG pCO2 49 VBG pO2 116 VBG HCO3 30 H VBG O2 Saturation 100.0 VBG Base Excess 5.1 Anion Gap Estim Creat Clear Calc Estimated GFR Random Glucose Calcium Total Bilirubin Direct Bilirubin AST ALT Alkaline Phosphatase Ammonia B-Natriuretic Peptide Total Protein Albumin Urine Color Yellow Urine Appearance Clear Urine pH 5.5 Ur Specific [place] 1.015 Urine Protein 30 (1+) H Urine Glucose (UA) Negative Urine Ketones Negative Urine Blood Trace H Urine Nitrite Negative Ur Leukocyte Esterase Negative Assessment and Plan (1) Chronic anticoagulation: Status: Acute Plan 89F PMH pafib, unspecified dementia, DM, CKD III, presented with lethargy Acute metabolic encephalopathy Initially thought to be related to pneumonia and dehydration which improved with IV fluids and antibiotics Recurred 12/01: CXR, cbc,bmp, ammonia, vbg, trop, ua Head CT canceled- no focal neuro deficits and mentation improved to baseline Uncontrolled htn Given labetalol x1 Continue p.o. antihypertensives Acute hypoxic respiratory failure secondary to pneumonia (no sepsis) Continue ceftriaxone and doxycycline Covering for community-acquired pneumonia and possible aspiration Speech recommending pureed solids with thin liquids - continue to follow weaned to room air Acute kidney injury on CKD 3 likely due to dehydration Continue hydration, monitor, hold lisinopril, creatinine improved from 3.29 to 1.58 which is about baseline Paroxysmal AFib Continue Eliquis, amiodarone, verapamil Acute metabolic encephalopathy Due to pneumonia and dehydration, much improved unspecified dementia quetiapine, gabapentin held for AMS mental status much improved, but currently does not appear to need DNR/DNI DVT prophylaxis on Eliquis reason for continued hospitalization: ongiong iv abx and ivf for pnaumonia and michael Quality Stroke Does the patient have a stroke diagnosis?: No VTE Prior VTE?: No VTE Risk Level:: Medical - moderate - high VTE Device Contraindication: Treatment Not Indicated VTE Drug Contraindication: N/A - Med Ordered
[2024-12-01 17:05] LABS: Troponin-I High Sensitivity 51.4 ng/L (<3.5-17.0)
[2024-12-01 17:46] LABS: Resp Syncy Virus RNA Qual PCR NEGATIVE (Negative); SARS COV2 PCR INHOUSE NEGATIVE (Negative)
[2024-12-02 03:14] VITALS: BP 123/76; PULSE 98; RESP 18; TEMP 36.3; O2SAT 96
[2024-12-02 07:03] VITALS: BP 162/78; PULSE 94; RESP 16; TEMP 36.8; O2SAT 96
[2024-12-02 07:06] LABS: MANUAL DIFF FLAG NO
[2024-12-02 07:07] LABS: Hematocrit 34.1 % (37.0-47.0); Hemoglobin 11.2 g/dl (12.0-16.0); Imm Gran Abs Auto 0.06 X10*3/uL (0.00-0.03); Imm Gran Pct Auto 0.7 % (0.0-0.4); Lymphocytes Absolute Auto 0.7 X10*3/uL (1.2-4.9); Mean Corpuscular HGB Conc 32.8 g/dl (31.0-35.0); Mean Corpuscular Hemoglobin 30.9 pg (27.0-33.0); Mean Corpuscular Volume 93.9 fL (80.0-98.0); NRBC Abs Auto 0.000 X10*3/uL (0.0-0.012); NRBC Pct Auto 0.0 /100WBC (0.0-0.2); Platelet Count 112 X10*3/uL (160-400); Red Blood Count 3.63 X10*6/uL (4.20-5.50); White Blood Count 8.9 X10*3/uL (4.8-10.8)
[2024-12-02 07:20] LABS: Anion Gap 12 (12-20); Blood Urea Nitrogen 24 mg/dL (9-16); Calcium 9.2 mg/dL (8.4-10.2); Carbon Dioxide 34 mmol/L (22-29); Chloride 100 mmol/L (96-108); Creatinine Clr Calc Pharmacy 29.6; Estimated Glomerular Filt Rate 43; Potassium 3.7 mmol/L (3.3-5.1); Sodium 142 mmol/L (135-145)
[2024-12-02 07:27] LABS: B Type Natriuretic Peptide 900 pg/mL (<100)
[2024-12-02] MEDS: VerapamiL HCL SR 120 MG TABLET.ER PO (09:12)
[2024-12-02] MEDS: Lidocaine 4 % Patch ADH..PATCH 1 PATCH TRANSDERMA (09:13)
[2024-12-02] MEDS: Furosemide 40 MG/4 ML VIAL IVPUSH (09:13)
[2024-12-02] MEDS: 0.9 % Sodium Chloride Flush 3 ML SYRINGE IVFLUSH (09:14)
--- NOTE | 2024-12-02 10:58 | MHC.CM.PN ---
Second IMM given 12/02. Per MD rounds, pt is medically cleared for discharge back to LTC at [facility] today, pts daughter/HCP Kelli was called and notified of discharge plan.
[2024-12-02 11:40] VITALS: BP 152/84; PULSE 97; RESP 16; TEMP 37; O2SAT 99
--- NOTE | 2024-12-02 11:47 | PM.DS ---
DS: Providers Provider Date of Service: 12/02/24 Date of admission: 11/28/24 14:40 Date of discharge: 12/02/24 Primary care physician: Shakir Munoz MD DS: Diagnosis Discharge Diagnosis (1) Chronic anticoagulation: Status: Acute DS: Summary Hospital Course Hospital Course: HPI on admission by Keke Busch NP on 11/28: Chief Complaint: Hypoxia, AMS 89-year-old female history of AFib, chronic lower extremity wounds, GERD, dementia, T2 DM, CKD, anemia of chronic disease brought in by EMS for evaluation of lethargy and mental status change. Patient unable to provide any history due to dementia and AMS. Patient recently treated with Macrobid for UTI which started 11/24/2024. Patient was transferred to ED following Mental status changes and decreased responsiveness. Patient noted to be hypoxic and febrile in the ED. chest x-ray in the ED demonstrated left basilar atelectasis versus pneumonia. No pleural effusion, pneumothorax or pulmonary vascular congestion. Heart is normal in size. Mild anemia 10.6/35.1 consistent with baseline, no leukocytosis. Patient noted to have acute kidney injury. Creatinine increased to 3.29, baseline 1.5-1.7. K 5.7. Troponin slightly elevated. appears at baseline for patient. BNP 673, previously 571. Hospital course: 81-year-old female admitted to [facility] for management of acute hypoxemic respiratory failure in the setting of pneumonia. No evidence of sepsis. She was treated with IV ceftriaxone and doxycycline to cover for community-acquired pneumonia as well as possible aspiration. On arrival, she had also developed SARAH likely secondary to hypoperfusion from dehydration. She was treated with IV fluids and creatinine returned to baseline. She was seen and evaluated by speech therapy who recommended puree solids with thin liquids which patient tolerated well. No aspiration episodes witnessed. Acute metabolic encephalopathy resolved. She was weaned to 1L supplemental O2 and can be discharged on this. She will be discharged on cefuroxime 500mg BID and doxycycline 100mg BID x 5 days. Continue weaning supplemental O2. Continue with INSURANCE CLAIMS ASSISTANT recommendations. Acute hypoxemic respiratory failure in the setting of pneumonia No sepsis Treated with IV ceftriaxone and doxycycline. Initiate cefuroxime 500 mg twice daily and doxycycline 100 mg twice daily x5 days Continue weaning supplemental O2 maintaining oximetry > 92% Incentive spirometry as needed Acute metabolic encephalopathy In setting of above, resolved Returned to baseline mentation with background unspecified cognitive impairment Resume quetiapine, gabapentin on discharge Continue sertraline Aspiration risk Per INSURANCE CLAIMS ASSISTANT, continue pureed solids and thin liquids Sit upright, small bites and sips Pills crushed with puree Acute kidney injury on CKD stage 3 Cr improved from 3.29 to 1.14 with IVF Encourage PO hydration Paroxysmal atrial fibrillation Rate controlled during admission Continue eliquis, amiodarone, verapamil Hypertension Continue lisinopril, verapamil and discharge Chronic normocytic anemia, likely secondary to chronic disease H/H remained baseline Time Attestation Discharge Coordination Time (in mins): 40 Quality: Safe Use of Opioids Does Pt have an Active Cancer Diagnosis on the Problem List?: No Quality: Stroke Does the patient have a stroke diagnosis?: No Physical Exam Vital Signs: Vital Signs: Last Vital Signs Temp 98.6 F 12/02/24 11:40 Pulse 97 12/02/24 11:40 Resp 16 12/02/24 11:40 BP 152/84 H 12/02/24 11:40 Pulse Ox 99 12/02/24 11:40 O2 Del Method Nasal Cannula 12/02/24 11:40 O2 Flow Rate 1 12/02/24 11:40 Oxygen Flow Rate 2 11/28/24 10:56 BMI result Body Mass Index 25.0 DS: Data Data Completed and Pending Labs on day of discharge: Laboratory Results - last 24 hr 12/01/24 12/01/24 12/01/24 14:22 14:23 14:29 WBC 8.2 RBC 3.41 L Hgb 10.3 L Hct 32.2 L MCV 94.4 MCH 30.2 MCHC 32.0 RDW 13.2 Plt Count 119 L MPV 9.9 Immature Gran % (Auto) 0.6 H Neut % (Auto) 83.6 H Lymph % (Auto) 8.5 L [place] % (Auto) 6.3 Eos % (Auto) 0.6 Baso % (Auto) 0.4 Lymph # (Auto) 0.7 L [place] # (Auto) 0.5 Eos # (Auto) 0.1 Baso # (Auto) 0.0 Abs Immat Gran (auto) 0.05 H Absolute Neuts (auto) 6.9 Absolute Nucleated RBC 0.000 Nucleated RBC % (auto) 0.0 VBG pH 7.39 VBG pCO2 49 VBG pO2 116 VBG HCO3 30 H VBG O2 Saturation 100.0 VBG Base Excess 5.1 Sodium 140 Potassium 3.5 Chloride 106 Carbon Dioxide 28 Anion Gap 10 L BUN 23 H Creatinine 1.00 Estim Creat Clear Calc 34.9 Estimated GFR 52 Random Glucose 130 H Calcium 8.7 Total Bilirubin 0.4 Direct Bilirubin 0.2 AST 27 ALT 11 Alkaline Phosphatase 68 Ammonia 25 Troponin I High Sens 51.7 H* D B-Natriuretic Peptide 1279 H Total Protein 6.2 L Albumin 3.9 Urine Color Urine Appearance Urine pH Ur Specific [place] Urine Protein Urine Glucose (UA) Urine Ketones Urine Blood Urine Nitrite Ur Leukocyte Esterase Urine RBC Urine WBC Ur Squamous Epith Cells Urine Bacteria Hyaline Casts Urine Yeast Influenza Type A (PCR) Influenza Type B (PCR) RSV RNA Qual (PCR) SARS-CoV-2 RNA (RT-PCR) 12/01/24 12/01/24 12/01/24 15:30 16:15 16:50 WBC RBC Hgb Hct MCV MCH MCHC RDW Plt Count MPV Immature Gran % (Auto) Neut % (Auto) Lymph % (Auto) [place] % (Auto) Eos % (Auto) Baso % (Auto) Lymph # (Auto) [place] # (Auto) Eos # (Auto) Baso # (Auto) Abs Immat Gran (auto) Absolute Neuts (auto) Absolute Nucleated RBC Nucleated RBC % (auto) VBG pH VBG pCO2 VBG pO2 VBG HCO3 VBG O2 Saturation VBG Base Excess Sodium Potassium Chloride Carbon Dioxide Anion Gap BUN Creatinine Estim Creat Clear Calc Estimated GFR Random Glucose Calcium Total Bilirubin Direct Bilirubin AST ALT Alkaline Phosphatase Ammonia Troponin I High Sens 51.4 H* B-Natriuretic Peptide Total Protein Albumin Urine Color Yellow Urine Appearance Clear Urine pH 5.5 Ur Specific [place] 1.015 Urine Protein 30 (1+) H Urine Glucose (UA) Negative Urine Ketones Negative Urine Blood Trace H Urine Nitrite Negative Ur Leukocyte Esterase Negative Urine RBC 3-5 H Urine WBC 0-5 Ur Squamous Epith Cells 3-5 Urine Bacteria None Seen Hyaline Casts 0-2 Urine Yeast Present Influenza Type A (PCR) NEGATIVE Influenza Type B (PCR) NEGATIVE RSV RNA Qual (PCR) NEGATIVE SARS-CoV-2 RNA (RT-PCR) NEGATIVE 12/02/24 06:30 WBC 8.9 RBC 3.63 L Hgb 11.2 L Hct 34.1 L MCV 93.9 MCH 30.9 MCHC 32.8 RDW 13.2 Plt Count 112 L MPV 9.9 Immature Gran % (Auto) 0.7 H Neut % (Auto) 83.3 H Lymph % (Auto) 7.4 L [place] % (Auto) 7.2 Eos % (Auto) 1.1 Baso % (Auto) 0.3 Lymph # (Auto) 0.7 L [place] # (Auto) 0.6 Eos # (Auto) 0.1 Baso # (Auto) 0.0 Abs Immat Gran (auto) 0.06 H Absolute Neuts (auto) 7.4 Absolute Nucleated RBC 0.000 Nucleated RBC % (auto) 0.0 VBG pH VBG pCO2 VBG pO2 VBG HCO3 VBG O2 Saturation VBG Base Excess Sodium 142 Potassium 3.7 Chloride 100 Carbon Dioxide 34 H Anion Gap 12 BUN 24 H Creatinine 1.18 Estim Creat Clear Calc 29.6 Estimated GFR 43 Random Glucose 130 H Calcium 9.2 Total Bilirubin Direct Bilirubin AST ALT Alkaline Phosphatase Ammonia Troponin I High Sens B-Natriuretic Peptide 900 H Total Protein Albumin Urine Color Urine Appearance Urine pH Ur Specific [place] Urine Protein Urine Glucose (UA) Urine Ketones Urine Blood Urine Nitrite Ur Leukocyte Esterase Urine RBC Urine WBC Ur Squamous Epith Cells Urine Bacteria Hyaline Casts Urine Yeast Influenza Type A (PCR) Influenza Type B (PCR) RSV RNA Qual (PCR) SARS-CoV-2 RNA (RT-PCR) Discharge Plan Discharge Anticipated Discharge Date/Time: 12/02/24 11:48 Patient Disposition: Xfer LTC Discharge Diagnosis: Acute hypoxemic respiratory failure, pneumonia, SARAH, metabolic encephalopathy Referrals: [facility] [Outside] - 1 Week Shakir Munoz MD [Primary Care Provider, Internal Medicine] - 1 Week Discharge Medications: New cefuroxime axetil 500 mg tablet 500 mg PO BID Qty: 10 0RF doxycycline hyclate 100 mg capsule 100 mg PO BID Qty: 10 0RF Continued quetiapine 25 mg tablet 12.5 mg PO BID amiodarone 200 mg tablet 200 mg PO DAILY sertraline 100 mg tablet 100 mg PO DAILY Eliquis 2.5 mg tablet 2.5 mg PO BID cholecalciferol (vitamin D3) 25 mcg (1,000 unit) Capsule 25 mcg PO DAILY sennosides-docusate sodium [Senna-S] 8.6-50 mg Tablet 1 tab-cap PO DAILY PRN (Reason: Constipation) Rx Instructions: Hold for loose stools more then 3 times daily gabapentin 100 mg capsule 100 mg PO DAILY@1200 verapamil 120 mg tablet extended release 120 mg PO DAILY Protocol: Hold for HR <: HOLD for HR < : 60 quetiapine 25 mg tablet 25 mg PO BEDTIME lidocaine [Aspercreme (lidocaine)] 4 % Adhesive Patch,Medicated 1 patch TOPICAL DAILY tramadol 50 mg tablet 25 mg PO BID PRN (Reason: pain) gabapentin 300 mg capsule 300 mg PO DAILY lisinopril 5 mg tablet 5 mg PO DAILY Artificial Tears([id number]) Drops 2 drp OPHTHALMIC (EYE) TID PRN (Reason: Dry Eyes) nitrofurantoin monohyd/m-cryst 100 mg capsule 1 cap PO BID Rx Instructions: End date 11/30/24 PreserVision AREDS-2 250-90-40-1 mg Capsule 1 cap PO DAILY dextrose [Glucose Gel] 40 % Gel 15 g PO Q15M PRN (Reason: low blood sugar) Rx Instructions: until symptoms of low blood sugar are controlled magnesium hydroxide [Milk of Magnesia] 400 mg/5 mL suspension 30 ml PO DAILY PRN (Reason: Constipation) Rx Instructions: 30 ml daily for no BM in 3 days oral as needed for constipation bisacodyl 10 mg suppository 10 mg AL DAILY PRN (Reason: Constipation) Rx Instructions: If M.O.M not effective Fleet Enema 19-7 gram/118 mL enema 118 ml AL DAILY PRN (Reason: Constipation) Rx Instructions: If Bisacodyl supp. not effective. acetaminophen 500 mg capsule 500 mg PO TID PRN (Reason: Pain) Discharge Orders: Discharge Order (Routine); Ordered 12/02/24 Ordered By: Ilan Norton Diet: Per INSURANCE CLAIMS ASSISTANT recs as noted Activity on Discharge: As tolerated Stand Alone Forms: Patient Portal Discharge page Print Language: Luxembourgish Care Plan Goals: Continue treating pneumonia Wean from supplemental O2 Adequate hydration Transfer [facility] Concerns: Pneumonia Hypoxia Acute kidney injury Metabolic encephalopathy Plan of Treatment: Pneumonia: Cefuxoxime 500mg BID and Doxycycline 100mg BID x 5 days Aspiration precautions wtih diet recommendations per INSURANCE CLAIMS ASSISTANT- Pureed solids, thin liquids. Sit upright with small sips and bites Pills crushed in puree Assessment: See above. See discharge summary
--- NOTE | 2024-12-02 15:48 | MHC.SL.SWA ---
Speech Pathologist Impression: Risk for Aspiration, Oral Phase Dysphagia Dysphasia Diet Status: Upgrade to NDD2/THIN Liquid Consistency and Strategies for Safe Swallow: Liquid Intake Recommendation: Thin Liquid Intake Strategies: Small Sips Solid Food Consistency: Dietary Recommendations: Grnd/Mech Altered (NDD2) Additional Modifications to Solid Foods: D/C on recommendation for ground/mech altered diet (NDD2) diet and thin liquids, pills crushed in puree. Patient will need 1:1 assistance with meals, check oral cavity for pocketing, alternate bites/sips to promote clearance. Oral Medication Intake: Crushed with Puree Please contact the pharmacy regarding appropriate crushable or liquid drug formulations that are available whenever modified delivery is recommended. Compensatory Strategies and Precautions to be Taken for Safe Swallow: Sitting Upright (90 deg) Liquids from Cup Liquids from Straw Small Bites and Sips Alternate Liquids/Solids Oral Check Supervision While Eating and Drinking for Safe Swallow: Total Assistance (1:1) Swallowing Recommended Treatments: Compens. Strategy Educat. Recommendation for Speech: Inpatient Speech Therapy Speech Therapy through Rehab Facility Staffing Operations Manager Clinican/Clinical Fellow: No Supervisory Statement: I have reviewed and agree with the student/clinical fellow's documentation: N/A Speech Language Pathologist: Corinna Agustin M.A., CCC-SMOKEHOUSE OPERATOR
== END 2024-12-02 16:15 | DRG 193 ==
LOC: HO.ED 14:40 → HO.EDOVER 14:48 → HO.S3 11-29 19:20 → HO.IMC 12-01 15:03
PROVIDERS: Nurse Practitioner Family; Physician Assistant; Admitting Provider Internal Medicine; Emergency Provider Emergency Medicine; PCP Family Medicine Geriatric Medicine; Visit Provider Internal Medicine
DX: J18.9 Pneumonia, unspecified organism (principal); G93.41 Metabolic encephalopathy; J96.01 Acute respiratory failure with hypoxia; N17.9 Acute kidney failure, unspecified; J98.11 Atelectasis; Z66 Do not resuscitate; I12.9 Hypertensive chronic kidney disease with stage 1 through stage 4 chronic kidney disease, or unspecified chronic kidney disease; E86.0 Dehydration; D63.1 Anemia in chronic kidney disease; F03.90 Unspecified dementia, unspecified severity, without behavioral disturbance, psychotic disturbance, mood disturbance, and anxiety; I48.0 Paroxysmal atrial fibrillation; N18.30 Chronic kidney disease, stage 3 unspecified; E11.22 Type 2 diabetes mellitus with diabetic chronic kidney disease; Z20.822 Contact with and (suspected) exposure to COVID-19; Z79.01 Long term (current) use of anticoagulants; Z79.899 Other long term (current) drug therapy
CPT/HCPCS: 36415; 71045; 80048; 80053; 80076; 81001; 81003; 82140; 82803; 83605; 83690; 83735; 83880; 84443; 84484; 85025; 85027; 87637; 92526; 92610; 93005; 99285; J0616; J0696; J1271; J1920; J1938

== ENCOUNTER → 2024-11-28 11:45 | Outpatient (BNV) | payer MEDICARE, OTHER, MEDICAID, SELFPAY | PROVIDERS: Emergency Provider Emergency Medicine; PCP Family Medicine Geriatric Medicine; Visit Provider Radiology Diagnostic Radiology | DX: R91.8 Other nonspecific abnormal finding of lung field (principal) | CPT/HCPCS: 71045 ==

== ENCOUNTER 2024-11-28 14:40 | Outpatient (BNV) | payer MEDICARE, OTHER, MEDICAID, SELFPAY | END 2024-12-01 14:58 | PROVIDERS: Admitting Provider Internal Medicine; Emergency Provider Emergency Medicine; PCP Family Medicine Geriatric Medicine; Visit Provider Internal Medicine Cardiovascular Disease | DX: I48.91 Unspecified atrial fibrillation (principal) | CPT/HCPCS: 93010 ==

== ENCOUNTER 2024-11-28 14:40 | Outpatient (BNV) | payer MEDICARE, OTHER, MEDICAID, SELFPAY | END 2024-12-01 13:45 | PROVIDERS: Admitting Provider Internal Medicine; Emergency Provider Emergency Medicine; PCP Family Medicine Geriatric Medicine; Visit Provider Radiology Diagnostic Radiology | DX: J90 Pleural effusion, not elsewhere classified (principal); J98.4 Other disorders of lung | CPT/HCPCS: 71045 ==

== ENCOUNTER 2024-11-28 14:40 | Outpatient (BNV) | payer MEDICARE, OTHER, MEDICAID, SELFPAY | END 2024-11-29 13:05 | PROVIDERS: Admitting Provider Internal Medicine; Emergency Provider Emergency Medicine; PCP Family Medicine Geriatric Medicine; Visit Provider Internal Medicine Cardiovascular Disease | DX: R94.31 Abnormal electrocardiogram [ECG] [EKG] (principal); I48.91 Unspecified atrial fibrillation | CPT/HCPCS: 93010 ==

== ENCOUNTER → 2024-11-28 14:40 | Outpatient (BNV) | payer MEDICARE, OTHER, MEDICAID, SELFPAY | PROVIDERS: Admitting Provider Internal Medicine; Emergency Provider Emergency Medicine; PCP Family Medicine Geriatric Medicine; Visit Provider Nurse Practitioner Family | DX: Z79.01 Long term (current) use of anticoagulants (principal) | CPT/HCPCS: 99223; 99232; 99499 ==